=== PATIENT | female | born 1960 | race Caucasian/White ===

== ENCOUNTER 2020-03-09 12:11 | Inpatient (IN) | payer OTHER, MEDICAID, SELFPAY ==
--- NOTE | ~2020-03-09 | XR_ITS ---
EXAMINATION: XR chest 2V DATE: 03/09/2020 13:00 INDICATION: Weakness. TECHNIQUE: Frontal and lateral views of the chest were obtained. COMPARISON: Chest single view 05/07/2019, CT abdomen and pelvis 04/06/2019 FINDINGS: The chest demonstrates clear lungs without pneumonia, pleural effusion, or pneumothorax. Th e heart size is normal. IMPRESSION: 1. No acute cardiopulmonary disease. Reviewed, dictated and finalized at location A.
--- NOTE | ~2020-03-09 | US_ITS ---
EXAMINATION: US venous doppler [facility] DATE: 03/12/2020 09:39 INDICATION: Left lower limb pain. TECHNIQUE: Grayscale ultrasound images without and with compression and Doppler ultrasound images of the left lower extremity veins were obtained. COMPARISON: Ultrasound 04/22/2019 FINDINGS: Sensitivity is decreased by obesity. The visualized portions of left common femoral vein, profunda (d eep) femoral vein, femoral vein, popliteal vein, peroneal veins, posterior tibial veins, and greater saphenous vein outflow are patent. IMPRESSION: 1. No deep venous thrombosis. Reviewed, dictated and finalized at location A.
--- NOTE | ~2020-03-09 | CT_ITS ---
EXAMINATION: CT abdomen pelvis wo con DATE: 03/09/2020 15:27 INDICATION: Abdomen pain, vomiting and fever TECHNIQUE: Computed tomography (CT) of the abdomen and pelvis was performed without intravenous contr ast. The dose-length product was 1449.64 mGy-cm. Automated exposure control and iterative reconstruct ion technique were employed. COMPARISON: CT dated 04/06/2019 FINDINGS: There are groundglass opacities in the lingula and left lower lobe. No significant pleural or pericardial effusion. No significant vascular abnormality. No lymphadenopathy. There is extensive atherosclerosis in the abdomen and pelvis. There are gallstones. There are calcified granulomas in the spleen. There is pancreatic atrophy. The adrenal glands and kidneys are unremarkable. There is a Salgado catheter in the bladder. Nonobstructive bowel gas pattern. Colonic diverticulosis without evidence for diverticulitis. No free air or free f luid. There are are hemangiomas in L1 and L4. No acute osseous abnormality. IMPRESSION: 1. Groundglass opacities in the lingula and left lower lobe, suspicious for pneumonia. 2: Cholelithiasis. Reviewed, dictated and finalized at location A. IMPRESSION: 1. Groundglass opacities in the lingula and left lower lobe, suspicious for pne umonia. 2: Cholelithiasis.
[2020-03-09 12:32] VITALS: BP 125/65; PULSE 115; RESP 18; TEMP 38.3; O2SAT 97
--- NOTE | 2020-03-09 12:42 | ECG_ITS ---
Measurements Intervals [place] Rate: 120 P: 81 PA: 180 QRS: -11 QRSD: 69 T: 10 QT: 294 QTc: 416 Interpretive Statements SINUS TACHYCARDIA LOW QRS VOLTAGE IN PRECORDIAL LEADS DELAYED PRECORDIAL R/S TRANSITION BORDERLINE T WAVE ABNORMALITY- INFERIOR LEADS BASELINE ARTIFACT- I, II, AVR, AVL, V5-V6 ABNORMAL ECG Electronically Signed On 03-09-2020 15:11:35 CDT by Emmanuel Logan D.O.
[2020-03-09] MEDS: SODIUM CHLORIDE 0.9% IV 1,000 ML 999 ML IV CONT (14:22)
[2020-03-09 14:36] LABS: Basophils Percent Auto 0.1 % (0.2-1.2); Hematocrit 31.7 % (37.0-47.0); Hemoglobin 10.2 g/dL (12.0-15.0); Immature Granulocyte Absolute 0.12 K/mm3 (0.00-0.031); Immature Granulocyte Percent A 0.8 % (0-0.5); Lymphocytes Absolute Auto 0.88 K/mm3 (0.9-3.2); Lymphocytes Percent Auto 5.5 % (18.3-44.2); Mean Corpuscular HGB Conc 32.2 g/dl (32-36); Mean Corpuscular Hemoglobin 28.1 pg (26-34); Mean Corpuscular Volume 87.3 fl (80-100); Mean Platelet Volume 9.4 fl (7.4-10.4); Monocytes Absolute Auto 0.5 K/mm3 (0.1-0.6); Neutrophils Absolute Auto 14.5 K/mm3 (1.3-6.7); Neutrophils Percent Auto 90.6 % (45.5-73.1); Platelet Count Result 221 k/mm3 (150-375); Red Blood Count 3.63 M/mm3 (4.2-5.4); Red Cell Distribution Width 14.3 % (11.5-14.5)
--- NOTE | 2020-03-09 14:43 | ED.WEAKNESS ---
HPI - Weakness General Chief complaint: Weakness Stated complaint: weakness Time Seen by Provider: 03/09/20 13:28 Source: patient Mode of arrival: ambulatory Limitations: no limitations History of Present Illness HPI Narrative: This is a 59 year old female that presents to the ER for weakness x 2 days. Reports fever/chills. Also reports some mid abdominal discomfort, nausea and vomiting. Reports history of chronic indwelling Salgado. Reports shortness of breath that is worse with exertion. This is been ongoing for some time. Reports she had recently been in a rehab facility after a surgery. Reports she has not been getting around much since her discharge. Denies chest pain, or hematuria. Related Data Home Medications Medication Instructions Recorded Confirmed atorvastatin 80 mg tablet 80 mg PO DAILY 08/11/19 12/27/19 cholecalciferol (vitamin D3) 125 5,000 unit PO DAILY 08/11/19 12/27/19 mcg (5,000 unit) capsule gabapentin 300 mg capsule 300 mg PO TID cap 08/11/19 12/27/19 insulin glargine 100 unit/mL 26 unit SUB-Q DAILY ml 08/13/19 12/27/19 subcutaneous solution amlodipine 2.5 mg tablet 2.5 mg PO DAILY 01/17/20 cephalexin 500 mg capsule 500 mg PO Q8H 01/17/20 cyanocobalamin (vitamin B-12) 1,000 mcg PO DAILY 01/17/20 1,000 mcg tablet hydrochlorothiazide 12.5 mg capsule 12.5 mg PO DAILY 01/17/20 polyethylene glycol 3350 17 17 gm PO DAILY 01/17/20 gram/dose oral powder Allergies Allergy/AdvReac Type Severity Reaction Status Date / Time vancomycin Allergy Unknown Unknown Verified 12/27/19 11:40 doxycycline Allergy Weakness Verified 03/09/20 12:35 Review of Systems Review of Systems: Narrative: CONSTITUTIONAL: Reports fever, chills ENT: Denies rhinorrhea, congestion CARDIOVASCULAR: Reports edema. Denies chest pain RESPIRATORY: Reports dyspnea. Denies cough GASTROINTESTINAL: Reports abdominal pain, nausea, vomiting GENITOURINARY: Denies hematuria. NEUROLOGIC: Reports weakness. All systems reviewed & are unremarkable except as noted in HPI and below PMFSH Past Medical History Medical History (Updated 03/09/20 @ 17:40 by Noy Galindo PA-C) Depressed Diabetes mellitus with stage 3 chronic kidney disease Edema Essential (primary) hypertension Hyperlipidemia associated with type 2 diabetes mellitus Hypertension Toe amputee Social History Social History Smoking status: Never smoker Second hand tobacco smoke exposure: No Alcohol intake: current Gender identity (if verbalized by the patient): Female Exam Narrative: Exam Narrative: GENERAL: Well-appearing, obese, and in no acute distress. HEAD: Normocephalic, atraumatic. EYES: EOMI. ENT: Nares clear, no rhinorrhea or epistaxis. Mucous membranes moist. Oropharynx without tonsillar hypertrophy exudate or other lesions. Bilateral TMs pearly garcia non-bulging NECK: Supple. No adenopathy or masses. CHEST: Clear to auscultation. No respiratory distress. No wheezes rales or rhonchi HEART: Regular rate and rhythm. No murmur heard. Normal peripheral pulses. ABDOMEN: Soft, nondistended, normal active bowel sounds. Mild mid abdominal tenderness, without guarding EXTREMITIES: Normal range of motion. No edema. SKIN: Warm, dry, no rash. NEURO: No focal deficits. Alert and oriented x3. PSYCH: Normal mood and affect Course Consultations Consultation #1: Spoke with hospitalist about patient and work-up who accepts admission Date: 03/09/20 Time: 17:42 Vital Signs Vital signs: Vital Signs Temperature 100.9 F H 03/09/20 12:32 Pulse Rate 115 H 03/09/20 12:32 Respiratory Rate 18 03/09/20 12:32 Blood Pressure 125/65 03/09/20 12:32 Pulse Oximetry 97 03/09/20 12:32 Temperature 101.3 F H 03/09/20 16:05 Pulse Rate 101 H 03/09/20 16:05 Respiratory Rate 20 03/09/20 16:05 Blood Pressure 113/52 L 03/09/20 16:05 Pulse Oximetry 96 03/09/20 16:05 MDM - Weakness MDM Na
[2020-03-09 14:47] LABS: INR 1.3; Partial Thromboplastin Time 36.8 SECONDS (22.3-36.8)
[2020-03-09 14:49] LABS: Alanine Aminotransferase 24 U/L (4-35); Alkaline Phosphatase 172 U/L (38-126); Aspartate Amino Transferase 37 U/L (14-36); Bilirubin,Total 1.3 mg/dL (0.2-1.3); Blood Urea Nitrogen 39 mg/dL (7-17); Calcium 8.9 mg/dL (8.4-10.2); Carbon Dioxide 26 mmol/L (22-30); Chloride 93 mmol/L (98-107); Estimated CRCL calculation 32 ml/min; Estimated Glomerular Filt Rate 20; Glucose 304 mg/dL (65-105); Potassium 4.2 mmol/L (3.4-5.0); Sodium 130 mmol/L (137-145)
[2020-03-09 15:03] LABS: NT Pro B Type Natriuretic Pept 2040 PG/ML (5-100)
[2020-03-09 15:15] LABS: Add Urine Microscopic? YES; Appearance Urine Cloudy (Clear); Bacteria Urine 4+ /hpf; Bilirubin Urine Negative (Negative); Blood Urine 2+ (Negative); Color Urine Yellow (Yellow); Glucose Urine UA Negative (Negative); Ketones Urine Negative (Negative); Leukocyte Esterase Ur 3+ LEU/UL (Negative); Mucus Urine Heavy /lpf; Nitrate Urine Negative (Negative); Protein Urine 3+ mg/dL (Negative); Specific Grav Ur 1.015 (1.001-1.035); Squamous Epithelial Cell Urine Few /hpf (Few); Urobilinogen Urine Negative mg/dL (<2.0); WBC Urine 51-75 /hpf
[2020-03-09 15:37] LABS: CRP 31.7 mg/dL (<1.0)
[2020-03-09 16:04] LABS: Lactic Acid Reflex 1.2 mmol/L (0.7-2.1)
[2020-03-09 16:05] VITALS: BP 113/52; PULSE 101; RESP 20; TEMP 38.5; O2SAT 96
[2020-03-09] MEDS: KETOROLAC 15 MG/ML VIAL (*BKC) IV PUSH (17:10)
[2020-03-09 18:14] VITALS: BP 107/49; PULSE 90; RESP 26; TEMP 38.3; O2SAT 94
[2020-03-09 18:28] LABS: Glucose Point of Care 302 (65-105)
--- NOTE | 2020-03-09 18:30 | PM.IMHP ---
H&P: HPI History of Present Illness Chief complaint: Fever, weakness. 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 She has not felt well for the past 2 to 3 days with multiple symptoms including subjective fever, chills, decreased appetite, nausea, and vomiting. Today she has also had sinus congestion and mild shortness of breath with exertion. Earlier this year she was hospitalized in [place] due to a left heel infection in which it sounds like she underwent several debridements. She was discharged to rehab facility thereafter but is now back at home. She really does not leave the house, but does have a friend over most days to help. To her knowledge, her visitor has not had any recent illness, but she does not always wear a mask when in the patient's home. At the time my evaluation, her nausea has improved and she is requesting water and perhaps even to try some food. She denies headache, neck ache, otalgia, and odynophagia. She has not had a cough. She denies exposure to those who of tested positive for COVID. No diarrhea. She notes an indwelling Salgado catheter for over a year, which was changed within the last couple of days. No wounds to her knowledge. Review of Systems Review of Systems: Narrative: Twelve systems were reviewed with pertinent positives and negatives as per HPI. No chest pain or palpitations. She denies orthopnea and PND. No abdominal pain at this time but she did have some mild diffuse abdominal discomfort with her nausea earlier. She denies hematemesis, melena, and hematochezia. No lower abdominal pain or lower back pain. She believes her diabetes is fairly well controlled however her sugars have been high over the past couple of days. No blurry vision, polydipsia, or polyuria. Occasional mild dysphagia with liquids. She denies concerns for aspiration. Previous swallow studies have been unremarkable according to the patient. Except as documented, all other systems were reviewed and are negative. [facility] Past Medical History Medical History (Updated 03/09/20 @ 22:24 by Riddhi Funk PA-C) Chronic anemia Chronic kidney disease, stage [address] Benson. Colon polyps (~05/2016) Depression Diabetic peripheral neuropathy Essential hypertension Hyperlipidemia Insulin dependent type 2 diabetes mellitus Hemoglobin A1c was 7.0% in August 2019. Mixed stress and urge urinary incontinence Morbid obesity Surgical History Surgical History (Updated 03/09/20 @ 22:18 by Riddhi Funk PA-C) History of amputation of toe 4th toes amputated bilaterally. History of fusion of cervical spine (~10/2001) History of local excision of skin lesion Exophytic lesion removed from the right eyelid, benign. Status post debridement (~2019) Left diabetic heel wound. Family History Family History Mother Cerebrovascular accident Family history of diabetes mellitus in first degree relative Father Family history of diabetes mellitus in first degree relative Grandparent Diabetes mellitus Other Family history of anemia Family history of obesity Social History Social History (Updated 03/09/20 @ 22:19 by Riddhi Funk PA-C) Social History: The patient lives in [place] with her dogs. She has been on disability for several years. She is a former smoker and quit approximately 17 years ago. No alcohol or illicit substance use. Her brother Domingo is her emergency contact. She wishes to be a full code. Gender identity (if verbalized by the patient): Female Spiritual care concerns: No Meds Home Medications and Allergies Home Medications Medication Instructions Recorde
--- NOTE | 2020-03-09 18:44 | ADMGEN ---
This patient, Theodora Kelly, was admitted to [facility] Room 330-01. Patient/family oriented to hospital policies and general routines including ID bracelet, bed and alarms, visiting hours, pain management, procedures, bathroom and other care routines, personal items, smoking policy, room service/diet, and visiting hours. Valuables list has been completed. Information on how to activate the Rapid Response Team has been discussed. Patient/Family are encouraged to report perceived risks to care and to ask questions if they do not understand what they are told or what they should do.
[2020-03-09 18:45] VITALS: BMI 44.6
[2020-03-09 20:00] VITALS: PULSE 91; O2SAT 94
[2020-03-09 22:00] VITALS: BP 108/68; PULSE 110; RESP 24; TEMP 37; O2SAT 90
[2020-03-09 22:00] LABS: Glucose Point of Care 237 (65-105)
[2020-03-09 23:02] LABS: Hemoglobin A1C 8.8 % (<5.7)
[2020-03-09] MEDS: SODIUM CHLORIDE 0.9% IV 1,000 ML 100 ML IV CONT (23:10)
[2020-03-09] MEDS: GABAPENTIN 300 MG CAPSULE PO (23:33)
[2020-03-10] VITALS (14 sets, daily range): BP systolic 93–116; BP diastolic 41–51; PULSE 79–106; RESP 16–24; TEMP 36.6–39.2; O2SAT 92–97
[2020-03-10 06:29] LABS: Glucose Point of Care 172 (65-105)
[2020-03-10 06:33] LABS: Basophils Absolute Auto 0.1 K/mm3 (0.0-0.1); Basophils Percent Auto 0.3 % (0.2-1.2); Hematocrit 25.9 % (37.0-47.0); Hemoglobin 8.2 g/dL (12.0-15.0); Immature Granulocyte Absolute 0.13 K/mm3 (0.00-0.031); Immature Granulocyte Percent A 0.8 % (0-0.5); Lymphocytes Absolute Auto 0.57 K/mm3 (0.9-3.2); Lymphocytes Percent Auto 3.7 % (18.3-44.2); Mean Corpuscular HGB Conc 31.7 g/dl (32-36); Mean Corpuscular Volume 88.4 fl (80-100); Mean Platelet Volume 9.7 fl (7.4-10.4); Monocytes Absolute Auto 0.4 K/mm3 (0.1-0.6); Monocytes Percent Auto 2.4 % (2.6-8.5); Neutrophils Absolute Auto 14.3 K/mm3 (1.3-6.7); Neutrophils Percent Auto 92.8 % (45.5-73.1); Platelet Count Result 168 k/mm3 (150-375); Red Blood Count 2.93 M/mm3 (4.2-5.4); Red Cell Distribution Width 14.3 % (11.5-14.5); White Blood Count 15.4 K/mm3 (4.5-10.0)
[2020-03-10 06:44] LABS: Alanine Aminotransferase 15 U/L (4-35); Albumin Level 2.9 g/dL (3.5-5.1); Alkaline Phosphatase 109 U/L (38-126); Aspartate Amino Transferase 23 U/L (14-36); Bilirubin,Total 0.6 mg/dL (0.2-1.3); Blood Urea Nitrogen 44 mg/dL (7-17); Calcium 7.7 mg/dL (8.4-10.2); Carbon Dioxide 27 mmol/L (22-30); Chloride 100 mmol/L (98-107); Estimated CRCL calculation 29 ml/min; Estimated Glomerular Filt Rate 17; Glucose 176 mg/dL (65-105); Magnesium 1.5 mg/dL (1.6-2.3); Potassium 3.7 mmol/L (3.4-5.0); Sodium 133 mmol/L (137-145)
[2020-03-10] MEDS: ACIDOPHILUS/BULGARICUS CHEWABLE TABLET 1 TABLET PO ×3 (09:20→17:48)
[2020-03-10] MEDS: GABAPENTIN 300 MG CAPSULE PO ×3 (09:20→17:49)
[2020-03-10] MEDS: HEPARIN SODIUM 5,000 UNITS/ML VIAL 5000 UNITS SUB-Q ×2 (09:20→21:07)
[2020-03-10] MEDS: CYANOCOBALAMIN 1,000 MCG TABLET 1000 MCG PO (09:20)
[2020-03-10] MEDS: ATORVASTATIN 40 MG TABLET 80 MG PO (09:20)
[2020-03-10] MEDS: amLODIPine BESYLATE 2.5 MG TABLET PO (09:21)
[2020-03-10] MEDS: CHOLECALCIFEROL 1,000 UNIT TABLET 5000 UNITS PO (09:21)
[2020-03-10] MEDS: SODIUM CHLORIDE 0.9% IV 1,000 ML 100 ML IV CONT ×2 (09:33→21:10)
--- NOTE | 2020-03-10 11:51 | PM.IMPN ---
Progress Note: A&P Assessment and Plan (1) Sepsis: Code(s): A41.9 - Sepsis, unspecified organism Status: Acute Assessment and Plan: Present on admission and supported by fever, tachycardia, tachypnea, and leukocytosis. Lactic acid level is within normal limits. Preliminary blood cultures revealed no growth to date. Await final cultures. Continue IV antibiotics Continue to monitor vitals closely (2) Bacteriuria with pyuria: Code(s): R82.71 - Bacteriuria; R82.81 - Pyuria Status: Acute Assessment and Plan: She has had indwelling Salgado catheter for about a year and a half due to urinary retention. She has established with urology has not been able to follow-up in some time. She denies urinary symptoms or discomfort associated with her catheter. Continue ceftriaxone with urine culture pending (3) Pneumonia involving left lung: Qualifiers: Pneumonia type: due to unspecified organism Lung location: lower lobe of lung Qualified Code(s): J18.9 - Pneumonia, unspecified organism Code(s): J18.9 - Pneumonia, unspecified organism Status: Acute Assessment and Plan: Did not demonstrate acute lung disease, however is noted on CT a/p that there is ground-glass opacities in the lingula and left lower lobe. Patient complains of intermittent cough. She has fever and leukocytosis. She was found to be COVID negative on 03/09/2020. She is maintaining adequate oxygenation on room air Continue azithromycin and ceftriaxone Sputum to be attempted for culture. Final blood cultures are pending. Legionella and pneumococcal urinary antigens are pending Discontinue isolation precautions given negative COVID test. Continue supportive care with bronchodilators, Mucinex, Tylenol for fever, and supplemental oxygen as needed (4) CKD (chronic kidney disease) stage 4, GFR 15-29 ml/min: Code(s): N18.4 - Chronic kidney disease, stage 4 (severe) Status: Acute Assessment and Plan: She is established with Dr. Benson. Per review of previous labs, it appears that her creatinine is fluctuant. It seems that her baseline is somewhere around 2.5. Today creatinine is 2.8 and BUN is 44. Continue to monitor renal function, avoid nephrotoxic agents, and renally dose medications. (5) Insulin dependent type 2 diabetes mellitus: Code(s): E11.9 - Type 2 diabetes mellitus without complications; Z79.4 - watermaster (current) use of insulin Status: Acute Assessment and Plan: Current A1c is 8.8. Her blood sugars have been evaluated and elevated at presentation, however have improved. Continue Lantus Continue sliding scale insulin, Accu-Cheks, and hypoglycemic protocol. Continue to monitor blood sugars (6) Chronic anemia: Code(s): D64.9 - Anemia, unspecified Status: Acute Assessment and Plan: This is likely secondary to her chronic kidney disease. Hemoglobin and hematocrit are stable on review of previous labs. She did have a 2 point drop in hemoglobin from yesterday to today Continue to monitor H&H closely and transfuse as needed with hemoglobin threshold <7.0. (7) Generalized weakness: Code(s): R53.1 - Weakness Status: Acute Assessment and Plan: Patient complains of generalized weakness. She has difficulty sitting up for my exam. I suspect this is secondary to deconditioning as she reports that she has been far less active lately. She rarely gets out of bed. PT and OT have been ordered and their recommendations are appreciated. Continue to monitor closely. Subjective Date/time seen: 03/10/20 11:51 Interval history: Date of service: 03/10/2020 She is feeling somewhat better today. She continues to endorse fever and chills. She has occasional nonproductive cough. She denies SOB, BARBOSA, orthopnea, chest pain, palpitations, dizziness, or lightheadedness. She previously had N/V yesterday but
[2020-03-10 13:36] LABS: Glucose Point of Care 133 (65-105)
[2020-03-10 13:49] LABS: SARS-CoV-2 RNA PCR Negative
--- NOTE | 2020-03-10 14:01 | PC.NURSE ---
Notified Dr. Brooke that patients COVID test was negative.
[2020-03-10 19:54] LABS: Glucose Point of Care 111 (65-105)
[2020-03-10 21:31] LABS: Glucose Point of Care 80 (65-105)
[2020-03-11] VITALS (9 sets, daily range): BP systolic 105–144; BP diastolic 44–60; PULSE 88–96; RESP 18–20; TEMP 36.6–36.9; O2SAT 97–99
[2020-03-11] MEDS: GLUCOSE ORAL GEL 15 GM OF GLUCSE IN 37.5 GM TUBE PO ×2 (01:10→12:45)
[2020-03-11] MEDS: DEXTROSE 50% 25 GM/50 ML SYRINGE IV PUSH (01:30)
[2020-03-11 01:53] LABS: Glucose Point of Care 90 (65-105)
[2020-03-11 01:53] LABS: Glucose Point of Care 49 (65-105)
[2020-03-11 01:53] LABS: Glucose Point of Care 45 (65-105)
[2020-03-11 03:00] LABS: Glucose Point of Care 120 (65-105)
[2020-03-11 06:45] LABS: Hematocrit 23.2 % (37.0-47.0); Hemoglobin 7.3 g/dL (12.0-15.0); Mean Corpuscular HGB Conc 31.5 g/dl (32-36); Mean Corpuscular Volume 88.9 fl (80-100); Mean Platelet Volume 10.2 fl (7.4-10.4); Platelet Count Result 163 k/mm3 (150-375); Red Blood Count 2.61 M/mm3 (4.2-5.4); Red Cell Distribution Width 14.6 % (11.5-14.5); White Blood Count 11.4 K/mm3 (4.5-10.0)
[2020-03-11 06:53] LABS: Blood Urea Nitrogen 50 mg/dL (7-17); Calcium 7.7 mg/dL (8.4-10.2); Carbon Dioxide 23 mmol/L (22-30); Chloride 103 mmol/L (98-107); Estimated CRCL calculation 29 ml/min; Estimated Glomerular Filt Rate 17; Glucose 96 mg/dL (65-105); Potassium 3.5 mmol/L (3.4-5.0); Sodium 133 mmol/L (137-145)
[2020-03-11 07:54] LABS: Glucose Point of Care 93 (65-105)
[2020-03-11 08:32] LABS: Glucose Point of Care 78 (65-105)
[2020-03-11] MEDS: SODIUM CHLORIDE 0.9% IV 1,000 ML 100 ML IV CONT ×2 (10:03→20:52)
[2020-03-11] MEDS: CHOLECALCIFEROL 1,000 UNIT TABLET 5000 UNITS PO (10:05)
[2020-03-11] MEDS: ATORVASTATIN 40 MG TABLET 80 MG PO (10:05)
[2020-03-11] MEDS: ACIDOPHILUS/BULGARICUS CHEWABLE TABLET 1 TABLET PO ×3 (10:05→18:00)
[2020-03-11] MEDS: CYANOCOBALAMIN 1,000 MCG TABLET 1000 MCG PO (10:06)
[2020-03-11] MEDS: GABAPENTIN 300 MG CAPSULE PO ×3 (10:06→18:00)
[2020-03-11] MEDS: HEPARIN SODIUM 5,000 UNITS/ML VIAL 5000 UNITS SUB-Q ×2 (10:06→20:53)
[2020-03-11 12:12] LABS: Hematocrit 24.1 % (37.0-47.0); Hemoglobin 7.7 g/dL (12.0-15.0)
[2020-03-11 12:43] LABS: Glucose Point of Care 64 (65-105)
[2020-03-11 12:51] LABS: Glucose Point of Care 68 (65-105)
[2020-03-11 12:55] LABS: Iron 20 ug/dL (37-170)
[2020-03-11 13:04] LABS: Percent Iron Saturation 13 % (20-50)
[2020-03-11 13:30] LABS: Glucose Point of Care 73 (65-105)
--- NOTE | 2020-03-11 15:21 | PM.IMPN ---
Progress Note: A&P Assessment and Plan (1) Sepsis: Code(s): A41.9 - Sepsis, unspecified organism Status: Acute Assessment and Plan: Present on admission and supported by fever, tachycardia, tachypnea, and leukocytosis. Lactic acid level is within normal limits. Improving. Source of infection is likely pneumonia. Preliminary blood cultures revealed no growth to date. Await final cultures. Continue IV antibiotics Continue to monitor vitals closely (2) Bacteriuria with pyuria: Code(s): R82.71 - Bacteriuria; R82.81 - Pyuria Status: Acute Assessment and Plan: She has had indwelling Salgado catheter for about a year and a half due to urinary retention. She has established with urology has not been able to follow-up in some time. She denies urinary symptoms or discomfort associated with her catheter. Urine culture reveals >3 organisms which appear to be consistent with normal tu contamination. I do not feel that further treatment is warranted at this time. She will need to follow-up with urology regarding Salgado catheter. (3) Pneumonia involving left lung: Qualifiers: Pneumonia type: due to unspecified organism Lung location: lower lobe of lung Qualified Code(s): J18.9 - Pneumonia, unspecified organism Code(s): J18.9 - Pneumonia, unspecified organism Status: Acute Assessment and Plan: CXR did not demonstrate acute lung disease, however it is noted on CT a/p that there is ground-glass opacities in the lingula and left lower lobe. Patient complains of intermittent cough. She has fever and leukocytosis, which have both improved . She is maintaining adequate oxygenation on room air Continue azithromycin and ceftriaxone Sputum to be attempted for culture. Final blood cultures are pending. Legionella and pneumococcal urinary antigens are pending Tested negative for COVID on 03/09/2020. Isolation precautions discontinued. Continue supportive care with bronchodilators, Mucinex, Tylenol for fever, and supplemental oxygen as needed (4) CKD (chronic kidney disease) stage 4, GFR 15-29 ml/min: Code(s): N18.4 - Chronic kidney disease, stage 4 (severe) Status: Acute Assessment and Plan: She is established with Dr. Benson. Per review of previous labs, it appears that her creatinine is fluctuant. It seems that her baseline is somewhere around 2.5. Today creatinine is 2.9 and BUN is 50. Continue to monitor renal function, avoid nephrotoxic agents, and renally dose medications. (5) Hypoglycemia: Code(s): E16.2 - Hypoglycemia, unspecified Status: Acute Assessment and Plan: She had an episode of hypoglycemia last night with lowest blood sugar 45. Sugars were elevated at presentation in continue to slowly decline throughout the day. She is eating well and is not having nausea or vomiting. Given that episode occurred overnight, I wonder if her Lantus dose is too high. Decrease Lantus to 15 units. Transition to low-dose sliding scale. Continue diabetic diet. However I do believe that lows may be somewhat related to strict diabetic diet which she is on the hospital but does not follow at home. Continue to monitor blood sugars closely. Follow hypoglycemia protocol. (6) Insulin dependent type 2 diabetes mellitus: Code(s): E11.9 - Type 2 diabetes mellitus without complications; Z79.4 - long term care administrator (current) use of insulin Status: Acute Assessment and Plan: Current A1c is 8.8. Her blood sugars have been evaluated and elevated at presentation, however have improved. She has had episodes of hypoglycemia as noted above. Continue Lantus at reduced dose Continue sliding scale insulin, Accu-Cheks, and hypoglycemic protocol. Continue to monitor blood sugars closely (7) Chronic anemia: Code(s): D64.9 - Anemia, unspecified Status: Acute Assessment and Plan: This is likely
[2020-03-11 16:05] LABS: Glucose Point of Care 109 (65-105)
[2020-03-11 18:35] LABS: Glucose Point of Care 118 (65-105)
[2020-03-11] MEDS: TOLNAFTATE 1% POWDER 45 GM BTL 1 APPLIC TOPICAL (20:51)
[2020-03-11] MEDS: INSULIN GLARGINE (*BKC) 100 UNITS/ML 15 UNITS SUB-Q (20:52)
[2020-03-11 22:47] LABS: Glucose Point of Care 127 (65-105)
[2020-03-12] VITALS: PULSE 87
[2020-03-12 00:28] LABS: Glucose Point of Care 123 (65-105)
[2020-03-12 04:07] VITALS: PULSE 82
[2020-03-12 06:00] VITALS: BP 127/55; PULSE 76; RESP 18; TEMP 36.6; O2SAT 97
[2020-03-12 06:35] LABS: Hematocrit 23.6 % (37.0-47.0); Hemoglobin 7.4 g/dL (12.0-15.0); Mean Corpuscular HGB Conc 31.4 g/dl (32-36); Mean Corpuscular Hemoglobin 27.5 pg (26-34); Mean Corpuscular Volume 87.7 fl (80-100); Platelet Count Result 172 k/mm3 (150-375); Red Blood Count 2.69 M/mm3 (4.2-5.4); Red Cell Distribution Width 14.4 % (11.5-14.5); White Blood Count 8.2 K/mm3 (4.5-10.0)
[2020-03-12 06:51] LABS: Blood Urea Nitrogen 47 mg/dL (7-17); Calcium 7.9 mg/dL (8.4-10.2); Carbon Dioxide 24 mmol/L (22-30); Chloride 105 mmol/L (98-107); Estimated CRCL calculation 34 ml/min; Estimated Glomerular Filt Rate 20; Glucose 143 mg/dL (65-105); Sodium 136 mmol/L (137-145)
[2020-03-12 07:38] LABS: Glucose Point of Care 127 (65-105)
[2020-03-12 08:00] VITALS: PULSE 83
[2020-03-12 08:26] LABS: Glucose Point of Care 140 (65-105)
[2020-03-12] MEDS: SODIUM CHLORIDE 0.9% IV 1,000 ML 100 ML IV CONT (09:03)
[2020-03-12] MEDS: amLODIPine BESYLATE 2.5 MG TABLET PO (09:04)
[2020-03-12] MEDS: ACIDOPHILUS/BULGARICUS CHEWABLE TABLET 1 TABLET PO ×2 (09:04→12:58)
[2020-03-12] MEDS: ATORVASTATIN 40 MG TABLET 80 MG PO (09:04)
[2020-03-12] MEDS: TOLNAFTATE 1% POWDER 45 GM BTL 1 APPLIC TOPICAL (09:05)
[2020-03-12] MEDS: CHOLECALCIFEROL 1,000 UNIT TABLET 5000 UNITS PO (09:05)
[2020-03-12] MEDS: GABAPENTIN 300 MG CAPSULE PO ×2 (09:05→12:58)
[2020-03-12] MEDS: CYANOCOBALAMIN 1,000 MCG TABLET 1000 MCG PO (09:05)
[2020-03-12] MEDS: HEPARIN SODIUM 5,000 UNITS/ML VIAL 5000 UNITS SUB-Q (10:40)
[2020-03-12 11:55] LABS: Glucose Point of Care 202 (65-105)
[2020-03-12 12:00] VITALS: PULSE 88
[2020-03-12] MEDS: INSULIN ASPART (*BKC) 100 UNITS/ML SUB-Q (12:57)
[2020-03-12 14:00] VITALS: BP 135/57; PULSE 86; RESP 18; TEMP 36.9; O2SAT 99
--- NOTE | 2020-03-12 14:35 | PM.DS ---
DS: Admitting Diagnosis Admitting Diagnosis Admitting Diagnosis: Sepsis, unspecified organism DS: Discharge Diagnosis Discharge Diagnosis (1) Sepsis: Qualifiers: Sepsis type: sepsis due to unspecified organism Sepsis acute organ dysfunction status: without acute organ dysfunction Qualified Code(s): A41.9 - Sepsis, unspecified organism Code(s): A41.9 - Sepsis, unspecified organism Status: Acute Assessment and Plan: Present on admission supported by fever, tachycardia, tachypnea, and leukocytosis, which all resolved. Lactic acid level was within normal limits. Suspected source is pneumonia. Preliminary blood cultures revealed no growth to date and final cultures will be monitored. (2) Pneumonia involving left lung: Qualifiers: Pneumonia type: due to unspecified organism Lung location: lower lobe of lung Qualified Code(s): J18.9 - Pneumonia, unspecified organism Code(s): J18.9 - Pneumonia, unspecified organism Status: Acute Assessment and Plan: CXR did not demonstrate acute lung disease, however it is noted on CT a/p that there is ground-glass opacities in the lingula and left lower lobe. She complained of cough and had fever and leukocytosis. She was maintaining adequate oxygenation on room air. She tested negative for COVID-19 on 03/09/2020. Legionella and pneumococcal urinary antigens were collected and are still pending at time of discharge, and will be monitored. She was treated with IV ceftriaxone and azithromycin. (3) Cellulitis: Qualifiers: Site of cellulitis: extremity Site of cellulitis of extremity: lower extremity Laterality: left Qualified Code(s): L03.116 - Cellulitis of left lower limb Code(s): L03.90 - Cellulitis, unspecified Status: Acute Assessment and Plan: At presentation, patient had chronic appearing erythema and thickened skin on left calf. Her calf then became somewhat warm. A Doppler ultrasound was performed and showed no evidence of DVT. On 03/12/2020, she developed erythema and warmth of her left thigh which was more consistent with cellulitis than the chronic appearing skin changes of her left calf. She had no lymphangitic streaking. Leukocytosis had resolved. No additional fevers. I marked the borders of the cellulitis of her thigh and instructed her to monitor for progression beyond the borders. She has a home health nurse as well as another mailroom manager who can help her evaluate this area for progression. She will begin a 7 day course of p.o. Augmentin, given her noted allergies and renal function. She has been instructed to follow-up with the on-call PCP by the end of next week to monitor this. Final blood cultures will be monitored. (4) Bacteriuria with pyuria: Code(s): R82.71 - Bacteriuria; R82.81 - Pyuria Status: Acute Assessment and Plan: She has had indwelling Salgado catheter for about a year and a half due to urinary retention. She is established with urology has not been able to follow-up in some time. She denies urinary symptoms or discomfort associated with her catheter. Urine culture reveals >3 organisms which appear to be consistent with normal tu contamination, therefore did not feel that further treatment was warranted. She needs to follow-up with her urologist regarding her Salgado catheter. (5) CKD (chronic kidney disease) stage 4, GFR 15-29 ml/min: Code(s): N18.4 - Chronic kidney disease, stage 4 (severe) Status: Acute Assessment and Plan: She is established with Dr. Benson. Per review of previous labs, it appears that her creatinine is fluctuant. It seems that her baseline is somewhere around 2.5. She had a slight bump, but was back to baseline at time of discharge. (6) Hypoglycemia: Code(s): E16.2 - Hypoglycemia, unspecified Status: Acute Assessment and Plan: She had an episode of hypoglycemia overnight on
[2020-03-14 23:12] LABS: Pneumococcal Antigen Urine Not Detected (Not Detected)
[2020-03-16 15:21] LABS: Legionella pneumophila Ag Ur Not Detected (Not Detected)
== END 2020-03-12 15:50 | disposition home health service (06) | DRG 871 ==
LOC: ANHED 17:41 → ANH3MEDSUR 18:23
PROVIDERS: Emergency Medicine; Physician Assistant; Admitting Provider Family Medicine; Emergency Provider Emergency Medicine; Visit Provider Internal Medicine
DX: A41.9 Sepsis, unspecified organism (principal); J18.9 Pneumonia, unspecified organism; L03.116 Cellulitis of left lower limb; N18.4 Chronic kidney disease, stage 4 (severe); Z20.828 Contact with and (suspected) exposure to other viral communicable diseases; R82.71 Bacteriuria; R82.81 Pyuria; I12.9 Hypertensive chronic kidney disease with stage 1 through stage 4 chronic kidney disease, or unspecified chronic kidney disease; E11.22 Type 2 diabetes mellitus with diabetic chronic kidney disease; E11.649 Type 2 diabetes mellitus with hypoglycemia without coma; D63.1 Anemia in chronic kidney disease; E78.5 Hyperlipidemia, unspecified; Z79.4 Long term (current) use of insulin
CPT/HCPCS: 36415; 71046; 74176; 80048; 80053; 81001; 82728; 82948; 83036; 83540; 83550; 83605; 83735; 83880; 85014; 85018; 85025; 85027; 85610; 85730; 86140; 87040; 87086; 87088; 87449; 87635; 87899; 93005; 93971; 96361; 96365; 96367; 96375; 97161; 97165; 99285; A9270; C9803; J0131; J0456; J0696; J1644; J1815; J1885; J7030; U0003

== ENCOUNTER 2020-04-02 17:47 | Emergency (ER) | payer OTHER, MEDICAID, SELFPAY ==
[2020-04-02 18:03] VITALS: BP 180/87; PULSE 107; RESP 18; TEMP 37; O2SAT 100
--- NOTE | 2020-04-02 18:33 | PC.NURSE ---
Pt indwelling catheter dislodged CHANGE MANAGEMENT SPECIALIST, Salgado Catheter placed in room.
--- NOTE | 2020-04-02 19:15 | PC.NURSE ---
assuming care of pt at this time. received report from anisha valera
--- NOTE | 2020-04-02 19:35 | ED.GENADULT ---
HPI - General Adult General Chief complaint: Unspecified Stated complaint: putting out woods Time Seen by Provider: 04/02/20 18:33 Source: patient and family Mode of arrival: wheelchair Limitations: no limitations History of Present Illness HPI narrative: Patient presents for replacement of Woods catheter after she accidentally tripped over her Woods catheter line and pulled it out prior to arrival. Patient reports discomfort at the time of the event but denies any significant discomfort at this time. Patient denies any other symptoms or concerns at this time. Patient reports that she has used to her vaginal area for which she uses nystatin powder and cream as prescribed by her primary care provider. Patient states that she also has home health care that comes in her house, but they could not come today and that is why she came to the emergency room. Related Data Home Medications Medication Instructions Recorded Confirmed atorvastatin 80 mg tablet 80 mg PO DAILY 08/11/19 03/16/20 cholecalciferol (vitamin D3) 125 5,000 unit PO DAILY 08/11/19 03/16/20 mcg (5,000 unit) capsule amlodipine 2.5 mg tablet 2.5 mg PO DAILY 01/17/20 03/16/20 cyanocobalamin (vitamin B-12) 1,000 mcg PO DAILY 01/17/20 03/16/20 1,000 mcg tablet hydrochlorothiazide 12.5 mg capsule 12.5 mg PO DAILY 01/17/20 03/16/20 nystatin 1 applic TOPICAL BID PRN 03/10/20 03/16/20 Allergies Allergy/AdvReac Type Severity Reaction Status Date / Time vancomycin Allergy Unknown Unknown Verified 12/27/19 11:40 doxycycline Allergy Weakness Verified 03/09/20 12:35 piperacillin [From Zosyn] Allergy Weakness Verified 03/09/20 18:53 tazobactam [From Zosyn] Allergy Weakness Verified 03/09/20 18:53 Review of Systems Review of Systems: Narrative: CONSTITUTIONAL: Denies fever, chills, or sweats. EYES: Denies visual changes, redness, or discharge. ENT: Denies rhinorrhea, congestion, sore throat, or otalgia. CARDIOVASCULAR: Denies chest pain, palpitations, or edema. RESPIRATORY: Denies cough or dyspnea. GASTROINTESTINAL: Denies abdominal pain, nausea, vomiting, or diarrhea. GENITOURINARY: Reports removed Woods catheter denies dysuria or hematuria. SKIN: Denies rash or itching. MUSCULOSKELETAL: Denies back pain, joint pain, or myalgia. NEUROLOGIC: Denies headache, numbness, dizziness, or weakness. PSYCHIATRIC: Denies anxiety or depression. [facility] Past Medical History Medical History (Updated 04/02/20 @ 19:46 by Weston Gambino PA-C) Chronic anemia Chronic kidney disease, stage [address] Benson. Colon polyps (~05/2016) Depression Diabetic peripheral neuropathy Essential hypertension Hyperlipidemia Insulin dependent type 2 diabetes mellitus Hemoglobin A1c was 7.0% in August 2019. Mixed stress and urge urinary incontinence Morbid obesity Surgical History Surgical History (Updated 03/09/20 @ 22:18 by Riddhi Funk PA-C) History of amputation of toe 4th toes amputated bilaterally. History of fusion of cervical spine (~10/2001) History of local excision of skin lesion Exophytic lesion removed from the right eyelid, benign. Status post debridement (~2019) Left diabetic heel wound. Social History Social History (Updated 03/09/20 @ 22:19 by Riddhi Funk PA-C) Social History: The patient lives in [place] with her dogs. She has been on disability for several years. She is a former smoker and quit approximately 17 years ago. No alcohol or illicit substance use. Her brother Domingo is her emergency contact. She wishes to be a full code. Gender identity (if verbalized by the patient): Female Spiritual care concerns: No Exam Narrative: Exam Narrative: GENERAL: Well-appearing, well-nourished, and in no acute distress. Morbidly obese. HEAD: Normocephalic, atraumatic. EYES: PERRLA and EOMI. ENT: Nares clear, no rhinorrhea or epistaxis. Mucous membranes moist. NECK: Supple. Range of motion intact. CHEST: Clear to auscultation.
[2020-04-02 19:57] VITALS: BP 168/79; PULSE 98; RESP 16; O2SAT 99
== END 2020-04-02 19:59 | disposition home or self-care (01) ==
PROVIDERS: Emergency Provider Family Medicine; PCP Family Medicine
DX: Z46.6 Encounter for fitting and adjustment of urinary device (principal); E11.22 Type 2 diabetes mellitus with diabetic chronic kidney disease; I12.9 Hypertensive chronic kidney disease with stage 1 through stage 4 chronic kidney disease, or unspecified chronic kidney disease; N18.3 Chronic kidney disease, stage 3 (moderate); Z87.891 Personal history of nicotine dependence; E11.42 Type 2 diabetes mellitus with diabetic polyneuropathy; N39.46 Mixed incontinence; E66.01 Morbid (severe) obesity due to excess calories; Z68.42 Body mass index [BMI] 45.0-49.9, adult; E78.5 Hyperlipidemia, unspecified; D63.1 Anemia in chronic kidney disease; Z86.010 Personal history of colon polyps; Z98.1 Arthrodesis status; Z89.422 Acquired absence of other left toe(s); Z89.421 Acquired absence of other right toe(s); Z79.4 Long term (current) use of insulin; Z79.84 Long term (current) use of oral hypoglycemic drugs
CPT/HCPCS: 51702; 99281; 99283

== ENCOUNTER 2020-05-29 17:27 | Inpatient (IN) | payer OTHER, MEDICAID, SELFPAY ==
--- NOTE | ~2020-05-29 | US_ITS ---
EXAMINATION: US venous doppler [facility] EXAM DATE: 05/31/2020 10:43 INDICATION: Left flank pain. Cellulitis. TECHNIQUE: Multiple grayscale, color flow and Doppler images of the left lower extremity deep venous system were obtained and reviewed. Comparison is made to prior examination from 03/12/2020. FINDINGS: The left common femoral, femoral and profunda veins demonstrate normal color flow, respirat ory variation, augmentation and compressibility. Compressibility, color flow confirmed within the le ft popliteal, posterior tibial, peroneal, and greater saphenous veins. IMPRESSION: 1. No left lower extremity deep venous thrombosis. Reviewed, dictated and finalized at location A.
--- NOTE | ~2020-05-29 | US_ITS ---
EXAMINATION: US renal BI EXAM DATE: 05/31/2020 10:44 INDICATION: Urinary tract infection. TECHNIQUE: Multiple grayscale and Doppler images of the kidneys were obtained (by a technologist who performed the scan) and subsequently reviewed. Comparison is made to prior examination from 04/06/2019. FINDINGS: Right kidney: There is normal contour and echogenicity. It measures 10.8 x 5.3 x 5.8 centimeters. T here are no focal renal lesions identified. There is no hydronephrosis. Left kidney: There is normal contour and echogenicity. It measures 10.4 x 6.2 x 5.0 centimeters. Th ere are no focal renal lesions identified. There is no hydronephrosis. Salgado catheter within collapsed bladder. IMPRESSION: Sonographically unremarkable kidneys. Reviewed, dictated and finalized at location A.
[2020-05-29 18:32] VITALS: BP 124/62; PULSE 99; RESP 20; TEMP 36.6; O2SAT 96
[2020-05-29 18:54] LABS: Basophils Percent Auto 0.3 % (0.2-1.2); Eosinophils Percent Auto 0.2 % (0-4.4); Hematocrit 27.5 % (37.0-47.0); Hemoglobin 9.1 g/dL (12.0-15.0); Immature Granulocyte Absolute 0.07 K/mm3 (0.00-0.031); Immature Granulocyte Percent A 0.5 % (0-0.5); Lymphocytes Absolute Auto 0.68 K/mm3 (0.9-3.2); Lymphocytes Percent Auto 4.8 % (18.3-44.2); Mean Corpuscular HGB Conc 33.1 g/dl (32-36); Mean Corpuscular Hemoglobin 28.6 pg (26-34); Mean Corpuscular Volume 86.5 fl (80-100); Monocytes Absolute Auto 0.6 K/mm3 (0.1-0.6); Monocytes Percent Auto 4.1 % (2.6-8.5); Neutrophils Absolute Auto 12.9 K/mm3 (1.3-6.7); Neutrophils Percent Auto 90.1 % (45.5-73.1); Platelet Count Result 175 k/mm3 (150-375); Red Blood Count 3.18 M/mm3 (4.2-5.4); Red Cell Distribution Width 14.3 % (11.5-14.5); White Blood Count 14.3 K/mm3 (4.5-10.0)
[2020-05-29 19:09] LABS: Alanine Aminotransferase 31 U/L (4-35); Albumin Level 3.2 g/dL (3.5-5.1); Alkaline Phosphatase 134 U/L (38-126); Aspartate Amino Transferase 37 U/L (14-36); Bilirubin,Total 1.1 mg/dL (0.2-1.3); Blood Urea Nitrogen 46 mg/dL (7-17); Calcium 8.6 mg/dL (8.4-10.2); Carbon Dioxide 20 mmol/L (22-30); Estimated CRCL calculation 33 ml/min; Estimated Glomerular Filt Rate 21; Glucose 431 mg/dL (65-105); Potassium 4.5 mmol/L (3.4-5.0); Sodium 127 mmol/L (137-145)
[2020-05-29 19:51] LABS: Anion Gap 11 mmol/L (8-16); Chloride 96 mmol/L (98-107)
[2020-05-29 22:16] VITALS: BP 120/49; PULSE 87; RESP 18; TEMP 36.8; O2SAT 100
[2020-05-29 22:46] VITALS: BP 129/70; PULSE 87; RESP 20; TEMP 36.7; O2SAT 100
--- NOTE | 2020-05-29 22:57 | ED.ABDPAIN ---
HPI - Abdominal Pain General Chief Complaint: Urogenital-Female Stated Complaint: ? uti Time Seen by Provider: 05/29/20 22:41 Source: patient and EMS Limitations: no limitations History of Present Illness HPI narrative: 59 years old white female, morbidly obese, disabled, presents with left lower extremity redness and pain, chills, not feeling well started few days ago. Patient denies any fever, nausea, vomiting, chest pain, shortness of breath, abdominal pain or back pain. Patient had history of recurrent cellulitis left lower extremity and recurrent urinary tract infections Related Data Home Medications Medication Instructions Recorded Confirmed atorvastatin 80 mg tablet 80 mg PO DAILY 08/11/19 03/16/20 cholecalciferol (vitamin D3) 125 5,000 unit PO DAILY 08/11/19 03/16/20 mcg (5,000 unit) capsule amlodipine 2.5 mg tablet 2.5 mg PO DAILY 01/17/20 03/16/20 cyanocobalamin (vitamin B-12) 1,000 mcg PO DAILY 01/17/20 03/16/20 1,000 mcg tablet hydrochlorothiazide 12.5 mg capsule 12.5 mg PO DAILY 01/17/20 03/16/20 Allergies Allergy/AdvReac Type Severity Reaction Status Date / Time vancomycin Allergy Unknown Unknown Verified 12/27/19 11:40 doxycycline Allergy Weakness Verified 03/09/20 12:35 piperacillin [From Zosyn] Allergy Weakness Verified 03/09/20 18:53 tazobactam [From Zosyn] Allergy Weakness Verified 03/09/20 18:53 Review of Systems Review of Systems: Narrative: CONSTITUTIONAL: Denies fever, chills, or sweats. EYES: Denies visual changes, redness, or discharge. ENT: Denies rhinorrhea, congestion, sore throat, or otalgia. CARDIOVASCULAR: Denies chest pain, palpitations, or edema. RESPIRATORY: Denies cough or dyspnea. GASTROINTESTINAL: Denies abdominal pain, nausea, vomiting, or diarrhea. GENITOURINARY: Denies dysuria or hematuria. SKIN: Denies rash or itching. MUSCULOSKELETAL: Denies back pain, joint pain, or myalgia. NEUROLOGIC: Denies headache, numbness, or weakness. PSYCHIATRIC: Denies anxiety or depression. [facility] Past Medical History Medical History Chronic anemia Chronic kidney disease, stage [address] Benson. Colon polyps (~05/2016) Depression Diabetic peripheral neuropathy Essential hypertension Hyperlipidemia Insulin dependent type 2 diabetes mellitus Hemoglobin A1c was 7.0% in August 2019. Mixed stress and urge urinary incontinence Morbid obesity Surgical History Surgical History History of amputation of toe 4th toes amputated bilaterally. History of fusion of cervical spine (~10/2001) History of local excision of skin lesion Exophytic lesion removed from the right eyelid, benign. Status post debridement (~2019) Left diabetic heel wound. Family History Family History Mother Cerebrovascular accident Family history of diabetes mellitus in first degree relative Father Family history of diabetes mellitus in first degree relative Grandparent Diabetes mellitus Other Family history of anemia Family history of obesity Social History Social History Social History: The patient lives in [place] with her dogs. She has been on disability for several years. She is a former smoker and quit approximately 17 years ago. No alcohol or illicit substance use. Her brother Domingo is her emergency contact. She wishes to be a full code. Gender identity (if verbalized by the patient): Female Spiritual care concerns: No Exam Narrative: Exam Narrative: General appearance: Well-developed, well-nourished Skin: Normal color, extensive erythema, warmth and tenderness medial side of left thigh, extensive skin candidiasis Head: Normocephalic, nontraumatic Eyes: Clear conjunctiva ENT: Oropharynx normal, ears normal, nose normal Neck: Supple, nontender Chest and respiratory:
--- NOTE | 2020-05-29 23:10 | ECG_ITS ---
Measurements Intervals [place] Rate: 84 P: 73 NH: 175 QRS: 0 QRSD: 94 T: 28 QT: 378 QTc: 448 Interpretive Statements SINUS RHYTHM LOW QRS VOLTAGE IN PRECORDIAL LEADS BASELINE ARTIFACT- I, III, AVR, AVL BORDERLINE ECG Electronically Signed On 05-30-2020 7:53:09 CDT by Emmanuel Logan D.O.
[2020-05-29 23:22] LABS: Add Urine Microscopic? YES; Amorphous Sediment Urine Few; Appearance Urine Cloudy (Clear); Bacteria Urine 4+ /hpf; Bilirubin Urine Negative (Negative); Blood Urine 1+ (Negative); Glucose Urine UA 1+ mg/dL (Negative); Ketones Urine Negative (Negative); Leukocyte Esterase Ur 3+ LEU/UL (Negative); Mucus Urine Rare /lpf; Nitrate Urine Negative (Negative); Protein Urine 3+ mg/dL (Negative); RBC Urine 21-50 /hpf (0-2); Specific Grav Ur 1.018 (1.001-1.035); Squamous Epithelial Cell Urine Occasional /hpf (Few); Urobilinogen Urine Negative mg/dL (<2.0); WBC Clumps Urine Present /HPF; WBC Urine >75 /hpf
[2020-05-29 23:23] LABS: Color Urine Yellow (Yellow)
[2020-05-29 23:48] LABS: Lactic Acid Reflex 2.3 mmol/L (0.7-2.1)
[2020-05-30 00:18] LABS: CRP 37.9 mg/dL (<1.0)
--- NOTE | 2020-05-30 00:23 | PC.NURSE ---
Unable to obtain IV access at this time. Will retry with ultrasound.
[2020-05-30] MEDS: SODIUM CHLORIDE 0.9% IV 1,000 ML 999 ML IV CONT (00:47)
[2020-05-30 00:58] VITALS: BP 110/99; PULSE 86; RESP 14; TEMP 36.8; O2SAT 100
[2020-05-30] MEDS: CLINDAMYCIN 900 MG/NS 50 ML 900 MG/50 ML PIGGYBACK 50 MG IVPB ×4 (01:04→21:13)
[2020-05-30] MEDS: INSULIN HUMAN REGULAR (*BKC) 100 UNITS/ML 14 UNITS IV PUSH (01:10)
--- NOTE | 2020-05-30 02:20 | ADMGEN ---
This patient, Theodora Kelly, was admitted to Medical Room 258-. Patient/family oriented to hospital policies and general routines including ID bracelet, bed and alarms, visiting hours, pain management, procedures, bathroom and other care routines, personal items, smoking policy, room service/diet, and visiting hours. Valuables list has been completed. Information on how to activate the Rapid Response Team has been discussed. Patient/Family are encouraged to report perceived risks to care and to ask questions if they do not understand what they are told or what they should do.
[2020-05-30 02:25] VITALS: BP 122/53; PULSE 83; RESP 16; TEMP 36.7; O2SAT 100; BMI 48.5
[2020-05-30 02:34] LABS: Reflex Lactic Acid Yes or No Add Lactic
[2020-05-30] MEDS: SODIUM CHLORIDE 0.9% IV 1,000 ML 150 ML IV CONT ×3 (03:59→19:30)
[2020-05-30 04:56] LABS: Lactic Acid 2.6 mmol/L (0.7-2.1)
[2020-05-30 04:58] LABS: Anion Gap 10 mmol/L (8-16); Blood Urea Nitrogen 50 mg/dL (7-17); Calcium 8.7 mg/dL (8.4-10.2); Carbon Dioxide 21 mmol/L (22-30); Chloride 98 mmol/L (98-107); Estimated CRCL calculation 31 ml/min; Estimated Glomerular Filt Rate 19; Glucose 394 mg/dL (65-105); Potassium 4.7 mmol/L (3.4-5.0); Sodium 129 mmol/L (137-145)
[2020-05-30 05:34] VITALS: BP 152/51; PULSE 87; RESP 16; TEMP 36.8; O2SAT 100
[2020-05-30] MEDS: TOLNAFTATE 1% POWDER 45 GM BTL 1 APPLIC TOPICAL (06:07)
--- NOTE | 2020-05-30 06:21 | PC.NURSE ---
patient came from er with chronic woods. New woods has been inserted.
[2020-05-30 08:13] LABS: Glucose Point of Care 321 (65-105)
[2020-05-30] MEDS: GABAPENTIN 300 MG CAPSULE PO ×3 (08:14→17:07)
[2020-05-30] MEDS: amLODIPine BESYLATE 2.5 MG TABLET PO (08:14)
[2020-05-30] MEDS: CYANOCOBALAMIN 1,000 MCG TABLET 1000 MCG PO (08:14)
[2020-05-30] MEDS: CHOLECALCIFEROL 1,000 UNITS TABLET 5000 UNITS PO (08:15)
[2020-05-30] MEDS: ACIDOPHILUS/BULGARICUS CHEWABLE TABLET 1 TABLET PO ×3 (08:15→17:08)
[2020-05-30] MEDS: ATORVASTATIN 40 MG TABLET 80 MG PO (08:17)
[2020-05-30] MEDS: INSULIN GLARGINE (*BKC) 100 UNITS/ML 26 UNITS SUB-Q ×2 (08:23→21:10)
[2020-05-30] MEDS: INSULIN ASPART (*BKC) 100 UNITS/ML SUB-Q ×3 (08:23→17:11)
--- NOTE | 2020-05-30 09:40 | PM.IMHP ---
H&P: HPI History of Present Illness Date/Time: 05/30/20 09:40 Chief complaint: UTI, catherer related,L lower extremity cellulitis Narrative: Theodora Kelly is a 59 year old female with DM, CKD and chronic indwelling Salgado here for left leg erythema and pain. Patient has had a history of left leg cellulitis summer 2018 and more recently in March of this year. Patient was feeling well until 4 days prior to admission when she developed weakness. She had pain in the left leg. She states that she resorted to bed rest over the next few days. She noted a temperature to 102 yesterday. She had chills yesterday as well. Occasional cough that is nonproductive. She is up-to-date on her flu and pneumonia vaccines. She does have a chronic Salgado and noted dark and cloudy urine. No blood in the urine. Strong odor to the urine. Slight nausea but no vomiting. Does have constipation symptoms actually. She has noted decreased appetite. There is no open areas to the left leg. She is unclear when she noted that it became erythematous. She feels that there is a large blister on the left leg but this was not seen on exam today. She was seen emergency room and appropriate cultures obtained. She started on clindamycin given her multiple allergies to medications. She denies any chest pain or shortness of breath. She does have dyspnea on exertion that comes and goes but has not changed significantly over long period time. No hx of RODRIGUEZ. She does have peripheral neuropathy from her diabetes. She also has left facial numbness and left upper extremity numbness but this is chronic. Had MRI of her brain in the past that was normal. She checks her glucose 3 times a day and states that it is up and down although cannot provide specific numbers. She takes Lantus 26 units in the evening as well as NovoLog 3 units for glucose of 150-200 and 6 units for glucose greater than 200. Review of Systems Review of Systems: All systems reviewed & are unremarkable except as noted in HPI and below [facility] Past Medical History Medical History (Updated 05/31/20 @ 09:20 by Andrae Brooke MD) Chronic anemia Chronic kidney disease, stage [address] Benson. Colon polyps (~05/2016) Depression Diabetic peripheral neuropathy Diabetic retinopathy L eye requiring injections Essential hypertension Hyperlipidemia Insulin dependent type 2 diabetes mellitus Hemoglobin A1c was 8.8% in March 2020. Mixed stress and urge urinary incontinence Morbid obesity Surgical History Surgical History History of amputation of toe 4th toes amputated bilaterally. History of fusion of cervical spine (~10/2001) History of local excision of skin lesion Exophytic lesion removed from the right eyelid, benign. Status post debridement (~2019) Left diabetic heel wound. Family History Family History Mother Cerebrovascular accident Family history of diabetes mellitus in first degree relative Father Family history of diabetes mellitus in first degree relative Grandparent Diabetes mellitus Other Family history of anemia Family history of obesity Social History Social History (Updated 05/30/20 @ 09:45 by Andrae Brooke MD) Social History: The patient lives in [place] with her dogs. She has been on disability for several years. She is lifelong nonsmoker . No alcohol or illicit substance use. Her brother Domingo is her emergency contact. She wishes to be a full code. Smoking status: Never smoker Alcohol intake: never Substance use: never Gender identity (if verbalized by the patient): Female Spiritual care concerns: No Meds Home Medications and Allergies Home Medications Medication Instructions Recorded Confirmed Type Lactobacillus acidophilus 75 1 cap PO TID #90 cap 07/08/19 05/30/20 Rx million cell-pectin 100 mg capsule atorvas
[2020-05-30 13:17] LABS: Glucose Point of Care 308 (65-105)
[2020-05-30 14:00] VITALS: BP 107/54; BP 109/54; PULSE 94; RESP 16; TEMP 37.2; O2SAT 96
[2020-05-30 17:06] LABS: Glucose Point of Care 216 (65-105)
[2020-05-30 22:00] VITALS: BP 113/40; PULSE 87; RESP 18; TEMP 37.1; O2SAT 96
[2020-05-30 22:04] LABS: Glucose Point of Care 167 (65-105)
[2020-05-31 03:48] LABS: Glucose Point of Care 142 (65-105)
[2020-05-31] MEDS: CLINDAMYCIN 900 MG/NS 50 ML 900 MG/50 ML PIGGYBACK 50 MG IVPB ×3 (05:09→22:00)
[2020-05-31 06:00] VITALS: BP 103/43; PULSE 78; RESP 18; TEMP 36.3; O2SAT 96
[2020-05-31 07:15] LABS: Basophils Percent Auto 0.2 % (0.2-1.2); Eosinophils Absolute Auto 0.1 K/mm3 (0-0.3); Eosinophils Percent Auto 0.7 % (0-4.4); Hematocrit 22.6 % (37.0-47.0); Hemoglobin 7.2 g/dL (12.0-15.0); Immature Granulocyte Percent A 0.8 % (0-0.5); Lymphocytes Absolute Auto 1.21 K/mm3 (0.9-3.2); Lymphocytes Percent Auto 10.1 % (18.3-44.2); Mean Corpuscular HGB Conc 31.9 g/dl (32-36); Mean Corpuscular Hemoglobin 28.5 pg (26-34); Mean Corpuscular Volume 89.3 fl (80-100); Mean Platelet Volume 10.8 fl (7.4-10.4); Monocytes Absolute Auto 0.8 K/mm3 (0.1-0.6); Monocytes Percent Auto 6.6 % (2.6-8.5); Neutrophils Absolute Auto 9.8 K/mm3 (1.3-6.7); Neutrophils Percent Auto 81.6 % (45.5-73.1); Platelet Count Result 162 k/mm3 (150-375); Red Blood Count 2.53 M/mm3 (4.2-5.4); Red Cell Distribution Width 14.6 % (11.5-14.5)
[2020-05-31 07:29] LABS: Lactic Acid Reflex 1.2 mmol/L (0.7-2.1)
[2020-05-31 08:12] LABS: Glucose Point of Care 124 (65-105)
[2020-05-31 08:43] VITALS: BP 112/54; PULSE 79; RESP 18; O2SAT 97
[2020-05-31] MEDS: CYANOCOBALAMIN 1,000 MCG TABLET 1000 MCG PO (08:45)
[2020-05-31] MEDS: CHOLECALCIFEROL 1,000 UNITS TABLET 5000 UNITS PO (08:45)
[2020-05-31] MEDS: GABAPENTIN 300 MG CAPSULE PO ×3 (08:45→16:43)
[2020-05-31] MEDS: amLODIPine BESYLATE 2.5 MG TABLET PO (08:45)
[2020-05-31] MEDS: ACIDOPHILUS/BULGARICUS CHEWABLE TABLET 1 TABLET PO ×3 (08:45→16:42)
[2020-05-31] MEDS: ATORVASTATIN 40 MG TABLET 80 MG PO (08:46)
[2020-05-31] MEDS: ENOXAPARIN 40 MG/0.4 ML SYRINGE SUB-Q (08:46)
[2020-05-31 09:02] LABS: Albumin Level 2.7 g/dL (3.5-5.1); Anion Gap 11 mmol/L (8-16); Blood Urea Nitrogen 57 mg/dL (7-17); Calcium 7.9 mg/dL (8.4-10.2); Carbon Dioxide 20 mmol/L (22-30); Chloride 102 mmol/L (98-107); Estimated CRCL calculation 23 ml/min; Estimated Glomerular Filt Rate 13; Glucose 144 mg/dL (65-105); Magnesium 1.6 mg/dL (1.6-2.3); Phosphorus 4.2 mg/dL (2.5-4.5); Sodium 133 mmol/L (137-145)
--- NOTE | 2020-05-31 09:03 | PC.NURSE ---
pt tolerating PO intake, IVFs stopped per MD order
--- NOTE | 2020-05-31 09:15 | PM.IMPN ---
Progress Note: A&P Assessment and Plan (1) Cellulitis of left lower extremity: Code(s): L03.116 - Cellulitis of left lower limb Status: Acute Assessment and Plan: Patient with induration/edema, erythema and pain to the left LE. This is recurrent possibly from lymphedema. Doppler pending. Eryhtema better but still with edema. WBC trending down and LA normal now. CRP pending. Elevate LLE. Continue Clindamycin and Rocephin. PT/OT ordered. (2) OZZY (acute kidney injury): Code(s): N17.9 - Acute kidney failure, unspecified Status: Acute Assessment and Plan: Cr jumped to 3.6 today. UOP decreased yesterday. Has been receiving IV fluids so doubt this is dehydration. COnsider post-obstructive or more likely ATN from the UTI and cellulitis. Stop IV fluids given the positive fluid balance and persistent leg edema. Check renal US. Nephrology consult if condition worsens. Check urine eos. (3) Urinary tract infection: Qualifiers: Encounter type: sequela Indwelling urinary catheter type: indwelling urethral catheter Urinary tract infection type: catheter-associated UTI Qualified Code(s): T83.511S - Infection and inflammatory reaction due to indwelling urethral catheter, sequela; N39.0 - Urinary tract infection, site not specified Code(s): N39.0 - Urinary tract infection, site not specified Status: Acute Assessment and Plan: Complicated UTI with chronic indwelling Salgado. UA noted. UCx growing gram negative bacilli. BCx NGTD. Continue Rocephin. Follow up on culture results. (4) Chronic anemia: Code(s): D64.9 - Anemia, unspecified Status: Acute Assessment and Plan: Patietn with chronic anemia. Iron studies in March consistent with anemia of chronic disease; suspect related to her CK. Hgb 9.1 on admission but has dropped to 7.2 today probably related to the IV fluids. No evidence of acute blood loss. Will check Hgb serial next 24 hours to verify Hgb stability. Continue to monitor. (5) Chronic kidney disease, stage 3: Code(s): N18.3 - Chronic kidney disease, stage 3 (moderate) Status: Acute Assessment and Plan: Cr mostly in the mid 2 range. Cr elevated today as mentioned above. Continue to follow. (6) Insulin dependent type 2 diabetes mellitus: Code(s): E11.9 - Type 2 diabetes mellitus without complications; Z79.4 - MCC (current) use of insulin Status: Acute Assessment and Plan: A1c 8.8 in March. Glucose well controlled. Continue AccuCheks covering with sliding scale. Hypoglycemia protocol available as needed. Continue Lantus (7) Essential hypertension: Code(s): I10 - Essential (primary) hypertension Status: Acute Assessment and Plan: Blood pressure reviewed on 05/30 BP well controlled. Continue Norvasc. Adjust medications as needed. (8) Urine retention: Code(s): R33.9 - Retention of urine, unspecified Status: Acute Assessment and Plan: Patient with chronic Salgado. Salgado has already been changed out. (9) DVT prophylaxis: Code(s): Z29.9 - Encounter for prophylactic measures, unspecified Status: Acute Assessment and Plan: Lovenox Additional Plan Repeat Hgb 8.1. UCx growing Proteus resistant to Rocephin. Will change to Ertapenem. Subjective Date/time seen: 05/31/20 09:15 Interval history: 59yo female with CKD, DM, chronic indwelling Salgado and chronic anemia here for UTI and cellulitis. She feels fatigued with no energy . Eating okay. +nausea with occasional food sticking sensation but this is longstanding and has appt with GI on June for this. No vomiting and no food sticking sensation with breakfast. Left leg feels 'heavy' today. Exam Narrative: Exam Narrative: AF 97.3 112/54 79 18 97% ra Gen - NARD lying semi recumbent in bed Chest - CTA bilaterally, nml RR CV - RRR Abd
[2020-05-31 11:21] LABS: Glucose Point of Care 139 (65-105)
[2020-05-31 11:25] LABS: Potassium 3.7 mmol/L (3.4-5.0)
[2020-05-31 12:07] LABS: Glucose Point of Care 153 (65-105)
[2020-05-31 12:20] LABS: CRP 29.9 mg/dL (<1.0)
[2020-05-31 12:49] LABS: Hematocrit 21.7 % (37.0-47.0)
[2020-05-31 14:00] VITALS: BP 114/52; PULSE 81; RESP 20; TEMP 36.4; O2SAT 96
[2020-05-31 17:00] LABS: Glucose Point of Care 167 (65-105)
[2020-05-31 18:46] LABS: Hematocrit 24.7 % (37.0-47.0); Hemoglobin 8.1 g/dL (12.0-15.0)
[2020-05-31 20:00] VITALS: PULSE 73; RESP 18; O2SAT 96
[2020-05-31] MEDS: INSULIN GLARGINE (*BKC) 100 UNITS/ML 26 UNITS SUB-Q (20:08)
[2020-05-31 20:18] LABS: Glucose Point of Care 183 (65-105)
[2020-05-31 22:00] VITALS: BP 118/45; PULSE 73; RESP 18; TEMP 36.3; O2SAT 96
[2020-05-31] MEDS: ERTAPENEM 1 GM/NS 50 ML 1 GM/50 ML BAG IVPB (22:00)
[2020-06-01 00:59] LABS: Hematocrit 22.6 % (37.0-47.0); Hemoglobin 7.3 g/dL (12.0-15.0)
[2020-06-01] MEDS: CLINDAMYCIN 900 MG/NS 50 ML 900 MG/50 ML PIGGYBACK 50 MG IVPB ×3 (04:48→20:39)
[2020-06-01 06:00] VITALS: BP 110/52; PULSE 78; RESP 18; TEMP 36.8; O2SAT 97
[2020-06-01 07:49] LABS: Glucose Point of Care 139 (65-105)
[2020-06-01] MEDS: CYANOCOBALAMIN 1,000 MCG TABLET 1000 MCG PO (08:14)
[2020-06-01] MEDS: GABAPENTIN 300 MG CAPSULE PO ×3 (08:14→16:35)
[2020-06-01] MEDS: amLODIPine BESYLATE 2.5 MG TABLET PO (08:15)
[2020-06-01] MEDS: ACIDOPHILUS/BULGARICUS CHEWABLE TABLET 1 TABLET PO ×3 (08:15→16:35)
[2020-06-01] MEDS: CHOLECALCIFEROL 1,000 UNITS TABLET 5000 UNITS PO (08:15)
[2020-06-01] MEDS: ENOXAPARIN 30 MG/0.3 ML SYRINGE SUB-Q (08:15)
[2020-06-01] MEDS: ATORVASTATIN 40 MG TABLET 80 MG PO (08:15)
[2020-06-01] MEDS: DOCUSATE SODIUM 100 MG CAPSULE PO (08:20)
[2020-06-01 11:40] LABS: Glucose Point of Care 211 (65-105)
[2020-06-01] MEDS: INSULIN ASPART (*BKC) 100 UNITS/ML SUB-Q ×2 (11:40→16:35)
[2020-06-01 14:00] VITALS: BP 134/58; PULSE 75; RESP 16; TEMP 36.5; O2SAT 97
--- NOTE | 2020-06-01 15:43 | PCPTNOTE ---
The PT treatment was unable to be completed today. Will continue per Plan of Care frequency and endurance.
[2020-06-01 16:40] LABS: Hematocrit 24.6 % (37.0-47.0); Mean Corpuscular HGB Conc 32.5 g/dl (32-36); Mean Corpuscular Hemoglobin 28.6 pg (26-34); Mean Corpuscular Volume 87.9 fl (80-100); Mean Platelet Volume 10.8 fl (7.4-10.4); Platelet Count Result 192 k/mm3 (150-375); Red Cell Distribution Width 14.3 % (11.5-14.5); White Blood Count 9.7 K/mm3 (4.5-10.0)
--- NOTE | 2020-06-01 16:41 | PM.IMPN ---
Progress Note: A&P Assessment and Plan (1) Cellulitis of left lower extremity: Code(s): L03.116 - Cellulitis of left lower limb Status: Acute Assessment and Plan: Patient with induration/edema, erythema and pain to the left LE. This is recurrent possibly from lymphedema. Doppler negative for DVT. Erythema worse today. WBC normal. Continue Clindamycin. Continue PT/OT. (2) OZZY (acute kidney injury): Code(s): N17.9 - Acute kidney failure, unspecified Status: Acute Assessment and Plan: Cr 2.4 on admisison which is baseline. Cr jumped to 3.6 yesterday but better today at 3.4. UOP improved and suspect she has ATN from the UTI and cellulitis. IV fluids stopped due to the evidence of edema. Renal US showing no acute process. Continue to monitor. (3) Urinary tract infection: Qualifiers: Encounter type: sequela Indwelling urinary catheter type: indwelling urethral catheter Urinary tract infection type: catheter-associated UTI Qualified Code(s): T83.511S - Infection and inflammatory reaction due to indwelling urethral catheter, sequela; N39.0 - Urinary tract infection, site not specified Code(s): N39.0 - Urinary tract infection, site not specified Status: Acute Assessment and Plan: Complicated UTI with chronic indwelling Salgado. UA noted. UCx growing Proteus resistant to Rocephin. Ertapenem (Day 2) added yesterday. BCx NGTD. (4) Chronic anemia: Code(s): D64.9 - Anemia, unspecified Status: Acute Assessment and Plan: Patient with chronic anemia. Iron studies in March consistent with anemia of chronic disease; suspect anemia related to her CK. Hgb 9.1 on admission but has dropped to 7-8 and stable. No evidence of acute blood loss. Will continue to monitor. (5) Chronic kidney disease, stage 3: Code(s): N18.3 - Chronic kidney disease, stage 3 (moderate) Status: Acute Assessment and Plan: Cr mostly in the mid 2 range. Cr elevated today as mentioned above. Continue to follow. (6) Insulin dependent type 2 diabetes mellitus: Code(s): E11.9 - Type 2 diabetes mellitus without complications; Z79.4 - exterminator helper termite (current) use of insulin Status: Acute Assessment and Plan: A1c 8.8 in March. Glucose more elevated today. Continue AccuCheks covering with sliding scale. Hypoglycemia protocol available as needed. Continue Lantus since morning glucose was 139. (7) Essential hypertension: Code(s): I10 - Essential (primary) hypertension Status: Acute Assessment and Plan: Blood pressure reviewed on 06/01 BP well controlled. Continue Norvasc. Adjust medications as needed. (8) Urine retention: Code(s): R33.9 - Retention of urine, unspecified Status: Acute Assessment and Plan: Patient with chronic Salgado. Salgado has already been changed out. Continue routine Salgado care. (9) DVT prophylaxis: Code(s): Z29.9 - Encounter for prophylactic measures, unspecified Status: Acute Assessment and Plan: Lovenox Subjective Date/time seen: 06/01/20 16:41 Interval history: Date of service 06/01 59yo female with CKD, DM, chronic indwelling Salgado and chronic anemia here for UTI and cellulitis. Slept off and on last night. Legs still feel heavy but was able to get out of bed to the chair. She was able to stand and bear weight. Leg pain better. Feels bloated Exam Narrative: Exam Narrative: AF 97.7 134/58 75 16 97% ra Gen - NARD lying semi recumbent in bed Chest - CTA bilaterally, nml RR CV - RRR Abd - soft, obese, NT - Salgado secured draining clear yellow urine Ext - 1-2+ diffuse left lower extremity indurated edema Psych - normal mood and affect. Skin - darker erythema to the left medial thigh and anterior solis noted. No blistering. Objective Data Vital Signs Vital Signs: Vital Signs - 24 hr 05/31/20 20:00
[2020-06-01 16:52] LABS: Anion Gap 10 mmol/L (8-16); Blood Urea Nitrogen 67 mg/dL (7-17); Calcium 8.5 mg/dL (8.4-10.2); Carbon Dioxide 23 mmol/L (22-30); Chloride 101 mmol/L (98-107); Estimated CRCL calculation 24 ml/min; Estimated Glomerular Filt Rate 14; Glucose 252 mg/dL (65-105); Potassium 4.2 mmol/L (3.4-5.0); Sodium 134 mmol/L (137-145)
[2020-06-01 17:30] LABS: Glucose Point of Care 230 (65-105)
[2020-06-01] MEDS: ERTAPENEM SODIUM 0.5 GM in SODIUM CHLORIDE 0.9% IV 50 ML 100 ML IVPB (20:03)
[2020-06-01] MEDS: INSULIN GLARGINE (*BKC) 100 UNITS/ML 26 UNITS SUB-Q (20:11)
[2020-06-01 20:17] LABS: Glucose Point of Care 225 (65-105)
[2020-06-01] MEDS: TOLNAFTATE 1% POWDER 45 GM BTL 1 APPLIC TOPICAL (20:41)
[2020-06-01 22:00] VITALS: BP 124/42; PULSE 74; RESP 18; TEMP 36.2; O2SAT 96
[2020-06-02] MEDS: CLINDAMYCIN 900 MG/NS 50 ML 900 MG/50 ML PIGGYBACK 50 MG IVPB ×3 (05:47→21:28)
[2020-06-02 05:55] LABS: Glucose Point of Care 197 (65-105)
[2020-06-02 06:00] VITALS: BP 130/57; PULSE 69; RESP 20; TEMP 36.3; O2SAT 98
[2020-06-02 06:06] LABS: Hematocrit 21.4 % (37.0-47.0); Mean Corpuscular HGB Conc 32.2 g/dl (32-36); Mean Corpuscular Hemoglobin 28.2 pg (26-34); Mean Corpuscular Volume 87.3 fl (80-100); Mean Platelet Volume 10.5 fl (7.4-10.4); Platelet Count Result 207 k/mm3 (150-375); Red Blood Count 2.45 M/mm3 (4.2-5.4); Red Cell Distribution Width 14.3 % (11.5-14.5)
[2020-06-02 06:14] LABS: Hemoglobin 6.9 g/dL (12.0-15.0)
[2020-06-02 06:18] LABS: Albumin Level 2.9 g/dL (3.5-5.1); Anion Gap 9 mmol/L (8-16); Blood Urea Nitrogen 68 mg/dL (7-17); Calcium 8.2 mg/dL (8.4-10.2); Carbon Dioxide 23 mmol/L (22-30); Chloride 103 mmol/L (98-107); Estimated CRCL calculation 26 ml/min; Estimated Glomerular Filt Rate 15; Glucose 212 mg/dL (65-105); Magnesium 1.9 mg/dL (1.6-2.3); Phosphorus 5.3 mg/dL (2.5-4.5); Potassium 4.1 mmol/L (3.4-5.0); Sodium 135 mmol/L (137-145)
[2020-06-02 08:04] LABS: Glucose Point of Care 210 (65-105)
[2020-06-02] MEDS: INSULIN ASPART (*BKC) 100 UNITS/ML SUB-Q ×3 (08:36→17:57)
[2020-06-02] MEDS: ATORVASTATIN 40 MG TABLET 80 MG PO (08:37)
[2020-06-02] MEDS: GABAPENTIN 300 MG CAPSULE PO ×3 (08:37→16:34)
[2020-06-02] MEDS: CYANOCOBALAMIN 1,000 MCG TABLET 1000 MCG PO (08:37)
[2020-06-02] MEDS: amLODIPine BESYLATE 2.5 MG TABLET PO (08:38)
[2020-06-02] MEDS: ENOXAPARIN 30 MG/0.3 ML SYRINGE SUB-Q (08:38)
[2020-06-02] MEDS: ACIDOPHILUS/BULGARICUS CHEWABLE TABLET 1 TABLET PO ×3 (08:38→16:34)
[2020-06-02] MEDS: CHOLECALCIFEROL 1,000 UNITS TABLET 5000 UNITS PO (08:38)
--- NOTE | 2020-06-02 10:36 | PM.IMPN ---
Progress Note: A&P Assessment and Plan (1) Cellulitis of left lower extremity: Code(s): L03.116 - Cellulitis of left lower limb Status: Acute Assessment and Plan: Patient with induration/edema, erythema and pain to the left LE. This is recurrent from lymphedema. She uses lymphedema pumps at home. Doppler negative for DVT. WBC normal. Continue Clindamycin. Continue PT/OT. Lasix x1. Jeramie hose or KEYSHA wraps to help with the edema. (2) OZZY (acute kidney injury): Code(s): N17.9 - Acute kidney failure, unspecified Status: Acute Assessment and Plan: Cr 2.4 on admisison which is baseline. Cr jumped to 3.6 on 05/31 felt related to ATN from the cellulitis and UTI. Cr better yesterday and again today. UOP improved related to post-ATN diuresis. IV fluids stopped due to the evidence of edema. Renal US showing no acute process. Continue to monitor. (3) Urinary tract infection: Qualifiers: Encounter type: sequela Indwelling urinary catheter type: indwelling urethral catheter Urinary tract infection type: catheter-associated UTI Qualified Code(s): T83.511S - Infection and inflammatory reaction due to indwelling urethral catheter, sequela; N39.0 - Urinary tract infection, site not specified Code(s): N39.0 - Urinary tract infection, site not specified Status: Acute Assessment and Plan: Complicated UTI with chronic indwelling Salgado. UA noted. UCx growing Proteus resistant to Rocephin. BCx NGTD. Continue Ertapenem (Day 3). (4) Chronic anemia: Code(s): D64.9 - Anemia, unspecified Status: Acute Assessment and Plan: Patient with chronic anemia. Iron studies in March consistent with anemia of chronic disease; suspect anemia related to her CK. Hgb 9.1 on admission but has dropped to 7-8 range. This morning, Hgb 6.8 but opted to monitor. Repeat Hgb up to 9.3 now. No evidence of acute blood loss. Will continue to monitor. (5) Chronic kidney disease, stage 3: Code(s): N18.3 - Chronic kidney disease, stage 3 (moderate) Status: Acute Assessment and Plan: Cr mostly in the mid 2 range. Cr elevated today as mentioned above. Continue to follow. (6) Insulin dependent type 2 diabetes mellitus: Code(s): E11.9 - Type 2 diabetes mellitus without complications; Z79.4 - care home (current) use of insulin Status: Acute Assessment and Plan: A1c 8.8 in March. Glucose reviewed on 06/02 Glucose more elevated again today. Continue AccuCheks covering with sliding scale. Hypoglycemia protocol available as needed. Advance Lantus (7) Essential hypertension: Code(s): I10 - Essential (primary) hypertension Status: Acute Assessment and Plan: Blood pressure reviewed on 06/02 BP well controlled. Continue Norvasc. Adjust medications as needed. (8) Urine retention: Code(s): R33.9 - Retention of urine, unspecified Status: Acute Assessment and Plan: Patient with chronic Salgado. Salgado has already been changed out. Continue routine Salgado care. (9) DVT prophylaxis: Code(s): Z29.9 - Encounter for prophylactic measures, unspecified Status: Acute Assessment and Plan: Lovenox Subjective Date/time seen: 06/02/20 10:36 Interval history: Date of service 06/02 59yo female with CKD, DM, chronic indwelling Salgado and chronic anemia here for UTI and cellulitis. Slept well. Up walking to the door with therapy. Left foot aches a bit but improved with walking,. No CP or SOB. +BARBOSA. Exam Narrative: Exam Narrative: AF 97.3 130/57 69 20 98% ra Gen - NARD Chest - CTA bilaterally, nml RR CV - RRR S1/S2 Abd - soft, obese, NT - Salgado secured draining clear yellow urine Ext - 1-2+ diffuse left lower extremity indurated edema Psych - normal mood and affect. Skin - erythema lessen but with flaccid blister distal medial thigh; skin is hiny and tight
[2020-06-02 11:37] LABS: Glucose Point of Care 272 (65-105)
[2020-06-02 12:19] LABS: SARS-CoV-2 RNA PCR Negative
[2020-06-02 12:51] LABS: Hematocrit 25.8 % (37.0-47.0); Hemoglobin 8.2 g/dL (12.0-15.0)
[2020-06-02] MEDS: FUROSEMIDE INJ 40 MG/4 ML VIAL IV PUSH (13:16)
[2020-06-02 14:00] VITALS: BP 130/52; PULSE 73; RESP 16; TEMP 36.7; O2SAT 99
[2020-06-02] MEDS: ONDANSETRON INJ 4 MG/2 ML VIAL IV PUSH (16:34)
[2020-06-02 17:39] LABS: Hematocrit 28.7 % (37.0-47.0); Hemoglobin 9.3 g/dL (12.0-15.0)
[2020-06-02 17:55] LABS: Glucose Point of Care 291 (65-105)
[2020-06-02 20:00] VITALS: BP 138/49; PULSE 75; RESP 18; TEMP 37.2; O2SAT 97
[2020-06-02] MEDS: ERTAPENEM SODIUM 0.5 GM in SODIUM CHLORIDE 0.9% IV 50 ML 100 ML IVPB (21:27)
[2020-06-02] MEDS: TOLNAFTATE 1% POWDER 45 GM BTL 1 APPLIC TOPICAL (21:29)
[2020-06-02] MEDS: INSULIN GLARGINE (*BKC) 100 UNITS/ML 32 UNITS SUB-Q (21:35)
[2020-06-02 21:58] LABS: Glucose Point of Care 308 (65-105)
[2020-06-02 23:21] LABS: Hematocrit 22.3 % (37.0-47.0)
[2020-06-03] MEDS: CLINDAMYCIN 900 MG/NS 50 ML 900 MG/50 ML PIGGYBACK 50 MG IVPB ×3 (05:48→20:48)
[2020-06-03 05:58] LABS: Hematocrit 22.3 % (37.0-47.0); Mean Corpuscular HGB Conc 31.4 g/dl (32-36); Mean Corpuscular Volume 89.2 fl (80-100); Mean Platelet Volume 10.2 fl (7.4-10.4); Platelet Count Result 265 k/mm3 (150-375); Red Cell Distribution Width 14.4 % (11.5-14.5); White Blood Count 9.1 K/mm3 (4.5-10.0)
[2020-06-03 06:00] VITALS: BP 148/60; PULSE 72; RESP 20; TEMP 36.7; O2SAT 93
[2020-06-03 06:17] LABS: Anion Gap 11 mmol/L (8-16); Blood Urea Nitrogen 67 mg/dL (7-17); Calcium 8.3 mg/dL (8.4-10.2); Carbon Dioxide 22 mmol/L (22-30); Chloride 105 mmol/L (98-107); Estimated CRCL calculation 30 ml/min; Estimated Glomerular Filt Rate 18; Glucose 284 mg/dL (65-105); Potassium 4.4 mmol/L (3.4-5.0); Sodium 138 mmol/L (137-145)
[2020-06-03] MEDS: INSULIN ASPART (*BKC) 100 UNITS/ML SUB-Q ×3 (07:52→16:30)
[2020-06-03] MEDS: FUROSEMIDE INJ 40 MG/4 ML VIAL IV PUSH (07:56)
[2020-06-03] MEDS: CHOLECALCIFEROL 1,000 UNITS TABLET 5000 UNITS PO (07:59)
[2020-06-03] MEDS: CYANOCOBALAMIN 1,000 MCG TABLET 1000 MCG PO (07:59)
[2020-06-03] MEDS: ATORVASTATIN 40 MG TABLET 80 MG PO (08:00)
[2020-06-03] MEDS: ENOXAPARIN 30 MG/0.3 ML SYRINGE SUB-Q (08:00)
[2020-06-03] MEDS: amLODIPine BESYLATE 2.5 MG TABLET PO (08:00)
[2020-06-03] MEDS: GABAPENTIN 300 MG CAPSULE PO ×3 (08:00→16:32)
[2020-06-03] MEDS: ACIDOPHILUS/BULGARICUS CHEWABLE TABLET 1 TABLET PO ×3 (08:00→16:32)
[2020-06-03 09:52] LABS: Glucose Point of Care 267 (65-105)
[2020-06-03 11:47] LABS: Glucose Point of Care 269 (65-105)
[2020-06-03 14:00] VITALS: BP 133/54; PULSE 73; RESP 14; TEMP 36.4; O2SAT 100
--- NOTE | 2020-06-03 14:43 | PM.IMPN ---
Progress Note: A&P Assessment and Plan (1) Cellulitis of left lower extremity: Code(s): L03.116 - Cellulitis of left lower limb Status: Acute Assessment and Plan: Patient with induration/edema, erythema and pain to the left LE. This is recurrent from lymphedema. She uses lymphedema pumps at home. Doppler negative for DVT. WBC normal. Continue Clindamycin (began 05/30 - Day 5). Continue PT/OT. Jeramie hose or KEYSHA wraps to help with the edema. Repeat lasix IV x1. (2) OZZY (acute kidney injury): Code(s): N17.9 - Acute kidney failure, unspecified Status: Acute Assessment and Plan: Cr 2.4 on admisison which is baseline. Cr jumped to 3.6 on 05/31 felt related to ATN from the cellulitis and UTI. Cr better yesterday and again today down to 2.7. UOP improved related to post-ATN diuresis. Lasix given yesterday wit improved UOP. IV fluids stopped due to the evidence of edema. Renal US showing no acute process. Continue to monitor. (3) Urinary tract infection: Qualifiers: Encounter type: sequela Indwelling urinary catheter type: indwelling urethral catheter Urinary tract infection type: catheter-associated UTI Qualified Code(s): T83.511S - Infection and inflammatory reaction due to indwelling urethral catheter, sequela; N39.0 - Urinary tract infection, site not specified Code(s): N39.0 - Urinary tract infection, site not specified Status: Acute Assessment and Plan: Complicated UTI with chronic indwelling Salgado. UA noted. UCx growing Proteus resistant to Rocephin. BCx NGTD. Continue Ertapenem (began 05/31 - Day 4). (4) Chronic anemia: Code(s): D64.9 - Anemia, unspecified Status: Acute Assessment and Plan: Patient with chronic anemia. Iron studies in March consistent with anemia of chronic disease; suspect anemia related to her CK. Hgb 9.1 on admission but has dropped to 7-8 range with wide fluctuations. This morning, Hgb 7.0. Continue to monitor. No evidence of acute blood loss. Will continue to monitor. (5) Chronic kidney disease, stage 3: Code(s): N18.3 - Chronic kidney disease, stage 3 (moderate) Status: Acute Assessment and Plan: Cr mostly in the mid 2 range. Cr elevated today as mentioned above. Continue to follow. (6) Insulin dependent type 2 diabetes mellitus: Code(s): E11.9 - Type 2 diabetes mellitus without complications; Z79.4 - terminal computer operator (current) use of insulin Status: Acute Assessment and Plan: A1c 8.8 in March. Glucose reviewed on 06/03 Glucose more elevated again today. Continue AccuCheks covering with sliding scale. Hypoglycemia protocol available as needed. Continue to advance Lantus (7) Essential hypertension: Code(s): I10 - Essential (primary) hypertension Status: Acute Assessment and Plan: Blood pressure reviewed on 06/03 BP well controlled. Continue low dose Norvasc. Adjust medications as needed. (8) Urine retention: Code(s): R33.9 - Retention of urine, unspecified Status: Acute Assessment and Plan: Patient with chronic Salgado. Salgado has already been changed out. Continue routine Salgado care. (9) DVT prophylaxis: Code(s): Z29.9 - Encounter for prophylactic measures, unspecified Status: Acute Assessment and Plan: Lovenox Subjective Date/time seen: 06/03/20 14:43 Interval history: Date of service 06/03 59yo female with CKD, DM, chronic indwelling Salgado and chronic anemia here for UTI and cellulitis. Slept okay last night. Walking in the halls and walked up to 30 feet. Eating well. Leg feels less heavy. Exam Narrative: Exam Narrative: AF 97.6 133/54 73 14 100% ra Gen - NARD lying semi-recumbent in recliner chair Chest - CTA bilaterally, nml RR CV - RRR S1/S2 Abd - soft, obese, NT - Salgado secured draining clear yellow urine Ext - decreased left lower extremity indurated
[2020-06-03 16:30] LABS: Glucose Point of Care 293 (65-105)
[2020-06-03] MEDS: INSULIN GLARGINE (*BKC) 100 UNITS/ML 40 UNITS SUB-Q (20:45)
[2020-06-03] MEDS: ERTAPENEM SODIUM 0.5 GM in SODIUM CHLORIDE 0.9% IV 50 ML IVPB (20:47)
[2020-06-03 20:55] VITALS: BP 161/63; PULSE 73; RESP 20; TEMP 36.5; O2SAT 97
[2020-06-03 21:52] LABS: Glucose Point of Care 368 (65-105)
[2020-06-04 04:45] VITALS: BP 152/63; PULSE 70; RESP 20; TEMP 36.4; O2SAT 96
[2020-06-04 05:25] LABS: Hemoglobin 7.2 g/dL (12.0-15.0); Mean Corpuscular HGB Conc 31.3 g/dl (32-36); Mean Corpuscular Hemoglobin 27.8 pg (26-34); Mean Corpuscular Volume 88.8 fl (80-100); Mean Platelet Volume 9.4 fl (7.4-10.4); Platelet Count Result 323 k/mm3 (150-375); Red Blood Count 2.59 M/mm3 (4.2-5.4); Red Cell Distribution Width 14.4 % (11.5-14.5); White Blood Count 9.4 K/mm3 (4.5-10.0)
[2020-06-04] MEDS: CLINDAMYCIN 900 MG/NS 50 ML 900 MG/50 ML PIGGYBACK 50 MG IVPB ×3 (05:37→21:55)
[2020-06-04 05:40] LABS: Anion Gap 7 mmol/L (8-16); Blood Urea Nitrogen 61 mg/dL (7-17); Calcium 8.7 mg/dL (8.4-10.2); Carbon Dioxide 25 mmol/L (22-30); Chloride 106 mmol/L (98-107); Estimated CRCL calculation 35 ml/min; Estimated Glomerular Filt Rate 22; Glucose 260 mg/dL (65-105); Potassium 4.5 mmol/L (3.4-5.0); Sodium 138 mmol/L (137-145)
[2020-06-04 07:58] LABS: Glucose Point of Care 198 (65-105)
[2020-06-04] MEDS: INSULIN ASPART (*BKC) 100 UNITS/ML 7 UNITS SUB-Q ×3 (08:07→18:06)
[2020-06-04] MEDS: GABAPENTIN 300 MG CAPSULE PO ×3 (08:12→18:01)
[2020-06-04] MEDS: ACIDOPHILUS/BULGARICUS CHEWABLE TABLET 1 TABLET PO ×3 (08:12→18:01)
[2020-06-04] MEDS: amLODIPine BESYLATE 2.5 MG TABLET PO (08:12)
[2020-06-04] MEDS: FUROSEMIDE INJ 40 MG/4 ML VIAL IV PUSH (08:12)
[2020-06-04] MEDS: CYANOCOBALAMIN 1,000 MCG TABLET 1000 MCG PO (08:12)
[2020-06-04] MEDS: CHOLECALCIFEROL 1,000 UNITS TABLET 5000 UNITS PO (08:12)
[2020-06-04] MEDS: DOCUSATE SODIUM 100 MG CAPSULE PO (08:12)
[2020-06-04] MEDS: ENOXAPARIN 30 MG/0.3 ML SYRINGE SUB-Q (08:12)
[2020-06-04] MEDS: ATORVASTATIN 40 MG TABLET 80 MG PO (08:12)
--- NOTE | 2020-06-04 11:55 | PM.IMPN ---
Progress Note: A&P Assessment and Plan (1) Cellulitis of left lower extremity: Code(s): L03.116 - Cellulitis of left lower limb Status: Acute Assessment and Plan: Patient with induration/edema, erythema and pain to the left LE. This is recurrent from lymphedema. She uses lymphedema pumps at home. Doppler negative for DVT. WBC normal. Continue Clindamycin (began 05/30 - Day 6). Continue PT/OT. Jeramie hose or KEYSHA wraps to help with the edema. Repeat lasix again IV x1. (2) OZZY (acute kidney injury): Code(s): N17.9 - Acute kidney failure, unspecified Status: Acute Assessment and Plan: Cr 2.4 on admission which is baseline. Cr jumped to 3.6 on 05/31 felt related to ATN from the cellulitis and UTI. Cr better yesterday and again today down to 2.3. UOP improved related to post-ATN diuresis and with Lasix. IV fluids stopped due to the evidence of edema. Renal US showing no acute process. Continue to monitor. (3) Urinary tract infection: Qualifiers: Encounter type: sequela Indwelling urinary catheter type: indwelling urethral catheter Urinary tract infection type: catheter-associated UTI Qualified Code(s): T83.511S - Infection and inflammatory reaction due to indwelling urethral catheter, sequela; N39.0 - Urinary tract infection, site not specified Code(s): N39.0 - Urinary tract infection, site not specified Status: Acute Assessment and Plan: Complicated UTI with chronic indwelling Salgado. UA noted. UCx growing Proteus resistant to Rocephin. BCx NGTD. Continue Ertapenem (began 05/31 - Day 5). (4) Chronic anemia: Code(s): D64.9 - Anemia, unspecified Status: Acute Assessment and Plan: Patient with chronic anemia. Iron studies in March consistent with anemia of chronic disease; suspect anemia related to her CKD. Hgb 9.1 on admission but has dropped to 7-8 range with wide fluctuations. This morning, Hgb 7.2. Continue to monitor. No evidence of acute blood loss. Will continue to monitor. (5) Chronic kidney disease, stage 3: Code(s): N18.3 - Chronic kidney disease, stage 3 (moderate) Status: Acute Assessment and Plan: Cr mostly in the mid 2 range. Cr back to baseline. Continue to follow. (6) Insulin dependent type 2 diabetes mellitus: Code(s): E11.9 - Type 2 diabetes mellitus without complications; Z79.4 - equipment operator [employer] (current) use of insulin Status: Acute Assessment and Plan: A1c 8.8 in March. Glucose reviewed on 06/04 Glucose still elevated but better this morning at 198. Continue AccuCheks covering with sliding scale. Hypoglycemia protocol available as needed. Novolog at meal times added. Continue Lantus for now. (7) Essential hypertension: Code(s): I10 - Essential (primary) hypertension Status: Acute Assessment and Plan: Blood pressure reviewed on 06/04 BP higher now but overall reasonably well controlled. Continue low dose Norvasc. Advance Norvasc if persistently elevated. (8) Urine retention: Code(s): R33.9 - Retention of urine, unspecified Status: Acute Assessment and Plan: Patient with chronic Salgado. Salgado has already been changed out. Continue routine Salgado care. (9) DVT prophylaxis: Code(s): Z29.9 - Encounter for prophylactic measures, unspecified Status: Acute Assessment and Plan: Lovenox Subjective Date/time seen: 06/04/20 11:55 Interval history: Date of service 06/04 59yo female with CKD, DM, chronic indwelling Salgado and chronic anemia here for UTI and cellulitis. No complaints. Slept well. Eating okay. No chest pain or shortness of breath. Leg pain much improved. Exam Narrative: Exam Narrative: AF 97.5 152/63 70 20 96% ra Gen - NARD Chest - CTA bilaterally, nml RR CV - RRR S1/S2 Abd - soft, obese, NT - Salgado secured draining clear yellow urine Ext - Left leg unwrapped. Sig
[2020-06-04 12:10] LABS: Glucose Point of Care 215 (65-105)
[2020-06-04] MEDS: INSULIN ASPART (*BKC) 100 UNITS/ML SUB-Q ×2 (12:13→18:01)
[2020-06-04 14:00] VITALS: BP 136/56; PULSE 77; RESP 16; TEMP 36.4; O2SAT 99
[2020-06-04] MEDS: polyethylene glycoL 3350 17 GM POWD.PACK PO (15:48)
[2020-06-04 16:39] LABS: Glucose Point of Care 207 (65-105)
[2020-06-04] MEDS: TOLNAFTATE 1% POWDER 45 GM BTL 1 APPLIC TOPICAL (18:09)
[2020-06-04 18:55] LABS: Glucose Point of Care 233 (65-105)
[2020-06-04] MEDS: INSULIN GLARGINE (*BKC) 100 UNITS/ML 48 UNITS SUB-Q (21:38)
[2020-06-04] MEDS: ERTAPENEM SODIUM 1 GM in SODIUM CHLORIDE 0.9% IV 50 ML IVPB (21:55)
[2020-06-04 22:00] VITALS: BP 133/45; PULSE 71; RESP 20; TEMP 36.2; O2SAT 98
[2020-06-04 22:39] LABS: Glucose Point of Care 195 (65-105)
[2020-06-05 03:36] LABS: Glucose Point of Care 157 (65-105)
[2020-06-05 05:28] LABS: Hematocrit 22.9 % (37.0-47.0); Hemoglobin 7.3 g/dL (12.0-15.0); Mean Corpuscular HGB Conc 31.9 g/dl (32-36); Mean Corpuscular Hemoglobin 28.5 pg (26-34); Mean Corpuscular Volume 89.5 fl (80-100); Mean Platelet Volume 9.2 fl (7.4-10.4); Platelet Count Result 391 k/mm3 (150-375); Red Blood Count 2.56 M/mm3 (4.2-5.4); Red Cell Distribution Width 14.5 % (11.5-14.5); White Blood Count 10.3 K/mm3 (4.5-10.0)
[2020-06-05] MEDS: CLINDAMYCIN 900 MG/NS 50 ML 900 MG/50 ML PIGGYBACK 50 MG IVPB ×3 (05:41→21:31)
[2020-06-05 05:57] LABS: Albumin Level 2.9 g/dL (3.5-5.1); Anion Gap 7 mmol/L (8-16); Blood Urea Nitrogen 56 mg/dL (7-17); Calcium 8.8 mg/dL (8.4-10.2); Carbon Dioxide 26 mmol/L (22-30); Chloride 107 mmol/L (98-107); Estimated CRCL calculation 41 ml/min; Estimated Glomerular Filt Rate 26; Glucose 172 mg/dL (65-105); Magnesium 1.7 mg/dL (1.6-2.3); Phosphorus 4.7 mg/dL (2.5-4.5); Potassium 4.5 mmol/L (3.4-5.0); Sodium 140 mmol/L (137-145)
[2020-06-05 06:00] VITALS: BP 130/56; PULSE 70; RESP 20; TEMP 36.1; O2SAT 98
[2020-06-05] MEDS: TOLNAFTATE 1% POWDER 45 GM BTL 1 APPLIC TOPICAL ×2 (06:51→20:58)
[2020-06-05 08:00] VITALS: BP 149/67; PULSE 72; RESP 20; TEMP 36.3; O2SAT 99
[2020-06-05 08:03] LABS: Glucose Point of Care 139 (65-105)
[2020-06-05] MEDS: INSULIN ASPART (*BKC) 100 UNITS/ML 7 UNITS SUB-Q ×3 (08:11→16:46)
[2020-06-05] MEDS: ACIDOPHILUS/BULGARICUS CHEWABLE TABLET 1 TABLET PO ×3 (08:15→16:45)
[2020-06-05] MEDS: ATORVASTATIN 40 MG TABLET 80 MG PO (08:15)
[2020-06-05] MEDS: CYANOCOBALAMIN 1,000 MCG TABLET 1000 MCG PO (08:15)
[2020-06-05] MEDS: amLODIPine BESYLATE 2.5 MG TABLET PO (08:15)
[2020-06-05] MEDS: GABAPENTIN 300 MG CAPSULE PO ×3 (08:15→16:45)
[2020-06-05] MEDS: ENOXAPARIN 30 MG/0.3 ML SYRINGE SUB-Q (08:17)
[2020-06-05] MEDS: CHOLECALCIFEROL 1,000 UNITS TABLET 5000 UNITS PO (08:17)
[2020-06-05 11:48] LABS: Glucose Point of Care 185 (65-105)
[2020-06-05 14:00] VITALS: BP 146/49; PULSE 73; RESP 18; TEMP 36.3; O2SAT 100
--- NOTE | 2020-06-05 14:11 | PM.IMPN ---
Progress Note: A&P Assessment and Plan (1) Cellulitis of left lower extremity: Code(s): L03.116 - Cellulitis of left lower limb Status: Acute Assessment and Plan: Patient with induration/edema, erythema and pain to the left LE. This is recurrent from lymphedema. She uses lymphedema pumps at home. Doppler negative for DVT. WBC up slightly Continue Clindamycin (began 05/30 - Day 7). Continue PT/OT. Continue KEYSHA wraps to help with the edema. (2) OZZY (acute kidney injury): Code(s): N17.9 - Acute kidney failure, unspecified Status: Acute Assessment and Plan: Cr 2.4 on admisison which is baseline. Cr jumped to 3.6 on 05/31 felt related to ATN from the cellulitis and UTI. Cr better down to 2.0. UOP improved related to post-ATN diuresis. Lasix given past few days with improved UOP and negative fluid balance. IV fluids stopped due to the evidence of edema. Renal US showing no acute process. Continue to monitor. (3) Urinary tract infection: Qualifiers: Encounter type: sequela Indwelling urinary catheter type: indwelling urethral catheter Urinary tract infection type: catheter-associated UTI Qualified Code(s): T83.511S - Infection and inflammatory reaction due to indwelling urethral catheter, sequela; N39.0 - Urinary tract infection, site not specified Code(s): N39.0 - Urinary tract infection, site not specified Status: Acute Assessment and Plan: Complicated UTI with chronic indwelling Salgado. UA noted. UCx growing Proteus resistant to Rocephin. BCx negative. Continue Ertapenem (began 05/31 - Day 6). (4) Chronic anemia: Code(s): D64.9 - Anemia, unspecified Status: Acute Assessment and Plan: Patient with chronic anemia. Iron studies in March consistent with anemia of chronic disease; suspect anemia related to her CKD. Hgb 9.1 on admission but has dropped to 7-8 range with wide fluctuations. This morning, Hgb 7.3. Continue to monitor. No evidence of acute blood loss. Will continue to monitor. (5) Chronic kidney disease, stage 3: Code(s): N18.3 - Chronic kidney disease, stage 3 (moderate) Status: Acute Assessment and Plan: Cr mostly in the mid 2 range. Cr back to baseline. Continue to follow. (6) Insulin dependent type 2 diabetes mellitus: Code(s): E11.9 - Type 2 diabetes mellitus without complications; Z79.4 - jail (current) use of insulin Status: Acute Assessment and Plan: A1c 8.8 in March. Glucose reviewed on 06/05 Glucose better controlled now. Continue AccuCheks covering with sliding scale. Hypoglycemia protocol available as needed. Contineu Novolog at meal times and Lantus at night. (7) Essential hypertension: Code(s): I10 - Essential (primary) hypertension Status: Acute Assessment and Plan: Blood pressure reviewed on 06/05 BP higher at times but overall reasonable. Continue low dose Norvasc. Could be contributing to her pedal edema but low dose so will continue. . (8) Urine retention: Code(s): R33.9 - Retention of urine, unspecified Status: Acute Assessment and Plan: Patient with chronic Salgado. Salgado has already been changed out. Continue routine Salgado care. (9) DVT prophylaxis: Code(s): Z29.9 - Encounter for prophylactic measures, unspecified Status: Acute Assessment and Plan: Lovenox Subjective Date/time seen: 06/05/20 14:11 Interval history: Date of service 06/05 59yo female with CKD, DM, chronic indwelling Salgado and chronic anemia here for UTI and cellulitis. Up walkinig in the room. Slept okay last night. Had mild nausea after breakfast but toerlating lunch. No diarrhea. Exam Narrative: Exam Narrative: AF 97.3 149/67 72 20 99% ra Gen - NARD sitin gup in recliner eating lunch Chest - CTA bilaterally, nml RR CV - RRR S1/S2 Abd - soft, obese, NT - Salgado secured drainin
[2020-06-05 16:54] LABS: Glucose Point of Care 183 (65-105)
[2020-06-05 18:12] LABS: SARS-CoV-2 RNA PCR Negative
[2020-06-05] MEDS: ERTAPENEM SODIUM 1 GM in SODIUM CHLORIDE 0.9% IV 50 ML IVPB (20:53)
[2020-06-05] MEDS: INSULIN GLARGINE (*BKC) 100 UNITS/ML 48 UNITS SUB-Q (20:56)
[2020-06-05 21:18] LABS: Glucose Point of Care 187 (65-105)
[2020-06-05 22:00] VITALS: BP 128/50; PULSE 73; RESP 20; TEMP 36.2; O2SAT 98
[2020-06-06] MEDS: CLINDAMYCIN 900 MG/NS 50 ML 900 MG/50 ML PIGGYBACK 50 MG IVPB ×2 (05:45→12:44)
[2020-06-06 05:50] LABS: Hematocrit 24.9 % (37.0-47.0); Hemoglobin 7.6 g/dL (12.0-15.0); Mean Corpuscular HGB Conc 30.5 g/dl (32-36); Mean Corpuscular Hemoglobin 28.5 pg (26-34); Mean Corpuscular Volume 93.3 fl (80-100); Mean Platelet Volume 9.2 fl (7.4-10.4); Platelet Count Result 424 k/mm3 (150-375); Red Blood Count 2.67 M/mm3 (4.2-5.4); Red Cell Distribution Width 14.4 % (11.5-14.5); White Blood Count 9.8 K/mm3 (4.5-10.0)
[2020-06-06 06:00] VITALS: BP 143/69; PULSE 71; RESP 20; TEMP 37.2; O2SAT 98
[2020-06-06 06:18] LABS: Anion Gap 5 mmol/L (8-16); Blood Urea Nitrogen 49 mg/dL (7-17); Calcium 8.9 mg/dL (8.4-10.2); Carbon Dioxide 28 mmol/L (22-30); Chloride 108 mmol/L (98-107); Estimated CRCL calculation 45 ml/min; Estimated Glomerular Filt Rate 29; Glucose 153 mg/dL (65-105); Potassium 4.7 mmol/L (3.4-5.0); Sodium 141 mmol/L (137-145)
[2020-06-06 07:48] LABS: Glucose Point of Care 149 (65-105)
[2020-06-06] MEDS: INSULIN ASPART (*BKC) 100 UNITS/ML 7 UNITS SUB-Q ×2 (09:01→12:05)
[2020-06-06] MEDS: ATORVASTATIN 40 MG TABLET 80 MG PO (09:03)
[2020-06-06] MEDS: CYANOCOBALAMIN 1,000 MCG TABLET 1000 MCG PO (09:03)
[2020-06-06] MEDS: amLODIPine BESYLATE 2.5 MG TABLET PO (09:03)
[2020-06-06] MEDS: ACIDOPHILUS/BULGARICUS CHEWABLE TABLET 1 TABLET PO ×2 (09:03→12:07)
[2020-06-06] MEDS: CHOLECALCIFEROL 1,000 UNITS TABLET 5000 UNITS PO (09:03)
[2020-06-06] MEDS: ENOXAPARIN 30 MG/0.3 ML SYRINGE SUB-Q (09:04)
[2020-06-06] MEDS: GABAPENTIN 300 MG CAPSULE PO ×2 (09:04→12:07)
[2020-06-06] MEDS: ERTAPENEM 1 GM/NS 50 ML 1 GM/50 ML BAG IVPB (12:06)
[2020-06-06 12:09] LABS: Glucose Point of Care 180 (65-105)
--- NOTE | 2020-06-06 12:34 | PCDIET ---
Weekly nutritional screen. Patient is tolerating current diet, DBCC which is appropriate, with adequate intake of 75-100% of meals. No weight loss reported. Pt states she knows what to do with DBCC diet but does not do it at home. Most meals are microwavable. She does healthy choice, meals on wheels, or peanut butter crackers. She does not skip meals. She c/o food getting stuck sometimes in esophageal region and then creates emesis. She has an appt to address this with GI. Pt also states a doctor told her to watch protein with kidneys. We reviewed importance of regular meal timing, what a serving of protein looks like and where protein is found. Pt provided info for [facility] with encouragement to schedule a virtual appt to explore her diabetes and nutrition further. We will continue to follow every seven days.
[2020-06-06 14:00] VITALS: BP 163/64; PULSE 80; RESP 20; TEMP 36.6; O2SAT 100
--- NOTE | 2020-06-06 17:48 | PM.DS ---
DS: Admitting Diagnosis Admitting Diagnosis Admitting Diagnosis: UTI, catherer related,L lower extremity cellulitis DS: Discharge Diagnosis Discharge Diagnosis (1) Cellulitis of left lower extremity: Code(s): L03.116 - Cellulitis of left lower limb Status: Acute Assessment and Plan: Patient with induration/edema, erythema and pain to the left LE. This is recurrent from lymphedema. She uses lymphedema pumps at home. Doppler negative for DVT. WBC normal. Commpleted 8-9 days of IV antibiotics here with improvement Continue PT/OT. Jeramie hose or KEYSHA wraps to help with the edema.. (2) OZZY (acute kidney injury): Code(s): N17.9 - Acute kidney failure, unspecified Status: Acute Assessment and Plan: Cr 2.4 on admission which is baseline. Cr jumped to 3.6 on 05/31 felt related to ATN from the cellulitis and UTI. Cr better down to 1.8 day of discharge UOP improved related to post-ATN diuresis and with Lasix. IV fluids stopped due to the evidence of edema. Renal US showing no acute process (3) Urinary tract infection: Qualifiers: Encounter type: sequela Indwelling urinary catheter type: indwelling urethral catheter Urinary tract infection type: catheter-associated UTI Qualified Code(s): T83.511S - Infection and inflammatory reaction due to indwelling urethral catheter, sequela; N39.0 - Urinary tract infection, site not specified Code(s): N39.0 - Urinary tract infection, site not specified Status: Acute Assessment and Plan: Complicated UTI with chronic indwelling Salgado. UA noted. UCx growing Proteus resistant to Rocephin. BCx NGTD. Continued Ertapenem for full 7 days while here (4) Chronic anemia: Code(s): D64.9 - Anemia, unspecified Status: Acute Assessment and Plan: Patient with chronic anemia. Iron studies in March consistent with anemia of chronic disease; suspect anemia related to her CKD. Hgb 9.1 on admission but has dropped to 7-8 range with wide fluctuations. This morning, Hgb 7.6 am fo discharge. . No evidence of acute blood loss. cbc 1 week. (5) Chronic kidney disease, stage 3: Code(s): N18.3 - Chronic kidney disease, stage 3 (moderate) Status: Acute Assessment and Plan: Cr mostly in the mid 2 range. 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 Glucose reviewed on 06/04 Glucose still elevated but better this morning of discharge at 193. Novolog at meal times added. Continue Lantus 48 units hs (7) Essential hypertension: Code(s): I10 - Essential (primary) hypertension Status: Acute Assessment and Plan: Blood pressure reviewed on 06/06, fair control BP higher now but overall reasonably well controlled. Continue low dose Norvasc. (8) Urine retention: Code(s): R33.9 - Retention of urine, unspecified Status: Acute Assessment and Plan: Patient with chronic Salgado. Salgado has already been changed out. Continue routine Salgado care. (9) DVT prophylaxis: Code(s): Z29.9 - Encounter for prophylactic measures, unspecified Status: Acute Assessment and Plan: Lovenox while inpatient DS: Summary Hospital Course Hospital Course: 59-year-old hypertensive type 2 diabetic with chronic indwelling Salgado admitted with cellulitis of left leg. Urine grew Proteus mirabilis ESBL and changed from ceftriaxone to ertapenem which she received 7 day treatment course. She is treated with clindamycin for her cellulitis with steadily improved. Blood cultures no growth and venous Doppler negative. She will have a CBC and BMP drawn 1 week. Time Spent with Patient Time attestation: Total time spent providing and/or coordinating dis
== END 2020-06-06 15:11 | DRG 698 ==
LOC: ANHED 23:30 → ANH2MED 05-30 07:06
PROVIDERS: Internal Medicine; Admitting Provider Family Medicine; Emergency Provider Emergency Medicine; PCP Student in an Organized Health Care Education/Training Program; Visit Provider Internal Medicine
DX: T83.511A Infection and inflammatory reaction due to indwelling urethral catheter, initial encounter (principal); N17.0 Acute kidney failure with tubular necrosis; L03.116 Cellulitis of left lower limb; Z68.42 Body mass index [BMI] 45.0-49.9, adult; Z16.19 Resistance to other specified beta lactam antibiotics; N39.0 Urinary tract infection, site not specified; B96.4 Proteus (mirabilis) (morganii) as the cause of diseases classified elsewhere; Z20.828 Contact with and (suspected) exposure to other viral communicable diseases; E66.01 Morbid (severe) obesity due to excess calories; E11.22 Type 2 diabetes mellitus with diabetic chronic kidney disease; I12.9 Hypertensive chronic kidney disease with stage 1 through stage 4 chronic kidney disease, or unspecified chronic kidney disease; N18.30 Chronic kidney disease, stage 3 unspecified; N39.3 Stress incontinence (female) (male); E11.42 Type 2 diabetes mellitus with diabetic polyneuropathy; E11.319 Type 2 diabetes mellitus with unspecified diabetic retinopathy without macular edema; E78.5 Hyperlipidemia, unspecified; F32.9 Major depressive disorder, single episode, unspecified; Z89.422 Acquired absence of other left toe(s); Z89.421 Acquired absence of other right toe(s); Z98.1 Arthrodesis status; Z79.4 Long term (current) use of insulin; Z87.891 Personal history of nicotine dependence
CPT/HCPCS: 36415; 76775; 80048; 80053; 80069; 81001; 82607; 82746; 83605; 83735; 84443; 85014; 85018; 85025; 85027; 85999; 86140; 87040; 87077; 87086; 87088; 87186; 87635; 93005; 93971; 97110; 97116; 97162; 97166; 97530; 97535; 99285; A9270; C9803; J0696; J1335; J1650; J1815; J1940; J2405; J7030; U0003

== ENCOUNTER 2020-07-15 09:12 | Outpatient (CLI) | payer OTHER, SELFPAY ==
--- NOTE | ~2020-07-15 | US_ITS ---
EXAMINATION: US soft tissue LE LT EXAM DATE: 07/15/2020 09:46 INDICATION: Left leg skin lump. TECHNIQUE: Multiple grayscale and Doppler images of the symptomatic left leg region were obtained (by a technologist who performed the scan) and subsequently reviewed. There is no prior study for allen rosenbaum. FINDINGS: Scanning in the area of clinical concern demonstrated some mild apparent skin thickening. No underlyi ng mass, abscess or other abnormality identified. IMPRESSION: Mild nonspecific skin thickening. Normal underlying subcutaneous fat. Reviewed, dictated and finalized at location A. NSIC PSYCHOLOGIST IMPRESSION: Mild nonspecific skin thickening. Normal underlying subcutaneous fa t.
== END 2020-07-15 09:13 | disposition home or self-care (01) ==
LOC: ANHIMG 09:16
PROVIDERS: PCP Student in an Organized Health Care Education/Training Program; Visit Provider Student in an Organized Health Care Education/Training Program
DX: R22.42 Localized swelling, mass and lump, left lower limb (principal)
CPT/HCPCS: 76882

== ENCOUNTER 2020-07-28 13:08 | Emergency (ER) | payer OTHER, MEDICAID, SELFPAY ==
[2020-07-28] VITALS (7 sets, daily range): BP systolic 121–152; BP diastolic 64–91; PULSE 68–83; RESP 14–22; TEMP 36.3–36.8; O2SAT 96–100
--- NOTE | 2020-07-28 16:28 | PC.NURSE ---
Pt stuck once per donor services technician for blood, refuses further attempt per medical instrument technician.
[2020-07-28 17:02] LABS: Basophils Percent Auto 0.3 % (0.2-1.2); Eosinophils Absolute Auto 0.2 K/mm3 (0-0.3); Eosinophils Percent Auto 1.5 % (0-4.4); Hematocrit 27.6 % (37.0-47.0); Hemoglobin 8.7 g/dL (12.0-15.0); Immature Granulocyte Absolute 0.09 K/mm3 (0.00-0.031); Immature Granulocyte Percent A 0.8 % (0-0.5); Lymphocytes Absolute Auto 2.11 K/mm3 (0.9-3.2); Lymphocytes Percent Auto 19.6 % (18.3-44.2); Mean Corpuscular HGB Conc 31.5 g/dl (32-36); Mean Corpuscular Hemoglobin 27.1 pg (26-34); Mean Platelet Volume 11.8 fl (7.4-10.4); Monocytes Absolute Auto 0.5 K/mm3 (0.1-0.6); Monocytes Percent Auto 4.2 % (2.6-8.5); Neutrophils Absolute Auto 7.9 K/mm3 (1.3-6.7); Neutrophils Percent Auto 73.6 % (45.5-73.1); Platelet Count Result 180 k/mm3 (150-375); Red Blood Count 3.21 M/mm3 (4.2-5.4); Red Cell Distribution Width 14.1 % (11.5-14.5); White Blood Count 10.8 K/mm3 (4.5-10.0)
--- NOTE | 2020-07-28 17:40 | PC.NURSE ---
Phlebotomy contacted for pt's add on labs as well as rejected green top collected earlier.
--- NOTE | 2020-07-28 18:28 | ED.SKABFB ---
HPI - Skin/Abscess/Foreign Bdy General Chief complaint: Skin/Abscess/Foreign Body <Tuan Mitchell MD - Last Filed: 07/28/20 19:09> Stated complaint: weakness/nausea <Tuan Mitchell MD - Last Filed: 07/28/20 19:09> Time Seen by Provider: 07/28/20 16:01 <Tuan Mitchell MD - Last Filed: 07/28/20 19:09> History of Present Illness HPI narrative: Patient is a 60-year-old female who presents to the ER with concern for infection to her left foot and leg. She reports it became red and swollen 5 days ago and has progressed. She has a ulcer to her toe that people are caring for her. No fevers or chills or sweats. She has chronic edema to her left lower extremity. <Tuan Mitchell MD - Last Filed: 07/28/20 19:09> Related Data Home medications: Home Medications Medication Instructions Recorded Confirmed atorvastatin 80 mg tablet 80 mg PO DAILY 08/11/19 05/30/20 cholecalciferol (vitamin D3) 125 5,000 unit PO DAILY 08/11/19 05/30/20 mcg (5,000 unit) capsule amlodipine 2.5 mg tablet 2.5 mg PO DAILY 01/17/20 05/30/20 cyanocobalamin (vitamin B-12) 1,000 mcg PO DAILY 01/17/20 05/30/20 1,000 mcg tablet hydrochlorothiazide 12.5 mg capsule 12.5 mg PO DAILY 01/17/20 05/30/20 fluconazole 150 mg PO Q72H 05/30/20 05/30/20 <Tuan Mitchell MD - Last Filed: 07/28/20 19:09> Allergies/Adverse reactions: Allergies Allergy/AdvReac Type Severity Reaction Status Date / Time vancomycin Allergy Unknown Rash,Unknow Verified 07/28/20 16:31 n doxycycline Allergy Weakness Verified 07/28/20 16:31 piperacillin [From Zosyn] Allergy Weakness Verified 07/28/20 16:31 tazobactam [From Zosyn] Allergy Weakness Verified 07/28/20 16:31 <Tuan Mitchell MD - Last Filed: 07/28/20 19:09> Review of Systems Review of Systems: All systems reviewed & are unremarkable except as noted in HPI and below <Tuan Mitchell MD - Last Filed: 07/28/20 19:09> Constitutional: Constitutional: Denies chills, Denies fever(s) and Denies weakness <Tuan Mitchell MD - Last Filed: 07/28/20 19:09> ENT: Denies nasal congestion and Denies sore throat <Tuan Mitchell MD - Last Filed: 07/28/20 19:09> Cardiovascular: Cardiovascular: Denies chest pain and Denies radiating jaw, neck or arm pain <Tuan Mitchell MD - Last Filed: 07/28/20 19:09> Respiratory: Respiratory: Denies cough and Denies dyspnea <Tuan Mitchell MD - Last Filed: 07/28/20 19:09> Gastrointestinal: Gastrointestinal: Denies abdominal pain, Denies nausea and Denies vomiting <Tuan Mitchell MD - Last Filed: 07/28/20 19:09> Integumentary/Breasts: Skin/Breast: Denies erythema, Denies rash and Reports skin ulcer <Tuan Mitchell MD - Last Filed: 07/28/20 19:09> FOR[facility]LY [facility] Past Medical History Medical History: Medical History (Updated 07/28/20 @ 18:36 by Tuan Mitchell MD) Chronic anemia Chronic kidney disease, stage [address] Benson. Colon polyps (~05/2016) Depression Diabetes mellitus type II, uncontrolled Diabetic peripheral neuropathy Diabetic retinopathy L eye requiring injections Essential hypertension Hyperlipidemia Insulin dependent type 2 diabetes mellitus Hemoglobin A1c was 8.8% in March 2020. Mixed stress and urge urinary incontinence Morbid obesity <Tuan Mitchell MD - Last Filed: 07/28/20 19:09> Surgical History Surgical History: Surgical History History of amputation of toe 4th toes amputated bilaterally. History of fusion of cervical spine (~10/2001) History of local excision of skin lesion Exophytic lesion removed from the right eyelid, benign. Status post debridement (~2019) Left diabetic heel wound. <Tuan Mitchell MD - Last Filed: 07/28/20 19:09> Family History Family History: Family History Mother Cerebrovascular accident Family history of angely
--- NOTE | 2020-07-28 18:34 | PC.NURSE ---
Phlebotomy at bedside for lab draw.
[2020-07-28 19:48] LABS: Anion Gap 8 mmol/L (8-16); Blood Urea Nitrogen 49 mg/dL (7-17); Calcium 8.9 mg/dL (8.4-10.2); Carbon Dioxide 26 mmol/L (22-30); Chloride 103 mmol/L (98-107); Estimated CRCL calculation 42 ml/min; Estimated Glomerular Filt Rate 27; Glucose 238 mg/dL (65-105); Sodium 137 mmol/L (137-145)
[2020-07-28 20:10] LABS: Potassium 4.6 mmol/L (3.4-5.0)
[2020-07-28] MEDS: ONDANSETRON INJ 4 MG/2 ML VIAL IV PUSH (20:30)
== END 2020-07-28 20:43 | disposition home or self-care (01) ==
PROVIDERS: Emergency Provider Emergency Medicine; PCP Student in an Organized Health Care Education/Training Program
DX: L03.116 Cellulitis of left lower limb (principal); E11.22 Type 2 diabetes mellitus with diabetic chronic kidney disease; N18.30 Chronic kidney disease, stage 3 unspecified; I12.0 Hypertensive chronic kidney disease with stage 5 chronic kidney disease or end stage renal disease; Z79.4 Long term (current) use of insulin; E11.42 Type 2 diabetes mellitus with diabetic polyneuropathy; E11.319 Type 2 diabetes mellitus with unspecified diabetic retinopathy without macular edema; E11.621 Type 2 diabetes mellitus with foot ulcer; L97.529 Non-pressure chronic ulcer of other part of left foot with unspecified severity; E78.5 Hyperlipidemia, unspecified; N39.46 Mixed incontinence; E66.01 Morbid (severe) obesity due to excess calories; Z68.42 Body mass index [BMI] 45.0-49.9, adult; Z89.422 Acquired absence of other left toe(s); Z89.421 Acquired absence of other right toe(s); Z98.1 Arthrodesis status; Z86.010 Personal history of colon polyps
CPT/HCPCS: 36415; 80048; 85025; 96374; 99284; J2405

== ENCOUNTER 2020-08-09 09:04 | Inpatient (IN) | payer OTHER, MEDICAID, SELFPAY ==
[2020-08-09] VITALS (10 sets, daily range): BP systolic 113–160; BP diastolic 42–68; PULSE 90–109; RESP 17–31; TEMP 36.4–38.6; O2SAT 97–99; BMI 47.5
--- NOTE | ~2020-08-09 | CT_ITS ---
EXAMINATION: CT brain wo con DATE: 08/17/2020 14:20 INDICATION: Confusion. TECHNIQUE: Computed tomography (CT) of the head was performed without intravenous contrast. The mA wa s adjusted according to patient size. Iterative reconstruction technique was employed. The dose-lengt h product was 605.33 mGy-cm. COMPARISON: Head CT 10/22/2018 FINDINGS: There are scattered areas of low attenuation in the cerebral white matter. There is no intr acranial hemorrhage, acute infarction, or abnormal intracranial mass lesion. The ventricles are kelton l in size. There are likely changes of ocular lens replacement surgeries. There is mild mucosal thick ening in the ethmoid sinuses. The mastoid air cells are normal. IMPRESSION: 1. Mild nonspecific cerebral white matter disease, which likely represents chronic small vessel ische miroslava disease. Reviewed, dictated and finalized at location A. ES UNDERWEAR OPERATOR IMPRESSION: 1. Mild nonspecific cerebral white matter disease, which likely represents boiler fitter cherrie small vessel ischemic disease.
--- NOTE | ~2020-08-09 | XR_ITS ---
EXAMINATION: XR chest 1V portable INDICATION: Leukocytosis and lower limb edema TECHNIQUE: Portable AP chest at 1517 hours COMPARISON: 03/09/2020 FINDINGS: There are minimal airspace opacities of the left lung base. No pleural effusion or pneumoth orax is identified. The cardiomediastinal silhouette is normal. IMPRESSION: 1. Left basilar airspace opacity, consistent with atelectasis versus pneumonia. Reviewed, dictated and finalized at location A. AL COUNCIL MEMBER
--- NOTE | ~2020-08-09 | XR_ITS ---
XR foot LT 2V DATE: 08/11/2020 09:22 INDICATION: Osteomyelitis TECHNIQUE: AP and lateral views COMPARISON: None FINDINGS: Diffuse osteopenia. There is soft tissue swelling of the foot. There is extensive calcification of the anterior and posterior tibial and dorsalis pedis as well as m etatarsal and digital arteries, suggesting diabetes. There is amputation of the fourth metatarsal at the midshaft. No fracture or dislocation or bone destruction is evident. IMPRESSION: Status post amputation at the mid fourth metatarsal shaft Diffuse osteopenia Extensive arterial calcifications suggesting diabetes No definite radiographic evidence for osteomyelitis. 3 phase radionuclide bone scan would be more sen sitive. Reviewed, dictated and finalized at location A. OLL TECHNICIAN IMPRESSION: Status post amputation at the mid fourth metatarsal shaft Diffuse osteopenia Extensive arterial calcifications suggesting diabetes No definite radiographic evidence for osteomyelitis. 3 phase radionuclide bone scan would be more sensitive.
--- NOTE | ~2020-08-09 | US_ITS ---
EXAMINATION: US venous doppler [facility] DATE: 08/09/2020 16:45 INDICATION: Left lower limb swelling TECHNIQUE: Cervantes scale images without and with compression and Doppler images of the left lower extrem ity veins were obtained. COMPARISON: 05/31/2020 FINDINGS: The left common femoral vein, profunda femoral vein, femoral vein, popliteal vein, peroneal trunk, posterior tibial veins, and greater saphenous vein are patent. IMPRESSION: 1. Patent left lower extremity veins. No evidence of deep venous thrombosis. Reviewed, dictated and finalized at location A. AR WORKER
--- NOTE | ~2020-08-09 | XR_ITS ---
EXAMINATION: XR knee LT 3V DATE: 08/09/2020 10:17 INDICATION: Left knee pain. TECHNIQUE: 3 views of left knee were obtained. COMPARISON: None. FINDINGS: Bone alignment is normal. No fracture. There is mild tricompartmental osteoarthritis. There is a small knee joint effusion. IMPRESSION: 1. Mild left knee osteoarthritis. 2. Small left knee joint effusion. Reviewed, dictated and finalized at location B. ER SPECIALISTS
[2020-08-09 09:43] LABS: Basophils Absolute Auto 0.1 K/mm3 (0.0-0.1); Basophils Percent Auto 0.3 % (0.2-1.2); Hematocrit 24.6 % (37.0-47.0); Hemoglobin 7.8 g/dL (12.0-15.0); Immature Granulocyte Absolute 0.18 K/mm3 (0.00-0.031); Lymphocytes Absolute Auto 1.11 K/mm3 (0.9-3.2); Lymphocytes Percent Auto 6.3 % (18.3-44.2); Mean Corpuscular HGB Conc 31.7 g/dl (32-36); Mean Corpuscular Hemoglobin 27.9 pg (26-34); Mean Corpuscular Volume 87.9 fl (80-100); Mean Platelet Volume 9.5 fl (7.4-10.4); Monocytes Absolute Auto 1.2 K/mm3 (0.1-0.6); Monocytes Percent Auto 6.8 % (2.6-8.5); Neutrophils Percent Auto 85.6 % (45.5-73.1); Platelet Count Result 323 k/mm3 (150-375); Red Cell Distribution Width 14.6 % (11.5-14.5); White Blood Count 17.6 K/mm3 (4.5-10.0)
[2020-08-09 09:47] LABS: Add Urine Microscopic? YES; Appearance Urine Turbid (Clear); Bacteria Urine 4+ /hpf; Bilirubin Urine Negative (Negative); Blood Urine 2+ (Negative); Color Urine Yellow (Yellow); Glucose Urine UA Negative (Negative); Ketones Urine Trace mg/dL (Negative); Leukocyte Esterase Ur 3+ LEU/UL (Negative); Mucus Urine Heavy /lpf; Nitrate Urine Negative (Negative); Protein Urine 2+ mg/dL (Negative); Specific Grav Ur 1.014 (1.001-1.035); Squamous Epithelial Cell Urine Many /hpf (Few); Urobilinogen Urine Negative mg/dL (<2.0); WBC Urine >75 /hpf
[2020-08-09 09:55] LABS: Alanine Aminotransferase 12 U/L (4-35); Albumin Level 3.4 g/dL (3.5-5.1); Alkaline Phosphatase 143 U/L (38-126); Anion Gap 6 mmol/L (8-16); Aspartate Amino Transferase 27 U/L (14-36); Blood Urea Nitrogen 33 mg/dL (7-17); Calcium 9.1 mg/dL (8.4-10.2); Carbon Dioxide 29 mmol/L (22-30); Chloride 96 mmol/L (98-107); Estimated Glomerular Filt Rate 24; Glucose 290 mg/dL (65-105); Potassium 4.4 mmol/L (3.4-5.0); Sodium 131 mmol/L (137-145)
[2020-08-09] MEDS: HYDROcodone/acetaminophen (*CRX) 5-325 MG TABLET 1 TAB PO (10:07)
[2020-08-09 10:39] LABS: CRP 41.2 mg/dL (<1.0)
[2020-08-09] MEDS: SODIUM CHLORIDE 0.9% IV 1,000 ML 999 ML IV CONT (11:12)
--- NOTE | 2020-08-09 11:18 | ED.GENADULT ---
HPI - General Adult General Chief complaint: Extremity Problem,Nontraumatic Stated complaint: L LEG PAIN Time Seen by Provider: 08/09/20 09:32 Source: patient Mode of arrival: EMS Limitations: no limitations History of Present Illness HPI narrative: Patient presents with chief complaint of concern for worsening cellulitis in her left leg. Patient states that she has not noticed more redness or erythema in the leg she notices more pain to her left knee since walking on Friday. Patient states yesterday she has not been able to walk on the leg. Patient reports that she is managed by wound care for a wound on her left great toe which has been improving. Patient denies tightness or pain in the posterior aspect of her calf or thigh. She states that she did have a ultrasound to rule out DVT a week or 2 ago which was negative. Patient denies any fever, nausea, vomiting or diarrhea. Patient states that she came to the emergency department today to be admitted as she cannot walk on her left leg or bear any weight.. Related Data Home Medications Medication Instructions Recorded Confirmed atorvastatin 80 mg tablet 80 mg PO DAILY 08/11/19 05/30/20 cholecalciferol (vitamin D3) 125 5,000 unit PO DAILY 08/11/19 05/30/20 mcg (5,000 unit) capsule cyanocobalamin (vitamin B-12) 1,000 mcg PO DAILY 01/17/20 05/30/20 1,000 mcg tablet hydrochlorothiazide 12.5 mg capsule 12.5 mg PO DAILY 01/17/20 05/30/20 fluconazole 150 mg PO Q72H 05/30/20 05/30/20 Allergies Allergy/AdvReac Type Severity Reaction Status Date / Time vancomycin Allergy Unknown Rash,Unknow Verified 08/09/20 09:45 n doxycycline Allergy Weakness Verified 08/09/20 09:45 piperacillin [From Zosyn] Allergy Weakness Verified 08/09/20 09:45 tazobactam [From Zosyn] Allergy Weakness Verified 08/09/20 09:45 Review of Systems Review of Systems: Narrative: CONSTITUTIONAL: Denies fever, chills, or sweats. EYES: Denies visual changes, redness, or discharge. ENT: Denies rhinorrhea, congestion, sore throat, or otalgia. CARDIOVASCULAR: Denies chest pain, palpitations, or edema. RESPIRATORY: Denies cough or dyspnea. GASTROINTESTINAL: Denies abdominal pain, nausea, vomiting, or diarrhea. GENITOURINARY: Denies dysuria or hematuria. SKIN: Denies rash or itching. MUSCULOSKELETAL: Reports left knee pain and lower leg denies back painor myalgia. NEUROLOGIC: Denies headache, numbness, dizziness, or weakness. PSYCHIATRIC: Denies anxiety or depression. FOR[facility]LY [facility] Past Medical History Medical History (Updated 08/09/20 @ 11:27 by Weston Gambino PA-C) Chronic anemia Chronic kidney disease, stage [address] Benson. Colon polyps (~05/2016) Depression Diabetes mellitus type II, uncontrolled Diabetic peripheral neuropathy Diabetic retinopathy L eye requiring injections Essential hypertension Hyperlipidemia Insulin dependent type 2 diabetes mellitus Hemoglobin A1c was 8.8% in March 2020. Mixed stress and urge urinary incontinence Morbid obesity Surgical History Surgical History History of amputation of toe 4th toes amputated bilaterally. History of fusion of cervical spine (~10/2001) History of local excision of skin lesion Exophytic lesion removed from the right eyelid, benign. Status post debridement (~2019) Left diabetic heel wound. Family History Family History Mother Cerebrovascular accident Family history of diabetes mellitus in first degree relative Father Family history of diabetes mellitus in first degree relative Grandparent Diabetes mellitus Other Family history of anemia Family history of obesity Social History Social History (Updated 05/30/20 @ 09:45 by Andrae Brooke MD) Social History: The patient lives in [place] with her dogs. She has been on disability for several years. She is lifelong nonsmoker . No alcohol or illicit substan
[2020-08-09] MEDS: ERTAPENEM 1 GM/NS 50 ML 1 GM/50 ML BAG IVPB (11:22)
--- NOTE | 2020-08-09 11:26 | PC.NURSE ---
Levaquin not given due to being Dc'd.
--- NOTE | 2020-08-09 12:30 | ADMGEN ---
This patient, Theodora Kelly, was admitted to 2 Medical Room 242-. Patient/family oriented to hospital policies and general routines including ID bracelet, bed and alarms, visiting hours, pain management, procedures, bathroom and other care routines, personal items, smoking policy, room service/diet, and visiting hours. Information on how to activate the Rapid Response Team has been discussed. Patient/Family are encouraged to report perceived risks to care and to ask questions if they do not understand what they are told or what they should do.
--- NOTE | 2020-08-09 14:05 | PM.IMHP ---
H&P: HPI History of Present Illness Date/Time: 08/09/20 14:05 Chief complaint: UTI/LEFT KNEE EFFUSION INABILITY TO AMBULATE Narrative: Theodora Kelly is a 60 year old female The patient is diabetic and has had multiple toes amputated in the past. The patient is currently attending wound clinic for left foot wound. She has had the left heel debrided the past. She has had 1 toe removed on the left with a bone removed in her small toe on the left and 2 toes removed on the right in the past. The patient tells me that her blood sugars have been in the 100s. She is complaining of having some pain to her left knee she said it feels like as a fever and it but she cannot tell if it is red. The patient also feels fatigue and weak. Knee x-ray was read as mild left knee osteo arthritis. Small left knee joint effusion. Patient's urine was turbid and 3+ leukocyte esterase rbc's 11-20 and wbc's greater than 75. She has many squamous cell epithelium. The patient has a chronic an indwelling Salgado catheter. Which has not been change in over a month and will need to be changed now. It sounds like the patient has a neurogenic bladder and was considering a pacemaker for her bladder at 1 time but was not able to undergo this surgery due to the pandemic. The patient has had Proteus mirabilis and it is sensitive to ertapenem. The patient was started on Vicodin, IV fluids initially she was given Levaquin and then changed to Invanz. Blood and urine cultures are pending. The patient's eyes temperature was 37.9 degree C. WBCs 17.6. H&H 7.8 And 24.6. creatinine 2.10 anion gap is 6 BUN 33. GFR is 24. Glucose 290. Patient was admitted into inpatient status on the date of service of 08/09/2020 Review of Systems Review of Systems: All systems reviewed & are unremarkable except as noted in HPI and below Constitutional: Constitutional: Reports as per HPI and Reports no additional constitutional complaints Eyes: Eyes: Reports as per HPI and Reports no additional eye complaints ENT: Reports system reviewed and no additional complaints, except as documented and Reports Normal hearing present Cardiovascular: Cardiovascular: Reports no additional cardiovascular complaints Respiratory: Respiratory: Reports no additional respiratory complaints and Reports no additional respiratory complaints Gastrointestinal: Gastrointestinal: Reports as per HPI and Reports no additional gastrointestinal complaints Musculoskeletal: Musculoskeletal: Reports no additional musculoskeletal complaints Integumentary/Breasts: Skin/Breast: Reports system reviewed and no additional complaints, except as docu and Reports as per HPI Neurologic: Reports system reviewed and no additional complaints, except as documented, Reports as per HPI and Reports Normal hearing present Psychiatric: Psychiatric: Reports no additional psychiatric complaints and Reports as per HPI Endocrine: Endocrine: Reports no additional endocrine complaints Hematologic/Lymphatic: Hematologic/Lymphatic: Reports no additional hematologic/lymphatic complaints Allergic/Immunologic: Allergic/Immunologic: Reports no additional allergic/immunologic complaints [facility] Past Medical History Medical History (Updated 08/09/20 @ 15:01 by Lexus Benavidez NP) Chronic anemia Chronic indwelling Salgado catheter Chronic kidney disease, stage [address] Benson. Colon polyps (~05/2016) Depression Diabetes mellitus type II, uncontrolled Diabetic peripheral neuropathy Diabetic retinopathy L eye requiring injections Essential hypertension Hyperlipidemia Insulin dependent type 2 diabetes mellitus Hemoglobin A1c was 8.8% in March 2020. Mixed stress and urge urinary incontinence Morbid obesity Neurogenic bladder Surgical History Surgical History (Updated 08/09/20 @ 14:43 by Lexus Benavidez NP) H/O Achilles tendon repair History of amputation of toe 2 toes amputated on the right and 1 toe which is the 4th toe
[2020-08-09 16:16] LABS: Hemoglobin A1C 7.6 % (<5.7)
[2020-08-09] MEDS: GABAPENTIN 300 MG CAPSULE PO ×2 (17:06→21:16)
[2020-08-09] MEDS: HEPARIN SODIUM 5,000 UNITS/ML VIAL 5000 UNITS SUB-Q ×2 (17:07→21:17)
[2020-08-09] MEDS: ACIDOPHILUS/BULGARICUS CHEWABLE TABLET 1 TABLET PO (17:07)
[2020-08-09] MEDS: SILVERGEL (ELTA) 45 ML 1 APPLIC TOPICAL (17:13)
[2020-08-09] MEDS: INSULIN ASPART (*BKC) 100 UNITS/ML SUB-Q (17:39)
[2020-08-09 17:40] LABS: Glucose Point of Care 245 (65-105)
[2020-08-09] MEDS: INSULIN GLARGINE (*BKC) 100 UNITS/ML 40 UNITS SUB-Q (21:07)
[2020-08-09] MEDS: MICONAZOLE NITRATE 2% CREAM 30 GM TUBE 1 APPLIC TOPICAL (21:18)
[2020-08-09] MEDS: traMADol HCL (*CRX) 25 MG TABLET PO (21:23)
[2020-08-09] MEDS: ACETAMINOPHEN 325 MG TABLET 650 MG PO (21:39)
[2020-08-09 21:43] LABS: Glucose Point of Care 267 (65-105)
[2020-08-10] VITALS (14 sets, daily range): BP systolic 101–136; BP diastolic 38–65; PULSE 79–100; RESP 16–20; TEMP 36.3–39.3; O2SAT 94–96; BMI 47.5
--- NOTE | 2020-08-10 01:11 | PC.NURSE ---
This patient, Theodora Kelly, was received from room 242 on 08/10/20 at 0100. Patient/family oriented to unit policies and routines
--- NOTE | 2020-08-10 01:18 | PC.NURSE ---
Report given to Osvaldo on 3rd med surg at 00:43. Moved pateint to room 310 at 01:10
[2020-08-10] MEDS: HEPARIN SODIUM 5,000 UNITS/ML VIAL 5000 UNITS SUB-Q ×3 (06:35→23:33)
[2020-08-10] MEDS: GABAPENTIN 300 MG CAPSULE PO ×3 (06:36→22:20)
[2020-08-10 06:50] LABS: Basophils Percent Auto 0.2 % (0.2-1.2); Hematocrit 21.1 % (37.0-47.0); Immature Granulocyte Absolute 0.18 K/mm3 (0.00-0.031); Immature Granulocyte Percent A 1.2 % (0-0.5); Lymphocytes Absolute Auto 1.54 K/mm3 (0.9-3.2); Lymphocytes Percent Auto 9.9 % (18.3-44.2); Mean Corpuscular HGB Conc 31.3 g/dl (32-36); Mean Corpuscular Hemoglobin 26.8 pg (26-34); Mean Corpuscular Volume 85.8 fl (80-100); Mean Platelet Volume 9.2 fl (7.4-10.4); Monocytes Absolute Auto 1.3 K/mm3 (0.1-0.6); Monocytes Percent Auto 8.4 % (2.6-8.5); Neutrophils Absolute Auto 12.5 K/mm3 (1.3-6.7); Neutrophils Percent Auto 80.3 % (45.5-73.1); Platelet Count Result 302 k/mm3 (150-375); Red Blood Count 2.46 M/mm3 (4.2-5.4); Red Cell Distribution Width 14.5 % (11.5-14.5); White Blood Count 15.5 K/mm3 (4.5-10.0)
[2020-08-10 06:55] LABS: Hemoglobin 6.6 g/dL (12.0-15.0)
[2020-08-10 06:57] LABS: Lactate Dehydrogenase 325 U/L (313-618); Magnesium 1.6 mg/dL (1.6-2.3)
[2020-08-10 07:32] LABS: CRP 42.5 mg/dL (<1.0)
[2020-08-10] MEDS: CHOLECALCIFEROL 1,000 UNITS TABLET 5000 UNITS PO (08:20)
[2020-08-10] MEDS: FERROUS SULFATE 324 MG TABLET PO (08:21)
[2020-08-10] MEDS: CYANOCOBALAMIN 1,000 MCG TABLET 1000 MCG PO (08:21)
[2020-08-10] MEDS: hydroCHLOROthiazide 12.5 MG CAPSULE PO (08:21)
[2020-08-10] MEDS: ATORVASTATIN 40 MG TABLET 80 MG PO (08:21)
[2020-08-10] MEDS: ACIDOPHILUS/BULGARICUS CHEWABLE TABLET 1 TABLET PO ×3 (08:21→18:15)
[2020-08-10] MEDS: MICONAZOLE NITRATE 2% CREAM 30 GM TUBE 1 APPLIC TOPICAL ×2 (08:22→20:07)
[2020-08-10] MEDS: GLIMEPIRIDE 2 MG TABLET 4 MG PO (08:22)
[2020-08-10] MEDS: INSULIN ASPART (*BKC) 100 UNITS/ML SUB-Q ×3 (08:27→18:15)
[2020-08-10 08:57] LABS: NT Pro B Type Natriuretic Pept 3380 PG/ML (5-100)
[2020-08-10 09:56] LABS: Glucose Point of Care 233 (65-105)
[2020-08-10] MEDS: guaiFENesin 12 HR 600 MG TABCR PO ×2 (10:44→20:08)
[2020-08-10] MEDS: SILVERGEL (ELTA) 45 ML 1 APPLIC TOPICAL (10:44)
[2020-08-10] MEDS: LIDOCAINE 5% PATCH 2 PATCH TRANSDERM (10:44)
[2020-08-10 12:23] LABS: Glucose Point of Care 259 (65-105)
[2020-08-10] MEDS: ERTAPENEM 1 GM/NS 50 ML 1 GM/50 ML BAG IVPB (12:25)
[2020-08-10] MEDS: HYDROcodone/acetaminophen (*CRX) 5-325 MG TABLET 1 TAB PO (15:13)
[2020-08-10 17:57] LABS: Glucose Point of Care 212 (65-105)
--- NOTE | 2020-08-10 18:45 | PM.IMPN ---
Progress Note: A&P Assessment and Plan (1) Urinary tract infection: Qualifiers: Hematuria presence: with hematuria Urinary tract infection type: acute cystitis Qualified Code(s): N30.01 - Acute cystitis with hematuria Code(s): N39.0 - Urinary tract infection, site not specified Status: Acute Assessment and Plan: chronic indwelling Woods catheter for neurogenic bladder; pending a bladder pacemaker surgery. woods catheter was changed out on 08/09 at 1730 here at [facility] after admission. In 2019, Theodora had Proteus mirabilis UTI, sensitive to ertapenem, so she was started on that at admission. Blood and urine cultures are pending. Initially she had a fever of 37.9 at admission yesterday but now she is afebrile, WBCs improved from 17.6 to 15.5. Hemoglobin dropped from 7.8 to 6.6. Vital signs are stable. (2) Chronic indwelling Woods catheter: Code(s): Z97.8 - Presence of other specified devices Status: Chronic Assessment and Plan: Woods catheter changed out last night after her admission Will need to have a follow-up appointment with her urologist after discharge to get set up for routine Woods changes Treating UTI with IV antibiotics Urine/blood culture pending Fever at admission has now resolved (3) OZZY (acute kidney injury): Code(s): N17.9 - Acute kidney failure, unspecified Status: Acute Assessment and Plan: current creatinine is 2.1 baseline best is 1.8 on 2019. Worse is up to 3.6 in May 2020. has been seen by service and repair supervisor Dr. Benson. Appears to have a UTI at this time as well. Will need to have a follow-up appointment with her urologist after discharge to get set up for routine Woods changes (4) Cellulitis: Qualifiers: Laterality: left Site of cellulitis: extremity Site of cellulitis of extremity: lower extremity Qualified Code(s): L03.116 - Cellulitis of left lower limb Code(s): L03.90 - Cellulitis, unspecified Status: Acute Assessment and Plan: Sees Dr. Chantal Ribeiro, at the [facility], for her diabetic foot infections. History of toe amputations and debridement. unable to stand or use her left leg for mobility at home -ordered PT and OT pain control, tight glucose control treat UTI, set her up with service or Urologist that will ensure that her Woods Catheter is changed monthly. consult Ortho Initially she had a fever of 37.9 at admission yesterday but now she is afebrile WBCs improved from 17.6 to 15.5. Receiving daily IV ertapenem today around noon Consulted ortho to assess if debridement needed or if osteomyelitis a concern for this diabetic foot infection. Requested the last 2 office notes from her director of product marketing as well as wound cultures that the patient said were recently taken from the left foot. Check peripheral pulses BLE regularly. (5) Chronic anemia: Code(s): D64.9 - Anemia, unspecified Status: Acute Assessment and Plan: Patient is at her baseline. Hemoglobin dropped from 7.8 to 6.6. Ordered 1 RBC - transfusion pending. Vital signs are stable. no fevers No IV fluids at this time. anemia may be related to poor nutrition due to poor mobility or renal failure checking iron panel, may benefit from IV Venofer. CBC ordered for now and in the morning. (6) Insulin dependent type 2 diabetes mellitus: Code(s): E11.9 - Type 2 diabetes mellitus without complications; Z79.4 - middle or intermediate school principal (current) use of insulin Status: Acute Assessment and Plan: Accu-Cheks AC and HS. A1c was over 8.0 months ago. Now A1C = 7.6. glucose levels here have been 200s consistently; 245, 267, 233, 259 . Increased her insulin dosing from low-dose to moderate dose today. Diabetic diet Continue with Lantus. Continue with Amaryl (7) Edema: Code(s): R60.9 - Edema, unspecified Status: Acute Assessment and Plan: Ordered a low
[2020-08-10 20:04] LABS: SARS-CoV-2 RNA PCR Negative
[2020-08-10 20:07] LABS: Basophils Percent Auto 0.2 % (0.2-1.2); Eosinophils Percent Auto 0.1 % (0-4.4); Hemoglobin 7.2 g/dL (12.0-15.0); Immature Granulocyte Percent A 0.6 % (0-0.5); Lymphocytes Absolute Auto 1.29 K/mm3 (0.9-3.2); Lymphocytes Percent Auto 8.1 % (18.3-44.2); Mean Corpuscular HGB Conc 31.3 g/dl (32-36); Mean Corpuscular Hemoglobin 27.5 pg (26-34); Mean Corpuscular Volume 87.8 fl (80-100); Mean Platelet Volume 9.1 fl (7.4-10.4); Monocytes Percent Auto 6.1 % (2.6-8.5); Neutrophils Absolute Auto 13.6 K/mm3 (1.3-6.7); Neutrophils Percent Auto 84.9 % (45.5-73.1); Platelet Count Result 297 k/mm3 (150-375); Red Blood Count 2.62 M/mm3 (4.2-5.4); Red Cell Distribution Width 14.7 % (11.5-14.5)
[2020-08-10] MEDS: INSULIN GLARGINE (*BKC) 100 UNITS/ML 40 UNITS SUB-Q (20:07)
[2020-08-10 20:21] LABS: Alanine Aminotransferase 18 U/L (4-35); Albumin Level 3.3 g/dL (3.5-5.1); Alkaline Phosphatase 135 U/L (38-126); Anion Gap 7 mmol/L (8-16); Aspartate Amino Transferase 31 U/L (14-36); Bilirubin,Total 0.5 mg/dL (0.2-1.3); Blood Urea Nitrogen 46 mg/dL (7-17); Carbon Dioxide 29 mmol/L (22-30); Chloride 95 mmol/L (98-107); Estimated CRCL calculation 30 ml/min; Estimated Glomerular Filt Rate 18; Glucose 185 mg/dL (65-105); Potassium 4.4 mmol/L (3.4-5.0); Sodium 131 mmol/L (137-145)
[2020-08-10 20:23] LABS: Iron < 10 ug/dL (37-170)
[2020-08-10] MEDS: ACETAMINOPHEN 325 MG TABLET 650 MG PO (20:30)
[2020-08-10] MEDS: SODIUM CHLORIDE 0.9% IV 250 ML 30 ML IV CONT (20:31)
[2020-08-10 20:32] LABS: Percent Iron Saturation 7 % (20-50)
[2020-08-10 21:40] LABS: Glucose Point of Care 172 (65-105)
[2020-08-10] MEDS: ACETAMINOPHEN 325 MG TABLET PO (22:20)
[2020-08-10 22:40] LABS: TXRXN Occult Blood Urine Immed 3+ (Negative); TXRXN RBC Urine Immediate >75 /hpf (0-2)
[2020-08-10 23:11] LABS: Total Bilirubin Imm Post TxRxn 0.9 mg/dL (0.2-1.3)
[2020-08-11] VITALS (12 sets, daily range): BP systolic 109–144; BP diastolic 50–73; PULSE 88–103; RESP 16–20; TEMP 36.8–39.8; O2SAT 93; BMI 10.0
[2020-08-11] MEDS: ACETAMINOPHEN 325 MG TABLET 650 MG PO ×2 (03:09→21:39)
[2020-08-11 03:30] LABS: Hematocrit 22.1 % (37.0-47.0); Mean Corpuscular HGB Conc 31.7 g/dl (32-36); Mean Corpuscular Hemoglobin 27.6 pg (26-34); Mean Platelet Volume 8.9 fl (7.4-10.4); Platelet Count Result 289 k/mm3 (150-375); Red Blood Count 2.54 M/mm3 (4.2-5.4); Red Cell Distribution Width 14.4 % (11.5-14.5); White Blood Count 15.2 K/mm3 (4.5-10.0)
[2020-08-11 03:39] LABS: TXRXN Occult Blood Urine 4 Hr 2+ mg/dL (Negative)
[2020-08-11 03:40] LABS: TXRXN RBC Urine 4 Hour 21-50 /hpf (0-2)
[2020-08-11 03:44] LABS: Anion Gap 7 mmol/L (8-16); Blood Urea Nitrogen 49 mg/dL (7-17); Calcium 8.7 mg/dL (8.4-10.2); Carbon Dioxide 29 mmol/L (22-30); Chloride 97 mmol/L (98-107); Estimated CRCL calculation 31 ml/min; Estimated Glomerular Filt Rate 19; Glucose 88 mg/dL (65-105); Potassium 4.2 mmol/L (3.4-5.0); Sodium 133 mmol/L (137-145)
[2020-08-11 04:28] LABS: Total Bilirubin 5hr Post TX RX 0.4 mg/dL (0.2-1.3)
[2020-08-11] MEDS: GABAPENTIN 300 MG CAPSULE PO ×3 (06:25→20:26)
[2020-08-11 07:38] LABS: Hematocrit 22.9 % (37.0-47.0); Hemoglobin 7.3 g/dL (12.0-15.0)
[2020-08-11] MEDS: LIDOCAINE 5% PATCH 2 PATCH TRANSDERM (08:08)
[2020-08-11] MEDS: ATORVASTATIN 40 MG TABLET 80 MG PO (08:09)
[2020-08-11] MEDS: CHOLECALCIFEROL 1,000 UNITS TABLET 5000 UNITS PO (08:09)
[2020-08-11] MEDS: ACIDOPHILUS/BULGARICUS CHEWABLE TABLET 1 TABLET PO ×3 (08:09→17:05)
[2020-08-11] MEDS: CYANOCOBALAMIN 1,000 MCG TABLET 1000 MCG PO (08:09)
[2020-08-11] MEDS: FUROSEMIDE 20 MG TABLET PO (08:09)
[2020-08-11] MEDS: MICONAZOLE NITRATE 2% CREAM 30 GM TUBE 1 APPLIC TOPICAL ×2 (08:10→20:26)
[2020-08-11] MEDS: hydroCHLOROthiazide 12.5 MG CAPSULE PO (08:10)
[2020-08-11] MEDS: FERROUS SULFATE 324 MG TABLET PO (08:10)
[2020-08-11] MEDS: guaiFENesin 12 HR 600 MG TABCR PO ×2 (08:10→20:26)
[2020-08-11] MEDS: SILVERGEL (ELTA) 45 ML 1 APPLIC TOPICAL (08:10)
[2020-08-11] MEDS: HYDROcodone/acetaminophen (*CRX) 5-325 MG TABLET 1 TAB PO ×2 (08:15→21:03)
--- NOTE | 2020-08-11 08:15 | PC.NURSE ---
Gave 4oz apple juice for 53 blood glucose.
[2020-08-11 09:08] LABS: Glucose Point of Care 53 (65-105)
[2020-08-11 09:21] LABS: Glucose Point of Care 65 (65-105)
--- NOTE | 2020-08-11 11:05 | PM.CNOR ---
Assessment and Plan Assessment and plan (1) Diabetic ulcer of left foot: Code(s): E11.621 - Type 2 diabetes mellitus with foot ulcer; L97.529 - Non-pressure chronic ulcer of other part of left foot with unspecified severity Status: Acute Assessment and Plan: 60-year-old female with diabetic neuropathy, superficial ulcer left hallux. No signs of infection of the toe or foot. Currently being treated with silver gel and gauze dressing which is appropriate. No surgical indication at this time. Patient has follow-up appointment arranged with her applied psychology teacher next week. Recommend she continue with follow-up as scheduled. (2) Diabetic peripheral neuropathy associated with type 2 diabetes mellitus: Code(s): E11.42 - Type 2 diabetes mellitus with diabetic polyneuropathy Status: Acute (3) Cellulitis of left lower extremity: Code(s): L03.116 - Cellulitis of left lower limb Status: Acute Assessment and Plan: agree with current plan with IV antibiotics. History of Present Illness HPI Consult date: 08/11/20 Requesting physician: Aurelia Zuleta NP Consult reason: other (Left hallux ulcer) Chief complaint: UTI/LEFT KNEE EFFUSION INABILITY TO AMBULATE Narrative: 60-year-old woman admitted through the emergency room for left leg cellulitis, pain and inability to ambulate. Patient has diabetes and peripheral neuropathy. She has had previous ulcerations and osteomyelitis. She is status post toe amputations on both feet. Asked to see patient for left hallux ulcer. Patient notes ulcer present for several weeks. She has been doing local wound care at home. She regularly follows with a applied psychology teacher in [place]. She has not noted that the toe or ulcer is any worse. She is concerned more about the swelling and redness of her left leg And the resultant pain. she normally ambulates under her own power at home. Review of Systems Review of Systems: All systems reviewed & are unremarkable except as noted in HPI and below Constitutional: Constitutional: Reports as per HPI, Reports no additional constitutional complaints, Reports fatigue, Reports lethargy and Reports weakness Eyes: Eyes: Reports as per HPI and Reports no additional eye complaints ENT: Reports system reviewed and no additional complaints, except as documented and Reports Normal hearing present Cardiovascular: Cardiovascular: Reports no additional cardiovascular complaints, Reports pedal edema and Reports leg edema Respiratory: Respiratory: Reports no additional respiratory complaints, Reports no additional respiratory complaints, Denies cough, Reports dyspnea, Denies dyspnea on exertion and Denies wheezing Gastrointestinal: Gastrointestinal: Reports as per HPI, Reports no additional gastrointestinal complaints, Denies abdominal pain, Denies melena, Denies bloating, Reports constipation, Denies diarrhea, Denies vomiting and Denies hematemesis Genitourinary: Genitourinary: Reports as per HPI Comments: Chronic urinary Salgado catheter in place Musculoskeletal: Musculoskeletal: Reports no additional musculoskeletal complaints Integumentary/Breasts: Skin/Breast: Reports system reviewed and no additional complaints, except as docu and Reports as per HPI Neurologic: Reports system reviewed and no additional complaints, except as documented, Reports as per HPI and Reports Normal hearing present Psychiatric: Psychiatric: Reports no additional psychiatric complaints and Reports as per HPI Endocrine: Endocrine: Reports no additional endocrine complaints Hematologic/Lymphatic: Hematologic/Lymphatic: Reports no additional hematologic/lymphatic complaints Allergic/Immunologic: Allergic/Immunologic: Reports no additional allergic/immunologic complaints PMFSH Past Medical History Medical History Chronic anemia Chronic indwelling Salgado catheter Chronic kidney disease, stage [address] Benson. C
[2020-08-11] MEDS: ERTAPENEM 1 GM/NS 50 ML 1 GM/50 ML BAG IVPB (11:48)
[2020-08-11 12:12] LABS: Glucose Point of Care 56 (65-105)
--- NOTE | 2020-08-11 12:15 | PC.NURSE ---
Gave 4 oz apple juice for blood sugar of 56.
[2020-08-11] MEDS: IRON SUCROSE COMPLEX 500 MG in SODIUM CHLORIDE 0.9% IV 250 ML 78.57 MG IVPB (12:27)
--- NOTE | 2020-08-11 14:35 | PC.NURSE ---
Gave 4oz apple juice for blood glucose of 55.
[2020-08-11] MEDS: HEPARIN SODIUM 5,000 UNITS/ML VIAL 5000 UNITS SUB-Q ×2 (14:38→20:26)
[2020-08-11 14:56] LABS: Glucose Point of Care 55 (65-105)
--- NOTE | 2020-08-11 15:40 | PC.NURSE ---
Gave 4oz apple juice for blood glucose of 59. Dr Matos notified.
[2020-08-11 15:46] LABS: Glucose Point of Care 59 (65-105)
[2020-08-11] MEDS: DEXTROSE 5% 1,000 ML 1,000 ML 100 ML IVPB (17:10)
--- NOTE | 2020-08-11 17:21 | PM.IMPN ---
Progress Note: A&P Assessment and Plan (1) Transfusion reaction: Qualifiers: Encounter type: initial encounter Qualified Code(s): T80.92XA - Unspecified transfusion reaction, initial encounter Code(s): T80.92XA - Unspecified transfusion reaction, initial encounter Status: Acute Assessment and Plan: Patient received about 100 mL of blood infusion when he had increased fever. She also had worsening hematuria after transfusion. Blood transfusion was discontinued. Blood transfusion patient's hemoglobin did improve and is up to 7.3 up from 6.6. (2) Anemia: Qualifiers: Anemia type: iron deficiency Iron deficiency anemia type: unspecified iron deficiency Qualified Code(s): D50.9 - Iron deficiency anemia, unspecified Code(s): D64.9 - Anemia, unspecified Status: Acute Assessment and Plan: Patient has low iron level and low% saturation suggesting some component of iron deficiency likely complicating anemia of chronic disease. Will give 1 dose of Venofer and repeat CBC in a.m.. (3) Diabetic ulcer of left foot: Qualifiers: Diabetic foot ulcer location: toe Diabetes mellitus type: type 2 Non-pressure ulcer stage: unspecified non-pressure ulcer stage Qualified Code(s): E11.621 - Type 2 diabetes mellitus with foot ulcer; L97.529 - Non-pressure chronic ulcer of other part of left foot with unspecified severity Code(s): E11.621 - Type 2 diabetes mellitus with foot ulcer; L97.529 - Non-pressure chronic ulcer of other part of left foot with unspecified severity Status: Acute Assessment and Plan: Appreciate orthopedic surgery input. We recommend local wound care. Continue ertapenem. (4) Cellulitis of left lower extremity: Code(s): L03.116 - Cellulitis of left lower limb Status: Acute Assessment and Plan: Continue ertapenem. Leg remains erythematous and warm to touch. (5) Urinary tract infection: Qualifiers: Encounter type: sequela Indwelling urinary catheter type: indwelling urethral catheter Urinary tract infection type: catheter-associated UTI Qualified Code(s): T83.511S - Infection and inflammatory reaction due to indwelling urethral catheter, sequela; N39.0 - Urinary tract infection, site not specified Code(s): N39.0 - Urinary tract infection, site not specified Status: Acute Assessment and Plan: ESBL Klebsiella. Patient is on antibiotic therapy with ertapenem. She has a chronic indwelling Salgado catheter. Hematuria in part due to transfusion reaction and heparin administration. (6) Hypoglycemia: Code(s): E16.2 - Hypoglycemia, unspecified Status: Acute Assessment and Plan: Hypoglycemia and due to insulin therapy. The patient reports that she usually only takes 20 units Lantus if her glucoses are 200 or below. She received her 40 units of Lantus with a glucose of 178 yesterday. Her glucoses been in the 50s multiple times today. She has had ice cream and fruit juice multiple times throughout the day with little improvement in her hypoglycemia. Will start patient on D5 normal saline at 50 mL an hour and will hold patient's nighttime Lantus. Time Spent With Patient Time with patient: 15 - 25 minutes Subjective Date/time seen: 08/11/20 17:21 The patient reports increased pain and swelling to her left knee today. She did not tolerate physical therapy well. She has had decreased appetite today and has been hypoglycemic. She states that she usually only takes 20 of Lantus if her glucoses are around 200 the evening before. Of antibodies to blood transfusion. She received blood transfusion and spiked a temperature up to 102.4. However she had also been febrile prior to transfusion. She did have have some increased hematuria after blood transfusion so transfusion reaction is probable. Review of Systems Review of Systems: All systems reviewed & are unremarkable except as noted in HPI
[2020-08-11] MEDS: DEXTROSE 5%/0.9% SOD CHL 1,000 ML 50 ML IV CONT (17:48)
[2020-08-11 18:20] LABS: Glucose Point of Care 52 (65-105)
[2020-08-11 19:00] LABS: Glucose Point of Care 70 (65-105)
[2020-08-11 21:36] LABS: Glucose Point of Care 58 (65-105)
[2020-08-11 23:04] LABS: Glucose Point of Care 74 (65-105)
[2020-08-11 23:04] LABS: Glucose Point of Care 56 (65-105)
[2020-08-12] VITALS (13 sets, daily range): BP systolic 111–129; BP diastolic 47–52; PULSE 71–99; RESP 16–20; TEMP 36.2–39.1; O2SAT 93–95
[2020-08-12] MEDS: HEPARIN SODIUM 5,000 UNITS/ML VIAL 5000 UNITS SUB-Q ×3 (05:06→21:39)
[2020-08-12] MEDS: GABAPENTIN 300 MG CAPSULE PO ×3 (05:06→21:39)
[2020-08-12] MEDS: ACETAMINOPHEN 325 MG TABLET 650 MG PO ×2 (05:07→23:00)
[2020-08-12 07:06] LABS: Hematocrit 22.1 % (37.0-47.0); Mean Corpuscular HGB Conc 30.8 g/dl (32-36); Mean Corpuscular Hemoglobin 26.7 pg (26-34); Mean Corpuscular Volume 86.7 fl (80-100); Mean Platelet Volume 9.3 fl (7.4-10.4); Platelet Count Result 304 k/mm3 (150-375); Red Blood Count 2.55 M/mm3 (4.2-5.4); Red Cell Distribution Width 14.7 % (11.5-14.5); White Blood Count 15.1 K/mm3 (4.5-10.0)
[2020-08-12 07:08] LABS: Hemoglobin 6.8 g/dL (12.0-15.0)
[2020-08-12 07:22] LABS: Anion Gap 6 mmol/L (8-16); Blood Urea Nitrogen 55 mg/dL (7-17); Calcium 8.5 mg/dL (8.4-10.2); Carbon Dioxide 28 mmol/L (22-30); Chloride 99 mmol/L (98-107); Estimated CRCL calculation 32 ml/min; Estimated Glomerular Filt Rate 20; Glucose 75 mg/dL (65-105); Potassium 4.6 mmol/L (3.4-5.0); Sodium 133 mmol/L (137-145)
[2020-08-12] MEDS: CYANOCOBALAMIN 1,000 MCG TABLET 1000 MCG PO (08:26)
[2020-08-12] MEDS: FUROSEMIDE 20 MG TABLET PO (08:26)
[2020-08-12] MEDS: CHOLECALCIFEROL 1,000 UNITS TABLET 5000 UNITS PO (08:26)
[2020-08-12] MEDS: hydroCHLOROthiazide 12.5 MG CAPSULE PO (08:26)
[2020-08-12] MEDS: ACIDOPHILUS/BULGARICUS CHEWABLE TABLET 1 TABLET PO ×3 (08:26→17:01)
[2020-08-12] MEDS: ATORVASTATIN 40 MG TABLET 80 MG PO (08:26)
[2020-08-12] MEDS: GLIMEPIRIDE 2 MG TABLET 4 MG PO (08:27)
[2020-08-12] MEDS: FERROUS SULFATE 324 MG TABLET PO (08:27)
[2020-08-12] MEDS: LIDOCAINE 5% PATCH 2 PATCH TRANSDERM (08:27)
[2020-08-12] MEDS: guaiFENesin 12 HR 600 MG TABCR PO ×2 (08:27→20:47)
[2020-08-12] MEDS: MICONAZOLE NITRATE 2% CREAM 30 GM TUBE 1 APPLIC TOPICAL ×2 (08:28→20:47)
[2020-08-12] MEDS: SILVERGEL (ELTA) 45 ML 1 APPLIC TOPICAL (08:28)
[2020-08-12 08:44] LABS: Glucose Point of Care 78 (65-105)
[2020-08-12] MEDS: ERTAPENEM 1 GM/NS 50 ML 1 GM/50 ML BAG IVPB (12:22)
--- NOTE | 2020-08-12 12:33 | PM.IMPN ---
Progress Note: A&P Assessment and Plan (1) Transfusion reaction: Qualifiers: Encounter type: initial encounter Qualified Code(s): T80.92XA - Unspecified transfusion reaction, initial encounter Code(s): T80.92XA - Unspecified transfusion reaction, initial encounter Status: Acute Assessment and Plan: Patient received about 100 mL of blood infusion when he had increased fever. She also had worsening hematuria after transfusion. Blood transfusion was discontinued. Hgb is low. Will get heme onc consult (2) Anemia: Qualifiers: Anemia type: iron deficiency Iron deficiency anemia type: unspecified iron deficiency Qualified Code(s): D50.9 - Iron deficiency anemia, unspecified Code(s): D64.9 - Anemia, unspecified Status: Acute Assessment and Plan: Patient has low iron level and low% saturation suggesting some component of iron deficiency likely complicating anemia of chronic disease. Will give 1 dose of Venofer and repeat CBC in a.m.. (3) Diabetic ulcer of left foot: Qualifiers: Diabetes mellitus type: type 2 Diabetic foot ulcer location: toe Non-pressure ulcer stage: unspecified non-pressure ulcer stage Qualified Code(s): E11.621 - Type 2 diabetes mellitus with foot ulcer; L97.529 - Non-pressure chronic ulcer of other part of left foot with unspecified severity Code(s): E11.621 - Type 2 diabetes mellitus with foot ulcer; L97.529 - Non-pressure chronic ulcer of other part of left foot with unspecified severity Status: Acute Assessment and Plan: Appreciate orthopedic surgery input. We recommend local wound care. Continue ertapenem. (4) Cellulitis of left lower extremity: Code(s): L03.116 - Cellulitis of left lower limb Status: Acute Assessment and Plan: Continue ertapenem. Leg remains erythematous and warm to touch. (5) Urinary tract infection: Qualifiers: Encounter type: sequela Indwelling urinary catheter type: indwelling urethral catheter Urinary tract infection type: catheter-associated UTI Qualified Code(s): T83.511S - Infection and inflammatory reaction due to indwelling urethral catheter, sequela; N39.0 - Urinary tract infection, site not specified Code(s): N39.0 - Urinary tract infection, site not specified Status: Acute Assessment and Plan: ESBL Klebsiella. Patient is on antibiotic therapy with ertapenem. She has a chronic indwelling Salgado catheter Will get Id consult (6) Hypoglycemia: Code(s): E16.2 - Hypoglycemia, unspecified Status: Acute Assessment and Plan: Hypoglycemia and due to insulin therapy. The patient reports that she usually only takes 20 units Lantus if her glucoses are 200 or below. She received her 40 units of Lantus with a glucose of 178 yesterday. Her glucoses been in the 50s multiple times today. She has had ice cream and fruit juice multiple times throughout the day with little improvement in her hypoglycemia. Will start patient on D5 normal saline at 50 mL an hour and will hold patient's nighttime Lantus. Subjective Date/time seen: 08/12/20 12:33 Interval history: Patient was seen during the morning rounds today, no sob or chest pain. Feels weak, mood stable. Review of Systems Review of Systems: All systems reviewed & are unremarkable except as noted in HPI and below (Subjective) Constitutional: Constitutional: Reports as per HPI, Reports no additional constitutional complaints, Reports fatigue, Reports lethargy and Reports weakness Eyes: Eyes: Reports as per HPI and Reports no additional eye complaints ENT: Reports system reviewed and no additional complaints, except as documented and Reports Normal hearing present Cardiovascular: Cardiovascular: Reports no additional cardiovascular complaints, Reports pedal edema, Reports leg edema, Reports dyspnea and Denies dyspnea on exertion Respiratory: Respiratory: Reports no addition
[2020-08-12 12:53] LABS: Glucose Point of Care 75 (65-105)
[2020-08-12] MEDS: DEXTROSE 5%/0.9% SOD CHL 1,000 ML 50 ML IV CONT (14:48)
[2020-08-12 16:48] LABS: LDL Cholesterol Direct < 30 mg/dL
[2020-08-12 17:04] LABS: Iron 51 ug/dL (37-170)
[2020-08-12 17:17] LABS: Percent Iron Saturation 39 % (20-50)
[2020-08-12] MEDS: EPOETIN ALFA-EPBX 10,000 UNITS/ML VIAL 10000 UNITS SUB-Q (19:00)
[2020-08-12 19:07] LABS: Glucose Point of Care 79 (65-105)
[2020-08-12 20:16] LABS: SARS-CoV-2 RNA PCR Negative
[2020-08-12 21:00] LABS: Glucose Point of Care 71 (65-105)
[2020-08-12] MEDS: HYDROcodone/acetaminophen (*CRX) 5-325 MG TABLET 1 TAB PO (22:10)
[2020-08-13] VITALS (9 sets, daily range): BP systolic 125–140; BP diastolic 53–59; PULSE 71–83; RESP 16–20; TEMP 36.3–37; O2SAT 94–97
[2020-08-13 00:16] LABS: Folic Acid 6.9 ng/mL (2.76->20)
[2020-08-13] MEDS: HEPARIN SODIUM 5,000 UNITS/ML VIAL 5000 UNITS SUB-Q ×3 (05:46→21:01)
[2020-08-13] MEDS: GABAPENTIN 300 MG CAPSULE PO ×3 (05:46→21:01)
[2020-08-13] MEDS: CHOLECALCIFEROL 1,000 UNITS TABLET 5000 UNITS PO (08:25)
[2020-08-13] MEDS: ACIDOPHILUS/BULGARICUS CHEWABLE TABLET 1 TABLET PO ×3 (08:25→17:26)
[2020-08-13] MEDS: CYANOCOBALAMIN 1,000 MCG TABLET 1000 MCG PO (08:25)
[2020-08-13] MEDS: GLIMEPIRIDE 2 MG TABLET 4 MG PO (08:25)
[2020-08-13] MEDS: PANTOPRAZOLE 40 MG TABLET PO (08:25)
[2020-08-13] MEDS: ATORVASTATIN 40 MG TABLET 80 MG PO (08:26)
[2020-08-13] MEDS: hydroCHLOROthiazide 12.5 MG CAPSULE PO (08:26)
[2020-08-13] MEDS: guaiFENesin 12 HR 600 MG TABCR PO ×2 (08:26→21:01)
[2020-08-13] MEDS: FERROUS SULFATE 324 MG TABLET PO (08:26)
[2020-08-13] MEDS: FUROSEMIDE 20 MG TABLET PO (08:26)
[2020-08-13] MEDS: SILVERGEL (ELTA) 45 ML 1 APPLIC TOPICAL (08:28)
[2020-08-13] MEDS: MICONAZOLE NITRATE 2% CREAM 30 GM TUBE 1 APPLIC TOPICAL ×2 (08:28→21:04)
[2020-08-13] MEDS: LIDOCAINE 5% PATCH 2 PATCH TRANSDERM (08:28)
[2020-08-13 08:32] LABS: Glucose Point of Care 142 (65-105)
[2020-08-13] MEDS: DEXTROSE 5%/0.9% SOD CHL 1,000 ML 50 ML IV CONT (08:54)
--- NOTE | 2020-08-13 10:52 | PM.IMPN ---
Progress Note: A&P Assessment and Plan (1) Transfusion reaction: Qualifiers: Encounter type: initial encounter Qualified Code(s): T80.92XA - Unspecified transfusion reaction, initial encounter Code(s): T80.92XA - Unspecified transfusion reaction, initial encounter Status: Acute Assessment and Plan: Patient received about 100 mL of blood infusion when he had increased fever. She also had worsening hematuria after transfusion. Blood transfusion was discontinued. Hgb is low. Will get heme onc consult (2) Anemia: Qualifiers: Anemia type: iron deficiency Iron deficiency anemia type: unspecified iron deficiency Qualified Code(s): D50.9 - Iron deficiency anemia, unspecified Code(s): D64.9 - Anemia, unspecified Status: Acute Assessment and Plan: Patient has low iron level and low% saturation suggesting some component of iron deficiency likely complicating anemia of chronic disease. Will give 1 dose of Venofer and repeat CBC in a.m.. (3) Diabetic ulcer of left foot: Qualifiers: Diabetic foot ulcer location: toe Diabetes mellitus type: type 2 Non-pressure ulcer stage: unspecified non-pressure ulcer stage Qualified Code(s): E11.621 - Type 2 diabetes mellitus with foot ulcer; L97.529 - Non-pressure chronic ulcer of other part of left foot with unspecified severity Code(s): E11.621 - Type 2 diabetes mellitus with foot ulcer; L97.529 - Non-pressure chronic ulcer of other part of left foot with unspecified severity Status: Acute Assessment and Plan: Appreciate orthopedic surgery input. We recommend local wound care. Continue ertapenem. (4) Cellulitis of left lower extremity: Code(s): L03.116 - Cellulitis of left lower limb Status: Acute Assessment and Plan: Continue ertapenem. Leg remains erythematous and warm to touch. (5) Urinary tract infection: Qualifiers: Encounter type: sequela Indwelling urinary catheter type: indwelling urethral catheter Urinary tract infection type: catheter-associated UTI Qualified Code(s): T83.511S - Infection and inflammatory reaction due to indwelling urethral catheter, sequela; N39.0 - Urinary tract infection, site not specified Code(s): N39.0 - Urinary tract infection, site not specified Status: Acute Assessment and Plan: ESBL Klebsiella. Patient is on antibiotic therapy with ertapenem. She has a chronic indwelling Salgado catheter Will get Id consult (6) Hypoglycemia: Code(s): E16.2 - Hypoglycemia, unspecified Status: Acute Assessment and Plan: Monitor glucose. Subjective Date/time seen: 08/13/20 10:52 Interval history: Patient was seen during the morning rounds today, no sob or chest pain. Feels weak, mood stable. No new complaints Review of Systems Review of Systems: All systems reviewed & are unremarkable except as noted in HPI and below (Subjective) Constitutional: Constitutional: Reports as per HPI, Reports no additional constitutional complaints, Reports fatigue, Reports lethargy and Reports weakness Eyes: Eyes: Reports as per HPI and Reports no additional eye complaints ENT: Reports system reviewed and no additional complaints, except as documented and Reports Normal hearing present Cardiovascular: Cardiovascular: Reports no additional cardiovascular complaints, Reports pedal edema, Reports leg edema, Reports dyspnea and Denies dyspnea on exertion Respiratory: Respiratory: Reports no additional respiratory complaints, Reports no additional respiratory complaints, Denies cough, Reports dyspnea, Denies dyspnea on exertion and Denies wheezing Gastrointestinal: Gastrointestinal: Reports as per HPI, Reports no additional gastrointestinal complaints, Denies abdominal pain, Denies melena, Denies bloating, Reports constipation, Denies diarrhea, Denies vomiting and Denies hematemesis Genitourinary: Genitourinary: Reports as per HPI
--- NOTE | 2020-08-13 11:20 | WPDINFPN2 ---
Progress Note: A&P Assessment and Plan (1) Leukocytosis: Code(s): D72.829 - Elevated white blood cell count, unspecified Status: Acute Assessment and Plan: 1. Leukocytosis, chronic intermittent, current results possibly due to UTI. 2. L knee pain, no infection 3. Prior L calcaneus OM, treated by my colleague in [place], no LLE infection is present currently 4. Morbid obesity 5. Chronic Salgado REC Ertapenem 7 days course Subjective Date/time seen: 08/13/20 11:20 Objective Data Vital Signs Vital Signs: Vital Signs - 24 hr 08/12/20 12:00 08/12/20 14:00 08/12/20 16:00 Temperature 36.2 C L Pulse Rate 80 76 77 Respiratory Rate 16 Blood Pressure 111/47 L Pulse Oximetry 95 08/12/20 20:00 08/12/20 22:00 08/12/20 23:00 Temperature 38.4 C H 38.4 C H Pulse Rate 83 71 Respiratory Rate 20 Blood Pressure 129/52 L Pulse Oximetry 95 94 08/13/20 00:00 08/13/20 04:00 08/13/20 06:00 Temperature 36.3 C L 37.0 C Pulse Rate 83 74 79 Respiratory Rate 20 Blood Pressure 129/53 L Pulse Oximetry 94 Intake/Output Intake/Output: Intake & Output 08/10/20 08/11/20 08/12/20 08/13/20 23:59 23:59 23:59 23:59 Intake Total 801 1509 2210 1250 Output Total 500 1130 1050 400 Balance 162 692 3570 850 Meds/Results Medications: Active Medications Generic Name Dose Route Start Last Admin Trade Name Freq PRN Reason Stop Dose Admin Acetaminophen 650 mg 08/09/20 21:14 08/12/20 23:00 Acetaminophen 325 Mg Tablet PO 650 mg Q4H PRN Administration Mild Pain (1-3) or Fever Hydrocodone Bitart/Acetaminophen 1 tab 08/10/20 09:21 08/12/20 22:10 Hydrocodone/Acetaminophen (*Crx) 5-325 Mg Tablet PO 1 tab Q6H PRN Administration Pain Rated 4-6 Atorvastatin Calcium 80 mg 08/10/20 09:00 08/13/20 08:26 Atorvastatin 40 Mg Tablet PO 80 mg DAILY FAWN Administration Cyanocobalamin 1,000 mcg 08/10/20 09:00 08/13/20 08:25 Cyanocobalamin 1,000 Mcg Tablet PO 1,000 mcg DAILY FAWN Administration Dextrose 12.5 gm 08/10/20 18:44 Dextrose 50% 25 Gm/50 Ml Syringe IV PUSH PRN PRN Hypoglycemia Protocol Docusate Sodium 100 mg 08/09/20 14:34 Docusate Sodium 100 Mg Capsule PO Q12H PRN Constipation Ferrous Sulfate 324 mg 08/10/20 08:00 08/13/20 08:26 Ferrous Sulfate 324 Mg Tablet PO 324 mg DAILY@0800 FAWN Administration Furosemide 20 mg 08/11/20 09:00 08/13/20 08:26 Furosemide 20 Mg Tablet PO 20 mg DAILY FAWN Administration Gabapentin 300 mg 08/09/20 14:50 08/13/20 05:46 Gabapentin 300 Mg Capsule PO 300 mg Q8HR FAWN Administration Glimepiride 4 mg 08/10/20 09:00 08/13/20 08:25 Glimepiride 2 Mg Tablet PO 09/09/20 09:01 4 mg QAM FAWN Administration Glucagon 1 mg 08/10/20 18:44 Glucagon For Inj 1 Mg Vial IM PRN PRN Hypoglycemia Protocol Glucose 15 gm 08/10/20 18:44 Glucose Oral Gel 15 Gm Of Glucse In 37.5 Gm Tube PO PRN PRN Hypoglycemia Protocol Guaifenesin 600 mg 08/10/20 09:40 08/13/20 08:26 Guaifenesin 12 Hr 600 Mg Tabcr PO 600 mg Q12HR FAWN Administration Heparin Sodium (Porcine) 5,000 units 08/09/20 15:15 08/13/20 05:46 Heparin Sodium 5,000 Units/Ml Vial SUB-Q 5,000 units Q8HR FAWN Administration Hydrochlorothiazide 12.5 mg 08/10/20 09:00 08/13/20 08:26 Hydrochlorothiazide 12.5 Mg Capsule PO 12.5 mg DAILY FAWN Administration Ertapenem 1 gm in 50 mls @ 100 mls/hr 08/10/20 12:00 08/12/20 12:22 Invanz 1 Gm/Ns 50 Ml IVPB 100 mls/hr NOON FAWN Administration Dextrose 1,000 mls @ 100 mls/hr 08/10/20 18:44 08/11/20 17:48 Dextrose 5% 1,000 Ml IVPB Infused PRN PRN Infusion Hypoglycemia Protocol Dextrose/Sodium Chloride 1,000 mls @ 50 mls/hr 08/11/20 17:20 08/13/20 08:54 Dextrose 5% Sodium Chloride 0.9% IV CONT 50 mls/hr .Q20H FAWN Administration Insulin Aspart 3 - 6 units
[2020-08-13 12:25] LABS: Glucose Point of Care 282 (65-105)
[2020-08-13] MEDS: INSULIN ASPART (*BKC) 100 UNITS/ML SUB-Q ×2 (12:29→17:26)
[2020-08-13] MEDS: ERTAPENEM 1 GM/NS 50 ML 1 GM/50 ML BAG IVPB (12:30)
[2020-08-13 17:56] LABS: Glucose Point of Care 220 (65-105)
[2020-08-13 18:41] LABS: Hematocrit 22.3 % (37.0-47.0); Hemoglobin 7.1 g/dL (12.0-15.0); Mean Corpuscular HGB Conc 31.8 g/dl (32-36); Mean Corpuscular Hemoglobin 27.7 pg (26-34); Mean Corpuscular Volume 87.1 fl (80-100); Mean Platelet Volume 9.2 fl (7.4-10.4); Platelet Count Result 279 k/mm3 (150-375); Red Blood Count 2.56 M/mm3 (4.2-5.4); Red Cell Distribution Width 14.8 % (11.5-14.5); White Blood Count 17.1 K/mm3 (4.5-10.0)
[2020-08-13 19:09] LABS: Alanine Aminotransferase 32 U/L (4-35); Alkaline Phosphatase 342 U/L (38-126); Anion Gap 8 mmol/L (8-16); Aspartate Amino Transferase 62 U/L (14-36); Bilirubin,Total 0.5 mg/dL (0.2-1.3); Blood Urea Nitrogen 62 mg/dL (7-17); Calcium 8.7 mg/dL (8.4-10.2); Carbon Dioxide 24 mmol/L (22-30); Chloride 102 mmol/L (98-107); Estimated CRCL calculation 38 ml/min; Estimated Glomerular Filt Rate 24; Glucose 246 mg/dL (65-105); Potassium 5.6 mmol/L (3.4-5.0); Sodium 134 mmol/L (137-145)
[2020-08-13 21:59] LABS: Glucose Point of Care 260 (65-105)
[2020-08-14] VITALS (9 sets, daily range): BP systolic 120–144; BP diastolic 50–57; PULSE 72–80; RESP 18–20; TEMP 36.2–36.5; O2SAT 93–100; BMI 10.0
[2020-08-14 06:13] LABS: Hematocrit 21.5 % (37.0-47.0); Mean Corpuscular HGB Conc 30.2 g/dl (32-36); Mean Corpuscular Hemoglobin 27.2 pg (26-34); Platelet Count Result 304 k/mm3 (150-375); Red Blood Count 2.39 M/mm3 (4.2-5.4); Red Cell Distribution Width 14.9 % (11.5-14.5); White Blood Count 12.9 K/mm3 (4.5-10.0)
[2020-08-14 06:28] LABS: Anion Gap 6 mmol/L (8-16); Blood Urea Nitrogen 58 mg/dL (7-17); Calcium 8.6 mg/dL (8.4-10.2); Carbon Dioxide 27 mmol/L (22-30); Chloride 100 mmol/L (98-107); Estimated CRCL calculation 38 ml/min; Estimated Glomerular Filt Rate 24; Glucose 285 mg/dL (65-105); Sodium 133 mmol/L (137-145)
[2020-08-14] MEDS: HEPARIN SODIUM 5,000 UNITS/ML VIAL 5000 UNITS SUB-Q ×3 (06:33→21:55)
[2020-08-14] MEDS: GABAPENTIN 300 MG CAPSULE PO ×3 (06:33→21:55)
[2020-08-14 06:36] LABS: Hemoglobin 6.5 g/dL (12.0-15.0)
--- NOTE | 2020-08-14 06:42 | CONS_ITS ---
DATE OF CONSULTATION: REASON FOR CONSULTATION: Leukocytosis. HISTORY OF PRESENT ILLNESS: The patient is 60-year-old female who previously was followed with my colleague in [place] for left calcaneus osteomyelitis. She received 6 weeks of IV therapy followed by several months of doxycycline with clinical resolution. She has a chronic Salgado and is minimally ambulatory. She presented to the emergency room here on August 09 with left knee pain with some radiation down the leg to the ankle. She was admitted. She has had some improvement in knee pain. She has not required any surgical intervention. She has been placed on ertapenem in response to her positive urine culture. She also has received analgesics over time and she was given levofloxacin initially. No fever, chills, or sweats. No recent antibiotics at home. No knee trauma. No drainage from her left foot. PRESENT MEDICATIONS: Ertapenem day 5. No immunosuppressants. ALLERGIES: VANCOMYCIN, RASH. PIPERACILLIN, RASH. DAPTOMYCIN, GENERALIZED WEAKNESS. FAMILY HISTORY: Not pertinent to her present illness. HABITS: No tobacco. No alcohol. PAST MEDICAL HISTORY: Cervical spine fusion, toe amputations on the right side, 4th and 5th at various times, Achilles tendon repair, neurogenic bladder with stress and urge incontinence, type 2 diabetes mellitus, hyperlipidemia, hypertension, diabetic retinopathy, peripheral neuropathy, colon polyps, stage 3 chronic renal insufficiency, chronic anemia. SOCIAL HISTORY: She is single. Does not work outside the home. Lives locally and disabled. REVIEW OF SYSTEMS: 14-point review otherwise negative. PHYSICAL EXAMINATION: GENERAL: This is a middle-aged female, who appears older than her actual age. No acute distress. VITAL SIGNS: T-max of 38.4 and previously up to 39.8. On arrival, she was 37.9. 79, 20, 129/53. SKIN: No rashes, warm and dry, pale. EENT: Conjunctivae normal. Oropharynx, oral mucosa normal. NODES: No cervical adenopathy. NECK: Without mass, tenderness, meningismus. LUNGS: Clear to auscultation and percussion. Good air entry. CARDIAC: Regular rate and rhythm. No murmur, gallop, or rub. ABDOMEN: Massively obese. No masses nor tenderness apparent. : Salgado catheter is draining clear yellow urine. No sediment. EXTREMITIES: Amputation site right foot without erythema with dehiscence, tenderness, warmth, necrosis, odor. On the left, she has abnormal contour in the posterior medial heel. She has 2+ pitting and nonpitting edema, both lower extremities. She has some mild stasis erythema over the left solis. She has no knee effusions apparent. LABORATORY DATA: White blood cell count over time had been intermittently high, currently 15.1, hemoglobin 6.8, platelets are 304, was 17.6 on August 09 and 10.8 on the July 28. Sodium 133, BUN 55, creatinine 2.5. Accu-Cheks variable. Hemoglobin A1c 7.6%. Urinalysis, multiple abnormalities, which are reviewed. RADIOLOGY: X-ray of the left foot atherosclerosis, osteopenia, amputation of the mid 4th metatarsal shaft. Chest x-ray, atelectasis. Knee x-ray, small joint effusion, osteoarthritis. MICROBIOLOGY: Blood cultures 4 sets total. No growth so far. Urine with the ESBL producing Klebsiella. ASSESSMENT: 1. Chronic intermittent leukocytosis, now high associated with fever. Catheter-associated urinary tract infection most likely. Other sources of the fever and leukocytosis are less likely including left lower extremity skin soft tissue or bone infection or other sources. 2. Morbid obesity. 3. Diabetes mellitus with multiple end-organ complications. 4. Venous stasis. 5. Osteoarthritis. 6. Toe amputations in the past. 7. Left calcaneus osteomyelitis in the
[2020-08-14 08:56] LABS: Glucose Point of Care 287 (65-105)
[2020-08-14] MEDS: LIDOCAINE 5% PATCH 2 PATCH TRANSDERM (10:53)
[2020-08-14] MEDS: GLIMEPIRIDE 2 MG TABLET 4 MG PO (10:53)
[2020-08-14] MEDS: CHOLECALCIFEROL 1,000 UNITS TABLET 5000 UNITS PO (10:54)
[2020-08-14] MEDS: ATORVASTATIN 40 MG TABLET 80 MG PO (10:55)
[2020-08-14] MEDS: FUROSEMIDE 20 MG TABLET PO (10:55)
[2020-08-14] MEDS: FERROUS SULFATE 324 MG TABLET PO (10:56)
[2020-08-14] MEDS: hydroCHLOROthiazide 12.5 MG CAPSULE PO (10:56)
[2020-08-14] MEDS: CYANOCOBALAMIN 1,000 MCG TABLET 1000 MCG PO (10:56)
[2020-08-14] MEDS: guaiFENesin 12 HR 600 MG TABCR PO ×2 (10:57→21:55)
[2020-08-14] MEDS: ACIDOPHILUS/BULGARICUS CHEWABLE TABLET 1 TABLET PO ×3 (10:57→17:15)
[2020-08-14] MEDS: PANTOPRAZOLE 40 MG TABLET PO (10:57)
[2020-08-14] MEDS: HYDROcodone/acetaminophen (*CRX) 5-325 MG TABLET 1 TAB PO (11:30)
[2020-08-14] MEDS: SILVERGEL (ELTA) 45 ML 1 APPLIC TOPICAL (11:31)
[2020-08-14] MEDS: MICONAZOLE NITRATE 2% CREAM 30 GM TUBE 1 APPLIC TOPICAL ×2 (11:31→21:56)
[2020-08-14] MEDS: INSULIN ASPART (*BKC) 100 UNITS/ML SUB-Q ×3 (11:32→17:59)
[2020-08-14] MEDS: ERTAPENEM 1 GM/NS 50 ML 1 GM/50 ML BAG IVPB (12:00)
[2020-08-14 13:21] LABS: Glucose Point of Care 313 (65-105)
--- NOTE | 2020-08-14 14:01 | PM.IMPN ---
Progress Note: A&P Assessment and Plan (1) Transfusion reaction: Qualifiers: Encounter type: initial encounter Qualified Code(s): T80.92XA - Unspecified transfusion reaction, initial encounter Code(s): T80.92XA - Unspecified transfusion reaction, initial encounter Status: Acute Assessment and Plan: Patient received about 100 mL of blood infusion when he had increased fever. She also had worsening hematuria after transfusion. Blood transfusion was discontinued. Hgb is 6.5 Will get heme onc consult (2) Anemia: Qualifiers: Anemia type: iron deficiency Iron deficiency anemia type: unspecified iron deficiency Qualified Code(s): D50.9 - Iron deficiency anemia, unspecified Code(s): D64.9 - Anemia, unspecified Status: Acute Assessment and Plan: Sp Venofer and repeat CBC. (3) Diabetic ulcer of left foot: Qualifiers: Diabetic foot ulcer location: toe Diabetes mellitus type: type 2 Non-pressure ulcer stage: unspecified non-pressure ulcer stage Qualified Code(s): E11.621 - Type 2 diabetes mellitus with foot ulcer; L97.529 - Non-pressure chronic ulcer of other part of left foot with unspecified severity Code(s): E11.621 - Type 2 diabetes mellitus with foot ulcer; L97.529 - Non-pressure chronic ulcer of other part of left foot with unspecified severity Status: Acute Assessment and Plan: Appreciate orthopedic surgery input. We recommend local wound care. Continue ertapenem.calf pain secondary to cellultis (4) Cellulitis of left lower extremity: Code(s): L03.116 - Cellulitis of left lower limb Status: Acute Assessment and Plan: Continue ertapenem. Leg remains erythematous and warm to touch. (5) Urinary tract infection: Qualifiers: Encounter type: sequela Indwelling urinary catheter type: indwelling urethral catheter Urinary tract infection type: catheter-associated UTI Qualified Code(s): T83.511S - Infection and inflammatory reaction due to indwelling urethral catheter, sequela; N39.0 - Urinary tract infection, site not specified Code(s): N39.0 - Urinary tract infection, site not specified Status: Acute Assessment and Plan: ESBL Klebsiella. Patient is on antibiotic therapy with ertapenem or 1 more day. (6) Hypoglycemia: Code(s): E16.2 - Hypoglycemia, unspecified Status: Acute Assessment and Plan: Hypoglycemia and due to insulin therapy. Subjective Date/time seen: 08/14/20 14:01 Interval history: 60 year old female The patient is diabetic and has had multiple toes amputated in the past. The patient is currently attending wound clinic for left foot wound. Pt had a blood transfusion reaction, pt being treated for cellultis of her left calf. Complains of calf pain. Venous doppler is negative. Review of Systems Review of Systems: All systems reviewed & are unremarkable except as noted in HPI and below Exam Narrative: Exam Narrative: GeneraL: Obese lady HEENT: Mucous membranes are moist Respiratory: Clear to auscultation bilaterally, no increased work of breathing Cardiovascular: Regular rate, weak peripheral pulses Gastrointestinal: Obese, nontender, positive bowel sounds Skin: Erythema of the left lower extremity from below the knee to above the ankle, increased warmth of the left lower extremity Musculoskeletal: Bandage to left great toe Neurological: Alert and oriented, speech is clear, no facial asymmetry Psychiatric: Appropriate mood and affect, cooperative Objective Data Vital Signs Vital Signs: Vital Signs - 24 hr 08/13/20 16:00 08/13/20 20:00 08/13/20 22:00 Temperature 36.7 C Pulse Rate 72 79 79 Respiratory Rate 16 Blood Pressure 140/59 L Pulse Oximetry 97 08/14/20 00:00 08/14/20 04:00 08/14/20 06:00 Temperature 36.5 C Pulse Rate 74 80 80 Respiratory Rate 18 Blood Pressure 120/50 L Pulse Oximetry 93
[2020-08-14] MEDS: IRON SUCROSE COMPLEX 100 MG in SODIUM CHLORIDE 0.9% IV 50 ML 220 MG IVPB (15:00)
--- NOTE | 2020-08-14 15:15 | WPDINFPN2 ---
Progress Note: A&P Assessment and Plan (1) Leukocytosis: Code(s): D72.829 - Elevated white blood cell count, unspecified Status: Acute Assessment and Plan: 1. Leukocytosis, chronic intermittent, current results possibly due to UTI. WBC down slightly 2. L knee pain, no infection 3. Prior L calcaneus OM, treated by my colleague in [place], no LLE infection is present currently 4. Morbid obesity 5. Chronic Salgado REC Ertapenem # 6 / 7 days, through 08/15. Subjective Date/time seen: 08/14/20 15:15 Interval history: no new complaints Exam Narrative: Exam Narrative: afebrile Const: General: no acute distress Neck: Neck: no JVD Resp: Effort & Inspection: normal respiratory effort Auscultation: clear to auscultation bilaterally Cardio: Rate: regular rate Rhythm: regular rhythm Heart sounds: no murmurs GI: Inspection: non-distended GI Palp: Yes Soft to palpation and No Tenderness to palpation present (GI) Objective Data Vital Signs Vital Signs: Vital Signs - 24 hr 08/13/20 16:00 08/13/20 20:00 08/13/20 22:00 Temperature 36.7 C Pulse Rate 72 79 79 Respiratory Rate 16 Blood Pressure 140/59 L Pulse Oximetry 97 08/14/20 00:00 08/14/20 04:00 08/14/20 06:00 Temperature 36.5 C Pulse Rate 74 80 80 Respiratory Rate 18 Blood Pressure 120/50 L Pulse Oximetry 93 08/14/20 08:00 Temperature Pulse Rate 80 Respiratory Rate 18 Blood Pressure Pulse Oximetry 93 Intake/Output Intake/Output: Intake & Output 08/11/20 08/12/20 08/13/20 08/14/20 23:59 23:59 23:59 23:59 Intake Total 1509 2260 1910 590 Output Total 1130 1050 800 950 Balance 379 1210 1110 -360 Meds/Results Medications: Active Medications Generic Name Dose Route Start Last Admin Trade Name Freq PRN Reason Stop Dose Admin Acetaminophen 650 mg 08/09/20 21:14 08/12/20 23:00 Acetaminophen 325 Mg Tablet PO 650 mg Q4H PRN Administration Mild Pain (1-3) or Fever Hydrocodone Bitart/Acetaminophen 1 tab 08/10/20 09:21 08/14/20 11:30 Hydrocodone/Acetaminophen (*Crx) 5-325 Mg Tablet PO 1 tab Q6H PRN Administration Pain Rated 4-6 Atorvastatin Calcium 80 mg 08/10/20 09:00 08/14/20 10:55 Atorvastatin 40 Mg Tablet PO 80 mg DAILY FAWN Administration Cyanocobalamin 1,000 mcg 08/10/20 09:00 08/14/20 10:56 Cyanocobalamin 1,000 Mcg Tablet PO 1,000 mcg DAILY FAWN Administration Dextrose 12.5 gm 08/10/20 18:44 Dextrose 50% 25 Gm/50 Ml Syringe IV PUSH PRN PRN Hypoglycemia Protocol Docusate Sodium 100 mg 08/09/20 14:34 Docusate Sodium 100 Mg Capsule PO Q12H PRN Constipation Ferrous Sulfate 324 mg 08/10/20 08:00 08/14/20 10:56 Ferrous Sulfate 324 Mg Tablet PO 324 mg DAILY@0800 FAWN Administration Furosemide 20 mg 08/11/20 09:00 08/14/20 10:55 Furosemide 20 Mg Tablet PO 20 mg DAILY FAWN Administration Gabapentin 300 mg 08/09/20 14:50 08/14/20 14:59 Gabapentin 300 Mg Capsule PO 300 mg Q8HR FAWN Administration Glimepiride 4 mg 08/10/20 09:00 08/14/20 10:53 Glimepiride 2 Mg Tablet PO 09/09/20 09:01 4 mg QAM FAWN Administration Glucagon 1 mg 08/10/20 18:44 Glucagon For Inj 1 Mg Vial IM PRN PRN Hypoglycemia Protocol Glucose 15 gm 08/10/20 18:44 Glucose Oral Gel 15 Gm Of Glucse In 37.5 Gm Tube PO PRN PRN Hypoglycemia Protocol Guaifenesin 600 mg 08/10/20 09:40 08/14/20 10:57 Guaifenesin 12 Hr 600 Mg Tabcr PO 600 mg Q12HR FAWN Administration Heparin Sodium (Porcine) 5,000 units 08/09/20 15:15 08/14/20 14:59 Heparin Sodium 5,000 Units/Ml Vial SUB-Q 5,000 units Q8HR FAWN Administration Hydrochlorothiazide 12.5 mg 08/10/20 09:00 08/14/20 10:56 Hydrochlorothiazide 12.5 Mg Capsule PO 12.5 mg DAILY FAWN Administration Ertapenem 1 gm in 50 mls @ 100 mls/hr 08/10/20 12:00 08/14/20 12:30 Invanz 1 Gm/Ns 50 Ml IVPB Infused NO
[2020-08-14 17:40] LABS: Glucose Point of Care 229 (65-105)
--- NOTE | 2020-08-14 18:08 | PDONCCN ---
HPI - Date of Consult Date/Time: 08/14/20 18:08 Requesting Physician: Aurelia Zuleta NP Primary Care Provider: Codey Dickson, DO - Consult Narrative Reason for consult: Anemia Narrative: Theodora Kelly is a 60 year old female This is a 60-year-old morbidly obese female with history of diabetes currently dealing with left foot infection. Patient has a history of toe surgery in the past. She was admitted to the hospital with urinary tract infection and difficulty walking due to left knee effusion and arthritis. She was complaining of generalized tiredness and fatigue but denies any bleeding including melena and hematochezia. Her last colonoscopy was more than 3 years ago. She was started on broad-spectrum antibiotic coverage for UTI. Patient has a chronic indwelling Salgado catheter. She has a history of neurogenic bladder. She was also found to have elevated WBC count secondary to left knee infection and left calcaneus osteomyelitis and UTI. She has been seen by the infectious disease service. Her hemoglobin was 6.6 on August 10 and started on packed red blood cell. She does of transfusion reaction. And blood transfusion was discontinued. She also has a chronic kidney disease with baseline creatinine of around 1.8. She has been followed by Dr. Benson. Review of Systems - Review of Systems All systems reviewed & are unremarkable except as noted in HPI and bel - Neurologic Reports system reviewed and no additional complaints, except as documented, Reports hearing normal, Reports weakness, Denies confusion [facility], LAT[facility] Medical History: Medical History (Last Updated 08/11/20 @ 11:35 by Dereck Quiros MD) Chronic anemia Chronic indwelling Salgado catheter Chronic kidney disease, stage [address] Benson. Colon polyps Onset Date: ~05/2016 Depression Diabetes mellitus type II, uncontrolled Diabetic peripheral neuropathy Diabetic retinopathy L eye requiring injections Diabetic ulcer of left foot Essential hypertension Hyperlipidemia Insulin dependent type 2 diabetes mellitus Hemoglobin A1c was 8.8% in March 2020. Mixed stress and urge urinary incontinence Morbid obesity Neurogenic bladder Surgical History: Surgical History (Last Reviewed 08/11/20 @ 11:07 by Dereck Quiros MD) H/O Achilles tendon repair History of amputation of toe 2 toes amputated on the right and 1 toe which is the 4th toe on the left and a bone removed from the small toe on the left.. History of fusion of cervical spine Onset Date: ~10/2001 History of local excision of skin lesion Exophytic lesion removed from the right eyelid, benign. Status post debridement Onset Date: ~2019 Left diabetic heel wound. Family History: Family History (Last Reviewed 08/11/20 @ 11:07 by Dereck Quiros MD) Mother Cerebrovascular accident Family history of diabetes mellitus in first degree relative Father Family history of diabetes mellitus in first degree relative Grandparent Diabetes mellitus Other Family history of anemia Family history of obesity - Social History Social History: Social History (Last Reviewed 08/11/20 @ 11:07 by Dereck Quiros MD) Gender Identity: Gender identity (if verbalized by the patient): Female Alcohol Use: Alcohol intake: never Substance Use: Substance use: never Others: Spiritual care concerns: No Smoking Status: Smoking status: Never smoker Second hand tobacco smoke exposure: Yes Meds Home Medications Medication Instructions Recorded Confirmed Type Lactobacillus acidophilus 75 1 cap PO TID #90 cap 07/08/19 08/09/20 Rx million cell-pectin 100 mg capsule atorvastatin 80 mg tablet 80 mg PO DAILY 08/11/19 08/09/20 History cholecalciferol (vitamin D3) 125 5,000 unit PO DAILY 08/11/19 08/09/20 History mcg (5,000 unit) capsule cyanocobalamin (vitamin B-12) 1,000 mcg PO DAILY 01/17/20 08/09/20 History 1,000 mcg
[2020-08-14 18:42] LABS: Immature Reticulocyte Fraction 28.1 % (3.0-15.9); Reticulocyte Hemoglobin Conten 30.5 pg (28.2-35.7); Reticulocyte Percent 1.88 % (0.7-4.3); Reticulocytes Absolute 0.05 B/L (32.2-175.7)
[2020-08-14 18:54] LABS: Lactate Dehydrogenase 390 U/L (313-618)
[2020-08-14] MEDS: EPOETIN ALFA-EPBX 20,000 UNITS/ML VIAL 20000 UNITS SUB-Q (21:54)
[2020-08-14 22:44] LABS: Glucose Point of Care 176 (65-105)
[2020-08-15] VITALS (10 sets, daily range): BP systolic 136–151; BP diastolic 50–60; PULSE 77–91; RESP 18–22; TEMP 36.9–37.1; O2SAT 93–95; BMI 11.0; BMI 10.0
[2020-08-15] MEDS: HEPARIN SODIUM 5,000 UNITS/ML VIAL 5000 UNITS SUB-Q ×3 (05:49→20:44)
[2020-08-15] MEDS: GABAPENTIN 300 MG CAPSULE PO ×3 (05:49→20:44)
[2020-08-15 07:17] LABS: Anion Gap 6 mmol/L (8-16); Blood Urea Nitrogen 56 mg/dL (7-17); Calcium 9.1 mg/dL (8.4-10.2); Carbon Dioxide 27 mmol/L (22-30); Chloride 101 mmol/L (98-107); Estimated CRCL calculation 37 ml/min; Estimated Glomerular Filt Rate 23; Glucose 175 mg/dL (65-105); Potassium 4.9 mmol/L (3.4-5.0); Sodium 134 mmol/L (137-145)
[2020-08-15 08:20] LABS: Glucose Point of Care 160 (65-105)
[2020-08-15] MEDS: PANTOPRAZOLE 40 MG TABLET PO (10:06)
[2020-08-15] MEDS: CHOLECALCIFEROL 1,000 UNITS TABLET 5000 UNITS PO (10:07)
[2020-08-15] MEDS: FUROSEMIDE 20 MG TABLET PO (10:07)
[2020-08-15] MEDS: hydroCHLOROthiazide 12.5 MG CAPSULE PO (10:08)
[2020-08-15] MEDS: ACIDOPHILUS/BULGARICUS CHEWABLE TABLET 1 TABLET PO ×3 (10:08→18:09)
[2020-08-15] MEDS: ATORVASTATIN 40 MG TABLET 80 MG PO (10:08)
[2020-08-15] MEDS: guaiFENesin 12 HR 600 MG TABCR PO ×2 (10:08→21:45)
[2020-08-15] MEDS: FERROUS SULFATE 324 MG TABLET PO (10:09)
[2020-08-15] MEDS: CYANOCOBALAMIN 1,000 MCG TABLET 1000 MCG PO (10:09)
[2020-08-15] MEDS: GLIMEPIRIDE 2 MG TABLET 4 MG PO (10:09)
[2020-08-15] MEDS: LIDOCAINE 5% PATCH 2 PATCH TRANSDERM (10:09)
[2020-08-15] MEDS: SILVERGEL (ELTA) 45 ML 1 APPLIC TOPICAL (10:10)
[2020-08-15] MEDS: MICONAZOLE NITRATE 2% CREAM 30 GM TUBE 1 APPLIC TOPICAL ×2 (10:10→20:45)
--- NOTE | 2020-08-15 11:49 | PCNFU ---
Nutrition Follow-Up Complete: Increased protein needs r/t left foot wound as evidence by daily needs of 165-193g of protein Goal: PO intake of 75% or greater of meals to meet increased needs Progressing towards goal. We will continue current goal. Pt current nutrition is [facility]. Nutrition recommendation: Agree Last recorded weight is 140.7 kg, up from 137.5 kg on admit. Bowel Motility:+BM reported 08/06 Labs Reviewed: Glu 175,Cr 2.2,BUN 56,Na 134 Meds Noted:Vit D, Lasix, Mucinex,Lantus,Novolog, Protonix Additional Notes: Nutrition follow up. Spoke with patient today in regards to diet. Patient states she is not a big eater. Refused breakfast today. Overall intake have been 50-75% of meals. She is drinking the Glucerna shakes BID, prefers chocolate. Agree with diet orders. Monitoring:po intake, labs every five days
[2020-08-15 12:34] LABS: Glucose Point of Care 266 (65-105)
--- NOTE | 2020-08-15 12:57 | PM.IMPN ---
Progress Note: A&P Assessment and Plan (1) Transfusion reaction: Qualifiers: Encounter type: initial encounter Qualified Code(s): T80.92XA - Unspecified transfusion reaction, initial encounter Code(s): T80.92XA - Unspecified transfusion reaction, initial encounter Status: Acute Assessment and Plan: Patient received about 100 mL of blood infusion when he had increased fever. She also had worsening hematuria after transfusion. Blood transfusion was discontinued. Hgb is 6.5 Will get heme onc consult, pt has been getting venofer infusion, seen by DR Lou in the hospital. (2) Anemia: Qualifiers: Anemia type: iron deficiency Iron deficiency anemia type: unspecified iron deficiency Qualified Code(s): D50.9 - Iron deficiency anemia, unspecified Code(s): D64.9 - Anemia, unspecified Status: Acute Assessment and Plan: Sp Venofer and repeat CBC. (3) Diabetic ulcer of left foot: Qualifiers: Diabetic foot ulcer location: toe Diabetes mellitus type: type 2 Non-pressure ulcer stage: unspecified non-pressure ulcer stage Qualified Code(s): E11.621 - Type 2 diabetes mellitus with foot ulcer; L97.529 - Non-pressure chronic ulcer of other part of left foot with unspecified severity Code(s): E11.621 - Type 2 diabetes mellitus with foot ulcer; L97.529 - Non-pressure chronic ulcer of other part of left foot with unspecified severity Status: Acute Assessment and Plan: Appreciate orthopedic surgery input. We recommend local wound care. Continue ertapenem.calf pain secondary to cellultis (4) Cellulitis of left lower extremity: Code(s): L03.116 - Cellulitis of left lower limb Status: Acute Assessment and Plan: Continue ertapenem. Leg remains erythematous and warm to touch.PT/ OT, uric level orthopedic consult for severe left knee pain. Hopeful Dc deni am (5) Urinary tract infection: Qualifiers: Encounter type: sequela Indwelling urinary catheter type: indwelling urethral catheter Urinary tract infection type: catheter-associated UTI Qualified Code(s): T83.511S - Infection and inflammatory reaction due to indwelling urethral catheter, sequela; N39.0 - Urinary tract infection, site not specified Code(s): N39.0 - Urinary tract infection, site not specified Status: Acute Assessment and Plan: ESBL Klebsiella. Patient is on antibiotic therapy with ertapenem last day (6) Hypoglycemia: Code(s): E16.2 - Hypoglycemia, unspecified Status: Resolved Assessment and Plan: REsolved Subjective Date/time seen: 08/15/20 12:57 Interval history: 60 year old female The patient is diabetic and has had multiple toes amputated in the past. The patient is currently attending wound clinic for left foot wound. Pt had a blood transfusion reaction, pt being treated for cellultis of her left calf. Complains of calf pain. Venous doppler is negative. Pt now states the pain in more in her left knee, xray shows OA, uric level ordered orthopedic consult pt may benefit from knee injection Review of Systems Review of Systems: All systems reviewed & are unremarkable except as noted in HPI and below Exam Narrative: Exam Narrative: GeneraL: Obese lady HEENT: Mucous membranes are moist Respiratory: Clear to auscultation bilaterally Cardiovascular: Regular rate Gastrointestinal: Obese, nontender, positive bowel sounds Skin: Erythema of the left lower extremity from below the knee to above the ankle, increased warmth of the left lower extremity Musculoskeletal: Bandage to left great toe Neurological: Alert and oriented, speech is clear, no facial asymmetry Psychiatric: Appropriate mood and affect, cooperative Objective Data Vital Signs Vital Signs: Vital Signs - 24 hr 08/14/20 14:00 08/14/20 16:00 08/14/20 20:00 Temperature 36.2 C L Pulse Rate 76 72 77 Respiratory Rate 18 Blood Pr
[2020-08-15] MEDS: ERTAPENEM 1 GM/NS 50 ML 1 GM/50 ML BAG IVPB (12:58)
[2020-08-15] MEDS: INSULIN ASPART (*BKC) 100 UNITS/ML SUB-Q ×2 (12:58→18:07)
[2020-08-15 16:17] LABS: Uric Acid 8.6 mg/dL (2.5-7.5)
--- NOTE | 2020-08-15 17:01 | PC.NURSE ---
Consult for Dr. Quiros @ 1302 related to severe left knee pain, possible joint injection. I noticed MD was already consulted, but it was for a diabetic ulcer of left foot. I misunderstood and thought MD looked at the patient's knee too, so thought it was a duplicate consult. Called Dr. Bonner to verify consult. She stated that it is for another reason now. Didn't get this verified until 1630. Dr. Quiros is not aeronautical project engineer at this time, Dr. Pickard is. Will call Dr. Quiros's office tomorrow in the AM to let them know about the new consult.
[2020-08-15 17:18] LABS: Glucose Point of Care 233 (65-105)
--- NOTE | 2020-08-15 17:18 | WPDONCPN ---
Progress Note: A/P - Additional Plan Normocytic anemia. This is due to anemia of chronic disease and chronic inflammation with diabetic foot and chronic UTI. Repeat testing for hemolytic anemia came back normal with normal LDH. Hemoglobin noted at. I will start her on iron infusion for couple of more days. Patient has received Procrit injection yesterday that will be continued as an outpatient on every 2 week basis. I will avoid blood transfusion unless hemoglobin drops less than 6. If hemoglobin continues to drop then we will start her on trial of the steroid. Diabetic foot ulcer. Infectious disease is following patient. Urinary tract infection. Collapse a log in his arm found. Patient is on antibiotic and remains afebrile. - Time Spent With Patient Total time spent is greater than 50% in coordination of care (as documented) at patient's floor/unit and/or counseling patient: 15 - 25 minutes Subjective Interval history: Multifactorial anemia Transfusion reaction Diabetic foot ulcer with infection Urinary tract infection Review of Systems - Review of Systems Patient remains tired and fatigued. She denies any bleeding and bruising. Denies any abdominal pain and chest pain. No fevers and chills. - Neurologic Reports system reviewed and no additional complaints, except as documented, Reports hearing normal, Reports weakness, Denies confusion Exam Vital signs: Temp Pulse Resp BP Pulse Ox 36.9 C 83 18 138/50 L 95 08/15/20 14:00 08/15/20 14:00 08/15/20 14:00 08/15/20 14:00 08/15/20 14:00 Narrative: Lungs are clear to auscultation bilaterally Cardiovascular regular rate rhythm no murmurs Abdomen soft nontender nondistended bowel sounds are positive Extremities no edema PN: Objective Data - Labs CBC & Chem 7: 08/14/20 05:55 08/15/20 06:07 Labs: Laboratory Results - last 24 hr 08/14/20 08/14/20 08/14/20 16:57 18:36 18:36 Absolute Retic 0.05 L Percent Retic 1.88 Immature Retic Fraction 28.1 H Retic Hgb Content 30.5 Sodium Potassium Chloride Carbon Dioxide Anion Gap BUN Creatinine Estim Creat Clear Calc Estimated GFR Glucose POC Capillary Glucose 229 H Uric Acid Calcium Lactate Dehydrogenase 390 08/14/20 08/15/20 08/15/20 21:59 06:07 08:14 Absolute Retic Percent Retic Immature Retic Fraction Retic Hgb Content Sodium 134 L Potassium 4.9 Chloride 101 Carbon Dioxide 27 Anion Gap 6 L BUN 56 H Creatinine 2.20 H Estim Creat Clear Calc 37 Estimated GFR 23 L Glucose 175 H POC Capillary Glucose 176 H 160 H Uric Acid Calcium 9.1 Lactate Dehydrogenase 08/15/20 08/15/20 08/15/20 12:28 15:57 17:03 Absolute Retic Percent Retic Immature Retic Fraction Retic Hgb Content Sodium Potassium Chloride Carbon Dioxide Anion Gap BUN Creatinine Estim Creat Clear Calc Estimated GFR Glucose POC Capillary Glucose 266 H 233 H Uric Acid 8.6 H Calcium Lactate Dehydrogenase
[2020-08-15] MEDS: ACETAMINOPHEN 325 MG TABLET 650 MG PO (20:43)
[2020-08-15 22:33] LABS: Glucose Point of Care 246 (65-105)
[2020-08-16] VITALS: PULSE 74
[2020-08-16 04:00] VITALS: PULSE 62
[2020-08-16] MEDS: GABAPENTIN 300 MG CAPSULE PO ×3 (05:45→22:51)
[2020-08-16] MEDS: HEPARIN SODIUM 5,000 UNITS/ML VIAL 5000 UNITS SUB-Q ×3 (05:45→22:51)
[2020-08-16 06:00] VITALS: BP 138/60; PULSE 66; RESP 18; TEMP 35.8; O2SAT 100
[2020-08-16 08:00] VITALS: PULSE 74
[2020-08-16] MEDS: FUROSEMIDE 20 MG TABLET PO (08:28)
[2020-08-16] MEDS: guaiFENesin 12 HR 600 MG TABCR PO ×2 (08:28→20:32)
[2020-08-16] MEDS: CYANOCOBALAMIN 1,000 MCG TABLET 1000 MCG PO (08:29)
[2020-08-16] MEDS: FERROUS SULFATE 324 MG TABLET PO (08:29)
[2020-08-16] MEDS: GLIMEPIRIDE 2 MG TABLET 4 MG PO (08:31)
[2020-08-16] MEDS: ATORVASTATIN 40 MG TABLET 80 MG PO (08:31)
[2020-08-16] MEDS: CHOLECALCIFEROL 1,000 UNITS TABLET 5000 UNITS PO (08:31)
[2020-08-16] MEDS: hydroCHLOROthiazide 12.5 MG CAPSULE PO (08:32)
[2020-08-16] MEDS: ACIDOPHILUS/BULGARICUS CHEWABLE TABLET 1 TABLET PO ×3 (08:32→17:28)
[2020-08-16] MEDS: SILVERGEL (ELTA) 45 ML 1 APPLIC TOPICAL (08:32)
[2020-08-16] MEDS: LIDOCAINE 5% PATCH 2 PATCH TRANSDERM (08:32)
[2020-08-16] MEDS: PANTOPRAZOLE 40 MG TABLET PO (08:32)
[2020-08-16] MEDS: MICONAZOLE NITRATE 2% CREAM 30 GM TUBE 1 APPLIC TOPICAL ×2 (08:32→20:45)
[2020-08-16 08:44] LABS: Glucose Point of Care 188 (65-105)
[2020-08-16 11:52] LABS: Glucose Point of Care 307 (65-105)
--- NOTE | 2020-08-16 12:02 | PM.IMPN ---
Progress Note: A&P Assessment and Plan (1) Transfusion reaction: Qualifiers: Encounter type: initial encounter Qualified Code(s): T80.92XA - Unspecified transfusion reaction, initial encounter Code(s): T80.92XA - Unspecified transfusion reaction, initial encounter Status: Acute Assessment and Plan: Patient received about 100 mL of blood infusion when he had increased fever. She also had worsening hematuria after transfusion. Blood transfusion was discontinued. Hgb is 6.5 Will get heme onc consult, pt has been getting venofer infusion, seen by Dr Lou in the hospital. Monitor hb daily (2) Anemia: Qualifiers: Anemia type: iron deficiency Iron deficiency anemia type: unspecified iron deficiency Qualified Code(s): D50.9 - Iron deficiency anemia, unspecified Code(s): D64.9 - Anemia, unspecified Status: Acute Assessment and Plan: Sp Venofer and repeat CBC. (3) Diabetic ulcer of left foot: Qualifiers: Diabetic foot ulcer location: toe Diabetes mellitus type: type 2 Non-pressure ulcer stage: unspecified non-pressure ulcer stage Qualified Code(s): E11.621 - Type 2 diabetes mellitus with foot ulcer; L97.529 - Non-pressure chronic ulcer of other part of left foot with unspecified severity Code(s): E11.621 - Type 2 diabetes mellitus with foot ulcer; L97.529 - Non-pressure chronic ulcer of other part of left foot with unspecified severity Status: Acute Assessment and Plan: Appreciate orthopedic surgery input. We recommend local wound care. (4) Cellulitis of left lower extremity: Code(s): L03.116 - Cellulitis of left lower limb Status: Acute Assessment and Plan: DC ertapenem. Leg remains erythematous and warm to touch.PT/ OT, uric level orthopedic consult for severe left knee pain. (5) Urinary tract infection: Qualifiers: Encounter type: sequela Indwelling urinary catheter type: indwelling urethral catheter Urinary tract infection type: catheter-associated UTI Qualified Code(s): T83.511S - Infection and inflammatory reaction due to indwelling urethral catheter, sequela; N39.0 - Urinary tract infection, site not specified Code(s): N39.0 - Urinary tract infection, site not specified Status: Acute Assessment and Plan: ESBL Klebsiella. Patient is on antibiotic therapy with ertapenem completed (6) Hypoglycemia: Code(s): E16.2 - Hypoglycemia, unspecified Status: Resolved Assessment and Plan: REsolved Subjective Date/time seen: 08/16/20 12:02 Interval history: 60 year old female The patient is diabetic and has had multiple toes amputated in the past. The patient is currently attending wound clinic for left foot wound. Pt had a blood transfusion reaction, pt being treated for cellultis of her left calf. Complains of calf pain. Venous doppler is negative. Pt now states the pain in more in her left knee, xray shows OA, uric level ordered orthopedic consult pt may benefit from knee injection, uric level is high will start colchicine for gout flare Review of Systems Review of Systems: All systems reviewed & are unremarkable except as noted in HPI and below Exam Narrative: Exam Narrative: GeneraL: Obese lady HEENT: Mucous membranes are moist Respiratory: Clear to auscultation bilaterally Cardiovascular: Regular rate Gastrointestinal: Obese, nontender, positive bowel sounds Skin: knee severe TTP pt unable to flex knee limited pt wearing lidoderm patch Musculoskeletal: Bandage to left great toe Neurological: Alert and oriented, speech is clear, no facial asymmetry Psychiatric: Appropriate mood and affect, cooperative Objective Data Vital Signs Vital Signs: Vital Signs - 24 hr 08/15/20 14:00 08/15/20 16:00 08/15/20 20:00 Temperature 36.9 C Pulse Rate 83 81 79 Respiratory Rate 18 Blood Pressure 138/50 L Pulse Oximetry 95 08/15
[2020-08-16 12:24] LABS: SARS-CoV-2 RNA PCR Negative
[2020-08-16 12:50] LABS: Uric Acid 8.4 mg/dL (2.5-7.5)
--- NOTE | 2020-08-16 13:12 | PM.PNORT ---
Progress Note: A&P Assessment and Plan (1) Diabetic ulcer of left foot: Qualifiers: Diabetes mellitus type: type 2 Diabetic foot ulcer location: toe Non-pressure ulcer stage: unspecified non-pressure ulcer stage Qualified Code(s): E11.621 - Type 2 diabetes mellitus with foot ulcer; L97.529 - Non-pressure chronic ulcer of other part of left foot with unspecified severity Code(s): E11.621 - Type 2 diabetes mellitus with foot ulcer; L97.529 - Non-pressure chronic ulcer of other part of left foot with unspecified severity Status: Acute Assessment and Plan: Local wound care. (2) Cellulitis of left lower extremity: Code(s): L03.116 - Cellulitis of left lower limb Status: Acute Assessment and Plan: Left leg cellulitis. White count improved. Continue with medical treatment. (3) Arthritis of knee, left: Code(s): M17.12 - Unilateral primary osteoarthritis, left knee Status: Acute Assessment and Plan: Degenerative changes left knee. No signs of infection of the knee joint. Continue with physical therapy and conservative treatment. Cortisone injection contraindicated in the setting cellulitis. (4) Gout due to renal impairment, left knee: Qualifiers: Chronicity: acute Qualified Code(s): M10.362 - Gout due to renal impairment, left knee Code(s): M10.362 - Gout due to renal impairment, left knee Status: Acute Assessment and Plan: patient with left knee pain and elevated uric acid serum levels noted. knee aspiration and injection contraindicated with possible cellulitis. Recommend medical treatment for gout flare up. Activity and motion as tolerated. Subjective Subjective Date/Time Seen: 08/16/20 13:12 Complains of increased pain posterior left leg and anterior knee. Worse with motion. Difficulty moving the leg. Exam Const: General: healthy appearing; No in distress or confusion Orientation/consciousness: oriented to person, oriented to place, oriented to time and No confusion HENMT: Head: normal to inspection, normocephalic and atraumatic Eyes: Conjunctivae: conjunctivae normal Sclera: sclerae normal Neck: Neck: supple and nontender Resp: Effort & Inspection: normal respiratory effort and no audible wheezes Cardio: Rate: regular rate Rhythm: regular rhythm Skin: General skin exam: no rashes or lesions noted Neuro: General: oriented to person, oriented to place, oriented to time and No confusion Extrem: Right upper extremity: normal to inspection Left upper extremity: normal to inspection Right lower extremity: knee Details: no tenderness and foot Details: abnormal to inspection ( Fourth and 5th ray amputation, incision well-healed), vascular exam Details: abnormal capillary refill Location: of all toes; dorsalis pedis pulse absent and posterior tibial pulse absent and motor-sensory exam Details: two point discrimination abnormal Location: in all toes and light-touch abnormal Location: in all toes Left lower extremity: hip/thigh Details: no tenderness and no swelling, knee Details: tenderness ( medial joint line), swelling ( moderate medial joint line and anterior) Location: of the pre-patellar area, abnormal ROM ( active knee motion minimal. Passive -5 to 30?) Details: pain with passive ROM Details: with extension and with flexion, crepitus ( patellofemoral and knee joint with active motion) Location: at the knee and other ( Swelling of the right posterior lower leg calf posterior knee and lateral leg. Ready/erythematous appearance. No fluctuance or fluid collections noted. Skin intact.) and foot Details: abnormal to inspection ( status post 4th toe amputation and debridement of heel.) Details: other, vascular exam Details: abnormal capillary refill Location: of all toes and other ( Dime-sized scab on the dorsomedial aspect of the hallux which is partial thickness skin. No surrounding erythema or drainage. No tenderness
[2020-08-16] MEDS: INSULIN ASPART (*BKC) 100 UNITS/ML SUB-Q ×2 (13:14→17:29)
[2020-08-16] MEDS: ERTAPENEM 1 GM/NS 50 ML 1 GM/50 ML BAG IVPB (13:23)
--- NOTE | 2020-08-16 13:50 | WPDINFPN2 ---
Progress Note: A&P Assessment and Plan (1) Leukocytosis: Code(s): D72.829 - Elevated white blood cell count, unspecified Status: Acute Assessment and Plan: 1. Leukocytosis, chronic intermittent, current results possibly due to UTI. WBC down to 12 2. L knee pain, no infection 3. Prior L calcaneus OM, treated by my colleague in [place], no LLE infection is present currently 4. Morbid obesity 5. Chronic Salgado REC Ertapenem # 8, stop and follow, no oral suppression. Call if other Qs Subjective Date/time seen: 08/16/20 13:50 Interval history: knee pain, no diarrhea no abd pain Exam Narrative: Exam Narrative: afebrile 3 + days Const: General: no acute distress Other: morbid obesity Resp: Effort & Inspection: normal respiratory effort Auscultation: clear to auscultation bilaterally Cardio: Rate: regular rate Rhythm: regular rhythm Heart sounds: no murmurs GI: Inspection: non-distended GI Palp: Yes Soft to palpation and No Tenderness to palpation present (GI) Objective Data Vital Signs Vital Signs: Vital Signs - 24 hr 08/15/20 14:00 08/15/20 16:00 08/15/20 20:00 Temperature 36.9 C Pulse Rate 83 81 79 Respiratory Rate 18 Blood Pressure 138/50 L Pulse Oximetry 95 08/15/20 22:00 08/16/20 00:00 08/16/20 04:00 Temperature 37.1 C Pulse Rate 83 74 62 Respiratory Rate 18 Blood Pressure 151/60 H Pulse Oximetry 93 08/16/20 06:00 08/16/20 08:00 Temperature 35.8 C L Pulse Rate 66 74 Respiratory Rate 18 Blood Pressure 138/60 Pulse Oximetry 100 Intake/Output Intake/Output: Intake & Output 08/13/20 08/14/20 08/15/20 08/16/20 23:59 23:59 23:59 23:59 Intake Total 1910 1315 1505 520 Output Total 800 1900 1800 500 Balance 1110 -585 -295 20 Meds/Results Medications: Active Medications Generic Name Dose Route Start Last Admin Trade Name Freq PRN Reason Stop Dose Admin Acetaminophen 650 mg 08/09/20 21:14 08/15/20 20:43 Acetaminophen 325 Mg Tablet PO 650 mg Q4H PRN Administration Mild Pain (1-3) or Fever Hydrocodone Bitart/Acetaminophen 1 tab 08/10/20 09:21 08/14/20 11:30 Hydrocodone/Acetaminophen (*Crx) 5-325 Mg Tablet PO 1 tab Q6H PRN Administration Pain Rated 4-6 Atorvastatin Calcium 80 mg 08/10/20 09:00 08/16/20 08:31 Atorvastatin 40 Mg Tablet PO 80 mg DAILY FAWN Administration Colchicine 0.6 mg 08/16/20 21:00 Colchicine 0.6 Mg Tablet PO Q12HR FAWN Cyanocobalamin 1,000 mcg 08/10/20 09:00 08/16/20 08:29 Cyanocobalamin 1,000 Mcg Tablet PO 1,000 mcg DAILY FAWN Administration Dextrose 12.5 gm 08/10/20 18:44 Dextrose 50% 25 Gm/50 Ml Syringe IV PUSH PRN PRN Hypoglycemia Protocol Docusate Sodium 100 mg 08/09/20 14:34 Docusate Sodium 100 Mg Capsule PO Q12H PRN Constipation Ferrous Sulfate 324 mg 08/10/20 08:00 08/16/20 08:29 Ferrous Sulfate 324 Mg Tablet PO 324 mg DAILY@0800 FAWN Administration Furosemide 20 mg 08/11/20 09:00 08/16/20 08:28 Furosemide 20 Mg Tablet PO 20 mg DAILY FAWN Administration Gabapentin 300 mg 08/09/20 14:50 08/16/20 13:14 Gabapentin 300 Mg Capsule PO 300 mg Q8HR FAWN Administration Glimepiride 4 mg 08/10/20 09:00 08/16/20 08:31 Glimepiride 2 Mg Tablet PO 09/09/20 09:01 4 mg QAM FAWN Administration Glucagon 1 mg 08/10/20 18:44 Glucagon For Inj 1 Mg Vial IM PRN PRN Hypoglycemia Protocol Glucose 15 gm 08/10/20 18:44 Glucose Oral Gel 15 Gm Of Glucse In 37.5 Gm Tube PO PRN PRN Hypoglycemia Protocol Guaifenesin 600 mg 08/10/20 09:40 08/16/20 08:28 Guaifenesin 12 Hr 600 Mg Tabcr PO 600 mg Q12HR FAWN Administration Heparin Sodium (Porcine) 5,000 units 08/09/20 15:15 08/16/20 13:21 Heparin Sodium 5,000 Units/Ml Vial SUB-Q 5,000 units Q8HR FAWN Administration Hydrochlorothiazide 12.5 mg 08/10/20 09:00 08/16/20 08:32 Hydrochlorothiazi
[2020-08-16 14:00] VITALS: BP 151/49; PULSE 79; RESP 20; TEMP 36.6; O2SAT 98
[2020-08-16 18:13] LABS: Glucose Point of Care 280 (65-105)
[2020-08-16] MEDS: COLCHICINE 0.6 MG TABLET PO (20:32)
[2020-08-16] MEDS: TOLNAFTATE 1% POWDER 45 GM BTL 1 APPLIC TOPICAL (20:43)
[2020-08-16 20:49] LABS: Glucose Point of Care 286 (65-105)
[2020-08-16 22:00] VITALS: BP 140/48; PULSE 77; RESP 18; TEMP 36.6; O2SAT 96
[2020-08-17] MEDS: GABAPENTIN 300 MG CAPSULE PO ×3 (05:40→20:27)
[2020-08-17] MEDS: HEPARIN SODIUM 5,000 UNITS/ML VIAL 5000 UNITS SUB-Q ×3 (05:40→20:26)
[2020-08-17 06:00] VITALS: BP 140/55; PULSE 78; RESP 18; TEMP 36.4; O2SAT 97
[2020-08-17] MEDS: hydroCHLOROthiazide 12.5 MG CAPSULE PO (07:36)
[2020-08-17] MEDS: FUROSEMIDE 20 MG TABLET PO (07:37)
[2020-08-17] MEDS: GLIMEPIRIDE 2 MG TABLET 4 MG PO (07:37)
[2020-08-17] MEDS: CHOLECALCIFEROL 1,000 UNITS TABLET 5000 UNITS PO (07:41)
[2020-08-17] MEDS: ACIDOPHILUS/BULGARICUS CHEWABLE TABLET 1 TABLET PO ×3 (07:42→17:51)
[2020-08-17] MEDS: CYANOCOBALAMIN 1,000 MCG TABLET 1000 MCG PO (07:42)
[2020-08-17] MEDS: guaiFENesin 12 HR 600 MG TABCR PO ×2 (07:42→20:27)
[2020-08-17] MEDS: COLCHICINE 0.6 MG TABLET PO ×2 (07:42→20:27)
[2020-08-17] MEDS: LIDOCAINE 5% PATCH 2 PATCH TRANSDERM (07:42)
[2020-08-17] MEDS: FERROUS SULFATE 324 MG TABLET PO (07:42)
[2020-08-17] MEDS: TOLNAFTATE 1% POWDER 45 GM BTL 1 APPLIC TOPICAL ×2 (07:43→20:27)
[2020-08-17] MEDS: MICONAZOLE NITRATE 2% CREAM 30 GM TUBE 1 APPLIC TOPICAL (07:43)
[2020-08-17] MEDS: PANTOPRAZOLE 40 MG TABLET PO (07:44)
[2020-08-17] MEDS: SILVERGEL (ELTA) 45 ML 1 APPLIC TOPICAL (07:44)
[2020-08-17 08:00] VITALS: PULSE 78; RESP 18; O2SAT 97
[2020-08-17 08:32] LABS: Glucose Point of Care 315 (65-105)
[2020-08-17] MEDS: ATORVASTATIN 40 MG TABLET 80 MG PO (10:13)
[2020-08-17] MEDS: INSULIN ASPART (*BKC) 100 UNITS/ML SUB-Q ×3 (10:16→17:52)
--- NOTE | 2020-08-17 10:39 | PC.NURSE ---
0800 CONT. NO DROOPING OF FACIAL MUSCLES NOTED. NO VISION PROBLEMS, NO NEURODEFECIENTS NOTED
[2020-08-17] MEDS: ERTAPENEM 1 GM/NS 50 ML 1 GM/50 ML BAG IVPB (11:58)
[2020-08-17 12:39] LABS: Glucose Point of Care 309 (65-105)
--- NOTE | 2020-08-17 13:36 | PM.IMPN ---
Progress Note: A&P Assessment and Plan (1) Transfusion reaction: Qualifiers: Encounter type: initial encounter Qualified Code(s): T80.92XA - Unspecified transfusion reaction, initial encounter Code(s): T80.92XA - Unspecified transfusion reaction, initial encounter Status: Acute Assessment and Plan: Patient received about 100 mL of blood infusion when he had increased fever. She also had worsening hematuria after transfusion. Blood transfusion was discontinued. Hgb is 6.5 Will get heme onc consult, pt has been getting venofer infusion, seen by Dr Lou in the hospital. Monitor hb daily (2) Anemia: Qualifiers: Anemia type: iron deficiency Iron deficiency anemia type: unspecified iron deficiency Qualified Code(s): D50.9 - Iron deficiency anemia, unspecified Code(s): D64.9 - Anemia, unspecified Status: Acute Assessment and Plan: Sp Venofer and repeat CBC. (3) Diabetic ulcer of left foot: Qualifiers: Diabetic foot ulcer location: toe Diabetes mellitus type: type 2 Non-pressure ulcer stage: unspecified non-pressure ulcer stage Qualified Code(s): E11.621 - Type 2 diabetes mellitus with foot ulcer; L97.529 - Non-pressure chronic ulcer of other part of left foot with unspecified severity Code(s): E11.621 - Type 2 diabetes mellitus with foot ulcer; L97.529 - Non-pressure chronic ulcer of other part of left foot with unspecified severity Status: Acute Assessment and Plan: Appreciate orthopedic surgery input. We recommend local wound care. (4) Cellulitis of left lower extremity: Code(s): L03.116 - Cellulitis of left lower limb Status: Acute Assessment and Plan: DC ertapenem. Leg remains erythematous and warm to touch.PT/ OT, uric level orthopedic consult for severe left knee pain. Urate is level pt is started on colchicine. (5) Urinary tract infection: Qualifiers: Encounter type: sequela Indwelling urinary catheter type: indwelling urethral catheter Urinary tract infection type: catheter-associated UTI Qualified Code(s): T83.511S - Infection and inflammatory reaction due to indwelling urethral catheter, sequela; N39.0 - Urinary tract infection, site not specified Code(s): N39.0 - Urinary tract infection, site not specified Status: Acute Assessment and Plan: ESBL Klebsiella. Patient is on antibiotic therapy with ertapenem completed (6) Hypoglycemia: Code(s): E16.2 - Hypoglycemia, unspecified Status: Resolved Assessment and Plan: REsolved (7) AMS (altered mental status): Code(s): R41.82 - Altered mental status, unspecified Status: Acute Assessment and Plan: Pt to have CT head To rule out stroke Pt has episodes of confusion ? poor glucose control history of hypoglycemic episodes Subjective Date/time seen: 08/17/20 13:36 Interval history: 60 year old female The patient is diabetic and has had multiple toes amputated in the past. The patient is currently attending wound clinic for left foot wound. Pt had a blood transfusion reaction, pt being treated for cellultis of her left calf. Complains of calf pain. Venous doppler is negative. Pt now states the pain in more in her left knee, xray shows OA, uric level ordered orthopedic consult pt may benefit from knee injection, uric level is high will start colchicine for gout flare. Much the same complains of immobility, episodes of confusion mentioned by nurse. will order CT head to rule out stroke. Review of Systems Review of Systems: All systems reviewed & are unremarkable except as noted in HPI and below Exam Narrative: Exam Narrative: GeneraL: Obese lady HEENT: Mucous membranes are moist Respiratory: Clear to auscultation bilaterally Cardiovascular: Regular rate Gastrointestinal: Obese, nontender, positive bowel sounds Skin: knee severe TTP pt unable to flex knee limited pt we
[2020-08-17 13:42] LABS: Uric Acid 9.6 mg/dL (2.5-7.5)
[2020-08-17] MEDS: diazePAM (*CRX) 5 MG TABLET PO (13:56)
[2020-08-17 14:00] VITALS: BP 134/56; PULSE 72; RESP 18; TEMP 36.8; O2SAT 99
[2020-08-17 18:00] LABS: Glucose Point of Care 247 (65-105)
[2020-08-17 22:00] VITALS: BP 148/54; PULSE 74; RESP 20; TEMP 37; O2SAT 94
[2020-08-17 22:09] LABS: Glucose Point of Care 242 (65-105)
[2020-08-18] MEDS: GABAPENTIN 300 MG CAPSULE PO ×3 (05:22→21:57)
[2020-08-18] MEDS: HEPARIN SODIUM 5,000 UNITS/ML VIAL 5000 UNITS SUB-Q ×3 (05:22→21:58)
[2020-08-18 06:00] VITALS: BP 135/54; PULSE 72; RESP 16; TEMP 36.4; O2SAT 97
[2020-08-18 06:19] LABS: Hematocrit 24.5 % (37.0-47.0); Hemoglobin 7.2 g/dL (12.0-15.0); Mean Corpuscular HGB Conc 29.4 g/dl (32-36); Mean Corpuscular Hemoglobin 27.4 pg (26-34); Mean Corpuscular Volume 93.2 fl (80-100); Mean Platelet Volume 8.8 fl (7.4-10.4); Platelet Count Result 410 k/mm3 (150-375); Red Blood Count 2.63 M/mm3 (4.2-5.4); Red Cell Distribution Width 15.7 % (11.5-14.5); White Blood Count 8.8 K/mm3 (4.5-10.0)
[2020-08-18 06:33] LABS: Anion Gap 5 mmol/L (8-16); Blood Urea Nitrogen 57 mg/dL (7-17); Calcium 9.3 mg/dL (8.4-10.2); Carbon Dioxide 28 mmol/L (22-30); Chloride 103 mmol/L (98-107); Estimated CRCL calculation 38 ml/min; Estimated Glomerular Filt Rate 24; Glucose 238 mg/dL (65-105); Potassium 4.9 mmol/L (3.4-5.0); Sodium 136 mmol/L (137-145)
[2020-08-18 08:00] VITALS: PULSE 72; RESP 16; O2SAT 97
[2020-08-18 08:30] LABS: Glucose Point of Care 255 (65-105)
[2020-08-18] MEDS: ACIDOPHILUS/BULGARICUS CHEWABLE TABLET 1 TABLET PO ×3 (11:14→17:11)
[2020-08-18] MEDS: FERROUS SULFATE 324 MG TABLET PO (11:14)
[2020-08-18] MEDS: CHOLECALCIFEROL 1,000 UNITS TABLET 5000 UNITS PO (11:17)
[2020-08-18] MEDS: ATORVASTATIN 40 MG TABLET 80 MG PO (11:17)
[2020-08-18] MEDS: COLCHICINE 0.6 MG TABLET PO ×2 (11:18→21:57)
[2020-08-18] MEDS: CYANOCOBALAMIN 1,000 MCG TABLET 1000 MCG PO (11:18)
[2020-08-18] MEDS: FUROSEMIDE 20 MG TABLET PO (11:19)
[2020-08-18] MEDS: guaiFENesin 12 HR 600 MG TABCR PO ×2 (11:19→21:58)
[2020-08-18] MEDS: GLIMEPIRIDE 2 MG TABLET 4 MG PO (11:19)
[2020-08-18] MEDS: hydroCHLOROthiazide 12.5 MG CAPSULE PO (11:20)
[2020-08-18] MEDS: LIDOCAINE 5% PATCH 2 PATCH TRANSDERM (11:20)
[2020-08-18] MEDS: PANTOPRAZOLE 40 MG TABLET PO (11:20)
[2020-08-18] MEDS: SILVERGEL (ELTA) 45 ML 1 APPLIC TOPICAL (11:21)
[2020-08-18] MEDS: TOLNAFTATE 1% POWDER 45 GM BTL 1 APPLIC TOPICAL ×2 (11:21→21:58)
[2020-08-18] MEDS: INSULIN ASPART (*BKC) 100 UNITS/ML SUB-Q ×2 (11:27→17:31)
[2020-08-18] MEDS: ERTAPENEM 1 GM/NS 50 ML 1 GM/50 ML BAG IVPB (12:14)
[2020-08-18] MEDS: HYDROcodone/acetaminophen (*CRX) 5-325 MG TABLET 1 TAB PO (12:22)
--- NOTE | 2020-08-18 13:05 | PM.IMPN ---
Progress Note: A&P Assessment and Plan (1) Transfusion reaction: Qualifiers: Encounter type: initial encounter Qualified Code(s): T80.92XA - Unspecified transfusion reaction, initial encounter Code(s): T80.92XA - Unspecified transfusion reaction, initial encounter Status: Resolved Assessment and Plan: Patient received about 100 mL of blood infusion when he had increased fever. She also had worsening hematuria after transfusion. Blood transfusion was discontinued. No further hematuria. Will get heme onc consult, pt has been getting venofer infusion, seen by Dr Lou in the hospital. Hb is 7.2 today. (2) Anemia: Qualifiers: Anemia type: iron deficiency Iron deficiency anemia type: unspecified iron deficiency Qualified Code(s): D50.9 - Iron deficiency anemia, unspecified Code(s): D64.9 - Anemia, unspecified Status: Acute Assessment and Plan: Sp Venofer and repeat CBC. (3) Diabetic ulcer of left foot: Qualifiers: Diabetic foot ulcer location: toe Diabetes mellitus type: type 2 Non-pressure ulcer stage: unspecified non-pressure ulcer stage Qualified Code(s): E11.621 - Type 2 diabetes mellitus with foot ulcer; L97.529 - Non-pressure chronic ulcer of other part of left foot with unspecified severity Code(s): E11.621 - Type 2 diabetes mellitus with foot ulcer; L97.529 - Non-pressure chronic ulcer of other part of left foot with unspecified severity Status: Acute Assessment and Plan: Appreciate orthopedic surgery input. We recommend local wound care. (4) Cellulitis of left lower extremity: Code(s): L03.116 - Cellulitis of left lower limb Status: Resolved Assessment and Plan: DC ertapenem. Leg is not warm anymore. PT/ OT, uric level orthopedic consult for severe left knee pain. Urate is level pt is started on colchicine. Knee pain maybe secondary to OA flare may benefit from knee injection if pain does not improve. Continue lidoderm, colchicine and PT/OT for now. Hopeful dc to [facility] for F[facility]THER REH[facility] tomorrow, awaiting covid test. (5) Urinary tract infection: Qualifiers: Encounter type: sequela Indwelling urinary catheter type: indwelling urethral catheter Urinary tract infection type: catheter-associated UTI Qualified Code(s): T83.511S - Infection and inflammatory reaction due to indwelling urethral catheter, sequela; N39.0 - Urinary tract infection, site not specified Code(s): N39.0 - Urinary tract infection, site not specified Status: Acute Assessment and Plan: ESBL Klebsiella. Patient is on antibiotic therapy with ertapenem completed already (6) Hypoglycemia: Code(s): E16.2 - Hypoglycemia, unspecified Status: Resolved Assessment and Plan: REsolved (7) AMS (altered mental status): Code(s): R41.82 - Altered mental status, unspecified Status: Resolved Assessment and Plan: Pt to have CT head stroke ruled out Pt has episodes of confusion ? poor glucose control history of hypoglycemic episodes Subjective Date/time seen: 08/18/20 13:05 Interval history: 60 year old female The patient is diabetic and has had multiple toes amputated in the past. The patient is currently attending wound clinic for left foot wound. Pt had a blood transfusion reaction, pt being treated for cellultis of her left calf. Complains of calf pain. Venous doppler is negative. Pt now states the pain in more in her left knee, xray shows OA, uric level ordered orthopedic consult pt may benefit from knee injection, uric level is high will start colchicine for gout flare. Much the same complains of immobility,confusion appears better today, stroke negative for stroke. Pt can be discharged deni to [facility], awaiting COVID test. Review of Systems Review of Systems: Narrative: Left knee pain All systems reviewed & are unremarkable except as noted in HPI
[2020-08-18 14:00] VITALS: BP 109/63; PULSE 86; RESP 16; TEMP 36.7; O2SAT 100
[2020-08-18 17:33] LABS: Glucose Point of Care 265 (65-105)
[2020-08-18 20:00] LABS: SARS-CoV-2 RNA PCR Negative
[2020-08-18 21:30] VITALS: BP 135/45; PULSE 71; RESP 18; TEMP 36.7; O2SAT 95
[2020-08-18 22:44] LABS: Glucose Point of Care 228 (65-105)
[2020-08-19 06:00] VITALS: BP 137/56; PULSE 77; RESP 20; TEMP 36.7; O2SAT 93
[2020-08-19] MEDS: GABAPENTIN 300 MG CAPSULE PO (06:37)
[2020-08-19] MEDS: HEPARIN SODIUM 5,000 UNITS/ML VIAL 5000 UNITS SUB-Q (06:37)
[2020-08-19 08:00] VITALS: PULSE 77; RESP 20; O2SAT 93
[2020-08-19 08:40] LABS: Glucose Point of Care 247 (65-105)
[2020-08-19] MEDS: INSULIN ASPART (*BKC) 100 UNITS/ML SUB-Q ×2 (09:24→12:52)
[2020-08-19] MEDS: CHOLECALCIFEROL 1,000 UNITS TABLET 5000 UNITS PO (09:26)
[2020-08-19] MEDS: FERROUS SULFATE 324 MG TABLET PO (09:26)
[2020-08-19] MEDS: ACIDOPHILUS/BULGARICUS CHEWABLE TABLET 1 TABLET PO ×2 (09:26→12:53)
[2020-08-19] MEDS: GLIMEPIRIDE 2 MG TABLET 4 MG PO (09:26)
[2020-08-19] MEDS: FUROSEMIDE 20 MG TABLET PO (09:26)
[2020-08-19] MEDS: PANTOPRAZOLE 40 MG TABLET PO (09:27)
[2020-08-19] MEDS: ATORVASTATIN 40 MG TABLET 80 MG PO (09:27)
[2020-08-19] MEDS: CYANOCOBALAMIN 1,000 MCG TABLET 1000 MCG PO (09:27)
[2020-08-19] MEDS: guaiFENesin 12 HR 600 MG TABCR PO (09:27)
[2020-08-19] MEDS: COLCHICINE 0.6 MG TABLET PO (09:27)
[2020-08-19] MEDS: hydroCHLOROthiazide 12.5 MG CAPSULE PO (09:28)
[2020-08-19] MEDS: SILVERGEL (ELTA) 45 ML 1 APPLIC TOPICAL (09:28)
[2020-08-19] MEDS: LIDOCAINE 5% PATCH 2 PATCH TRANSDERM (09:28)
[2020-08-19] MEDS: TOLNAFTATE 1% POWDER 45 GM BTL 1 APPLIC TOPICAL (09:29)
[2020-08-19] MEDS: ERTAPENEM 1 GM/NS 50 ML 1 GM/50 ML BAG IVPB (12:53)
--- NOTE | 2020-08-19 13:17 | PM.DS ---
DS: Admitting Diagnosis Admitting Diagnosis Admitting Diagnosis: IMMOBILITY< UTI< CELLULITIS OF LEG DS: Discharge Diagnosis Discharge Diagnosis (1) Transfusion reaction: Qualifiers: Encounter type: initial encounter Qualified Code(s): T80.92XA - Unspecified transfusion reaction, initial encounter Code(s): T80.92XA - Unspecified transfusion reaction, initial encounter Status: Resolved Assessment and Plan: Patient received about 100 mL of blood infusion when he had increased fever. She also had worsening hematuria after transfusion. Blood transfusion was discontinued. No further hematuria. Will got hematology consultaion as hb remained low, pt has been getting venofer infusion, seen by Dr Lou in the hospital. Hb is 7.2 today. (2) Anemia: Qualifiers: Anemia type: iron deficiency Iron deficiency anemia type: unspecified iron deficiency Qualified Code(s): D50.9 - Iron deficiency anemia, unspecified Code(s): D64.9 - Anemia, unspecified Status: Acute Assessment and Plan: Sp Venofer and repeat CBC. (3) Diabetic ulcer of left foot: Qualifiers: Diabetes mellitus type: type 2 Diabetic foot ulcer location: toe Non-pressure ulcer stage: unspecified non-pressure ulcer stage Qualified Code(s): E11.621 - Type 2 diabetes mellitus with foot ulcer; L97.529 - Non-pressure chronic ulcer of other part of left foot with unspecified severity Code(s): E11.621 - Type 2 diabetes mellitus with foot ulcer; L97.529 - Non-pressure chronic ulcer of other part of left foot with unspecified severity Status: Acute Assessment and Plan: Appreciate orthopedic surgery input. We recommend local wound care. and treat cellulitis (4) Cellulitis of left lower extremity: Code(s): L03.116 - Cellulitis of left lower limb Status: Resolved Assessment and Plan: DC ertapenem. Leg is not warm anymore. PT/ OT, uric level orthopedic consult for severe left knee pain. Urate is level pt is started on colchicine. Knee pain maybe secondary to OA flare may benefit from knee injection if pain does not improve. Continue lidoderm, hydrocodene and colchicine and PT/OT for now. Hopeful dc to [facility] for FURTHER REHAB today. (5) Urinary tract infection: Qualifiers: Encounter type: sequela Indwelling urinary catheter type: indwelling urethral catheter Urinary tract infection type: catheter-associated UTI Qualified Code(s): T83.511S - Infection and inflammatory reaction due to indwelling urethral catheter, sequela; N39.0 - Urinary tract infection, site not specified Code(s): N39.0 - Urinary tract infection, site not specified Status: Acute Assessment and Plan: ESBL Klebsiella. Patient is on antibiotic therapy with ertapenem completed already (6) Hypoglycemia: Code(s): E16.2 - Hypoglycemia, unspecified Status: Resolved Assessment and Plan: REsolved (7) AMS (altered mental status): Code(s): R41.82 - Altered mental status, unspecified Status: Resolved Assessment and Plan: Pt to have CT head stroke ruled out Pt has episodes of confusion ? poor glucose control history of hypoglycemic episodes DS: Summary Hospital Course Hospital Course: The patient is diabetic and has had multiple toes amputated in the past. The patient is currently attending wound clinic for left foot wound. Pt had a blood transfusion reaction, pt being treated for cellultis of her left calf. Complains of calf pain. Venous doppler is negative. Pt now states the pain in more in her left knee, xray shows OA, uric level ordered orthopedic consult pt may benefit from knee injection, uric level is high will start colchicine for gout flare. Much the same complains of immobility,confusion appears better today, stroke negative for stroke. Pt can be discharged deni to [facility]THER [facility]. UTI AND CELLULITIS HAVE BEEN TREATED WHIL
[2020-08-19 13:33] LABS: Glucose Point of Care 244 (65-105)
[2020-08-19 14:00] VITALS: BP 132/60; PULSE 76; RESP 16; TEMP 36.8; O2SAT 95
== END 2020-08-19 16:50 | DRG 699 ==
LOC: ANHED 11:27 → ANH2MED 11:44 → ANH3MEDSUR 08-10 07:09 → ANH2MED 08-23 10:56 → ANH3MEDSUR 08-23 10:56
PROVIDERS: Family Medicine; Internal Medicine; Internal Medicine Hematology & Oncology; Nurse Practitioner; Student in an Organized Health Care Education/Training Program; Admitting Provider Internal Medicine; Emergency Provider Emergency Medicine; PCP Student in an Organized Health Care Education/Training Program; Visit Provider Nurse Practitioner
DX: T83.511A Infection and inflammatory reaction due to indwelling urethral catheter, initial encounter (principal); L03.116 Cellulitis of left lower limb; N17.9 Acute kidney failure, unspecified; Z68.42 Body mass index [BMI] 45.0-49.9, adult; M25.462 Effusion, left knee; D64.9 Anemia, unspecified; E11.9 Type 2 diabetes mellitus without complications; E78.5 Hyperlipidemia, unspecified; E11.621 Type 2 diabetes mellitus with foot ulcer; L97.529 Non-pressure chronic ulcer of other part of left foot with unspecified severity; T80.89XA Other complications following infusion, transfusion and therapeutic injection, initial encounter; N39.0 Urinary tract infection, site not specified; B96.1 Klebsiella pneumoniae [K. pneumoniae] as the cause of diseases classified elsewhere; E66.01 Morbid (severe) obesity due to excess calories; I12.9 Hypertensive chronic kidney disease with stage 1 through stage 4 chronic kidney disease, or unspecified chronic kidney disease; E11.22 Type 2 diabetes mellitus with diabetic chronic kidney disease; N18.30 Chronic kidney disease, stage 3 unspecified; Z20.828 Contact with and (suspected) exposure to other viral communicable diseases
CPT/HCPCS: 36415; 36430; 70450; 71045; 73562; 73620; 80048; 80053; 81001; 81479; 82247; 82607; 82746; 83036; 83540; 83550; 83605; 83615; 83721; 83735; 83880; 84443; 84550; 85014; 85018; 85025; 85027; 85046; 86140; 86850; 86860; 86870; 86880; 86900; 86901; 86902; 86905; 86922; 86971; 86978; 87040; 87077; 87086; 87088; 87186; 87635; 93971; 96365; 96367; 97110; 97161; 97165; 97530; 97535; 99285; A9270; C9803; G0378; J0131; J1335; J1644; J1756; J1815; J1956; J7030; J7042; J7050; J7070; P9016; Q5106; U0003

== ENCOUNTER 2020-12-01 13:33 | Outpatient (NON) | payer OTHER, MEDICAID, SELFPAY ==
[2020-12-01 14:11] LABS: Basophils Percent Auto 0.2 % (0.2-1.2); Hematocrit 28.9 % (37.0-47.0); Hemoglobin 9.3 g/dL (12.0-15.0); Immature Granulocyte Absolute 0.12 K/mm3 (0.00-0.031); Immature Granulocyte Percent A 0.7 % (0-0.5); Lymphocytes Absolute Auto 1.08 K/mm3 (0.9-3.2); Lymphocytes Percent Auto 6.3 % (18.3-44.2); Mean Corpuscular HGB Conc 32.2 g/dl (32-36); Mean Corpuscular Hemoglobin 29.3 pg (26-34); Mean Corpuscular Volume 91.2 fl (80-100); Mean Platelet Volume 10.5 fl (7.4-10.4); Monocytes Absolute Auto 0.6 K/mm3 (0.1-0.6); Monocytes Percent Auto 3.3 % (2.6-8.5); Neutrophils Absolute Auto 15.2 K/mm3 (1.3-6.7); Neutrophils Percent Auto 89.5 % (45.5-73.1); Platelet Count Result 180 k/mm3 (150-375); Red Blood Count 3.17 M/mm3 (4.2-5.4); Red Cell Distribution Width 15.9 % (11.5-14.5)
[2020-12-01 14:28] LABS: Alanine Aminotransferase 21 U/L (4-35); Albumin Level 3.5 g/dL (3.5-5.1); Alkaline Phosphatase 112 U/L (38-126); Anion Gap 12 mmol/L (8-16); Aspartate Amino Transferase 44 U/L (14-36); Bilirubin,Total 0.9 mg/dL (0.2-1.3); Blood Urea Nitrogen 41 mg/dL (7-17); Calcium 8.1 mg/dL (8.4-10.2); Carbon Dioxide 21 mmol/L (22-30); Chloride 101 mmol/L (98-107); Estimated Glomerular Filt Rate 17; Glucose 181 mg/dL (65-105); Potassium 3.8 mmol/L (3.4-5.0); Sodium 134 mmol/L (137-145); Uric Acid 8.7 mg/dL (2.5-7.5)
[2020-12-01 15:16] LABS: Hemoglobin A1C 5.9 % (<5.7)
[2020-12-01 16:17] LABS: Iron 34 ug/dL (37-170)
[2020-12-01 16:38] LABS: Percent Iron Saturation 27 % (20-50)
== END 2020-12-01 13:34 ==
PROVIDERS: PCP Student in an Organized Health Care Education/Training Program; Visit Provider Student in an Organized Health Care Education/Training Program
DX: L03.116 Cellulitis of left lower limb (principal); L97.529 Non-pressure chronic ulcer of other part of left foot with unspecified severity; E11.621 Type 2 diabetes mellitus with foot ulcer; D50.9 Iron deficiency anemia, unspecified
CPT/HCPCS: 80053; 82728; 83036; 83540; 83550; 84443; 84550; 85025

== ENCOUNTER 2020-12-03 11:03 | Inpatient (IN) | payer OTHER, MEDICAID, SELFPAY ==
[2020-12-03] VITALS (45 sets, daily range): BP systolic 84–172; BP diastolic 43–69; PULSE 75–100; RESP 12–26; TEMP 36.8–37.3; O2SAT 93–100; BMI 46.3; BMI 46.4
--- NOTE | ~2020-12-03 | XR_ITS ---
XR chest port-a-cath/central DATE: 12/03/2020 12:39 INDICATION: Cough. Left leg swelling, redness TECHNIQUE: Portable upright AP chest on 11/2020 at 1232 hours COMPARISON: 08/09/2020 portable AP chest FINDINGS: Right internal jugular central venous catheter tip is situated near the superior cavoatrial junction. Normal heart size. No pulmonary infiltrate or consolidation, pleural effusion or pulmonary vascular congestion or pneumo thorax is detected. Diffuse osteopenia. Degenerative spurring of the thoracic spine. IMPRESSION: No active cardiopulmonary disease Right internal jugular central venous catheter near superior cavoatrial junction Reviewed, dictated and finalized at [facility]. Reviewed, dictated and finalized at location A. IMPRESSION: No active cardiopulmonary disease Right internal jugular central venous catheter near superior cavoatrial junctio n
--- NOTE | ~2020-12-03 | US_ITS ---
EXAMINATION: US renal BI DATE: 12/04/2020 14:02 INDICATION: Elevated creatinine TECHNIQUE: Multiple ultrasound grayscale images of the kidneys were obtained. COMPARISON: 05/31/2020 FINDINGS: The right kidney measures 11.0 x 5.2 x 5.4 cm. The left kidney measures 10.8 x 5.6 x 6.1 cm. The kidn eys demonstrate normal echogenicity. There is no hydronephrosis in either kidney. No stones identifi ed. The bladder is decompressed around a Salgado catheter which limits evaluation.. IMPRESSION: 1. Normal kidneys without hydronephrosis. Reviewed, dictated and finalized at location B.
--- NOTE | ~2020-12-03 | XR_ITS ---
EXAMINATION: XR chest 2V DATE: 12/06/2020 09:18 INDICATION: Cough TECHNIQUE: frontal and lateral views of the chest were obtained. COMPARISON: Chest radiograph dated 12/03/2020 FINDINGS: Lungs are clear with no focal airspace opacities, pulmonary edema, pleural effusion or pneumothorax. Heart size is normal with prominent left paracardial fat pad extending towards the costophrenic angle . Right internal jugular central venous catheter with distal tip near the superior cavoatrial junctio n. IMPRESSION: 1. No acute cardiopulmonary disease. Reviewed, dictated and finalized at location B.
--- NOTE | ~2020-12-03 | XR_ITS ---
EXAMINATION: XR foot LT min 3V EXAM DATE: 12/06/2020 16:47 INDICATION: Left foot swelling. TECHNIQUE: Left foot dorsoplantar, lateral and oblique projections obtained and reviewed. Comparison is made to prior examination from 08/11/2020. FINDINGS: There is severe swelling over the left foot and ankle. Status post 4th transmetatarsal amp utation. Evidence of old 5th metatarsal bone fractures. Bones are osteopenic and there are vascular c alcifications. Moderate polyarticular osteoarthritis. There are no bony erosions identified. There is decreased Boehler's angle but no acute fracture suspected. Compared to previous examination, the sof t tissue swelling has progressed but otherwise no significant interval change. IMPRESSION: 1. Diffuse soft tissue swelling. 2. Chronic findings as above. Reviewed, dictated and finalized at location A.
--- NOTE | ~2020-12-03 | US_ITS ---
US venous doppler [facility] DATE: 12/03/2020 13:59 INDICATION: Left leg swelling TECHNIQUE: Real-time and color flow imaging and Doppler analysis of the veins of the left lower extre mity COMPARISON: 08/09/2020 venous duplex examination of left leg FINDINGS: The left greater saphenous vein is patent. There is spontaneous and phasic flow and normal augmentation and color flow signal and normal compression of the deep veins of the left leg. IMPRESSION: No evidence of deep venous thrombosis of left leg Reviewed, dictated and finalized at [facility]. Reviewed, dictated and finalized at location A.
[2020-12-03 11:34] LABS: Alveolar/Arterial O2 Gradient 20.3 mmHg; Base Excess ABG -2.2 mEq/l (+/-2.0); Carboxyhemoglobin 0.3 % THb (0-2.0); Fractional Inspired Oxygen 21 %; HCO3 ABG 22.3 mEq/l (22.0-26.0); Methemoglobin ABG 0.2 %THb (0-1.5); Oxygen Content ABG 12.5 %vol (16.0-22.0); Oxygen Saturation ABG 96.5 % (95.0-100.0); Oxyhemoglobin 94.9 % THb (90.0-100.0); PO2 ABG 85.1 mmHg (80.0-100.0); PO2 FiO2 Ratio Arterial Blood 4.05 %; Reduced Hemoglobin 4.6 %THb (0-5.0); Site Drawn LEFT BRACHIAL; Total Hemoglobin 9.3 g/dL (12.0-18.0); pH ABG 7.398 (7.350-7.450)
[2020-12-03 11:35] LABS: Device ROOM AIR
[2020-12-03 12:54] LABS: Basophils Percent Auto 0.2 % (0.2-1.2); Eosinophils Absolute Auto 0.1 K/mm3 (0-0.3); Eosinophils Percent Auto 0.5 % (0-4.4); Hematocrit 25.7 % (37.0-47.0); Hemoglobin 8.3 g/dL (12.0-15.0); Immature Granulocyte Absolute 0.13 K/mm3 (0.00-0.031); Immature Granulocyte Percent A 0.7 % (0-0.5); Lymphocytes Absolute Auto 0.91 K/mm3 (0.9-3.2); Lymphocytes Percent Auto 5.2 % (18.3-44.2); Mean Corpuscular HGB Conc 32.3 g/dl (32-36); Mean Corpuscular Hemoglobin 29.1 pg (26-34); Mean Corpuscular Volume 90.2 fl (80-100); Mean Platelet Volume 10.1 fl (7.4-10.4); Monocytes Absolute Auto 0.8 K/mm3 (0.1-0.6); Monocytes Percent Auto 4.3 % (2.6-8.5); Neutrophils Absolute Auto 15.7 K/mm3 (1.3-6.7); Neutrophils Percent Auto 89.1 % (45.5-73.1); Platelet Count Result 186 k/mm3 (150-375); Red Blood Count 2.85 M/mm3 (4.2-5.4); Red Cell Distribution Width 15.6 % (11.5-14.5); White Blood Count 17.6 K/mm3 (4.5-10.0)
[2020-12-03] MEDS: PANTOPRAZOLE SODIUM IV 40 MG VIAL 80 MG IV PUSH (12:56)
[2020-12-03] MEDS: LINEZOLID 600 MG/300 ML 600 MG/300 ML SOLN 300 MG IVPB ×2 (12:57→21:22)
[2020-12-03 12:59] LABS: Add Urine Microscopic? YES; Appearance Urine Cloudy (Clear); Bacteria Urine 4+ /hpf; Bilirubin Urine Negative (Negative); Blood Urine 2+ (Negative); Color Urine Amber (Yellow); Glucose Urine UA Negative (Negative); Ketones Urine Negative (Negative); Leukocyte Esterase Ur 3+ LEU/UL (Negative); Mucus Urine Rare /lpf; Nitrate Urine Negative (Negative); Protein Urine 2+ mg/dL (Negative); Specific Grav Ur 1.013 (1.001-1.035); Squamous Epithelial Cell Urine Rare /hpf (Few); Urobilinogen Urine Negative mg/dL (<2.0); WBC Urine >75 /hpf
[2020-12-03] MEDS: SODIUM CHLORIDE 0.9% IV 1,000 ML 999 ML IV CONT (12:59)
[2020-12-03 13:04] LABS: INR 1.3; Prothrombin Time 16.4 Seconds (11.1-14.7)
[2020-12-03 13:05] LABS: Partial Thromboplastin Time 40.5 SECONDS (22.3-36.8)
[2020-12-03 13:06] LABS: Magnesium 1.3 mg/dL (1.6-2.3); Phosphorus 5.1 mg/dL (2.5-4.5)
[2020-12-03 13:07] LABS: Lactic Acid Reflex 1.2 mmol/L (0.7-2.1)
[2020-12-03 13:18] LABS: Alanine Aminotransferase 36 U/L (4-35); Albumin Level 3.1 g/dL (3.5-5.1); Alkaline Phosphatase 157 U/L (38-126); Anion Gap 8 mmol/L (8-16); Aspartate Amino Transferase 47 U/L (14-36); Bilirubin,Total 0.9 mg/dL (0.2-1.3); Blood Urea Nitrogen 69 mg/dL (7-17); Calcium 8.1 mg/dL (8.4-10.2); Carbon Dioxide 25 mmol/L (22-30); Chloride 97 mmol/L (98-107); Estimated CRCL calculation 18 ml/min; Estimated Glomerular Filt Rate 11; Glucose 124 mg/dL (65-105); Lipase 63 U/L (23-300); Sodium 130 mmol/L (137-145)
[2020-12-03] MEDS: MAGNESIUM SULF 2 GM/WATER 50ML 2 GM/50 ML BAG IVPB (13:32)
[2020-12-03] MEDS: ONDANSETRON INJ 4 MG/2 ML VIAL IV PUSH (13:32)
[2020-12-03 13:40] LABS: Beta-Hydroxybutyrate/Acetoacetate 0.24 mmol/L (0.02-0.27)
[2020-12-03 14:03] LABS: CRP > 45.0 mg/dL (<1.0)
--- NOTE | 2020-12-03 14:54 | ED.GENADULT ---
HPI - General Adult General Chief complaint: Extremity Problem,Nontraumatic <Cuba Lainez PA-C - Last Filed: 12/03/20 15:11> Stated complaint: Leg/Hip Redness, Swelling <HERBER Rogers Last Filed: 12/03/20 15:11> Time Seen by Provider: 12/03/20 11:09 <HERBER Rogers Last Filed: 12/03/20 15:11> Source: patient, family, EMS and old records reviewed <HERBER Rogers Last Filed: 12/03/20 15:11> Mode of arrival: EMS <HERBER Rogers Last Filed: 12/03/20 15:11> Limitations: no limitations <HERBER Rogers Last Filed: 12/03/20 15:11> History of Present Illness HPI narrative: Patient is a 60-year-old female who presents from home with a leg infection patient is a morbidly obese patient with multiple comorbidities with recurrent urinary tract infections also notes and chronic cellulitis of the left lower extremity. Patient notes that she has been lying in bed for the last week. Patient notes redness and swelling that began at the foot and has spread up. Patient also notes nausea. Patient's home health nurse and caregiver recommended she come in for evaluation. Patient had recent evaluation at an outside hospital and admission. Patient notes she has been compliant with her medications. Patient denies any pain upon arrival <Cuba Lainez PA-C - Last Filed: 12/03/20 15:11> Related Data Home medications: Home Medications Medication Instructions Recorded Confirmed atorvastatin 80 mg tablet 80 mg PO DAILY 08/11/19 08/09/20 cholecalciferol (vitamin D3) 125 5,000 unit PO DAILY 08/11/19 08/09/20 mcg (5,000 unit) capsule cyanocobalamin (vitamin B-12) 1,000 mcg PO DAILY 01/17/20 08/09/20 1,000 mcg tablet hydrochlorothiazide 12.5 mg capsule 12.5 mg PO DAILY 01/17/20 08/09/20 Lantus U-100 Insulin 40 unit SUBCUT HS 08/09/20 08/09/20 clotrimazole 1 applic TOPICAL BID 08/09/20 08/09/20 ferrous sulfate 325 mg PO DAILY 08/09/20 08/09/20 furosemide 20 mg PO DAILY PRN 08/09/20 08/09/20 polyethylene glycol 3350 [Miralax] 17 g PO DAILY PRN 08/09/20 08/09/20 Vitamin D3 50,000 WEEKLY 12/03/20 fluconazole 12/03/20 insulin aspart U-100 [Novolog 12/03/20 U-100 Insulin aspart] insulin glargine [Basaglar KwikPen SUBCUT 12/03/20 U-100 Insulin] nystatin TOPICAL 12/03/20 ondansetron HCl [Zofran] 4 mg PO Q8H PRN 12/03/20 potassium chloride 10 meq PO DAILY 12/03/20 <Cuba Lainez PA-C - Last Filed: 12/03/20 15:11> Allergies/adverse reactions: Allergies Allergy/AdvReac Type Severity Reaction Status Date / Time vancomycin Allergy Unknown Rash,Unknow Verified 12/03/20 11:14 n piperacillin [From Zosyn] Allergy Rash Verified 12/03/20 11:14 tazobactam [From Zosyn] Allergy Rash Verified 12/03/20 11:14 daptomycin AdvReac Weakness Verified 12/03/20 11:14 <Cuba Lainez PA-C - Last Filed: 12/03/20 15:11> Review of Systems Review of Systems: All systems reviewed & are unremarkable except as noted in HPI and below <Cuba Lainez PA-C - Last Filed: 12/03/20 15:11> [facility] Past Medical History Medical History: Medical History Arthritis of knee, left Chronic anemia Chronic indwelling Salgado catheter Chronic kidney disease, stage [address] Benson. Colon polyps (~05/2016) Depression Diabetes mellitus type II, uncontrolled Diabetic peripheral neuropathy Diabetic retinopathy L eye requiring injections Diabetic ulcer of left foot Essential hypertension Gout due to renal impairment, left knee Hyperlipidemia Insulin dependent type 2 diabetes mellitus Hemoglobin A1c was 8.8% in March 2020. Mixed stress and urge urinary incontinence Morbid obesity Neurogenic bladder <Cuba Lainez PA-C - Last Filed: 12/03/20 15:11> Surgical History Surgical History: Surgical History H/O Achilles ten
[2020-12-03 15:47] LABS: Hematocrit 24.7 % (37.0-47.0)
--- NOTE | 2020-12-03 16:00 | PM.IMHP ---
H&P: HPI History of Present Illness Date/Time: 12/03/20 16:00 Chief Complaint: Left leg pain. Narrative: This is a chronically debilitated 60-year-old female with morbid obesity, insulin-dependent diabetes with peripheral neuropathy, neurogenic bladder, hypertension, hyperlipidemia, and chronic kidney disease who presented to the emergency department earlier today via EMS from home with complaints of left leg pain. At baseline she can ambulate for short distances with around the home with the aid of a walker but today she was not able to ambulate at all due to significant pain in her left lower extremity. Over the last several days she has developed increasing swelling and redness to the left leg which is now tracking up into the groin. She describes a ?tight? pain in that leg. She has also not been feeling well with generalized malaise and nausea for the last 3 days. Her oral intake has not been very good and she feels like she may be dehydrated as her urine is looking darker. Of note she was hospitalized at [facility] within the last month and a half for so with cellulitis of the same extremity. She does not think that she has had a fever. No cold or flu symptoms. She denies cough and shortness of breath. No suprapubic or lower back discomfort. No vomiting or significant diarrhea. No history of DVT. Review of Systems Review of Systems: Narrative: Twelve systems were reviewed with pertinent positives and negatives as per HPI. She denies headache. No sinus congestion, rhinorrhea, otalgia, or odynophagia. She denies exposure to those positive for COVID-19. No cough or shortness of breath. Denies orthopnea and PND. She has had and indwelling Salgado catheter for about 3 years due to neurogenic bladder and she apparently has an upcoming surgery for what sounds like bladder stimulator insertion. She has chronic yeast issues in her folds. Believes her diabetes is fairly well controlled. Except as documented, all other systems were reviewed and are negative. [facility] Past Medical History Medical History (Updated 12/03/20 @ 22:03 by Riddhi Funk PA-C) Arthritis of left knee Chronic anemia Chronic indwelling Salgado catheter Secondary to neurogenic bladder. Chronic kidney disease, stage 4 (severe) Followed by Dr. Benson. Baseline creatinine ranges between 2 and 3.0. Colon polyps (~05/2016) Depression Diabetic peripheral neuropathy Diabetic retinopathy L eye requiring injections. Diabetic ulcer of left foot Essential hypertension Gout due to renal impairment, left knee Hyperlipidemia Insulin dependent type 2 diabetes mellitus Hemoglobin A1c was 5.9 % on 12/01/2020. Mixed stress and urge urinary incontinence Morbid obesity Neurogenic bladder Surgical History Surgical History (Updated 12/03/20 @ 21:55 by Riddhi Funk PA-C) History of Achilles tendon repair History of amputation of toe Left 4th toe and 2 other toes on the right foot have been amputated. History of fusion of cervical spine (~10/2001) History of local excision of skin lesion Exophytic lesion removed from the right eyelid, benign. Status post debridement (~2019) Left diabetic heel wound. Family History Family History Mother Cerebrovascular accident Family history of diabetes mellitus in first degree relative Father Family history of diabetes mellitus in first degree relative Grandparent Diabetes mellitus Other Family history of anemia Family history of obesity Social History Social History (Updated 12/03/20 @ 21:56 by Riddhi Funk PA-C) Social History: The patient lives in [place] with her uncle. She never and has no children. She has been on disability for several years and ambulates with a walker though only able to go a few feet at a time. She is lifelong nonsmoker . No alcohol or illicit substance use. Her brother Khris is her healthcare power of atto
--- NOTE | 2020-12-03 17:38 | PC.NURSE ---
This patient, Theodora Kelly, was admitted to Medical Room 341-01. Patient/family oriented to hospital policies and general routines including ID bracelet, bed and alarms, visiting hours, pain management, procedures, bathroom and other care routines, personal items, smoking policy, room service/diet, and visiting hours. Information on how to activate the Rapid Response Team has been discussed. Patient/Family are encouraged to report perceived risks to care and to ask questions if they do not understand what they are told or what they should do.
[2020-12-03 18:33] LABS: Glucose Point of Care 159 (65-105)
[2020-12-03] MEDS: LACTATED RINGERS 1,000 ML 100 ML IV CONT (20:23)
[2020-12-03] MEDS: FAMOTIDINE 20 MG/2 ML VIAL IV PUSH (20:27)
[2020-12-03 21:31] LABS: Hematocrit 21.8 % (37.0-47.0); Hemoglobin 7.1 g/dL (12.0-15.0)
[2020-12-03 21:49] LABS: Glucose Point of Care 229 (65-105)
[2020-12-03] MEDS: SODIUM CHLORIDE 0.9% IV 1,000 ML 100 ML IV CONT (22:46)
[2020-12-03 23:12] LABS: Creatine Kinase 97 U/L (30-135)
[2020-12-03 23:13] LABS: Anion Gap 7 mmol/L (8-16); Blood Urea Nitrogen 65 mg/dL (7-17); Calcium 7.5 mg/dL (8.4-10.2); Carbon Dioxide 24 mmol/L (22-30); Chloride 97 mmol/L (98-107); Estimated CRCL calculation 21 ml/min; Estimated Glomerular Filt Rate 12; Glucose 185 mg/dL (65-105); Magnesium 1.5 mg/dL (1.6-2.3); Potassium 4.3 mmol/L (3.4-5.0); Sodium 128 mmol/L (137-145)
[2020-12-04 03:27] LABS: Basophils Percent Auto 0.2 % (0.2-1.2); Eosinophils Percent Auto 0.2 % (0-4.4); Hemoglobin 7.2 g/dL (12.0-15.0); Immature Granulocyte Absolute 0.16 K/mm3 (0.00-0.031); Immature Granulocyte Percent A 0.9 % (0-0.5); Lymphocytes Absolute Auto 0.83 K/mm3 (0.9-3.2); Lymphocytes Percent Auto 4.6 % (18.3-44.2); Mean Corpuscular HGB Conc 32.7 g/dl (32-36); Mean Corpuscular Hemoglobin 29.5 pg (26-34); Mean Corpuscular Volume 90.2 fl (80-100); Mean Platelet Volume 9.9 fl (7.4-10.4); Monocytes Absolute Auto 0.8 K/mm3 (0.1-0.6); Monocytes Percent Auto 4.2 % (2.6-8.5); Neutrophils Absolute Auto 16.2 K/mm3 (1.3-6.7); Neutrophils Percent Auto 89.9 % (45.5-73.1); Platelet Count Result 171 k/mm3 (150-375); Red Blood Count 2.44 M/mm3 (4.2-5.4); Red Cell Distribution Width 15.3 % (11.5-14.5)
[2020-12-04 03:44] LABS: Alanine Aminotransferase 27 U/L (4-35); Albumin Level 2.7 g/dL (3.5-5.1); Alkaline Phosphatase 155 U/L (38-126); Anion Gap 7 mmol/L (8-16); Aspartate Amino Transferase 36 U/L (14-36); Bilirubin,Total 0.7 mg/dL (0.2-1.3); Blood Urea Nitrogen 65 mg/dL (7-17); Calcium 7.2 mg/dL (8.4-10.2); Carbon Dioxide 23 mmol/L (22-30); Chloride 97 mmol/L (98-107); Estimated CRCL calculation 21 ml/min; Estimated Glomerular Filt Rate 12; Glucose 273 mg/dL (65-105); Magnesium 1.5 mg/dL (1.6-2.3); Potassium 4.3 mmol/L (3.4-5.0); Sodium 127 mmol/L (137-145)
[2020-12-04 06:00] VITALS: BP 102/49; PULSE 81; RESP 18; TEMP 35.9; O2SAT 96
[2020-12-04] MEDS: INSULIN ASPART (*BKC) 100 UNITS/ML SUB-Q ×2 (07:31→16:01)
[2020-12-04 07:36] LABS: Glucose Point of Care 215 (65-105)
[2020-12-04] MEDS: FAMOTIDINE 20 MG/2 ML VIAL IV PUSH ×2 (08:46→21:29)
[2020-12-04] MEDS: LINEZOLID 600 MG/300 ML 600 MG/300 ML SOLN 300 MG IVPB (08:47)
[2020-12-04 08:58] LABS: Hemoglobin 7.1 g/dL (12.0-15.0)
[2020-12-04 09:48] VITALS: PULSE 78; RESP 18; O2SAT 96
--- NOTE | 2020-12-04 10:17 | PM.CNNEP ---
Assessment and Plan Assessment and plan (1) Acute on chronic renal failure: Code(s): N17.9 - Acute kidney failure, unspecified; N18.9 - Chronic kidney disease, unspecified Status: Acute Assessment and Plan: the patient has chronic kidney disease most likely from diabetes and hypertension. She also has morbid obesity which can contribute as well. Her baseline creatinine seems to run in the low 2s. She has acute rise in her creatinine. It was 2.9 on the 2nd and then 4.3 on the 4th. Now it is 3.8. This rise in the creatinine is probably related to several things. She has not been eating and has still been taking her Lasix so she probably has some dehydration. She has cellulitis and so could have some infectious related effect on the kidneys. She had a CPK so she does not have rhabdomyolysis. Other issues such as interstitial nephritis, glomerulonephritis, and vascular disease are less likely in this scenario. At this point she is getting IV fluids. She is getting antibiotics for her UTI. Hopefully renal function will turn around with this. She does have chronic swelling. Her diuretics were escalated by [facility] from p.r.n. Lasix to daily Lasix. This is because her legs were swollen. She has cellulitis now and this may related to let leg swelling as well so this puts her in a difficult situation because the more Lasix be use the higher the creatinine but the less Lasix we use she has more swelling and higher incidence of recurrent cellulitis which is also bad for the kidneys. At this point I think we ought to try to get her creatinine back down to the mid 2s like it was before. We will see where we are with the swelling. If the swelling continues to worsen are only other option would be to initiate diuretics again. (2) Hypomagnesemia: Code(s): E83.42 - Hypomagnesemia Status: Acute Assessment and Plan: She is getting supplements. (3) Cellulitis of left leg: Code(s): L03.116 - Cellulitis of left lower limb Status: Acute Assessment and Plan: She is on antibiotics. (4) Urinary tract infection: Code(s): N39.0 - Urinary tract infection, site not specified Status: Acute Assessment and Plan: She is on antibiotics. Cultures pending. (5) Hyperlipidemia: Code(s): E78.5 - Hyperlipidemia, unspecified Status: Chronic Assessment and Plan: She is on atorvastatin (6) Anemia: Qualifiers: Anemia type: iron deficiency Iron deficiency anemia type: unspecified iron deficiency Qualified Code(s): D50.9 - Iron deficiency anemia, unspecified Code(s): D64.9 - Anemia, unspecified Status: Acute Assessment and Plan: hemoglobin is probably low because chronic kidney disease and also because of the infection. Will keep an eye on this. Will initiate Epogen. (7) Type 2 diabetes mellitus with hyperglycemia, with long-term current use of insulin: Code(s): E11.65 - Type 2 diabetes mellitus with hyperglycemia; Z79.4 - assisted (current) use of insulin Status: Acute Assessment and Plan: On Accu-Cheks and sliding-scale insulin. History of Present Illness Reason for Consult Consult date: 12/04/20 Chief Complaint Chief complaint: sepsis,cellulitis left leg,urinary tract infection History of Present Illness Narrative: Theodora is a very pleasant 60-year-old lady who has multiple medical problems including chronic kidney disease with a baseline creatinine of around 2.5 followed in my office, chronic indwelling Salgado catheter due to neurogenic bladder, anemia, depression, diabetes, hypertension, gout, hyperlipidemia, morbid obesity, urinary incontinence. The patient says that she has been having gradually worsening left leg pain and swelling in the last few days. She also has had nausea with poor appetite. She says that she was discharged recently from [facility]
[2020-12-04] MEDS: MAGNESIUM SULF 2 GM/WATER 50ML 2 GM/50 ML BAG IVPB (11:03)
[2020-12-04 11:50] LABS: Glucose Point of Care 198 (65-105)
[2020-12-04 11:57] LABS: Creatinine Urine 116.6 mg/dL; Total Protein Urine Random 29 mg/dL; Ur Ttl Prot Creatinine Ratio 0.25 mg/mg (0-0.20)
[2020-12-04 12:00] LABS: Eosinophil Urine None Seen % (None Seen)
[2020-12-04 12:03] LABS: Sodium Urine Random 13 meq/L
[2020-12-04] MEDS: CENTRAL LINE FLUSH 10 ML IV PUSH ×3 (13:30→21:29)
[2020-12-04] MEDS: SODIUM CHLORIDE 0.9% IV 1,000 ML 100 ML IV CONT (13:31)
[2020-12-04 14:38] VITALS: BP 118/44; PULSE 71; RESP 18; TEMP 35.6; O2SAT 98
--- NOTE | 2020-12-04 14:39 | PM.IMPN ---
Progress Note: A&P Assessment and Plan (1) Sepsis: Code(s): A41.9 - Sepsis, unspecified organism Status: Acute Assessment and Plan: Present on admission and supported by leukocytosis, hypotension (responsive to IV fluids) and acute kidney injury. -Blood cultures have been obtained and have no growth to date. Her lactic acid was normal on admission. -She has been started on broad-spectrum antibiotics (linezolid and imipenem in the ER) to cover for left leg cellulitis and possible UTI. (2) Cellulitis of left leg: Code(s): L03.116 - Cellulitis of left lower limb Status: Acute Assessment and Plan: Patient has recurrent left lower extremity cellulitis. -Venous Doppler ultrasound was negative for DVT. -She has been started on imipenem and linezolid. -Dr. Fair has been consulted and his input is appreciated. (3) Abnormal urinalysis: Code(s): R82.90 - Unspecified abnormal findings in urine Status: Acute Assessment and Plan: Urine is probably always abnormal due to chronic indwelling catheter for the past 3 years. -Currently on imipenem for cellulitis as above, which should cover any bacteria growing. -Urine culture had been obtained and is pending. (4) Acute on chronic renal failure: Code(s): N17.9 - Acute kidney failure, unspecified; N18.9 - Chronic kidney disease, unspecified Status: Acute Assessment and Plan: Multifactorial in etiology and secondary to relative hypotension, diuretic use, poor oral intake with subsequent dehydration, sepsis. -last creatinine 3.8 which is higher than her baseline around 2 -Proceed with cautious IV fluid rehydration. There were no crackles today so I will continue with them as her blood pressure is getting better. Consider stopping if creatinine is better tomorrow -Monitor renal function and volume status closely. -Strict I/O. -Avoid nephrotoxic agents. (5) Dehydration: Code(s): E86.0 - Dehydration Status: Acute Assessment and Plan: Secondary to poor oral intake over the last several days. -Cautious IV fluid rehydration with close monitoring of volume status. (6) Hypomagnesemia: Code(s): E83.42 - Hypomagnesemia Status: Acute Assessment and Plan: Magnesium will be replaced and monitored. (7) Elevated LFTs: Code(s): R79.89 - Other specified abnormal findings of blood chemistry Status: Acute Assessment and Plan: Patient has mildly elevated LFTs majority of the time, which is stable. (8) Chronic anemia: Code(s): D64.9 - Anemia, unspecified Status: Acute Assessment and Plan: Hemoglobin seems to range between 7.0 and 9.0. Currently 7.1 and stable with no evidence of bleeding. (9) Neurogenic bladder: Code(s): N31.9 - Neuromuscular dysfunction of bladder, unspecified Status: Chronic Assessment and Plan: Patient has had a chronic indwelling Salgado catheter for 3 years secondary to same. (10) Insulin dependent type 2 diabetes mellitus: Code(s): E11.9 - Type 2 diabetes mellitus without complications; Z79.4 - [facility] (current) use of insulin Status: Acute Assessment and Plan: Last glucose 198 - Hemoglobin A1c was 5.9%. -home glimepiride 4mg on hold -unclear why basal insulin was not started yesterday, will start today -hold mealtime NovoLog -continue sliding scale insulin, Accu-Cheks, and hypoglycemic protocol. (11) Essential hypertension: Code(s): I10 - Essential (primary) hypertension Status: Acute Assessment and Plan: Blood pressures reviewed and they have been soft due to dehydration and sepsis -last blood pressure 118/44 -continue IV fluids with monitoring -Antihypertensives on hold given relative hypotension. -Blood pressures will be monitored closely. Time Spent With Patient Time with patient: 25 - 35 minutes Subjective
[2020-12-04] MEDS: EUCERIN CREAM 120 GM JAR 1 APPLIC TOPICAL (15:13)
[2020-12-04] MEDS: TOLNAFTATE 1% POWDER 45 GM BTL 1 APPLIC TOPICAL ×2 (15:13→21:29)
[2020-12-04] MEDS: SILVERGEL (ELTA) 45 ML 1 APPLIC TOPICAL (15:13)
[2020-12-04 15:54] LABS: Glucose Point of Care 241 (65-105)
--- NOTE | 2020-12-04 16:42 | WPDINFPN2 ---
Progress Note: A&P Assessment and Plan (1) Cellulitis of left leg: Code(s): L03.116 - Cellulitis of left lower limb Status: Acute Assessment and Plan: LLE cellulitis REC Ctx, 3-5 days depending on clinical course. Then oral cefdinir through 12/12. All efforts to relieve edema. Call if Qs Subjective Date/time seen: 12/04/20 16:42 Objective Data Vital Signs Vital Signs: Vital Signs - 24 hr 12/03/20 16:45 12/03/20 17:06 12/03/20 20:00 Temperature 37.3 C Pulse Rate 99 100 90 Respiratory Rate 26 H 22 H 18 Blood Pressure 129/50 L Pulse Oximetry 93 12/04/20 06:00 12/04/20 09:48 12/04/20 14:38 Temperature 35.9 C L 35.6 C L Pulse Rate 81 78 71 Respiratory Rate 18 18 18 Blood Pressure 102/49 L 118/44 L Pulse Oximetry 96 96 98 Intake/Output Intake/Output: Intake & Output 12/01/20 12/02/20 12/03/20 12/04/20 23:59 23:59 23:59 23:59 Intake Total 2027 2390 Output Total 750 Balance 2027 1640 Meds/Results Medications: Active Medications Generic Name Dose Route Start Last Admin Trade Name Freq PRN Reason Stop Dose Admin Dextrose 12.5 gm 12/03/20 22:11 Dextrose 50% 25 Gm/50 Ml Syringe IV PUSH PRN PRN Hypoglycemia Protocol Famotidine 20 mg 12/03/20 21:00 12/04/20 08:46 Famotidine 20 Mg/2 Ml Vial IV PUSH 20 mg Q12HR FAWN Administration Glucagon 1 mg 12/03/20 22:11 Glucagon For Inj 1 Mg Vial IM PRN PRN Hypoglycemia Protocol Glucose 15 gm 12/03/20 22:11 Glucose Oral Gel 15 Gm Of Glucse In 37.5 Gm Tube PO PRN PRN Hypoglycemia Protocol Dextrose 1,000 mls @ 100 mls/hr 12/03/20 22:11 Dextrose 5% 1,000 Ml IVPB PRN PRN Hypoglycemia Protocol Sodium Chloride 1,000 mls @ 100 mls/hr 12/03/20 22:20 12/04/20 13:31 Normal Saline Iv IV CONT 100 mls/hr .Q10H FAWN Administration Insulin Aspart 3 - 6 units 12/04/20 08:00 12/04/20 16:01 Insulin Aspart (*Bkc) 100 Units/Ml SUB-Q 3 units TIDWM FAWN Administration Protocol Insulin Glargine 25 units 12/04/20 21:00 Insulin Glargine (*Bkc) 100 Units/Ml SUB-Q HS FAWN Miconazole Nitrate 1 applic 12/04/20 09:00 12/04/20 15:13 Miconazole 2% Antifungal Ointment 56 Gm TOPICAL 1 applic Q12HR FAWN Administration Multi-Ingred Cream/Lotion/Oil/Oint 1 applic 12/04/20 09:00 12/04/20 15:13 Eucerin Cream 120 Gm Jar TOPICAL 1 applic DAILY FAWN Administration Ondansetron HCl 4 mg 12/03/20 15:11 Ondansetron Inj 4 Mg/2 Ml Vial IV PUSH Q4H PRN Nausea Silver Nitrate 1 applic 12/04/20 09:00 12/04/20 15:13 Silvergel (Elta) 45 Ml TOPICAL 1 applic DAILY FAWN Administration Sodium Chloride 10 ml 12/04/20 14:00 12/04/20 13:30 Central Line Flush IV PUSH 10 ml Q8HR FAWN Administration Sodium Chloride 10 ml 12/04/20 18:00 Central Line Flush IV PUSH DAILY@1800 FAWN Sodium Chloride 20 ml 12/04/20 11:01 Central Line Flush IV PUSH PRN PRN after blood draws Tolnaftate 1 applic 12/04/20 09:00 12/04/20 15:13 Tolnaftate 1% Powder 45 Gm Btl TOPICAL 1 applic Q12HR FAWN Administration Radiology Results: ITS Impressions Chest X-Ray 12/03/20 12:41 IMPRESSION: No active cardiopulmonary disease Right internal jugular central venous catheter near superior cavoatrial junction Venous Doppler Study 12/03/20 14:02 IMPRESSION: No evidence of deep venous thrombosis of left leg Renal Ultrasound 12/04/20 14:09 IMPRESSION: 1. Normal kidneys without hydronephrosis. Labs Labs: Laboratory Results - last 24 hr 12/03/20 12/03/20 12/03/20 12:43 18:27 21:18 WBC RBC Hgb Hct MCV MCH MCHC RDW Plt Count MPV Immature Gran % (Auto) Neut % (Auto) Lymph % (Auto) [place] % (Auto) Eos % (Auto) Baso % (Auto) Lymph # (Auto) [place] # (Auto) Eos # (Auto) Baso # (Auto)
[2020-12-04 20:31] VITALS: BP 119/49; PULSE 72; RESP 16; TEMP 35.9; O2SAT 96
[2020-12-04 21:26] LABS: Glucose Point of Care 195 (65-105)
[2020-12-04] MEDS: INSULIN GLARGINE (*BKC) 100 UNITS/ML 25 UNITS SUB-Q (21:28)
[2020-12-05] VITALS (9 sets, daily range): BP systolic 112–142; BP diastolic 47–63; PULSE 69–81; RESP 16–20; TEMP 35.7–36.3; O2SAT 95–97
[2020-12-05] MEDS: SODIUM CHLORIDE 0.9% IV 1,000 ML 100 ML IV CONT (00:23)
[2020-12-05] MEDS: HYDROcodone/acetaminophen (*CRX) 5-325 MG TABLET 1 TAB PO (02:48)
[2020-12-05] MEDS: CENTRAL LINE FLUSH 20 ML IV PUSH (05:45)
[2020-12-05] MEDS: CENTRAL LINE FLUSH 10 ML IV PUSH ×4 (05:45→21:23)
[2020-12-05 06:08] LABS: Mean Corpuscular HGB Conc 31.9 g/dl (32-36); Mean Corpuscular Hemoglobin 28.8 pg (26-34); Mean Corpuscular Volume 90.4 fl (80-100); Mean Platelet Volume 10.4 fl (7.4-10.4); Platelet Count Result 191 k/mm3 (150-375); Red Blood Count 2.29 M/mm3 (4.2-5.4); White Blood Count 12.6 K/mm3 (4.5-10.0)
[2020-12-05 06:23] LABS: Hematocrit 20.7 % (37.0-47.0); Hemoglobin 6.6 g/dL (12.0-15.0)
[2020-12-05 06:29] LABS: Albumin Level 2.6 g/dL (3.5-5.1); Anion Gap 4 mmol/L (8-16); Blood Urea Nitrogen 61 mg/dL (7-17); Calcium 7.7 mg/dL (8.4-10.2); Carbon Dioxide 25 mmol/L (22-30); Chloride 102 mmol/L (98-107); Estimated CRCL calculation 25 ml/min; Estimated Glomerular Filt Rate 14; Glucose 115 mg/dL (65-105); Potassium 3.6 mmol/L (3.4-5.0); Sodium 131 mmol/L (137-145)
[2020-12-05 08:52] LABS: Glucose Point of Care 120 (65-105)
--- NOTE | 2020-12-05 10:16 | PM.PNNEP ---
Progress Note: A&P Assessment and Plan (1) Acute on chronic renal failure: Code(s): N17.9 - Acute kidney failure, unspecified; N18.9 - Chronic kidney disease, unspecified Status: Acute Assessment and Plan: the patient has chronic kidney disease most likely from diabetes and hypertension. She also has morbid obesity which can contribute as well. Her baseline creatinine seems to run in the low 2s. She has acute rise in her creatinine. It was 2.9 on the 2nd and then 4.3 on the 4th. Now it has fallen to 3.3. Renal ultrasound is normal. Urine electrolytes show pre renal azotemia. This is most likely related to her dehydration from not eating and continuing her Lasix. There is also a possible component of renal toxicity from her cellulitis. She is on IV fluids. She is getting antibiotics for her UTI. Will continue IV fluids for another day. Continue antibiotics for her UTI And cellulitis. will follow physical exam in labs as we go. (2) Hypomagnesemia: Code(s): E83.42 - Hypomagnesemia Status: Acute Assessment and Plan: Resolved (3) Cellulitis of left leg: Code(s): L03.116 - Cellulitis of left lower limb Status: Acute Assessment and Plan: She is on antibiotics. she is afebrile. Her white cell count is improving. (4) Urinary tract infection: Code(s): N39.0 - Urinary tract infection, site not specified Status: Acute Assessment and Plan: She is on antibiotics. Cultures Show Klebsiella but is resistant to ceftriaxone. 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 I am not sure that she is symptomatic from this growth. Chasing the organisms in her urine with stronger and stronger antibiotics may lead to worsened super infection. Consider ID consult? (5) Hyperlipidemia: Code(s): E78.5 - Hyperlipidemia, unspecified Status: Chronic Assessment and Plan: She is on atorvastatin (6) Anemia: Qualifiers: Anemia type: iron deficiency Iron deficiency anemia type: unspecified iron deficiency Qualified Code(s): D50.9 - Iron deficiency anemia, unspecified Code(s): D64.9 - Anemia, unspecified Status: Acute Assessment and Plan: hemoglobin is probably low because chronic kidney disease and also because of the infection. Will keep an eye on this. Will initiate Epogen today. (7) Type 2 diabetes mellitus with hyperglycemia, with long-term current use of insulin: Code(s): E11.65 - Type 2 diabetes mellitus with hyperglycemia; Z79.4 - [employer] (current) use of insulin Status: Acute Assessment and Plan: On Accu-Cheks and sliding-scale insulin. Subjective Date/time seen: 12/05/20 10:16 Interval history: Theodora feels about the same today. No chest pain or shortness of breath. Left leg is still uncomfortable and swollen. Review of Systems Cardiovascular: Cardiovascular: Reports no additional cardiovascular complaints Respiratory: Respiratory: Reports no additional respiratory complaints Gastrointestinal: Gastrointestinal: Reports no additional gastrointestinal complaints Genitourinary: Genitourinary: Reports no additional female genitourinary complaints Exam Narrative: Exam Narrative: WDWN in NAD skin no rash head ncat lungs clear cor reg no rub abd BS+ nontender and soft ext One to 2+ edema. Objective Data Vital Signs Vital Signs: Vital Signs - 24 hr 12/04/20 14:38 12/04/20 20:31 12/05/20 05:46 Temperature 35.6 C L 35.9 C L 36.3 C L Pulse Rate 71 72 77 Respiratory Rate 18 16 18 Blood Pressure 118/44 L 119/49 L 119/51 L Pulse Oximetry 98 96 95 Intake/Output Intake/Output: Intake & Output 12/02/20 12/03/20 12/04/20 12/05/20 23:59 23:59 23:59 23:59 Intake Total 2027 2920 1250 Output Total 1000 825 Balance 2027 1920 425 Meds/Results Medications: A
[2020-12-05] MEDS: SILVERGEL (ELTA) 45 ML 1 APPLIC TOPICAL (10:25)
[2020-12-05] MEDS: FAMOTIDINE 20 MG/2 ML VIAL IV PUSH ×2 (10:25→21:22)
[2020-12-05] MEDS: EUCERIN CREAM 120 GM JAR 1 APPLIC TOPICAL (10:26)
[2020-12-05] MEDS: TOLNAFTATE 1% POWDER 45 GM BTL 1 APPLIC TOPICAL ×2 (10:26→21:22)
[2020-12-05] MEDS: SODIUM CHLORIDE 0.9% IV 250 ML 30 ML IV CONT (10:27)
[2020-12-05 12:13] LABS: Glucose Point of Care 100 (65-105)
[2020-12-05] MEDS: EPOETIN ALFA-EPBX 10,000 UNITS/ML VIAL 10000 UNITS SUB-Q (13:54)
[2020-12-05] MEDS: GABAPENTIN 300 MG CAPSULE PO ×2 (13:59→17:00)
[2020-12-05] MEDS: FLUCONAZOLE 150 MG TABLET BY MOUTH (13:59)
--- NOTE | 2020-12-05 15:11 | CONS_ITS ---
DATE OF CONSULTATION: 12/04/2020 REASON FOR CONSULTATION: Leukocytosis. HISTORY OF PRESENT ILLNESS: A 60-year-old female, known to me from the past. She has had past leukocytosis that has been chronic, although not on all determinations. She was here in the hospital several months ago and had a suspected UTI associated with her chronic Salgado catheter. She improved and was discharged home. She returned to the hospital yesterday with left leg pain. This is diffuse from the knee down to the feet and also noted increasing edema of the entire left leg. She had no fever, chills, or sweats. She does have a chronic Salgado still in place and she has been given imipenem and vancomycin and consultation requested. No operative interventions while here. She denies any known trauma. She had no ulcerations and no cough. ALLERGIES: VANCOMYCIN CAUSED RASH, PIPERACILLIN AND TAZOBACTAM RASH. DAPTOMYCIN INTOLERANCE WITH WEAKNESS. HABITS: No tobacco. No alcohol. PRESENT MEDICATIONS: List reviewed. No immunosuppressants. PAST MEDICAL HISTORY: Left knee arthritis, chronic Salgado for neurogenic bladder, stage IV. Renal insufficiency, colon polyps in the distant past. Diabetic peripheral neuropathy and retinopathy, previous osteomyelitis of the left calcaneus followed by my colleague in [place]. Hypertension, gout, hyperlipidemia, morbid obesity, mixed incontinence, amputation of multiple toes, cervical spine fusion. FAMILY HISTORY: Stroke, diabetes, anemia. SOCIAL HISTORY: In a rehab facility most recently, previously lived with her uncle in [place], single. No children. Disabled. REVIEW OF SYSTEMS: 14-point review is otherwise negative. PHYSICAL EXAMINATION: GENERAL: This is a middle-aged female, who appears her actual age. No acute distress. VITAL SIGNS: Afebrile. 118/44, 71, 18, 98% on room air. EENT: The conjunctivae are clear. Oral mucosa is well hydrated. Teeth in fair repair. SKIN: No generalized erythroderma. No rash. NECK: Without mass, adenopathy, tenderness. LUNGS: Clear to auscultation. CARDIAC: Regular rate and rhythm without murmur, or gallop. Unable to palpate dorsalis pedis pulses. Radial pulses 1+. ABDOMEN: Soft, nontender. No masses. Morbidly obese. : Salgado catheter is draining clear yellow urine. No sediment. EXTREMITIES: Right leg has no edema. Left leg has tenderness distally at the ankle, erythema circumferentially which extends into the medial thigh, also warmth and 3+ pitting and nonpitting edema, which extends into the foot. LABORATORY DATA: White blood cell count is again high at 18.0, hemoglobin 7.1, which is down since December 01, stable since yesterday. Platelets 171. Differential, mild left shift. Blood gases are normal. She has hyponatremia. BUN 65, creatinine 3.8, glucose 241. A1c of 5.9%. Alkaline phosphatase elevated. Transaminases normal. CRP over 45, albumin 2.7. Urinalysis, multiple abnormalities. RADIOLOGY: Renal ultrasound, normal. Chest x-ray, no abnormalities with new right IJ central venous catheter in place. Venous Doppler, no DVT. ASSESSMENT: 1. Leg pain and leukocytosis due to left leg cellulitis. Consider Streptococcus, Staphylococci, other cutaneous tu. I doubt hematogenous spread. I doubt deep space infection. I doubt DVT. 2. Morbid obesity. 3. Diabetes mellitus, appears to be well controlled overall, but currently with hyperglycemia, needs glycemic control. 4. Asymptomatic bacteria and chronic Salgado. 5. Multiple allergies. RECOMMENDATIONS: 1. Ceftriaxone as monotherapy for 3-5 days and then if stable, can switch to oral cefdinir, to complete a 10-day course of antibiotics. 2. All efforts should be made at relieving her leg edema, which will hel
--- NOTE | 2020-12-05 15:54 | PM.IMPN ---
Progress Note: A&P Assessment and Plan (1) Sepsis: Code(s): A41.9 - Sepsis, unspecified organism Status: Acute Assessment and Plan: Present on admission and supported by leukocytosis, hypotension (responsive to IV fluids) and acute kidney injury. -Blood cultures have been obtained and have no growth to date. Her lactic acid was normal on admission. -linezolid and imipenem have been switched to ceftriaxone (day 2) (2) Cellulitis of left leg: Code(s): L03.116 - Cellulitis of left lower limb Status: Acute Assessment and Plan: Patient has recurrent left lower extremity cellulitis. -Venous Doppler ultrasound was negative for DVT. -She had been started on imipenem and linezolid but switched to ceftriaxone 12/04/20 -Dr. Lockett has been consulted and his input is appreciated. (3) Abnormal urinalysis: Code(s): R82.90 - Unspecified abnormal findings in urine Status: Acute Assessment and Plan: Urine is probably always abnormal due to chronic indwelling catheter for the past 3 years. -urine culture growing klebseilla ESBL. Will confer with Dr. Lockett about his abx recommendations. (4) Acute on chronic renal failure: Code(s): N17.9 - Acute kidney failure, unspecified; N18.9 - Chronic kidney disease, unspecified Status: Acute Assessment and Plan: Multifactorial in etiology and secondary to relative hypotension, diuretic use, poor oral intake with subsequent dehydration, sepsis. -last creatinine 3.3 which is higher than her baseline around 2 -Proceed with cautious IV fluid rehydration. Consider stopping if creatinine is better tomorrow -Monitor renal function and volume status closely. -Strict I/O. -Avoid nephrotoxic agents. (5) Dehydration: Code(s): E86.0 - Dehydration Status: Acute Assessment and Plan: Secondary to poor oral intake over the last several days. -Cautious IV fluid rehydration with close monitoring of volume status. (6) Hypomagnesemia: Code(s): E83.42 - Hypomagnesemia Status: Acute Assessment and Plan: Magnesium will be replaced and monitored. (7) Elevated LFTs: Code(s): R79.89 - Other specified abnormal findings of blood chemistry Status: Acute Assessment and Plan: Patient has mildly elevated LFTs majority of the time, which is stable. (8) Chronic anemia: Code(s): D64.9 - Anemia, unspecified Status: Acute Assessment and Plan: Hemoglobin seems to range between 7.0 and 9.0. Currently 6.6 with some BARBOSA and weakness so she was given 1 unit. No signs of blood loss on exam. (9) Neurogenic bladder: Code(s): N31.9 - Neuromuscular dysfunction of bladder, unspecified Status: Chronic Assessment and Plan: Patient has had a chronic indwelling Salgado catheter for 3 years secondary to same. (10) Insulin dependent type 2 diabetes mellitus: Code(s): E11.9 - Type 2 diabetes mellitus without complications; Z79.4 - laborer marine terminal (current) use of insulin Status: Acute Assessment and Plan: Last glucose 100 - Hemoglobin A1c was 5.9%. -home glimepiride 4mg on hold (will need decreased at d/c d/t renal fx and A1c) -adjust basal insulin since pt's glucose is 100 today with ARF -hold mealtime NovoLog -continue sliding scale insulin, Accu-Cheks, and hypoglycemic protocol. (11) Essential hypertension: Code(s): I10 - Essential (primary) hypertension Status: Acute Assessment and Plan: Blood pressures reviewed and they have been soft due to dehydration and sepsis -last blood pressure 117/63 -continue IV fluids with monitoring -Antihypertensives on hold given relative hypotension. -Blood pressures will be monitored closely. Subjective Date/time seen: 12/05/20 15:54 Interval history: Pt is a 60-year-old female his cellulitis and UTI. Patient was seen today and states that she
[2020-12-05 16:35] LABS: Hematocrit 24.7 % (37.0-47.0)
[2020-12-05 17:19] LABS: Glucose Point of Care 148 (65-105)
[2020-12-05] MEDS: BENZONATATE 100 MG CAPSULE PO (18:21)
[2020-12-05] MEDS: INSULIN GLARGINE (*BKC) 100 UNITS/ML 15 UNITS SUB-Q (21:28)
[2020-12-05 21:41] LABS: Glucose Point of Care 157 (65-105)
[2020-12-06 00:10] VITALS: BP 110/46; PULSE 67; RESP 16; TEMP 36.4; O2SAT 97
[2020-12-06] MEDS: CENTRAL LINE FLUSH 10 ML IV PUSH ×4 (05:13→20:30)
[2020-12-06] MEDS: CENTRAL LINE FLUSH 20 ML IV PUSH (05:13)
[2020-12-06 05:28] LABS: Hematocrit 25.2 % (37.0-47.0); Hemoglobin 7.9 g/dL (12.0-15.0); Mean Corpuscular HGB Conc 31.3 g/dl (32-36); Mean Corpuscular Hemoglobin 29.5 pg (26-34); Mean Platelet Volume 9.6 fl (7.4-10.4); Platelet Count Result 214 k/mm3 (150-375); Red Blood Count 2.68 M/mm3 (4.2-5.4); Red Cell Distribution Width 14.7 % (11.5-14.5); White Blood Count 9.4 K/mm3 (4.5-10.0)
[2020-12-06 05:44] LABS: Albumin Level 2.6 g/dL (3.5-5.1); Anion Gap 4 mmol/L (8-16); Blood Urea Nitrogen 58 mg/dL (7-17); Calcium 7.8 mg/dL (8.4-10.2); Carbon Dioxide 26 mmol/L (22-30); Chloride 107 mmol/L (98-107); Estimated CRCL calculation 28 ml/min; Estimated Glomerular Filt Rate 17; Glucose 138 mg/dL (65-105); Phosphorus 4.8 mg/dL (2.5-4.5); Potassium 4.1 mmol/L (3.4-5.0); Sodium 137 mmol/L (137-145)
[2020-12-06 06:00] VITALS: BP 121/53; PULSE 66; RESP 14; TEMP 36.9; O2SAT 97
[2020-12-06 08:05] LABS: Glucose Point of Care 147 (65-105)
[2020-12-06] MEDS: GABAPENTIN 300 MG CAPSULE PO ×3 (09:37→16:22)
[2020-12-06] MEDS: PANTOPRAZOLE 40 MG TABLET PO (09:37)
[2020-12-06] MEDS: BENZONATATE 100 MG CAPSULE PO ×2 (09:37→12:31)
[2020-12-06] MEDS: FLUCONAZOLE 150 MG TABLET BY MOUTH (09:38)
[2020-12-06] MEDS: COLCHICINE 0.6 MG TABLET PO (09:38)
[2020-12-06] MEDS: FERROUS SULFATE 324 MG TABLET PO (09:38)
[2020-12-06] MEDS: FAMOTIDINE 20 MG/2 ML VIAL IV PUSH ×2 (09:39→20:27)
[2020-12-06] MEDS: polyethylene glycoL 3350 17 GM POWD.PACK PO (09:39)
[2020-12-06] MEDS: TOLNAFTATE 1% POWDER 45 GM BTL 1 APPLIC TOPICAL ×2 (09:40→20:27)
[2020-12-06] MEDS: SILVERGEL (ELTA) 45 ML 1 APPLIC TOPICAL (09:40)
[2020-12-06] MEDS: EUCERIN CREAM 120 GM JAR 1 APPLIC TOPICAL (09:41)
[2020-12-06 12:36] LABS: Glucose Point of Care 290 (65-105)
[2020-12-06] MEDS: INSULIN ASPART (*BKC) 100 UNITS/ML SUB-Q ×2 (12:39→16:22)
[2020-12-06 14:00] VITALS: BP 130/62; PULSE 72; RESP 16; TEMP 36.5; O2SAT 97
--- NOTE | 2020-12-06 16:19 | PM.IMPN ---
Progress Note: A&P Assessment and Plan (1) Sepsis: Code(s): A41.9 - Sepsis, unspecified organism Status: Acute Assessment and Plan: Present on admission and supported by leukocytosis, hypotension (responsive to IV fluids) and acute kidney injury. -Blood cultures have been obtained and have no growth to date. Her lactic acid was normal on admission. -linezolid and imipenem have been switched to ceftriaxone (day 2) (2) Cellulitis of left leg: Code(s): L03.116 - Cellulitis of left lower limb Status: Acute Assessment and Plan: Patient has recurrent left lower extremity cellulitis. -Venous Doppler ultrasound was negative for DVT. -She had been started on imipenem and linezolid but switched to ceftriaxone 12/04/20 -Dr. Lockett has been consulted and his input is appreciated. -will obtain xray of the foot since it seems more swollen and she states is painful but could likely be from IV products such as blood and fluids (3) Abnormal urinalysis: Code(s): R82.90 - Unspecified abnormal findings in urine Status: Acute Assessment and Plan: Urine is probably always abnormal due to chronic indwelling catheter for the past 3 years. -urine culture growing klebseilla ESBL but likely asymptomatic bacturia with chronic woods. Monitor (4) Acute on chronic renal failure: Code(s): N17.9 - Acute kidney failure, unspecified; N18.9 - Chronic kidney disease, unspecified Status: Acute Assessment and Plan: Multifactorial in etiology and secondary to relative hypotension, diuretic use, poor oral intake with subsequent dehydration, sepsis. -last creatinine 2.9 which is higher than her baseline around 2 -Monitor renal function and volume status closely. -Strict I/O. -Avoid nephrotoxic agents. (5) Dehydration: Code(s): E86.0 - Dehydration Status: Acute Assessment and Plan: resolved (6) Hypomagnesemia: Code(s): E83.42 - Hypomagnesemia Status: Acute Assessment and Plan: Magnesium will be replaced and monitored. (7) Elevated LFTs: Code(s): R79.89 - Other specified abnormal findings of blood chemistry Status: Acute Assessment and Plan: Patient has mildly elevated LFTs majority of the time, which is stable. (8) Chronic anemia: Code(s): D64.9 - Anemia, unspecified Status: Acute Assessment and Plan: Hemoglobin seems to range between 7.0 and 9.0. She dropped to 6.6 12/05/20 and recieved 1 unit of PRBC -hgb today 7.9 and appears stable -no evidence of blood loss on exam -will need routine colonoscopys (9) Neurogenic bladder: Code(s): N31.9 - Neuromuscular dysfunction of bladder, unspecified Status: Chronic Assessment and Plan: Patient has had a chronic indwelling Woods catheter for 3 years secondary to same. (10) Insulin dependent type 2 diabetes mellitus: Code(s): E11.9 - Type 2 diabetes mellitus without complications; Z79.4 - terminal system operator (current) use of insulin Status: Acute Assessment and Plan: Last glucose 290 - Hemoglobin A1c was 5.9%. -home glimepiride 4mg on hold (will need decreased at d/c d/t renal fx and A1c) -will increase basal insulin back up today. (It was decreased yesterday due to OZZY and lower glucoses) -hold mealtime NovoLog, consider restarting if she continues to be hyperglycemic -continue sliding scale insulin, Accu-Cheks, and hypoglycemic protocol. (11) Essential hypertension: Code(s): I10 - Essential (primary) hypertension Status: Acute Assessment and Plan: Blood pressures reviewed and they had been soft due to dehydration and sepsis -last blood pressure 130/62 -continue IV fluids with monitoring -Antihypertensives on hold given relative hypotension. -Blood pressures will be monitored closely. Subjective Date/time seen: 12/06/20 16:19 Interval history: Pt is a
[2020-12-06 17:02] LABS: Glucose Point of Care 255 (65-105)
--- NOTE | 2020-12-06 17:40 | PM.PNNEP ---
Progress Note: A&P Assessment and Plan (1) Acute on chronic renal failure: Code(s): N17.9 - Acute kidney failure, unspecified; N18.9 - Chronic kidney disease, unspecified Status: Acute Assessment and Plan: the patient has chronic kidney disease most likely from diabetes and hypertension. She also has morbid obesity which can contribute as well. Her baseline creatinine seems to run in the low 2s. She has acute rise in her creatinine. It was 2.9 on the 2nd and then 4.3 on the 4th. Now it has fallen to 2.9. Renal ultrasound is normal. Urine electrolytes show pre renal azotemia. This is most likely related to her dehydration from not eating and continuing her Lasix. There is also a possible component of renal toxicity from her cellulitis. I agree with stopping her IV fluids. Continuing antibiotics. (2) Hypomagnesemia: Code(s): E83.42 - Hypomagnesemia Status: Acute Assessment and Plan: Resolved (3) Cellulitis of left leg: Code(s): L03.116 - Cellulitis of left lower limb Status: Acute Assessment and Plan: She is on antibiotics. she is afebrile. Her white cell count is improving. (4) Urinary tract infection: Code(s): N39.0 - Urinary tract infection, site not specified Status: Acute Assessment and Plan: She is on antibiotics. Cultures Show Klebsiella but is resistant to ceftriaxone. Appreciate Dr. hough is no (5) Hyperlipidemia: Code(s): E78.5 - Hyperlipidemia, unspecified Status: Chronic Assessment and Plan: She is on atorvastatin (6) Anemia: Qualifiers: Anemia type: iron deficiency Iron deficiency anemia type: unspecified iron deficiency Qualified Code(s): D50.9 - Iron deficiency anemia, unspecified Code(s): D64.9 - Anemia, unspecified Status: Acute Assessment and Plan: hemoglobin is probably low because chronic kidney disease and also because of the infection. Will keep an eye on this. Will initiate Epogen today. (7) Type 2 diabetes mellitus with hyperglycemia, with long-term current use of insulin: Code(s): E11.65 - Type 2 diabetes mellitus with hyperglycemia; Z79.4 - [facility] (current) use of insulin Status: Acute Assessment and Plan: On Accu-Cheks and sliding-scale insulin. Subjective Date/time seen: 12/06/20 17:40 Interval history: Theodora feels about the same today. walked from the bed to the chair the long way. Review of Systems Cardiovascular: Cardiovascular: Reports no additional cardiovascular complaints Respiratory: Respiratory: Reports no additional respiratory complaints Gastrointestinal: Gastrointestinal: Reports no additional gastrointestinal complaints Genitourinary: Genitourinary: Reports no additional female genitourinary complaints Exam Narrative: Exam Narrative: WDWN in NAD skin no rash head ncat lungs clear cor reg no rub abd BS+ nontender and soft ext One to 2+ edema. Objective Data Vital Signs Vital Signs: Vital Signs - 24 hr 12/05/20 18:13 12/06/20 00:10 12/06/20 06:00 Temperature 36.3 C L 36.4 C 36.9 C Pulse Rate 70 67 66 Respiratory Rate 16 16 14 Blood Pressure 133/60 110/46 L 121/53 L Pulse Oximetry 97 97 97 12/06/20 14:00 Temperature 36.5 C Pulse Rate 72 Respiratory Rate 16 Blood Pressure 130/62 Pulse Oximetry 97 Intake/Output Intake/Output: Intake & Output 12/03/20 12/04/20 12/05/20 12/06/20 23:59 23:59 23:59 23:59 Intake Total 2027 2920 3165 1460 Output Total 1000 1875 2200 Balance 2027 1920 1290 -740 Meds/Results Medications: Active Medications Generic Name Dose Route Start Last Admin Trade Name Freq PRN Reason Stop Dose Admin Benzonatate 100 mg 12/05/20 16:13 12/06/20 12:31 Benzonatate 100 Mg Capsule PO 100 mg TID PRN Administration cough Colchicine 0.6 mg 12/06/20 09:00 12/06/20 09:38 Colchicine 0.6 Mg T
[2020-12-06 19:33] VITALS: BP 122/51; PULSE 70; RESP 15; TEMP 36.1; O2SAT 97
[2020-12-06] MEDS: INSULIN GLARGINE (*BKC) 100 UNITS/ML 20 UNITS SUB-Q (20:26)
[2020-12-06 20:31] LABS: Glucose Point of Care 239 (65-105)
[2020-12-07 04:53] VITALS: BP 145/63; PULSE 70; RESP 16; TEMP 36.6; O2SAT 98
[2020-12-07] MEDS: CENTRAL LINE FLUSH 20 ML IV PUSH (05:03)
[2020-12-07] MEDS: CENTRAL LINE FLUSH 10 ML IV PUSH ×4 (05:03→21:57)
[2020-12-07 05:36] LABS: Hemoglobin 8.1 g/dL (12.0-15.0); Mean Corpuscular HGB Conc 31.2 g/dl (32-36); Mean Corpuscular Hemoglobin 29.8 pg (26-34); Mean Corpuscular Volume 95.6 fl (80-100); Mean Platelet Volume 9.3 fl (7.4-10.4); Platelet Count Result 258 k/mm3 (150-375); Red Blood Count 2.72 M/mm3 (4.2-5.4); Red Cell Distribution Width 14.6 % (11.5-14.5); White Blood Count 8.5 K/mm3 (4.5-10.0)
[2020-12-07 05:52] LABS: Albumin Level 2.7 g/dL (3.5-5.1); Anion Gap 5 mmol/L (8-16); Blood Urea Nitrogen 56 mg/dL (7-17); Carbon Dioxide 26 mmol/L (22-30); Chloride 109 mmol/L (98-107); Estimated CRCL calculation 33 ml/min; Estimated Glomerular Filt Rate 21; Glucose 213 mg/dL (65-105); Phosphorus 4.3 mg/dL (2.5-4.5); Potassium 4.6 mmol/L (3.4-5.0); Sodium 140 mmol/L (137-145)
[2020-12-07 07:58] LABS: Glucose Point of Care 202 (65-105)
[2020-12-07 08:00] VITALS: PULSE 70; RESP 16; O2SAT 98
[2020-12-07] MEDS: INSULIN ASPART (*BKC) 100 UNITS/ML SUB-Q ×3 (08:30→16:43)
--- NOTE | 2020-12-07 08:35 | PC.NURSE ---
Patient refuses bed alarm. Reinstructed fall precautions.
[2020-12-07] MEDS: polyethylene glycoL 3350 17 GM POWD.PACK PO (09:12)
[2020-12-07] MEDS: GABAPENTIN 300 MG CAPSULE PO ×3 (09:13→18:41)
[2020-12-07] MEDS: FLUCONAZOLE 150 MG TABLET BY MOUTH (09:13)
[2020-12-07] MEDS: FAMOTIDINE 20 MG/2 ML VIAL IV PUSH ×2 (09:13→21:57)
[2020-12-07] MEDS: FERROUS SULFATE 324 MG TABLET PO (09:13)
[2020-12-07] MEDS: COLCHICINE 0.6 MG TABLET PO (09:13)
[2020-12-07] MEDS: PANTOPRAZOLE 40 MG TABLET PO (09:14)
[2020-12-07] MEDS: SILVERGEL (ELTA) 45 ML 1 APPLIC TOPICAL (09:15)
--- NOTE | 2020-12-07 10:36 | PM.PNNEP ---
Progress Note: A&P Assessment and Plan (1) Acute on chronic renal failure: Code(s): N17.9 - Acute kidney failure, unspecified; N18.9 - Chronic kidney disease, unspecified Status: Acute Assessment and Plan: the patient has chronic kidney disease most likely from diabetes and hypertension. She also has morbid obesity which can contribute as well. Her baseline creatinine seems to run in the low 2s. She has acute rise in her creatinine. It was 2.9 on the 2nd and then 4.3 on the 4th. Now it has fallen to 2.4 Renal ultrasound is normal. Urine electrolytes show pre renal azotemia. this is likely due to dehydration and cellulitis. Continuing antibiotics. She is eating well and is off IV fluids. (2) Hypomagnesemia: Code(s): E83.42 - Hypomagnesemia Status: Acute Assessment and Plan: Resolved (3) Cellulitis of left leg: Code(s): L03.116 - Cellulitis of left lower limb Status: Acute Assessment and Plan: She is on antibiotics. she is afebrile. Her white cell count is improving. (4) Urinary tract infection: Code(s): N39.0 - Urinary tract infection, site not specified Status: Acute Assessment and Plan: She is on antibiotics. Cultures Show Klebsiella but is resistant to ceftriaxone. Appreciate Dr. hough's note (5) Hyperlipidemia: Code(s): E78.5 - Hyperlipidemia, unspecified Status: Chronic Assessment and Plan: She is on atorvastatin (6) Anemia: Qualifiers: Anemia type: iron deficiency Iron deficiency anemia type: unspecified iron deficiency Qualified Code(s): D50.9 - Iron deficiency anemia, unspecified Code(s): D64.9 - Anemia, unspecified Status: Acute Assessment and Plan: On Epogen (7) Type 2 diabetes mellitus with hyperglycemia, with long-term current use of insulin: Code(s): E11.65 - Type 2 diabetes mellitus with hyperglycemia; Z79.4 - exterminator helper (current) use of insulin Status: Acute Assessment and Plan: On Accu-Cheks and sliding-scale insulin. Subjective Date/time seen: 12/07/20 10:36 Interval history: Theodora feels about the same today. Eager for discharge when she can get up and around. Review of Systems Cardiovascular: Cardiovascular: Reports no additional cardiovascular complaints Respiratory: Respiratory: Reports no additional respiratory complaints Gastrointestinal: Gastrointestinal: Reports no additional gastrointestinal complaints Genitourinary: Genitourinary: Reports no additional female genitourinary complaints Exam Narrative: Exam Narrative: WDWN in NAD skin no rash or subcu nodules head ncat lungs clear Bilaterally cor reg no rub abd BS+ nontender and soft ext One to 2+ edema. Objective Data Vital Signs Vital Signs: Vital Signs - 24 hr 12/06/20 14:00 12/06/20 19:33 12/07/20 04:53 Temperature 36.5 C 36.1 C L 36.6 C Pulse Rate 72 70 70 Respiratory Rate 16 15 16 Blood Pressure 130/62 122/51 L 145/63 H Pulse Oximetry 97 97 98 Intake/Output Intake/Output: Intake & Output 12/04/20 12/05/20 12/06/20 12/07/20 23:59 23:59 23:59 23:59 Intake Total 2920 3165 1510 440 Output Total 1000 1875 2200 1000 Balance 1920 1290 690 -560 Meds/Results Medications: Active Medications Generic Name Dose Route Start Last Admin Trade Name Freq PRN Reason Stop Dose Admin Benzonatate 100 mg 12/05/20 16:13 12/06/20 12:31 Benzonatate 100 Mg Capsule PO 100 mg TID PRN Administration cough Colchicine 0.6 mg 12/06/20 09:00 12/07/20 09:13 Colchicine 0.6 Mg Tablet PO 0.6 mg QAM FAWN Administration Dextrose 12.5 gm 12/03/20 22:11 Dextrose 50% 25 Gm/50 Ml Syringe IV PUSH PRN PRN Hypoglycemia Protocol Docusate Sodium 100 mg 12/05/20 11:32 Docusate Sodium 100 Mg Capsule PO Q12H PRN Constipation Epoetin Isidro-epbx 10,000 units 12/05/20 14:00
[2020-12-07 11:15] LABS: Glucose Point of Care 265 (65-105)
[2020-12-07] MEDS: TOLNAFTATE 1% POWDER 45 GM BTL 1 APPLIC TOPICAL ×2 (11:31→21:58)
[2020-12-07] MEDS: EUCERIN CREAM 120 GM JAR 1 APPLIC TOPICAL (11:32)
--- NOTE | 2020-12-07 13:00 | PM.IMPN ---
Progress Note: A&P Assessment and Plan (1) Sepsis: Code(s): A41.9 - Sepsis, unspecified organism Status: Acute Assessment and Plan: Present on admission and supported by leukocytosis, hypotension (responsive to IV fluids) and acute kidney injury. -Blood cultures have been obtained and have no growth to date. Her lactic acid was normal on admission. -linezolid and imipenem have been switched to ceftriaxone (dose # 4 this evening) (2) Cellulitis of left leg: Code(s): L03.116 - Cellulitis of left lower limb Status: Acute Assessment and Plan: Patient has recurrent left lower extremity cellulitis. -Venous Doppler ultrasound was negative for DVT and xray neg for fracture or other pathology -She had been started on imipenem and linezolid but switched to ceftriaxone 12/04/20 -Dr. Lockett has been consulted and his input is appreciated. -swelling appears worse today but erythema about the same. will have them elevate her leg at all times. Her Cr is just now close to baseline but may consider lasix to help with swelling, appreciate nephrology's thoughts. (3) Abnormal urinalysis: Code(s): R82.90 - Unspecified abnormal findings in urine Status: Acute Assessment and Plan: Urine is probably always abnormal due to chronic indwelling catheter -urine culture growing klebseilla ESBL but likely asymptomatic bacturia with chronic woods. labs and pt condition have improved with current therapy, no need to adjust at this time. (4) Acute on chronic renal failure: Code(s): N17.9 - Acute kidney failure, unspecified; N18.9 - Chronic kidney disease, unspecified Status: Acute Assessment and Plan: Multifactorial in etiology and secondary to relative hypotension, diuretic use, poor oral intake with subsequent dehydration, sepsis. -last creatinine 2.4, down from 4.3 earlier in the stay. Baseline around 2 -Monitor renal function and volume status closely. -Strict I/O. -Avoid nephrotoxic agents. -Consider lasix as above (5) Dehydration: Code(s): E86.0 - Dehydration Status: Acute Assessment and Plan: resolved (6) Hypomagnesemia: Code(s): E83.42 - Hypomagnesemia Status: Acute Assessment and Plan: last mag WNL, recheck with tomorrows labs (7) Elevated LFTs: Code(s): R79.89 - Other specified abnormal findings of blood chemistry Status: Acute Assessment and Plan: resolved (8) Chronic anemia: Code(s): D64.9 - Anemia, unspecified Status: Acute Assessment and Plan: Hemoglobin seems to range between 7.0 and 9.0. She dropped to 6.6 12/05/20 and received 1 unit of PRBC -hgb today 8.1 and appears stable -no evidence of blood loss on exam -will need routine colonoscopy if not up to date (9) Neurogenic bladder: Code(s): N31.9 - Neuromuscular dysfunction of bladder, unspecified Status: Chronic Assessment and Plan: Patient has had a chronic indwelling Woods catheter for 3 years secondary to same. (10) Insulin dependent type 2 diabetes mellitus: Code(s): E11.9 - Type 2 diabetes mellitus without complications; Z79.4 - [facility] (current) use of insulin Status: Acute Assessment and Plan: Last glucose 265 - Hemoglobin A1c was 5.9%. -home glimepiride 4mg on hold (will need decreased at d/c d/t renal fx and A1c) -will increase basal insulin back up again today. (It was decreased 12/05/20 due to OZZY and lower glucoses) -hold mealtime NovoLog, consider restarting if she continues to be hyperglycemic -continue sliding scale insulin, Accu-Cheks, and hypoglycemic protocol. (11) Essential hypertension: Code(s): I10 - Essential (primary) hypertension Status: Acute Assessment and Plan: last bp 145/63 but have been soft on admission due to infection -home lisinopril and hctz on hold due to OZZY Subjective Date/ti
[2020-12-07 14:44] VITALS: BP 147/53; RESP 18; TEMP 36.3; O2SAT 98
[2020-12-07] MEDS: EPOETIN ALFA-EPBX 10,000 UNITS/ML VIAL 10000 UNITS SUB-Q (16:35)
[2020-12-07 16:52] LABS: Glucose Point of Care 303 (65-105)
[2020-12-07 19:40] VITALS: O2SAT 97
[2020-12-07 20:09] VITALS: BP 150/59; PULSE 72; RESP 12; TEMP 36.6; O2SAT 96
[2020-12-07] MEDS: INSULIN GLARGINE (*BKC) 100 UNITS/ML 30 UNITS SUB-Q (21:56)
[2020-12-07] MEDS: SENNOSIDES 8.6 MG TABLET PO (21:57)
[2020-12-07 23:02] LABS: Glucose Point of Care 274 (65-105)
[2020-12-08 05:23] LABS: Basophils Percent Auto 0.2 % (0.2-1.2); Eosinophils Absolute Auto 0.4 K/mm3 (0-0.3); Eosinophils Percent Auto 3.8 % (0-4.4); Hematocrit 26.2 % (37.0-47.0); Hemoglobin 8.3 g/dL (12.0-15.0); Immature Granulocyte Absolute 0.37 K/mm3 (0.00-0.031); Lymphocytes Absolute Auto 1.91 K/mm3 (0.9-3.2); Lymphocytes Percent Auto 20.8 % (18.3-44.2); Mean Corpuscular HGB Conc 31.7 g/dl (32-36); Mean Corpuscular Volume 94.6 fl (80-100); Mean Platelet Volume 8.8 fl (7.4-10.4); Monocytes Absolute Auto 0.5 K/mm3 (0.1-0.6); Monocytes Percent Auto 5.6 % (2.6-8.5); Neutrophils Percent Auto 65.6 % (45.5-73.1); Platelet Count Result 300 k/mm3 (150-375); Red Blood Count 2.77 M/mm3 (4.2-5.4); Red Cell Distribution Width 14.3 % (11.5-14.5); White Blood Count 9.2 K/mm3 (4.5-10.0)
[2020-12-08 05:25] VITALS: BP 155/76; PULSE 70; RESP 14; TEMP 36.6; O2SAT 99
[2020-12-08 06:13] LABS: Albumin Level 2.8 g/dL (3.5-5.1); Anion Gap 4 mmol/L (8-16); Blood Urea Nitrogen 50 mg/dL (7-17); CRP 12.5 mg/dL (<1.0); Calcium 8.5 mg/dL (8.4-10.2); Carbon Dioxide 27 mmol/L (22-30); Chloride 108 mmol/L (98-107); Estimated CRCL calculation 42 ml/min; Estimated Glomerular Filt Rate 27; Glucose 227 mg/dL (65-105); Magnesium 1.7 mg/dL (1.6-2.3); Potassium 4.5 mmol/L (3.4-5.0); Sodium 139 mmol/L (137-145)
[2020-12-08 08:00] LABS: Glucose Point of Care 202 (65-105)
[2020-12-08] MEDS: INSULIN ASPART (*BKC) 100 UNITS/ML SUB-Q ×3 (08:04→16:44)
[2020-12-08] MEDS: TOLNAFTATE 1% POWDER 45 GM BTL 1 APPLIC TOPICAL ×2 (08:05→22:02)
[2020-12-08] MEDS: polyethylene glycoL 3350 17 GM POWD.PACK PO (08:06)
[2020-12-08] MEDS: FERROUS SULFATE 324 MG TABLET PO (08:06)
[2020-12-08] MEDS: COLCHICINE 0.6 MG TABLET PO (08:06)
[2020-12-08] MEDS: FAMOTIDINE 20 MG/2 ML VIAL IV PUSH ×2 (08:06→22:00)
[2020-12-08] MEDS: GABAPENTIN 300 MG CAPSULE PO ×3 (08:06→16:44)
[2020-12-08] MEDS: FLUCONAZOLE 150 MG TABLET BY MOUTH (08:06)
[2020-12-08] MEDS: PANTOPRAZOLE 40 MG TABLET PO (08:06)
[2020-12-08] MEDS: CENTRAL LINE FLUSH 10 ML IV PUSH ×4 (08:06→22:02)
[2020-12-08] MEDS: EUCERIN CREAM 120 GM JAR 1 APPLIC TOPICAL (08:08)
[2020-12-08] MEDS: SILVERGEL (ELTA) 45 ML 1 APPLIC TOPICAL (08:08)
[2020-12-08] MEDS: HEPARIN SODIUM 5,000 UNITS/ML VIAL 5000 UNITS SUB-Q ×2 (08:09→22:00)
[2020-12-08] MEDS: hydroCHLOROthiazide 12.5 MG CAPSULE PO (08:09)
--- NOTE | 2020-12-08 11:47 | PM.IMPN ---
Progress Note: A&P Assessment and Plan (1) Sepsis: Code(s): A41.9 - Sepsis, unspecified organism Status: Acute Assessment and Plan: Present on admission and supported by leukocytosis, hypotension (responsive to IV fluids) and acute kidney injury (resolved to baseline today). Left leg cellulitis suspected source. Blood cultures have been obtained and have no growth to date. Her lactic acid was normal on admission. linezolid and imipenem have been switched to ceftriaxone (dose # 5 this evening) Further treatment as described below (2) Cellulitis of left leg: Code(s): L03.116 - Cellulitis of left lower limb Status: Acute Assessment and Plan: Patient has recurrent left lower extremity cellulitis. Venous Doppler ultrasound was negative for DVT and xray neg for fracture or other pathology She had been started on imipenem and linezolid but switched to ceftriaxone 12/04/20 Dr. Lockett has been consulted and his input is appreciated. Swelling significant today but erythema about the same. Will have them elevate her leg at all times. Her Cr is just now close to baseline but may consider lasix to help with swelling, appreciate nephrology's thoughts. (3) Abnormal urinalysis: Code(s): R82.90 - Unspecified abnormal findings in urine Status: Acute Assessment and Plan: Urine is probably always abnormal due to chronic indwelling catheter. Urine culture growing klebseilla ESBL but likely asymptomatic bacteruria with chronic Salgado. labs and pt condition have improved with current therapy, no need to adjust at this time. (4) Acute on chronic renal failure: Code(s): N17.9 - Acute kidney failure, unspecified; N18.9 - Chronic kidney disease, unspecified Status: Acute Assessment and Plan: Multifactorial in etiology and secondary to relative hypotension, diuretic use, poor oral intake with subsequent dehydration, sepsis. Cr 1.90 today, down from 4.3 earlier in the stay. Baseline around 2 Monitor renal function and volume status closely. Strict I/O. Avoid nephrotoxic agents. Consider lasix as above (5) Dehydration: Code(s): E86.0 - Dehydration Status: Acute Assessment and Plan: resolved (6) Hypomagnesemia: Code(s): E83.42 - Hypomagnesemia Status: Acute Assessment and Plan: last mag WNL, recheck with tomorrows labs (7) Elevated LFTs: Code(s): R79.89 - Other specified abnormal findings of blood chemistry Status: Acute Assessment and Plan: resolved (8) Chronic anemia: Code(s): D64.9 - Anemia, unspecified Status: Acute Assessment and Plan: Hemoglobin seems to range between 7.0 and 9.0. She dropped to 6.6 12/05/20 and received 1 unit of PRBC. hgb today 8.3 and appears stable. no evidence of blood loss on exam will need routine colonoscopy if not up to date Monitor (9) Neurogenic bladder: Code(s): N31.9 - Neuromuscular dysfunction of bladder, unspecified Status: Chronic Assessment and Plan: Patient has had a chronic indwelling Salgado catheter for 3 years secondary to same. (10) Insulin dependent type 2 diabetes mellitus: Code(s): E11.9 - Type 2 diabetes mellitus without complications; Z79.4 - [facility] (current) use of insulin Status: Acute Assessment and Plan: Hemoglobin A1c was 5.9%. home glimepiride 4mg on hold (will need decreased at d/c d/t renal fx and A1c) Continue basal insulin. (It was decreased 12/05/20 due to OZZY and lower glucoses; increased to 30 units on 12/07) hold mealtime NovoL
[2020-12-08 12:15] LABS: Glucose Point of Care 230 (65-105)
--- NOTE | 2020-12-08 12:42 | PM.PNNEP ---
Progress Note: A&P Assessment and Plan (1) Acute on chronic renal failure: Code(s): N17.9 - Acute kidney failure, unspecified; N18.9 - Chronic kidney disease, unspecified Status: Acute Assessment and Plan: the patient has chronic kidney disease most likely from diabetes and hypertension. She also has morbid obesity which can contribute as well. Her baseline creatinine seems to run in the low 2s. She has acute rise in her creatinine. It was 2.9 on the 2nd and then 4.3 on the 4th. Now it has fallen to 1.9. Renal ultrasound is normal. Urine electrolytes show pre renal azotemia. this is likely due to dehydration and cellulitis. Her the acute component of her renal failure has resolved. I think is okay to try some diuretics. Discussed with KING Hsu. (2) Hypomagnesemia: Code(s): E83.42 - Hypomagnesemia Status: Acute Assessment and Plan: Resolved (3) Cellulitis of left leg: Code(s): L03.116 - Cellulitis of left lower limb Status: Acute Assessment and Plan: She is on antibiotics. she is afebrile. Her white cell count is now normal (4) Urinary tract infection: Code(s): N39.0 - Urinary tract infection, site not specified Status: Acute Assessment and Plan: She is on antibiotics. Cultures Show Klebsiella but is resistant to ceftriaxone. Appreciate Dr. hough's note (5) Hyperlipidemia: Code(s): E78.5 - Hyperlipidemia, unspecified Status: Chronic Assessment and Plan: She is on atorvastatin (6) Anemia: Qualifiers: Anemia type: iron deficiency Iron deficiency anemia type: unspecified iron deficiency Qualified Code(s): D50.9 - Iron deficiency anemia, unspecified Code(s): D64.9 - Anemia, unspecified Status: Acute Assessment and Plan: On Epogen Hemoglobin is rising. Epogen does not need to be continued on discharge. (7) Type 2 diabetes mellitus with hyperglycemia, with long-term current use of insulin: Code(s): E11.65 - Type 2 diabetes mellitus with hyperglycemia; Z79.4 - [facility] (current) use of insulin Status: Acute Assessment and Plan: On Accu-Cheks and sliding-scale insulin. Subjective Date/time seen: 12/08/20 12:42 Interval history: Theodora feels about the same today. She walked in the halls a little bit. She still has quite a bit of swelling. However she is chronically swollen. Eager for discharge when she can get up and around. Review of Systems Cardiovascular: Cardiovascular: Reports no additional cardiovascular complaints Respiratory: Respiratory: Reports no additional respiratory complaints Gastrointestinal: Gastrointestinal: Reports no additional gastrointestinal complaints Genitourinary: Genitourinary: Reports no additional female genitourinary complaints Exam Narrative: Exam Narrative: WDWN in NAD skin no rash or subcu nodules head ncat lungs clear to auscultation cor reg no rub or gallop abd BS+ nontender and soft ext One to 2+ edema. Objective Data Vital Signs Vital Signs: Vital Signs - 24 hr 12/07/20 14:44 12/07/20 19:40 12/07/20 20:09 Temperature 36.3 C L 36.6 C Pulse Rate 72 Respiratory Rate 18 12 Blood Pressure 147/53 H 150/59 H Pulse Oximetry 98 97 96 12/08/20 05:25 Temperature 36.6 C Pulse Rate 70 Respiratory Rate 14 Blood Pressure 155/76 H Pulse Oximetry 99 Intake/Output Intake/Output: Intake & Output 12/05/20 12/06/20 12/07/20 12/08/20 23:59 23:59 23:59 23:59 Intake Total 3165 1510 2210 740 Output Total 1875 2200 2850 2200 Balance 1290 -872 -640 -1460 Meds/Results Medications: Active Medications Generic Name Dose Route Start Last Admin Trade Name Freq PRN Reason Stop Dose Admin Benzonatate 100 mg 12/05/20 16:13 12/06/20 12:31 Benzonatate 100 Mg Capsule PO 100 mg TID PRN Administration cough Colchicine 0.6 mg 12/06/20 09:00
[2020-12-08 14:00] VITALS: BP 148/61; PULSE 72; RESP 16; TEMP 35.8; O2SAT 100
[2020-12-08 16:16] LABS: Glucose Point of Care 261 (65-105)
[2020-12-08 19:26] VITALS: BP 159/82; PULSE 76; RESP 16; TEMP 36.8; O2SAT 100
[2020-12-08] MEDS: SENNOSIDES 8.6 MG TABLET PO (22:00)
[2020-12-08] MEDS: INSULIN GLARGINE (*BKC) 100 UNITS/ML 30 UNITS SUB-Q (22:00)
[2020-12-08 22:13] LABS: Glucose Point of Care 236 (65-105)
[2020-12-09] MEDS: CENTRAL LINE FLUSH 10 ML IV PUSH (05:20)
[2020-12-09 05:32] VITALS: BP 137/69; PULSE 71; RESP 14; TEMP 36.4; O2SAT 99
[2020-12-09 05:38] LABS: Basophils Percent Auto 0.3 % (0.2-1.2); Eosinophils Absolute Auto 0.4 K/mm3 (0-0.3); Eosinophils Percent Auto 3.8 % (0-4.4); Hematocrit 26.4 % (37.0-47.0); Hemoglobin 8.2 g/dL (12.0-15.0); Immature Granulocyte Absolute 0.49 K/mm3 (0.00-0.031); Immature Granulocyte Percent A 4.9 % (0-0.5); Lymphocytes Absolute Auto 2.33 K/mm3 (0.9-3.2); Lymphocytes Percent Auto 23.4 % (18.3-44.2); Mean Corpuscular HGB Conc 31.1 g/dl (32-36); Mean Corpuscular Volume 93.3 fl (80-100); Mean Platelet Volume 8.4 fl (7.4-10.4); Monocytes Absolute Auto 0.5 K/mm3 (0.1-0.6); Monocytes Percent Auto 5.1 % (2.6-8.5); Neutrophils Absolute Auto 6.2 K/mm3 (1.3-6.7); Neutrophils Percent Auto 62.5 % (45.5-73.1); Platelet Count Result 312 k/mm3 (150-375); Red Blood Count 2.83 M/mm3 (4.2-5.4); Red Cell Distribution Width 14.1 % (11.5-14.5)
[2020-12-09 06:02] LABS: Albumin Level 2.8 g/dL (3.5-5.1); Anion Gap 3 mmol/L (8-16); Blood Urea Nitrogen 47 mg/dL (7-17); Calcium 8.6 mg/dL (8.4-10.2); Carbon Dioxide 29 mmol/L (22-30); Chloride 106 mmol/L (98-107); Estimated CRCL calculation 49 ml/min; Estimated Glomerular Filt Rate 33; Glucose 215 mg/dL (65-105); Magnesium 1.5 mg/dL (1.6-2.3); Phosphorus 4.1 mg/dL (2.5-4.5); Potassium 4.5 mmol/L (3.4-5.0); Sodium 138 mmol/L (137-145)
[2020-12-09] MEDS: hydroCHLOROthiazide 12.5 MG CAPSULE PO (08:30)
[2020-12-09] MEDS: FLUCONAZOLE 150 MG TABLET BY MOUTH (08:30)
[2020-12-09] MEDS: HEPARIN SODIUM 5,000 UNITS/ML VIAL 5000 UNITS SUB-Q (08:30)
[2020-12-09] MEDS: polyethylene glycoL 3350 17 GM POWD.PACK PO (08:30)
[2020-12-09] MEDS: FERROUS SULFATE 324 MG TABLET PO (08:31)
[2020-12-09] MEDS: COLCHICINE 0.6 MG TABLET PO (08:31)
[2020-12-09] MEDS: FAMOTIDINE 20 MG/2 ML VIAL IV PUSH (08:31)
[2020-12-09] MEDS: GABAPENTIN 300 MG CAPSULE PO (08:31)
[2020-12-09] MEDS: PANTOPRAZOLE 40 MG TABLET PO (08:31)
[2020-12-09] MEDS: SILVERGEL (ELTA) 45 ML 1 APPLIC TOPICAL (08:32)
[2020-12-09] MEDS: EUCERIN CREAM 120 GM JAR 1 APPLIC TOPICAL (08:32)
[2020-12-09] MEDS: TOLNAFTATE 1% POWDER 45 GM BTL 1 APPLIC TOPICAL (08:32)
[2020-12-09 08:33] LABS: Glucose Point of Care 204 (65-105)
--- NOTE | 2020-12-09 08:33 | PM.PNNEP ---
Progress Note: A&P Assessment and Plan (1) Acute on chronic renal failure: Code(s): N17.9 - Acute kidney failure, unspecified; N18.9 - Chronic kidney disease, unspecified Status: Acute Assessment and Plan: the patient has chronic kidney disease most likely from diabetes and hypertension. She also has morbid obesity which can contribute as well. Her baseline creatinine seems to run in the low 2s. She has acute rise in her creatinine. It was 2.9 on the 2nd and then 4.3 on the 4th. Now it has fallen to 1.6 Renal ultrasound is normal. Urine electrolytes show pre renal azotemia. Her cellulitis is better. At this point she has the swelling which requires diuretics. Her creatinine is below its usual baseline. Okay to give her loop diuretics on discharge for a short amount of time or we could try the hydrochlorothiazide. Patient can call me if her swelling gets too bad. (2) Hypomagnesemia: Code(s): E83.42 - Hypomagnesemia Status: Acute Assessment and Plan: Magnesium low again today. She is getting a supplement. (3) Cellulitis of left leg: Code(s): L03.116 - Cellulitis of left lower limb Status: Acute Assessment and Plan: She is on antibiotics. she is afebrile. Her white cell count is now normal (4) Urinary tract infection: Code(s): N39.0 - Urinary tract infection, site not specified Status: Acute Assessment and Plan: She is on antibiotics. Cultures Show Klebsiella but is resistant to ceftriaxone. Appreciate Dr. hough's note (5) Hyperlipidemia: Code(s): E78.5 - Hyperlipidemia, unspecified Status: Chronic Assessment and Plan: She is on atorvastatin (6) Anemia: Qualifiers: Anemia type: iron deficiency Iron deficiency anemia type: unspecified iron deficiency Qualified Code(s): D50.9 - Iron deficiency anemia, unspecified Code(s): D64.9 - Anemia, unspecified Status: Acute Assessment and Plan: On Epogen Hemoglobin is rising. Epogen does not need to be continued on discharge. (7) Type 2 diabetes mellitus with hyperglycemia, with long-term current use of insulin: Code(s): E11.65 - Type 2 diabetes mellitus with hyperglycemia; Z79.4 - [facility] (current) use of insulin Status: Acute Assessment and Plan: On Accu-Cheks and sliding-scale insulin. Subjective Date/time seen: 12/09/20 08:33 Interval history: Theodora feels about the same today. Eager for discharge today. Exam Narrative: Exam Narrative: WDWN in NAD skin no rash or subcu nodules head ncat lungs clear cor reg no rub or gallop abd BS+ nontender ext One to 2+ edema. Objective Data Vital Signs Vital Signs: Vital Signs - 24 hr 12/08/20 14:00 12/08/20 19:26 12/09/20 05:32 Temperature 35.8 C L 36.8 C 36.4 C L Pulse Rate 72 76 71 Respiratory Rate 16 16 14 Blood Pressure 148/61 H 159/82 H 137/69 Pulse Oximetry 100 100 99 Intake/Output Intake/Output: Intake & Output 12/06/20 12/07/20 12/08/20 12/09/20 23:59 23:59 23:59 23:59 Intake Total 1510 2210 1750 500 Output Total 2200 2850 2500 Balance -690 -640 -750 500 Meds/Results Medications: Active Medications Generic Name Dose Route Start Last Admin Trade Name Freq PRN Reason Stop Dose Admin Benzonatate 100 mg 12/05/20 16:13 12/06/20 12:31 Benzonatate 100 Mg Capsule PO 100 mg TID PRN Administration cough Cefdinir 300 mg 12/09/20 09:00 Cefdinir 300 Mg Capsule PO Q12HR FAWN Colchicine 0.6 mg 12/06/20 09:00 12/08/20 08:06 Colchicine 0.6 Mg Tablet PO 0.6 mg QAM FAWN Administration Dextrose 12.5 gm 12/03/20 22:11 Dextrose 50% 25 Gm/50 Ml Syringe IV PUSH PRN PRN Hypoglycemia Protocol Docusate Sodium 100 mg 12/05/20 11:32 Docusate Sodium 100 Mg Capsule PO Q12H PRN Constipation Epoetin Isidro-epbx 10,000 units 12/05/20 14:
[2020-12-09] MEDS: INSULIN ASPART (*BKC) 100 UNITS/ML SUB-Q (08:34)
--- NOTE | 2020-12-09 08:48 | PM.DS ---
DS: Admitting Diagnosis Admitting Diagnosis Admitting Diagnosis: LLE cellulitis, sepsis, hypomagnesemia DS: Discharge Diagnosis Discharge Diagnosis (1) Sepsis: Code(s): A41.9 - Sepsis, unspecified organism Status: Acute Assessment and Plan: Present on admission and supported by leukocytosis, hypotension (responsive to IV fluids) and acute kidney injury (resolved to baseline today). Left leg cellulitis suspected source. Blood cultures have been obtained and have no growth to date. Her lactic acid was normal on admission. linezolid and imipenem have been switched to ceftriaxone x 5 doses; switched cefdinir today; continue through 12/12 per ID rec Further treatment as described below (2) Cellulitis of left leg: Code(s): L03.116 - Cellulitis of left lower limb Status: Acute Assessment and Plan: Patient has recurrent left lower extremity cellulitis. Venous Doppler ultrasound was negative for DVT and xray neg for fracture or other pathology She had been started on imipenem and linezolid but switched to ceftriaxone 12/04/20 (received 5 doses of this); switched to cefdinir PO today; continue through 12/[address] Lockett has been consulted and his input is appreciated. Swelling improved today but still significant; erythema improved with elevation. Encouraged her to elevate her leg at all times when possible. Instructed her to take lasix x 3 days to help swelling (3) Abnormal urinalysis: Code(s): R82.90 - Unspecified abnormal findings in urine Status: Acute Assessment and Plan: Urine is probably always abnormal due to chronic indwelling catheter. Urine culture growing klebseilla ESBL but likely asymptomatic bacteruria with chronic Salgado. Labs and pt condition have improved with current therapy, no need to adjust at this time. (4) Acute on chronic renal failure: Code(s): N17.9 - Acute kidney failure, unspecified; N18.9 - Chronic kidney disease, unspecified Status: Acute Assessment and Plan: Multifactorial in etiology and secondary to relative hypotension, diuretic use, poor oral intake with subsequent dehydration, sepsis. Cr 1.60 today, down from 4.3 earlier in the stay. Baseline around 2, so below her baseline today Renal function panel in 1 week F/u with Dr. Benson (5) Dehydration: Code(s): E86.0 - Dehydration Status: Resolved Assessment and Plan: resolved (6) Hypomagnesemia: Code(s): E83.42 - Hypomagnesemia Status: Acute Assessment and Plan: 1.5 today; replaced (7) Elevated LFTs: Code(s): R79.89 - Other specified abnormal findings of blood chemistry Status: Resolved Assessment and Plan: resolved (8) Chronic anemia: Code(s): D64.9 - Anemia, unspecified Status: Acute Assessment and Plan: Hemoglobin seems to range between 7.0 and 9.0. She dropped to 6.6 12/05/20 and received 1 unit of PRBC. hgb today 8.2 and appears stable. No s/sx of blood loss will need routine colonoscopy if not up to date Lab in 1 week F/u with PCP (9) Neurogenic bladder: Code(s): N31.9 - Neuromuscular dysfunction of bladder, unspecified Status: Chronic Assessment and Plan: Patient has had a chronic indwelling Salgado catheter for 3 years secondary to same. F/u with Urology (10) Insulin dependent type 2 diabetes mellitus: Code(s): E11.9 - Type 2 diabetes mellitus without complications; Z79.4 - nursing home (current) use of insulin Status: Acute Assessment and Plan: Hemoglobin A1c was 5.9%. home
[2020-12-09] MEDS: CEFDINIR 300 MG CAPSULE PO (09:45)
[2020-12-09] MEDS: FUROSEMIDE 40 MG TABLET PO (09:45)
[2020-12-09] MEDS: MAGNESIUM SULF 1 GM/D5W 100 ML 1 GM/100 ML BAG IVPB (09:45)
== END 2020-12-09 11:55 | disposition home health service (06) | DRG 872 ==
LOC: ANHED 15:38 → ANH3MED 12-04 07:43
PROVIDERS: Emergency Medicine Emergency Medical Services; Internal Medicine Nephrology; Physician Assistant; Admitting Provider Family Medicine; Emergency Provider Family Medicine; PCP Student in an Organized Health Care Education/Training Program; Visit Provider Physician Assistant
DX: A41.9 Sepsis, unspecified organism (principal); L03.116 Cellulitis of left lower limb; N17.9 Acute kidney failure, unspecified; Z68.42 Body mass index [BMI] 45.0-49.9, adult; N18.4 Chronic kidney disease, stage 4 (severe); E11.42 Type 2 diabetes mellitus with diabetic polyneuropathy; E11.319 Type 2 diabetes mellitus with unspecified diabetic retinopathy without macular edema; E66.01 Morbid (severe) obesity due to excess calories; E78.5 Hyperlipidemia, unspecified; I12.9 Hypertensive chronic kidney disease with stage 1 through stage 4 chronic kidney disease, or unspecified chronic kidney disease; E11.22 Type 2 diabetes mellitus with diabetic chronic kidney disease; E86.0 Dehydration; D64.9 Anemia, unspecified; N31.9 Neuromuscular dysfunction of bladder, unspecified; E83.42 Hypomagnesemia; Z79.4 Long term (current) use of insulin
CPT/HCPCS: 36415; 36430; 36556; 36600; 71046; 73630; 76775; 80048; 80053; 80069; 81001; 82010; 82375; 82550; 82570; 82728; 82805; 82948; 83036; 83050; 83540; 83550; 83605; 83690; 83735; 84100; 84156; 84300; 84443; 84550; 85014; 85018; 85025; 85027; 85610; 85730; 85999; 86140; 86850; 86860; 86870; 86880; 86900; 86901; 86902; 86922; 86971; 87040; 87077; 87086; 87088; 87186; 93971; 96365; 96367; 96368; 96375; 97110; 97116; 97161; 97165; 97530; 97535; 99285; A9270; C1751; C9113; J0131; J0696; J0743; J1644; J1815; J2020; J2405; J3475; J7030; J7050; J7060; J7120; P9016; Q5106

== ENCOUNTER 2020-12-28 17:07 | Outpatient (NON) | payer OTHER, MEDICAID, SELFPAY | END 2020-12-28 17:08 | disposition home or self-care (01) | LOC: ANHLAB 17:12 | PROVIDERS: PCP Student in an Organized Health Care Education/Training Program; Visit Provider Student in an Organized Health Care Education/Training Program | DX: L03.116 Cellulitis of left lower limb (principal); E11.621 Type 2 diabetes mellitus with foot ulcer; L97.529 Non-pressure chronic ulcer of other part of left foot with unspecified severity; D50.9 Iron deficiency anemia, unspecified; N39.0 Urinary tract infection, site not specified | CPT/HCPCS: 87077; 87086; 87088; 87186 ==

== ENCOUNTER 2021-01-08 08:16 | Outpatient (CLI) | payer OTHER, MEDICAID, SELFPAY ==
[2021-01-08 09:22] LABS: Anion Gap 8 mmol/L (8-16); Blood Urea Nitrogen 38 mg/dL (7-17); Calcium 9.5 mg/dL (8.4-10.2); Carbon Dioxide 26 mmol/L (22-30); Chloride 106 mmol/L (98-107); Estimated Glomerular Filt Rate 19; Glucose 136 mg/dL (65-105); Potassium 4.8 mmol/L (3.4-5.0); Sodium 140 mmol/L (137-145)
== END 2021-01-08 08:17 | disposition home or self-care (01) ==
PROVIDERS: PCP Student in an Organized Health Care Education/Training Program
DX: I51.89 Other ill-defined heart diseases (principal)
CPT/HCPCS: 36415; 80048

== ENCOUNTER 2021-01-16 12:47 | Observation (INO) | payer OTHER, MEDICAID, SELFPAY ==
[2021-01-16] VITALS (37 sets, daily range): BP systolic 121–182; BP diastolic 7–80; PULSE 81–93; RESP 14–30; TEMP 36.8–37.4; O2SAT 92–99; BMI 43.7
--- NOTE | ~2021-01-16 | CT_ITS ---
EXAMINATION: CT abdomen pelvis wo con DATE: 01/16/2021 17:23 INDICATION: Abdominal pain, weakness. No appetite. TECHNIQUE: Computed tomography (CT) of the abdomen and pelvis was performed without intravenous contr ast. Automated exposure control and iterative reconstruction technique were employed. Exam dose: 158 8.70 mGy-cm total exam DLP. COMPARISON: 03/09/2020 CT abdomen pelvis FINDINGS: There are bilateral patchy groundglass infiltrates scattered in the lower lung zones. Normal heart size. No pericardial or pleural effusion. Normal heart size, coronary artery calcification. Cholelithiasis. No gallbladder wall thickening or pericholecystic fluid or fat stranding. No bile lu t or pancreatic duct dilatation. No hepatic, splenic, pancreatic, and adrenal or renal space-occupying mass lesion. No urinary tract c alculus or hydroureteronephrosis is evident. There is a small amount of air in the urinary bladder. No intraluminal mass lesion or thickening of t he wall of the urinary bladder is evident. The uterus and adnexal areas are unremarkable. Normal caliber of the abdominal aorta. There is prominent calcification of the celiac artery and hanna ac branches. Prominent calcification of the distal portion of the superior mesenteric artery and the branches of the superior mesenteric artery. Prominent calcification of the inferior mesenteric artery . Surprisingly, there is minimal calcification of the abdominal aorta and no abdominal aortic aneurys m. Prominent iliac and femoral artery calcifications are noted. No intraperitoneal or retroperitoneal or pelvic mass lesion or adenopathy or ascites is detected. No bowel obstruction, bowel wall thickening, pneumatosis or intraperitoneal free air is evident. Norm al appendix. Diffuse osteopenia. Diffuse idiopathic skeletal hyperostosis of the lower thoracic spine. Prominent hemangioma of L1 vertebral body and smaller hemangioma at L4 vertebral body. IMPRESSION: Bilateral patchy groundglass infiltrates scattered in the lower lung zones Cholelithiasis Prominent calcifications of the celiac artery and branches and the superior to inferior mesenteric ar teries Mild amount of air in the urinary bladder and mild bladder wall thickening; recommend evaluation for possible cystitis Reviewed, dictated and finalized at [facility]. Reviewed, dictated and finalized at location [facility]. IMPRESSION: Bilateral patchy groundglass infiltrates scattered in the lower nay ng zones Cholelithiasis Prominent calcifications of the celiac artery and branches and the superior to inferior mesenteric arteries Mild amount of air in the urinary bladder and mild bladder wall thickening; rec ommend evaluation for possible cystitis
--- NOTE | ~2021-01-16 | US_ITS ---
EXAMINATION: US venous doppler [facility] DATE: 01/16/2021 14:33 INDICATION: Left lower limb edema. TECHNIQUE: Grayscale ultrasound images without and with compression and Doppler ultrasound images of the left lower extremity veins were obtained. COMPARISON: Ultrasound 12/03/2020 FINDINGS: The visualized portions of left common femoral vein, profunda (deep) femoral vein, femoral vein, popl iteal vein, peroneal veins, posterior tibial veins, and greater saphenous vein outflow are patent. IMPRESSION: 1. No deep venous thrombosis. Sensitivity is decreased by obesity. Reviewed, dictated and finalized at location A.
--- NOTE | ~2021-01-16 | XR_ITS ---
EXAMINATION: XR chest 1V portable DATE: 01/16/2021 13:56 INDICATION: Cough and weakness. TECHNIQUE: A single frontal view of the chest was obtained. COMPARISON: Chest 2 views 12/06/2020, CT abdomen and pelvis 03/09/2020 FINDINGS: There are mild patchy airspace opacities in the mid and lower lung zones. No pleural effusi on or pneumothorax. The heart size is normal. IMPRESSION: 1. Mild patchy airspace opacities in the mid and lower lung zones, consistent with pneumonia versus m ild pulmonary edema. Reviewed, dictated and finalized at location A. IMPRESSION: 1. Mild patchy airspace opacities in the mid and lower lung zones, consistent w ith pneumonia versus mild pulmonary edema.
--- NOTE | 2021-01-16 12:52 | ED.WEAKNESS ---
HPI - Weakness General Chief complaint: Weakness Stated complaint: weakness Time Seen by Provider: 01/16/21 12:51 Source: patient and family Mode of arrival: wheelchair Limitations: no limitations History of Present Illness HPI Narrative: Patient is a 60 yo female with a history of insulin-dependent diabetes with peripheral neuropathy, neurogenic bladder, hypertension, hyperlipidemia, chronic kidney disease, left leg cellulitis with admission in early November 2020, who presents for evaluation of weakness. Patient reports diffuse weakness over the past several days. Patient denies overt pain, states she has no energy and has been able to get up out of bed. She denies any numbness. She denies chest pain. She reports some shortness of breath with exertion. She denies fever, but reports chills. She reports decreased appetite and decreased oral intake. She denies dysuria or hematuria. She reports mild abdominal soreness and fullness without nausea or vomiting. She reports rhinorrhea. She states that she was vaccinated for Covid, but has no history of Covid infection. Related Data Home Medications Medication Instructions Recorded Confirmed cholecalciferol (vitamin D3) 125 5,000 unit PO DAILY 08/11/19 12/04/20 mcg (5,000 unit) capsule cyanocobalamin (vitamin B-12) 1,000 mcg PO DAILY 01/17/20 12/04/20 1,000 mcg tablet Lantus U-100 Insulin 40 unit SUBCUT HS 08/09/20 12/04/20 clotrimazole 1 applic TOPICAL BID 08/09/20 12/04/20 ferrous sulfate 325 mg PO DAILY 08/09/20 12/04/20 polyethylene glycol 3350 [Miralax] 17 g PO DAILY PRN 08/09/20 12/04/20 fluconazole 150 mg DAILY 12/03/20 12/04/20 nystatin 1 applic TOPICAL DAILY 12/03/20 12/04/20 ondansetron HCl [Zofran] 4 mg PO Q8H PRN 12/03/20 12/04/20 potassium chloride 10 meq PO DAILY 12/03/20 12/04/20 amlodipine 2.5 mg tablet 2.5 mg PO DAILY 01/01/21 furosemide 20 mg tablet 20 mg PO DAILY 01/01/21 hydrochlorothiazide 12.5 mg capsule 25 mg PO DAILY cap 01/01/21 Allergies Allergy/AdvReac Type Severity Reaction Status Date / Time vancomycin Allergy Unknown Rash,Unknow Verified 12/03/20 11:14 n piperacillin [From Zosyn] Allergy Rash Verified 12/03/20 11:14 tazobactam [From Zosyn] Allergy Rash Verified 12/03/20 11:14 daptomycin AdvReac Weakness Verified 12/03/20 11:14 Review of Systems Review of Systems: Narrative: CONSTITUTIONAL: Denies fever, chills, or sweats. EYES: Denies visual changes, redness, or discharge. ENT: Reports rhinorrhea and congestion, denies sore throat CARDIOVASCULAR: Denies chest pain, palpitations, or edema. RESPIRATORY: Denies cough, reports dyspnea with exertion GASTROINTESTINAL: Reports abdominal pain, denies nausea, vomiting, or diarrhea. GENITOURINARY: Denies dysuria or hematuria. SKIN: Denies rash or itching. MUSCULOSKELETAL: Denies back pain, joint pain, or myalgia. NEUROLOGIC: Denies headache, numbness, reports feeling diffusely weak PMFSH Past Medical History Medical History Arthritis of left knee Chronic anemia Chronic indwelling Salgado catheter Secondary to neurogenic bladder. Chronic kidney disease, stage 4 (severe) Followed by Dr. Benson. Baseline creatinine ranges between 2 and 3.0. Colon polyps (~05/2016) Depression Diabetic peripheral neuropathy Diabetic retinopathy L eye requiring injections. Diabetic ulcer of left foot Essential hypertension Gout due to renal impairment, left knee Hyperlipidemia Insulin dependent type 2 diabetes mellitus Hemoglobin A1c was 5.9 % on 12/01/2020. Mixed stress and urge urinary incontinence Morbid obesity Neurogenic bladder Surgical History Surgical History History of Achilles tendon repair History of amputation of toe Left 4th toe and 2 other toes on the right foot have been amputated. History of fusion of cervical spine (~10/2001) History of local excision of skin lesion Exo
--- NOTE | 2021-01-16 13:00 | ECG_ITS ---
Measurements Intervals [place] Rate: 90 P: 59 NM: 155 QRS: -19 QRSD: 105 T: 44 QT: 366 QTc: 450 Interpretive Statements SINUS RHYTHM LOW QRS VOLTAGE IN PRECORDIAL LEADS BORDERLINE ECG Electronically Signed On 01-16-2021 14:09:58 CDT by Emmanuel Logan D.O.
[2021-01-16 13:15] LABS: Basophils Percent Auto 0.4 % (0.2-1.2); Eosinophils Percent Auto 0.2 % (0-4.4); Hematocrit 29.4 % (37.0-47.0); Hemoglobin 9.4 g/dL (12.0-15.0); Immature Granulocyte Absolute 0.05 K/mm3 (0.00-0.031); Immature Granulocyte Percent A 0.9 % (0-0.5); Lymphocytes Absolute Auto 1.43 K/mm3 (0.9-3.2); Lymphocytes Percent Auto 25.6 % (18.3-44.2); Mean Corpuscular Hemoglobin 29.6 pg (26-34); Mean Corpuscular Volume 92.5 fl (80-100); Mean Platelet Volume 10.1 fl (7.4-10.4); Monocytes Absolute Auto 0.3 K/mm3 (0.1-0.6); Monocytes Percent Auto 5.4 % (2.6-8.5); Neutrophils Absolute Auto 3.8 K/mm3 (1.3-6.7); Neutrophils Percent Auto 67.5 % (45.5-73.1); Platelet Count Result 158 k/mm3 (150-375); Red Blood Count 3.18 M/mm3 (4.2-5.4); Red Cell Distribution Width 15.2 % (11.5-14.5); White Blood Count 5.6 K/mm3 (4.5-10.0)
[2021-01-16 13:34] LABS: Albumin Level 3.5 g/dL (3.5-5.1); Alkaline Phosphatase 86 U/L (38-126); Anion Gap 14 mmol/L (8-16); Aspartate Amino Transferase 49 U/L (14-36); Bilirubin,Total 0.7 mg/dL (0.2-1.3); Blood Urea Nitrogen 64 mg/dL (7-17); Calcium 8.5 mg/dL (8.4-10.2); Carbon Dioxide 17 mmol/L (22-30); Chloride 101 mmol/L (98-107); Estimated CRCL calculation 23 ml/min; Estimated Glomerular Filt Rate 14; Glucose 292 mg/dL (65-105); Potassium 4.7 mmol/L (3.4-5.0); Sodium 132 mmol/L (137-145)
[2021-01-16 13:44] LABS: Alanine Aminotransferase 26 U/L (4-35)
[2021-01-16 15:21] LABS: Add Urine Microscopic? YES; Appearance Urine Cloudy (Clear); Bilirubin Urine Negative (Negative); Blood Urine 1+ (Negative); Color Urine Amber (Yellow); Glucose Urine UA Negative (Negative); Ketones Urine Negative (Negative); Leukocyte Esterase Ur 3+ LEU/UL (Negative); Nitrate Urine Negative (Negative); Protein Urine 3+ mg/dL (Negative); RBC Urine 0-2 /hpf (0-2); Specific Grav Ur 1.012 (1.001-1.035); Urobilinogen Urine Negative mg/dL (<2.0); WBC Urine 0-3 /hpf
[2021-01-16 15:52] LABS: INR 1.1; Partial Thromboplastin Time 31.8 SECONDS (22.3-36.8); Prothrombin Time 14.8 Seconds (11.1-14.7)
[2021-01-16 16:02] LABS: NT Pro B Type Natriuretic Pept 483 pg/mL (5-100); Troponin I 0.021 ng/mL (0.000-0.034)
[2021-01-16 17:54] LABS: Lactic Acid Reflex 1.2 mmol/L (0.7-2.1)
--- NOTE | 2021-01-16 19:11 | PC.NURSE ---
Assumed care at this time. Report from Delfina IVY.
[2021-01-16] MEDS: SODIUM CHLORIDE 0.9% IV 500 ML 999 ML IV CONT (19:42)
[2021-01-16 21:23] LABS: Creatine Kinase 200 U/L (30-135)
--- NOTE | 2021-01-16 21:25 | PM.IMHP ---
H&P: HPI History of Present Illness Date/Time: 01/16/21 21:25 Chief Complaint: weakness Narrative: Patient is a 60 yo female with a history of insulin-dependent diabetes with peripheral neuropathy, neurogenic bladder, hypertension, hyperlipidemia, chronic kidney disease, left leg cellulitis with admission in early November 2020, who presents for evaluation of weakness. Patient reports diffuse weakness over the past several days. Patient denies overt pain, states she has no energy and has been able to get up out of bed. She denies any numbness. She denies chest pain. She reports some shortness of breath with exertion. She denies fever, but reports chills. She reports decreased appetite and decreased oral intake and has not been eatig sice past . She denies dysuria or hematuria. She reports mild abdominal soreness and fullness without nausea or vomiting. She states that she was vaccinated for Covid, but has no history of COVID infection. she was recetly had temporary bladder pacemaker put in at [facility] and her woods has bee removed. she has been able to pee since then. she is supposed to get her permanent bladder pacemaker put in tomorrow. Review of Systems Review of Systems: Narrative: - CONSTITUTIONAL: Denies weight loss, fever and reports chills. - HEENT: Denies changes in vision and hearing - RESPIRATORY: repots some SOB and cough. - CV: Denies palpitations and CP. - GI: reprots intermittent chronic abdominal pain, nausea,no vomiting and she did have some loose stools yesterday and some this am. - : Denies dysuria and urinary frequency. - MSK: Denies myalgia and joint pain. - SKIN: Denies rash and pruritus. - NEUROLOGICAL: Denies headache and syncope. - PSYCHIATRIC: Denies recent changes in mood. Denies anxiety and depression. All systems reviewed & are unremarkable except as noted in HPI and below Constitutional: Constitutional: Reports fatigue and Reports weakness Neurologic: Reports weakness Endocrine: Endocrine: Reports fatigue PMFSH Past Medical History Medical History Arthritis of left knee Chronic anemia Chronic indwelling [place] catheter Secondary to neurogenic bladder. Chronic kidney disease, stage 4 (severe) Followed by Dr. Benson. Baseline creatinine ranges between 2 and 3.0. Colon polyps (~05/2016) Depression Diabetic peripheral neuropathy Diabetic retinopathy L eye requiring injections. Diabetic ulcer of left foot Essential hypertension Gout due to renal impairment, left knee Hyperlipidemia Insulin dependent type 2 diabetes mellitus Hemoglobin A1c was 5.9 % on 12/01/2020. Mixed stress and urge urinary incontinence Morbid obesity Neurogenic bladder Surgical History Surgical History History of Achilles tendon repair History of amputation of toe Left 4th toe and 2 other toes on the right foot have been amputated. History of fusion of cervical spine (~10/2001) History of local excision of skin lesion Exophytic lesion removed from the right eyelid, benign. Status post debridement (~2019) Left diabetic heel wound. Family History Family History Mother Cerebrovascular accident Family history of diabetes mellitus in first degree relative Father Family history of diabetes mellitus in first degree relative Grandparent Diabetes mellitus Other Family history of anemia Family history of obesity Social History Social History Social History: The patient lives in [place] with her uncle. She never and has no children. She has been on disability for several years and ambulates with a walker though only able to go a few feet at a time. She is lifelong nonsmoker . No alcohol or illicit substance use. Her brother Khris is her health
[2021-01-17] VITALS (7 sets, daily range): BP systolic 108–134; BP diastolic 48–66; PULSE 72–85; RESP 16–20; TEMP 36.1–37.6; O2SAT 92–98
[2021-01-17] MEDS: INSULIN GLARGINE (*BKC) 100 UNITS/ML 30 UNITS SUB-Q
[2021-01-17 00:58] LABS: Glucose Point of Care 245 mg/dl (65-105)
[2021-01-17 06:13] LABS: Basophils Percent Auto 0.3 % (0.2-1.2); Eosinophils Absolute Auto 0.1 K/mm3 (0-0.3); Eosinophils Percent Auto 1.3 % (0-4.4); Hemoglobin 8.5 g/dL (12.0-15.0); Immature Granulocyte Absolute 0.02 K/mm3 (0.00-0.031); Immature Granulocyte Percent A 0.5 % (0-0.5); Lymphocytes Absolute Auto 0.92 K/mm3 (0.9-3.2); Lymphocytes Percent Auto 23.5 % (18.3-44.2); Mean Corpuscular HGB Conc 32.7 g/dl (32-36); Mean Corpuscular Volume 88.7 fl (80-100); Mean Platelet Volume 10.3 fl (7.4-10.4); Monocytes Absolute Auto 0.3 K/mm3 (0.1-0.6); Monocytes Percent Auto 7.2 % (2.6-8.5); Neutrophils Absolute Auto 2.6 K/mm3 (1.3-6.7); Neutrophils Percent Auto 67.2 % (45.5-73.1); Platelet Count Result 154 k/mm3 (150-375); Red Blood Count 2.93 M/mm3 (4.2-5.4); Red Cell Distribution Width 14.6 % (11.5-14.5); White Blood Count 3.9 K/mm3 (4.5-10.0)
[2021-01-17 06:24] LABS: Anion Gap 6 mmol/L (8-16); Blood Urea Nitrogen 65 mg/dL (7-17); Calcium 8.5 mg/dL (8.4-10.2); Carbon Dioxide 23 mmol/L (22-30); Chloride 104 mmol/L (98-107); Estimated CRCL calculation 26 ml/min; Estimated Glomerular Filt Rate 17; Glucose 173 mg/dL (65-105); Potassium 4.3 mmol/L (3.4-5.0); Sodium 133 mmol/L (137-145)
--- NOTE | 2021-01-17 07:38 | ADMGEN ---
This patient, Theodora Kelly, was admitted to [facility] Surg Room 314-01. Patient/family oriented to hospital policies and general routines including ID bracelet, bed and alarms, visiting hours, pain management, procedures, bathroom and other care routines, personal items, smoking policy, room service/diet, and visiting hours. Information on how to activate the Rapid Response Team has been discussed. Patient/Family are encouraged to report perceived risks to care and to ask questions if they do not understand what they are told or what they should do. Discussed hospital policies, call light use, medications, and self monitoring. Wounds and self care ability were assessed.
[2021-01-17 08:11] LABS: Glucose Point of Care 163 mg/dl (65-105)
[2021-01-17] MEDS: amLODIPine BESYLATE 2.5 MG TABLET PO (08:16)
[2021-01-17] MEDS: GABAPENTIN 300 MG CAPSULE PO ×3 (08:16→17:40)
[2021-01-17] MEDS: CHOLECALCIFEROL 1,000 UNITS TABLET 5000 UNITS PO (08:16)
[2021-01-17] MEDS: PANTOPRAZOLE 40 MG TABLET PO (08:17)
[2021-01-17] MEDS: FERROUS SULFATE 324 MG TABLET PO ×2 (08:17→17:40)
[2021-01-17] MEDS: POTASSIUM CHLORIDE 10 MEQ TABLET.ER PO (08:17)
[2021-01-17] MEDS: HYDROcodone/acetaminophen (*CRX) 5-325 MG TABLET 1 TAB PO (08:18)
[2021-01-17] MEDS: HEPARIN SODIUM 5,000 UNITS/ML VIAL 5000 UNITS SUB-Q ×2 (08:18→20:24)
[2021-01-17] MEDS: GLIMEPIRIDE 2 MG TABLET 4 MG PO (08:18)
[2021-01-17] MEDS: CYANOCOBALAMIN 1,000 MCG TABLET 1000 MCG PO (08:19)
[2021-01-17] MEDS: ACIDOPHILUS/BULGARICUS CHEWABLE TABLET 1 TABLET PO ×3 (12:39→21:15)
--- NOTE | 2021-01-17 15:01 | PM.IMPN ---
Progress Note: A&P Assessment and Plan (1) Generalized weakness: Code(s): R53.1 - Weakness Status: Acute Assessment and Plan: Patient presents from home for evaluation of generalized weakness. She reports she was having trouble walking from one room to another in her home and described exertional dyspnea. She notes this sometimes happens to her on and off where she does not feel like getting out of bed and her chemist intern encourages her to get up. She tells me she is mostly in hospital bed at home throughout the day and gets up to walk minimally, has been ongoing for months. She describes last 1 week she has felt weaker. Continue PT/OT. May benefit from home health therapy. (2) Ground glass opacity present on imaging of lung: Code(s): R91.8 - Other nonspecific abnormal finding of lung field Status: Acute Assessment and Plan: Noted on imaging. She describes exertional dyspnea and nonproductive cough. COVID PCR is pending. She notes she was fully vaccinated with Pfizer vaccine last dose 10/04/20. Will continue to treat as community acquired pneumonia given her symptoms until COVID results are available. Continue isolation. Continue IV Levaquin. Add albuterol inhaler PRN. (3) Acute on chronic renal failure: Qualifiers: Chronic kidney disease stage: stage 4 (severe) Acute renal failure type: unspecified Qualified Code(s): N17.9 - Acute kidney failure, unspecified; N18.4 - Chronic kidney disease, stage 4 (severe) Code(s): N17.9 - Acute kidney failure, unspecified; N18.9 - Chronic kidney disease, unspecified Status: Acute Assessment and Plan: Baseline Cr appears around 2-3 but has been even higher than that in the past. Cr 3.3 on arrival, improved to 0.9 today with gentle IV hydration. Stop IV fluids and monitor renal function, urine output. She follows with nephrology outpatient. (4) Anemia: Qualifiers: Anemia type: iron deficiency Iron deficiency anemia type: unspecified iron deficiency Qualified Code(s): D50.9 - Iron deficiency anemia, unspecified Code(s): D64.9 - Anemia, unspecified Status: Chronic Assessment and Plan: This is chronic based on review of previous labs. Hgb low but stable, no evidence of acute bleeding. Suspect anemia of chronic kidney disease contributing. Continue her home iron supplementation. Monitor H&H. (5) Insulin dependent type 2 diabetes mellitus: Code(s): E11.9 - Type 2 diabetes mellitus without complications; Z79.4 - [employer] (current) use of insulin Status: Chronic Assessment and Plan: Hgb A1c 5.9% past month. Continue her home Lantus. Blood sugars are appropriate today. Continue to monitor with accu-cheks and adjust treatment as needed, cover with SSI. (6) Neurogenic bladder: Code(s): N31.9 - Neuromuscular dysfunction of bladder, unspecified Status: Chronic Assessment and Plan: She follows with a urologist at [facility] and was scheduled to have a permanent bladder pacemaker placed today. This procedure of course will have to be rescheduled. She is urinating without difficulty today. (7) Essential hypertension: Code(s): I10 - Essential (primary) hypertension Status: Chronic Assessment and Plan: Blood pressure stable. Maintained on home Norvasc. Monitor BP and adjust treatment as needed. (8) Diabetic peripheral neuropathy associated with type 2 diabetes mellitus: Code(s): E11.42 - Type 2 diabetes mellitus with diabetic polyneuropathy Status: Chronic Assessment and Plan: Chronic. Continue gabapentin.
[2021-01-17 16:16] LABS: SARS-CoV-2 RNA PCR Positive
[2021-01-17 18:40] LABS: Glucose Point of Care 190 mg/dl (65-105)
[2021-01-17 18:40] LABS: Glucose Point of Care 149 mg/dl (65-105)
[2021-01-18] VITALS: BP 106/44; PULSE 69; RESP 20; TEMP 36.6; O2SAT 94
[2021-01-18] LABS: Glucose Point of Care 109 mg/dl (65-105)
[2021-01-18 06:00] VITALS: BP 102/50; PULSE 69; RESP 20; TEMP 36.1; O2SAT 95
[2021-01-18 06:27] LABS: Basophils Percent Auto 0.2 % (0.2-1.2); Eosinophils Absolute Auto 0.1 K/mm3 (0-0.3); Eosinophils Percent Auto 2.3 % (0-4.4); Hematocrit 26.4 % (37.0-47.0); Hemoglobin 8.4 g/dL (12.0-15.0); Immature Granulocyte Absolute 0.04 K/mm3 (0.00-0.031); Immature Granulocyte Percent A 0.9 % (0-0.5); Lymphocytes Absolute Auto 1.77 K/mm3 (0.9-3.2); Mean Corpuscular HGB Conc 31.8 g/dl (32-36); Mean Corpuscular Hemoglobin 29.2 pg (26-34); Mean Corpuscular Volume 91.7 fl (80-100); Mean Platelet Volume 10.1 fl (7.4-10.4); Monocytes Absolute Auto 0.4 K/mm3 (0.1-0.6); Monocytes Percent Auto 8.6 % (2.6-8.5); Neutrophils Absolute Auto 2.1 K/mm3 (1.3-6.7); Platelet Count Result 193 k/mm3 (150-375); Red Blood Count 2.88 M/mm3 (4.2-5.4); Red Cell Distribution Width 14.6 % (11.5-14.5); White Blood Count 4.4 K/mm3 (4.5-10.0)
[2021-01-18 06:36] LABS: Anion Gap 7 mmol/L (8-16); Blood Urea Nitrogen 62 mg/dL (7-17); Calcium 8.7 mg/dL (8.4-10.2); Carbon Dioxide 24 mmol/L (22-30); Chloride 106 mmol/L (98-107); Estimated CRCL calculation 25 ml/min; Estimated Glomerular Filt Rate 15; Glucose 63 mg/dL (65-105); Magnesium 1.9 mg/dL (1.6-2.3); Potassium 4.2 mmol/L (3.4-5.0); Sodium 137 mmol/L (137-145)
[2021-01-18 07:50] LABS: Glucose Point of Care 39 mg/dl (65-105)
[2021-01-18 08:15] LABS: Glucose Point of Care 42 mg/dl (65-105)
[2021-01-18 08:15] LABS: Glucose Point of Care 55 mg/dl (65-105)
[2021-01-18 09:23] LABS: Glucose Point of Care 73 mg/dl (65-105)
[2021-01-18] MEDS: amLODIPine BESYLATE 2.5 MG TABLET PO (09:24)
[2021-01-18] MEDS: CHOLECALCIFEROL 1,000 UNITS TABLET 5000 UNITS PO (09:25)
[2021-01-18] MEDS: CYANOCOBALAMIN 1,000 MCG TABLET 1000 MCG PO (09:25)
[2021-01-18] MEDS: GABAPENTIN 300 MG CAPSULE PO ×3 (09:25→17:31)
[2021-01-18] MEDS: FERROUS SULFATE 324 MG TABLET PO ×2 (09:26→17:32)
[2021-01-18] MEDS: GLIMEPIRIDE 2 MG TABLET 4 MG PO (09:26)
[2021-01-18] MEDS: POTASSIUM CHLORIDE 10 MEQ TABLET.ER PO (09:26)
[2021-01-18] MEDS: ACIDOPHILUS/BULGARICUS CHEWABLE TABLET 1 TABLET PO ×4 (09:27→21:52)
[2021-01-18] MEDS: PANTOPRAZOLE 40 MG TABLET PO (09:27)
[2021-01-18] MEDS: HEPARIN SODIUM 5,000 UNITS/ML VIAL 5000 UNITS SUB-Q ×2 (09:27→21:52)
[2021-01-18 11:44] LABS: Glucose Point of Care 87 mg/dl (65-105)
[2021-01-18] MEDS: EUCERIN CREAM 120 GM JAR 1 APPLIC TOPICAL ×2 (12:08→12:10)
[2021-01-18 13:45] VITALS: BP 120/55; PULSE 70; RESP 18; TEMP 36; O2SAT 97
--- NOTE | 2021-01-18 15:27 | PM.IMPN ---
Progress Note: A&P Assessment and Plan (1) Pneumonia due to COVID-19 virus: Code(s): U07.1 - COVID-19; J12.82 - Pneumonia due to coronavirus disease 2019 Status: Acute Assessment and Plan: Noted on imaging. She describes exertional dyspnea and nonproductive cough. COVID PCR is positive. She notes she was fully vaccinated with Pfizer vaccine last dose 10/04/20. I have notified the infection control nurse. She received 2 doses of IV Levaquin which has been discontinued since her COVID PCR is positive. Continue with supportive care with Tylenol for fevers and albuterol PRN. She is not hypoxic and has adequate O2 saturations on room air today, thus she does not meet criteria to receive steroid or antiviral therapy for COVID treatment. Continue to monitor oxygen saturations overnight, anticipate possible discharge tomorrow. (2) Generalized weakness: Code(s): R53.1 - Weakness Status: Acute Assessment and Plan: Patient presents from home for evaluation of generalized weakness. She reports she was having trouble walking from one room to another in her home and described exertional dyspnea. She notes this sometimes happens to her on and off where she does not feel like getting out of bed and her window shade ring sewer tries to encourage her to get up more. She tells me she is mostly in hospital bed at home throughout the day and gets up to walk minimally, has been ongoing for months. Unfortunately she seems poorly motivated. She describes last 1 week she has felt weaker, likely secondary to COVID infection. Continue PT/OT. May benefit from home health therapy. (3) Acute on chronic renal failure: Qualifiers: Acute renal failure type: unspecified Chronic kidney disease stage: stage 4 (severe) Qualified Code(s): N17.9 - Acute kidney failure, unspecified; N18.4 - Chronic kidney disease, stage 4 (severe) Code(s): N17.9 - Acute kidney failure, unspecified; N18.9 - Chronic kidney disease, unspecified Status: Acute Assessment and Plan: Baseline Cr appears around 2-3 but has been even higher than that in the past. Stop IV fluids and monitor renal function, urine output. She follows with nephrology outpatient. (4) Anemia: Qualifiers: Anemia type: iron deficiency Iron deficiency anemia type: unspecified iron deficiency Qualified Code(s): D50.9 - Iron deficiency anemia, unspecified Code(s): D64.9 - Anemia, unspecified Status: Chronic Assessment and Plan: This is chronic based on review of previous labs. Hgb low but stable, no evidence of acute bleeding. Suspect anemia of chronic kidney disease contributing. Continue her home iron supplementation. Monitor H&H. (5) Insulin dependent type 2 diabetes mellitus: Code(s): E11.9 - Type 2 diabetes mellitus without complications; Z79.4 - care home (current) use of insulin Status: Chronic Assessment and Plan: Hgb A1c 5.9% past month. Continue her home Lantus. Blood sugars are appropriate today. Continue to monitor with accu-cheks and adjust treatment as needed, cover with SSI. (6) Neurogenic bladder: Code(s): N31.9 - Neuromuscular dysfunction of bladder, unspecified Status: Chronic Assessment and Plan: She follows with a urologist at [facility] and was scheduled to have a permanent bladder pacemaker placed 01/17. This procedure of course will have to be rescheduled. She is urinating without difficulty today. (7) Essential hypertension: Code(s): I10 - Essential (primary) hypertension Status: Chronic Assessment and Plan: Blood pressure stable, on lower end last 120/55. Maintained on home Norvasc.
--- NOTE | 2021-01-18 15:29 | PCPTNOTE ---
The patient treatment was not able to be completed today. Will plan to continue treatment per plan of care.
[2021-01-18 17:19] LABS: Glucose Point of Care 74 mg/dl (65-105)
[2021-01-18] MEDS: DEXTROSE 50% 25 GM/50 ML SYRINGE IV PUSH (17:32)
[2021-01-18 22:00] VITALS: BP 100/53; PULSE 76; RESP 20; TEMP 37.2; O2SAT 97
[2021-01-18 22:03] LABS: Glucose Point of Care 113 mg/dl (65-105)
[2021-01-18 22:20] VITALS: O2SAT 97
[2021-01-19 06:00] VITALS: BP 112/52; PULSE 77; RESP 18; TEMP 36.5; O2SAT 97
[2021-01-19 06:30] LABS: Basophils Percent Auto 0.2 % (0.2-1.2); Eosinophils Absolute Auto 0.1 K/mm3 (0-0.3); Eosinophils Percent Auto 2.7 % (0-4.4); Hematocrit 28.6 % (37.0-47.0); Immature Granulocyte Absolute 0.05 K/mm3 (0.00-0.031); Immature Granulocyte Percent A 1.1 % (0-0.5); Lymphocytes Percent Auto 25.1 % (18.3-44.2); Mean Corpuscular HGB Conc 31.5 g/dl (32-36); Mean Corpuscular Hemoglobin 29.2 pg (26-34); Mean Corpuscular Volume 92.9 fl (80-100); Mean Platelet Volume 9.8 fl (7.4-10.4); Monocytes Absolute Auto 0.4 K/mm3 (0.1-0.6); Monocytes Percent Auto 9.8 % (2.6-8.5); Neutrophils Absolute Auto 2.7 K/mm3 (1.3-6.7); Neutrophils Percent Auto 61.1 % (45.5-73.1); Platelet Count Result 224 k/mm3 (150-375); Red Blood Count 3.08 M/mm3 (4.2-5.4); Red Cell Distribution Width 14.4 % (11.5-14.5); White Blood Count 4.4 K/mm3 (4.5-10.0)
[2021-01-19 06:51] LABS: Anion Gap 5 mmol/L (8-16); Blood Urea Nitrogen 60 mg/dL (7-17); Calcium 8.6 mg/dL (8.4-10.2); Carbon Dioxide 26 mmol/L (22-30); Chloride 107 mmol/L (98-107); Estimated CRCL calculation 27 ml/min; Estimated Glomerular Filt Rate 17; Glucose 63 mg/dL (65-105); Magnesium 1.9 mg/dL (1.6-2.3); Potassium 4.3 mmol/L (3.4-5.0); Sodium 138 mmol/L (137-145)
[2021-01-19 08:00] VITALS: BP 142/66; PULSE 80; RESP 20; TEMP 37; O2SAT 98
[2021-01-19 08:30] LABS: Glucose Point of Care 68 mg/dl (65-105)
[2021-01-19 09:41] LABS: Glucose Point of Care 92 mg/dl (65-105)
[2021-01-19 09:41] LABS: Glucose Point of Care 65 mg/dl (65-105)
[2021-01-19] MEDS: MICONAZOLE NITRATE 2% CREAM 30 GM TUBE 1 APPLIC TOPICAL (09:44)
[2021-01-19] MEDS: amLODIPine BESYLATE 2.5 MG TABLET PO (09:44)
[2021-01-19] MEDS: EUCERIN CREAM 120 GM JAR 1 APPLIC TOPICAL (09:44)
[2021-01-19] MEDS: HEPARIN SODIUM 5,000 UNITS/ML VIAL 5000 UNITS SUB-Q ×2 (09:44→23:09)
[2021-01-19] MEDS: CHOLECALCIFEROL 1,000 UNITS TABLET 5000 UNITS PO (09:45)
[2021-01-19] MEDS: GLIMEPIRIDE 2 MG TABLET 4 MG PO (09:45)
[2021-01-19] MEDS: ACIDOPHILUS/BULGARICUS CHEWABLE TABLET 1 TABLET PO ×4 (09:46→23:10)
[2021-01-19] MEDS: POTASSIUM CHLORIDE 10 MEQ TABLET.ER PO (09:46)
[2021-01-19] MEDS: GABAPENTIN 300 MG CAPSULE PO ×3 (09:46→17:12)
[2021-01-19] MEDS: FERROUS SULFATE 324 MG TABLET PO ×2 (09:46→17:12)
[2021-01-19] MEDS: CYANOCOBALAMIN 1,000 MCG TABLET 1000 MCG PO (09:46)
[2021-01-19] MEDS: PANTOPRAZOLE 40 MG TABLET PO (09:47)
[2021-01-19 12:00] VITALS: BP 149/56; PULSE 81; RESP 22; TEMP 36.7; O2SAT 96
[2021-01-19 12:15] LABS: Glucose Point of Care 161 mg/dl (65-105)
[2021-01-19 12:52] LABS: Pneumococcal Antigen Urine Not Detected (Not Detected)
--- NOTE | 2021-01-19 14:12 | PM.IMPN ---
Progress Note: A&P Assessment and Plan (1) Discharge planning issues: Code(s): Z02.9 - Encounter for administrative examinations, unspecified Status: Acute Assessment and Plan: Patient lives at home alone with help from hired caretakers. She has a hospital bed at home and tells me she mostly stays in bed, ambulates minimally. She tells me today that her caregivers will not be able to care for her until 01/29 since they are in quarantine from her being COVID positive. Suspect SNF placement may be difficult given her COVID positive status, case management aware. (2) Pneumonia due to COVID-19 virus: Code(s): U07.1 - COVID-19; J12.82 - Pneumonia due to coronavirus disease 2019 Status: Acute Assessment and Plan: Noted on imaging. She describes exertional dyspnea and nonproductive cough. COVID PCR is positive 01/16. She notes she was fully vaccinated with Pfizer vaccine last dose 10/04/20. I have notified the infection control nurse. She received 2 doses of IV Levaquin which was discussed when her COVID PCR resulted positive. Continue with supportive care with Tylenol for fevers and albuterol PRN. She is not hypoxic and has adequate O2 saturations on room air today, thus she does not meet criteria to receive steroid or antiviral therapy for COVID treatment. Medically she is stable for discharge once discharge planning is arranged, see above. (3) Generalized weakness: Code(s): R53.1 - Weakness Status: Acute Assessment and Plan: Patient presents from home for evaluation of generalized weakness. She reports she was having trouble walking from one room to another in her home and described exertional dyspnea. She notes this sometimes happens to her on and off where she does not feel like getting out of bed and her putty and patch worker tries to encourage her to get up more. She tells me she is mostly in hospital bed at home throughout the day and gets up to walk minimally, has been ongoing for months. Unfortunately she seems poorly motivated. She describes last 1 week she has felt weaker, likely secondary to COVID infection. Continue PT/OT. (4) Acute on chronic renal failure: Qualifiers: Acute renal failure type: unspecified Chronic kidney disease stage: stage 4 (severe) Qualified Code(s): N17.9 - Acute kidney failure, unspecified; N18.4 - Chronic kidney disease, stage 4 (severe) Code(s): N17.9 - Acute kidney failure, unspecified; N18.9 - Chronic kidney disease, unspecified Status: Acute Assessment and Plan: Baseline Cr appears around 2-3 but has been even higher than that in the past. Cr elevated but stable. Monitor renal function, urine output. She follows with nephrology outpatient. (5) Anemia: Qualifiers: Anemia type: iron deficiency Iron deficiency anemia type: unspecified iron deficiency Qualified Code(s): D50.9 - Iron deficiency anemia, unspecified Code(s): D64.9 - Anemia, unspecified Status: Chronic Assessment and Plan: This is chronic based on review of previous labs. Hgb low but stable, no evidence of acute bleeding. Suspect anemia of chronic kidney disease contributing. Continue her home iron supplementation. Monitor H&H. (6) Insulin dependent type 2 diabetes mellitus: Code(s): E11.9 - Type 2 diabetes mellitus without complications; Z79.4 - [facility] (current) use of insulin Status: Chronic Assessment and Plan: Hgb A1c 5.9% 12/01/20. Her home Lantus is held due to hypoglycemia. Blood sugar still on lower end today but better than yesterday, she has a poor appetite. Continue to monitor with accu-cheks and adjust treatment as needed, cover with SSI.
[2021-01-19 16:00] VITALS: BP 136/56; PULSE 75; RESP 20; TEMP 36.4; O2SAT 97
[2021-01-19 17:01] LABS: Glucose Point of Care 202 mg/dl (65-105)
[2021-01-19] MEDS: INSULIN ASPART (*BKC) 100 UNITS/ML SUB-Q (17:04)
[2021-01-19 20:00] VITALS: BP 139/54; PULSE 78; RESP 18; RESP 20; TEMP 36.4; O2SAT 95; O2SAT 98
[2021-01-19 23:14] LABS: Glucose Point of Care 209 mg/dl (65-105)
[2021-01-19 23:27] VITALS: BP 137/55; PULSE 78; RESP 18; TEMP 36.3; O2SAT 95
[2021-01-20 04:00] VITALS: BP 124/50; PULSE 74; RESP 20; TEMP 36.6; O2SAT 95
[2021-01-20 08:00] VITALS: BP 152/57; PULSE 73; RESP 20; TEMP 36.4; O2SAT 98
[2021-01-20] MEDS: INSULIN ASPART (*BKC) 100 UNITS/ML SUB-Q ×2 (08:50→11:35)
[2021-01-20] MEDS: FERROUS SULFATE 324 MG TABLET PO (08:55)
[2021-01-20] MEDS: HEPARIN SODIUM 5,000 UNITS/ML VIAL 5000 UNITS SUB-Q (08:55)
[2021-01-20] MEDS: PANTOPRAZOLE 40 MG TABLET PO (08:55)
[2021-01-20] MEDS: CYANOCOBALAMIN 1,000 MCG TABLET 1000 MCG PO (08:55)
[2021-01-20] MEDS: ACIDOPHILUS/BULGARICUS CHEWABLE TABLET 1 TABLET PO ×2 (08:55→11:38)
[2021-01-20] MEDS: POTASSIUM CHLORIDE 10 MEQ TABLET.ER PO (08:56)
[2021-01-20] MEDS: CHOLECALCIFEROL 1,000 UNITS TABLET 5000 UNITS PO (08:56)
[2021-01-20] MEDS: GABAPENTIN 300 MG CAPSULE PO ×2 (08:56→11:38)
[2021-01-20] MEDS: GLIMEPIRIDE 2 MG TABLET 4 MG PO (08:56)
[2021-01-20] MEDS: MICONAZOLE NITRATE 2% CREAM 30 GM TUBE 1 APPLIC TOPICAL (08:57)
[2021-01-20] MEDS: amLODIPine BESYLATE 2.5 MG TABLET PO (08:57)
[2021-01-20] MEDS: EUCERIN CREAM 120 GM JAR 1 APPLIC TOPICAL (08:57)
[2021-01-20 10:19] LABS: Glucose Point of Care 279 mg/dl (65-105)
[2021-01-20 11:29] LABS: Glucose Point of Care 292 mg/dl (65-105)
[2021-01-20 12:00] VITALS: BP 159/61; PULSE 80; RESP 24; TEMP 36.6; O2SAT 99
--- NOTE | 2021-01-20 12:23 | PM.DS ---
DS: Admitting Diagnosis Admitting Diagnosis Admitting Diagnosis: Pneumonia DS: Discharge Diagnosis Discharge Diagnosis (1) Discharge planning issues: Code(s): Z02.9 - Encounter for administrative examinations, unspecified Status: Acute Assessment and Plan: Date of Admission 01/16/21 Date of Discharge 01/20/21 Ms. Kelly is a 60 yo F history of generalized weakness resides mostly in hospital bed at home and relies on daily caretakers, chronic kidney disease, insulin-dependent type 2 diabetes mellitus with peripheral neuropathy, neurogenic bladder, and chronic anemia who presented to the ED for evaluation of weakness. She described she had not been able to get out of bed for days, no appetite. Chest x-ray demonstrated mild patchy airspace opacities and she was started on IV Levaquin for treatment of pneumonia. Her COVID PCR was positive 01/16/2021. Patient describes she was fully vaccinated with Energen[employer] vaccine last dose 10/04/2020. Antibiotics were stopped. She was in no respiratory distress, she was not hypoxic and had adequate O2 saturations on room air this she did not meet criteria to receive any steroid her antiviral therapy for coping treatment. It is felt that her acute on chronic weakness can be attributed to COVID-19 infection. She continue PT/OT and declines need for SNF placement at this time. Her home Lantus dose was decreased at discharge due to morning hypoglycemia. She has several specialists that she will follow-up with on outpatient basis. She is hemodynamically stable for discharge on 01/20/2021 with instructions to follow-up with her primary care provider and other specialists. Patient lives at home alone with help from hired caretakers. She has a hospital bed at home and tells me she mostly stays in bed, ambulates minimally. She tells me her caregivers will resume care upon discharge. Discharged home with home health. (2) Pneumonia due to COVID-19 virus: Code(s): U07.1 - COVID-19; J12.82 - Pneumonia due to coronavirus disease 2018 Status: Acute Assessment and Plan: Noted on imaging. COVID PCR is positive 01/16. She notes she was fully vaccinated with Pfizer vaccine last dose 10/04/20. I have notified the infection control nurse. She received 2 doses of IV Levaquin which was discussed when her COVID PCR resulted positive. Continue with supportive care with Tylenol for fevers and albuterol PRN. She is not hypoxic and has adequate O2 saturations on room air today, thus she does not meet criteria to receive steroid or antiviral therapy for COVID treatment. (3) Generalized weakness: Code(s): R53.1 - Weakness Status: Acute Assessment and Plan: Patient presents from home for evaluation of generalized weakness. She reports she was having trouble walking from one room to another in her home and described exertional dyspnea. She notes this sometimes happens to her on and off where she does not feel like getting out of bed and her vice president global digital marketing tries to encourage her to get up more. She tells me she is mostly in hospital bed at home throughout the day and gets up to walk minimally, has been ongoing for months. She describes last 1 week she has felt weaker, likely secondary to COVID infection. Continue PT/OT. Home health. (4) Acute on chronic renal failure: Qualifiers: Acute renal failure type: unspecified Chronic kidney disease stage: stage 4 (severe) Qualified Code(s): N17.9 - Acute kidney failure, unspecified; N18.4 - Chronic kidney disease, stage 4 (severe) Code(s): N17.9 - Acute kidney failure, unspecified; N18.9 - Chronic kidney disease, unspecified Status: Acute Assessment and Plan: Baseline Cr appears around 2-3 but has been even higher than that in the past. C
[2021-01-21 09:05] LABS: Legionella pneumophila Ag Ur Not Detected (Not Detected)
== END 2021-01-20 13:44 | disposition home or self-care (01) ==
LOC: ANHED 17:44 → ANH3MEDSUR 18:59
PROVIDERS: Internal Medicine; Admitting Provider Family Medicine; Emergency Provider Emergency Medicine; PCP Student in an Organized Health Care Education/Training Program; Visit Provider Physician Assistant
DX: U07.1 COVID-19 (principal); J12.82 Pneumonia due to coronavirus disease 2019; R53.1 Weakness; N17.9 Acute kidney failure, unspecified; N31.9 Neuromuscular dysfunction of bladder, unspecified; E11.42 Type 2 diabetes mellitus with diabetic polyneuropathy; E78.5 Hyperlipidemia, unspecified; I12.9 Hypertensive chronic kidney disease with stage 1 through stage 4 chronic kidney disease, or unspecified chronic kidney disease; E11.22 Type 2 diabetes mellitus with diabetic chronic kidney disease; N18.4 Chronic kidney disease, stage 4 (severe); E66.01 Morbid (severe) obesity due to excess calories; D50.9 Iron deficiency anemia, unspecified; Z79.4 Long term (current) use of insulin; Z68.41 Body mass index [BMI] 40.0-44.9, adult; R60.9 Edema, unspecified; Z79.899 Other long term (current) drug therapy
CPT/HCPCS: 36415; 51701; 71045; 74176; 80048; 80053; 81001; 82550; 82948; 83605; 83735; 83880; 84484; 85025; 85610; 85730; 87040; 87449; 87899; 93005; 93971; 96365; 96372; 96375; 97110; 97161; 97165; 97530; 97535; 99285; A9270; C9803; G0378; J1644; J1815; J1956; J7040; U0003; U0005

== ENCOUNTER 2021-01-30 13:29 | Outpatient (NON) | payer OTHER, MEDICAID, SELFPAY ==
[2021-01-30 15:18] LABS: Creatinine Urine 73.1 mg/dL; Total Protein Urine Random 54 mg/dL; Ur Ttl Prot Creatinine Ratio 0.74 mg/mg (0-0.20)
== END 2021-01-30 13:30 | disposition home or self-care (01) ==
PROVIDERS: PCP Student in an Organized Health Care Education/Training Program; Visit Provider Internal Medicine Nephrology
DX: N18.32 Chronic kidney disease, stage 3b (principal)
CPT/HCPCS: 82570; 84156

== ENCOUNTER 2021-02-01 10:26 | Outpatient (CLI) | payer OTHER, MEDICAID, SELFPAY ==
--- NOTE | ~2021-02-01 | MM_ITS ---
EXAMINATION: MM screening mammo BI HISTORY: Screening TECHNIQUE: Craniocaudal and mediolateral oblique 3-D tomosynthesis images were obtained and synthetic 2-D images were generated. CAD analysis was submitted and interpreted. COMPARISON: Comparison to multiple prior studies sequentially, with oldest reviewed study dated 01/17. BREAST PARENCHYMAL COMPOSITION: There are scattered areas of fibroglandular density. FINDINGS: There is no evidence of suspicious mass, calcification, or architectural distortion to sugg est malignancy in either breast. There has been no suspicious interval change. IMPRESSION: 1. No mammographic evidence of malignancy. 2. Recommend routine screening mammography in one year. BI-RADS Category 1: Negative Reviewed, dictated and finalized at location A.
== END 2021-02-01 10:27 | disposition home or self-care (01) ==
PROVIDERS: PCP Student in an Organized Health Care Education/Training Program; Visit Provider Student in an Organized Health Care Education/Training Program
DX: Z12.31 Encounter for screening mammogram for malignant neoplasm of breast (principal)
CPT/HCPCS: 77067

== ENCOUNTER 2021-04-21 17:14 | Inpatient (IN) | payer OTHER, MEDICAID, SELFPAY ==
[2021-04-21] VITALS (44 sets, daily range): BP systolic 95–177; BP diastolic 33–104; PULSE 88–123; RESP 13–29; TEMP 36.6–38.2; O2SAT 98–100
--- NOTE | ~2021-04-21 | XR_ITS ---
EXAMINATION: XR chest 1V portable DATE: 04/21/2021 18:36 INDICATION: Fever. Midsternal chest pain. TECHNIQUE: A single frontal view of the chest was obtained. COMPARISON: Chest single view 01/16/2021 FINDINGS: The chest demonstrates clear lungs without pneumonia, pleural effusion, or pneumothorax. Th e heart size is normal. There is a prominent left paracardial fat pad. IMPRESSION: 1. No acute cardiopulmonary disease. Reviewed, dictated and finalized at location A.
--- NOTE | ~2021-04-21 | CT_ITS ---
EXAMINATION: CT abdomen pelvis wo con DATE: 04/22/2021 13:39 INDICATION: Generalized abdominal pain. Fever. TECHNIQUE: Computed tomography (CT) of the abdomen and pelvis was performed without intravenous contr ast. Automated exposure control and iterative reconstruction technique were employed. The dose-length product was 1552.52 mGy-cm. COMPARISON: CT abdomen and pelvis 01/16/2021 FINDINGS: The visualized portions of the lung bases demonstrate mild atelectasis. No pleural effusion . The heart size is normal. There are coronary artery calcifications. No pericardial effusion. There is diffuse hepatic steatosis. There are gallstones in the gallbladder, which is normal in size. The s pleen, pancreas, adrenal glands, and kidneys are normal. There is no urolithiasis. There are widespre ad arterial calcifications. Pelvic floor relaxation is noted. There are no dilated loops of bowel. Th e appendix is normal. There are no pathologically enlarged lymph nodes. There is no free intraperiton eal fluid. There is an electrode in left S3 neural foramen. There is mild thoracolumbar spondylosis. There are hemangiomas in T9, L1, and L4 vertebral bodies. IMPRESSION: 1. Cholelithiasis. No evidence of acute cholecystitis. Reviewed, dictated and finalized at location A.
--- NOTE | 2021-04-21 18:21 | ECG_ITS ---
Measurements Intervals [place] Rate: 113 P: 64 FL: 158 QRS: -24 QRSD: 86 T: 53 QT: 316 QTc: 434 Interpretive Statements SINUS TACHYCARDIA LOW QRS VOLTAGE IN PRECORDIAL LEADS BASELINE ARTIFACT- I, II, III, AVR, AVL, AVF ABNORMAL ECG Electronically Signed On 04-22-2021 6:38:55 CDT by Emmanuel Logan D.O.
--- NOTE | 2021-04-21 18:25 | ED.FEVER ---
HPI - Fever General Chief Complaint: Weakness Stated Complaint: WEAK, FEVER Time Seen by Provider: 04/21/21 18:14 History of Present Illness HPI Narrative: 60 yo female w/ h/o DM, lymphedeam, morbid obesity presents to the ED c/o weakness. She says that she was not feeling well this morning. then when she went to get up this afternoon she was too weak to get out of bed. She was found to be febrile on arrival here. She has h/o cellulitis in the lle, but it is better now than usual. She has intermittent SOB, no cough. She has a woods catheter. Related Data Home Medications Medication Instructions Recorded Confirmed cholecalciferol (vitamin D3) 125 5,000 unit PO DAILY 08/11/19 04/09/21 mcg (5,000 unit) capsule cyanocobalamin (vitamin B-12) 1,000 mcg PO DAILY 01/17/20 04/09/21 1,000 mcg tablet ferrous sulfate 325 mg PO BID 08/09/20 04/09/21 polyethylene glycol 3350 [Miralax] 17 g PO DAILY PRN 08/09/20 04/09/21 nystatin 1 applic TOPICAL DAILY 12/03/20 04/09/21 ondansetron HCl [Zofran] 4 mg PO Q8H PRN 12/03/20 04/09/21 potassium chloride 10 meq PO DAILY 12/03/20 04/09/21 amlodipine 2.5 mg tablet 2.5 mg PO DAILY 01/01/21 04/09/21 insulin aspart U-100 100 unit/mL See Rx Instructions SUBCUT TID ml 04/09/21 04/09/21 (3 mL) subcutaneous pen insulin glargine 100 unit/mL (3 25 unit SUBCUT QAM ml 04/09/21 04/09/21 mL) subcutaneous pen Allergies Allergy/AdvReac Type Severity Reaction Status Date / Time vancomycin Allergy Unknown Rash,Unknow Verified 04/21/21 17:28 n piperacillin [From Zosyn] Allergy Rash Verified 04/21/21 17:28 tazobactam [From Zosyn] Allergy Rash Verified 04/21/21 17:28 doxycycline AdvReac Intermediate Weakness Verified 04/21/21 17:28 daptomycin AdvReac Weakness Verified 04/21/21 17:28 Review of Systems Constitutional: Constitutional: Reports chills, Reports fatigue and Reports fever(s) ENT: Denies sore throat Cardiovascular: Cardiovascular: Denies chest pain Respiratory: Respiratory: Denies cough and Reports dyspnea Gastrointestinal: Gastrointestinal: Denies abdominal pain, Denies diarrhea and Reports nausea Genitourinary: Genitourinary: Reports as per HPI Neurologic: Denies confusion, Reports dizziness, Denies focal weakness and Reports weakness PMFSH Past Medical History Medical History Arthritis of left knee Chronic anemia Chronic indwelling Woods catheter Secondary to neurogenic bladder. Chronic kidney disease, stage 4 (severe) Followed by Dr. Benson. Baseline creatinine ranges between 2 and 3.0. Colon polyps (~05/2016) Depression Diabetic peripheral neuropathy Diabetic retinopathy L eye requiring injections. Diabetic ulcer of left foot Essential hypertension Gout due to renal impairment, left knee Hyperlipidemia Insulin dependent type 2 diabetes mellitus Hemoglobin A1c was 5.9 % on 12/01/2020. Mixed stress and urge urinary incontinence Morbid obesity Neurogenic bladder Surgical History Surgical History History of Achilles tendon repair History of amputation of toe Left 4th toe and 2 other toes on the right foot have been amputated. History of fusion of cervical spine (~10/2001) History of local excision of skin lesion Exophytic lesion removed from the right eyelid, benign. Status post debridement (~2019) Left diabetic heel wound. Family History Family History Mother Cerebrovascular accident Family history of diabetes mellitus in first degree relative Father Family history of diabetes mellitus in first degree relative Grandparent Diabetes mellitus Other Family history of anemia Family history of obesity Social History Social History Social History: The patient lives in [place] with her uncle. She never and has no c
--- NOTE | 2021-04-21 20:19 | PC.NURSE ---
Patient placed on air matres to assist in position changes. She was assisted to position of comfort
[2021-04-21] MEDS: SODIUM CHLORIDE 0.9% IV 1,000 ML 999 ML IV CONT ×2 (20:39→22:12)
[2021-04-21 20:40] LABS: Basophils Percent Auto 0.2 % (0.2-1.2); Eosinophils Percent Auto 0.1 % (0-4.4); Hematocrit 32.4 % (37.0-47.0); Hemoglobin 10.2 g/dL (12.0-15.0); Immature Granulocyte Absolute 0.09 K/mm3 (0.00-0.031); Immature Granulocyte Percent A 0.6 % (0-0.5); Lymphocytes Absolute Auto 0.65 K/mm3 (0.9-3.2); Lymphocytes Percent Auto 4.2 % (18.3-44.2); Mean Corpuscular HGB Conc 31.5 g/dl (32-36); Mean Corpuscular Hemoglobin 29.7 pg (26-34); Mean Corpuscular Volume 94.2 fl (80-100); Mean Platelet Volume 9.6 fl (7.4-10.4); Monocytes Absolute Auto 0.4 K/mm3 (0.1-0.6); Monocytes Percent Auto 2.8 % (2.6-8.5); Neutrophils Absolute Auto 14.4 K/mm3 (1.3-6.7); Neutrophils Percent Auto 92.1 % (45.5-73.1); Platelet Count Result 247 k/mm3 (150-375); Red Blood Count 3.44 M/mm3 (4.2-5.4); Red Cell Distribution Width 13.4 % (11.5-14.5); White Blood Count 15.7 K/mm3 (4.5-10.0)
[2021-04-21 20:52] LABS: Lactic Acid Reflex 1.6 mmol/L (0.7-2.1)
[2021-04-21 20:52] LABS: Add Urine Microscopic? YES; Appearance Urine Clear (Clear); Bacteria Urine 1+ /hpf; Bilirubin Urine Negative (Negative); Blood Urine Negative (Negative); Color Urine Yellow (Yellow); Glucose Urine UA Negative (Negative); Ketones Urine Negative (Negative); Leukocyte Esterase Ur 2+ LEU/UL (Negative); Nitrate Urine Positive (Negative); Protein Urine 2+ mg/dL (Negative); Specific Grav Ur 1.013 (1.001-1.035); Transitional Epi Cells Urine Rare /hpf (None Seen); Urobilinogen Urine Negative mg/dL (<2.0)
[2021-04-21 20:52] LABS: Alanine Aminotransferase 14 U/L (4-35); Albumin Level 4.2 g/dL (3.5-5.1); Alkaline Phosphatase 138 U/L (38-126); Anion Gap 9 mmol/L (8-16); Aspartate Amino Transferase 25 U/L (14-36); Bilirubin,Total 0.5 mg/dL (0.2-1.3); Blood Urea Nitrogen 58 mg/dL (7-17); CRP 5.2 mg/dL (<1.0); Calcium 9.5 mg/dL (8.4-10.2); Carbon Dioxide 26 mmol/L (22-30); Chloride 102 mmol/L (98-107); Estimated CRCL calculation 33 ml/min; Estimated Glomerular Filt Rate 21; Glucose 152 mg/dL (65-110); Potassium 5.1 mmol/L (3.4-5.0); Sodium 137 mmol/L (137-145)
[2021-04-21 20:53] LABS: INR 1.1; Prothrombin Time 14.4 Seconds (11.1-14.7)
[2021-04-21 20:54] LABS: Partial Thromboplastin Time 41.7 SECONDS (22.3-36.8)
--- NOTE | 2021-04-21 23:12 | PM.IMHP ---
H&P: HPI History of Present Illness Date/Time: 04/21/21 23:12 Chief Complaint: Weakness Narrative: This is a 60-year-old female with past medical history significant for morbid obesity, type 2 diabetes mellitus, bilateral diabetic foot, peripheral diabetic neuropathy, chronic lymphedema, Alpa intertriginous, hypertension, chronic anemia, chronic pain. Patient presented to the emergency room today due to generalized weakness states that was not feeling too well however was in her usual state of health up until the day prior she had some nausea and vomiting in the emergency room which was coffee-ground emesis. She denies any shortness of breath cough sputum production in emergency room she had a fever. She denies any chest pain PND orthopnea. Preliminary workup has been essentially nonrevealing a Guiac was performed on the coffee-ground emesis which turned positive patient has been placed in observation status. Review of Systems Review of Systems: Generalized weakness. Constitutional: Constitutional: Denies chills, Denies fever(s), Reports lethargy, Reports malaise and Reports weakness Eyes: Eyes: Denies change in vision ENT: Denies dysphagia, Denies nasal congestion, Denies nasal discharge, Denies nasal obstruction and Denies odynophagia Cardiovascular: Cardiovascular: Denies chest pain, Denies irregular heart rhythm, Denies claudication, Denies lightheadedness, Denies radiating jaw, neck or arm pain and Denies palpitations Respiratory: Respiratory: Denies cough Gastrointestinal: Gastrointestinal: Denies melena, Reports coffee ground emesis, Denies dyspepsia, Denies heartburn, Reports nausea and Reports vomiting Genitourinary: Genitourinary: Reports no additional female genitourinary complaints Comments: Chronic Salgado catheter Musculoskeletal: Musculoskeletal: Reports no additional musculoskeletal complaints Integumentary/Breasts: Skin/Breast: Reports rash (Intertriginous) Neurologic: Reports system reviewed and no additional complaints, except as documented Psychiatric: Psychiatric: Reports no additional psychiatric complaints Endocrine: Endocrine: Reports no additional endocrine complaints Hematologic/Lymphatic: Hematologic/Lymphatic: Reports no additional hematologic/lymphatic complaints Allergic/Immunologic: Allergic/Immunologic: Reports no additional allergic/immunologic complaints PMFSH Past Medical History Medical History Arthritis of left knee Chronic anemia Chronic indwelling Salgado catheter Secondary to neurogenic bladder. Chronic kidney disease, stage 4 (severe) Followed by Dr. Benson. Baseline creatinine ranges between 2 and 3.0. Colon polyps (~05/2016) Depression Diabetic peripheral neuropathy Diabetic retinopathy L eye requiring injections. Diabetic ulcer of left foot Essential hypertension Gout due to renal impairment, left knee Hyperlipidemia Insulin dependent type 2 diabetes mellitus Hemoglobin A1c was 5.9 % on 12/01/2020. Mixed stress and urge urinary incontinence Morbid obesity Neurogenic bladder Surgical History Surgical History History of Achilles tendon repair History of amputation of toe Left 4th toe and 2 other toes on the right foot have been amputated. History of fusion of cervical spine (~10/2001) History of local excision of skin lesion Exophytic lesion removed from the right eyelid, benign. Status post debridement (~2019) Left diabetic heel wound. Family History Family History Mother Cerebrovascular accident Family history of diabetes mellitus in first degree relative Father Family history of diabetes mellitus in first degree relative Grandparent Diabetes mellitus Other Family history of anemia Family history of obesity Social History Social History (Reviewed 04/21/21 @ 18:34 by Bib Pruitt
[2021-04-22] VITALS (12 sets, daily range): BP systolic 123–145; BP diastolic 49–59; PULSE 78–94; RESP 16–24; TEMP 36.4–37.2; O2SAT 97–100; BMI 49.4
--- NOTE | 2021-04-22 00:06 | PC.NURSE ---
Pt's belongings readied for transport. Pt has ONE black shoe. Placed in bag with clothing and jo pack.
--- NOTE | 2021-04-22 00:21 | PC.NURSE ---
Report to CATA Patel for 246-1.
--- NOTE | 2021-04-22 01:36 | ADMGEN ---
This patient, Theodora Kelly, was admitted to Medical Room [facility]-@ 0035. Patient/family oriented to hospital policies and general routines including ID bracelet, bed and alarms, visiting hours, pain management, procedures, bathroom and other care routines, personal items, smoking policy, room service/diet, and visiting hours. Information on how to activate the Rapid Response Team has been discussed. Patient/Family are encouraged to report perceived risks to care and to ask questions if they do not understand what they are told or what they should do.
[2021-04-22 08:00] LABS: Glucose Point of Care 60 mg/dl (65-105)
[2021-04-22] MEDS: GLUCOSE ORAL GEL 15 GM OF GLUCSE IN 37.5 GM TUBE PO (08:02)
[2021-04-22] MEDS: FERROUS SULFATE 324 MG TABLET PO ×2 (08:05→16:51)
[2021-04-22] MEDS: ACIDOPHILUS/BULGARICUS CHEWABLE TABLET 1 TABLET PO ×3 (08:05→16:51)
[2021-04-22] MEDS: CHOLECALCIFEROL 1,000 UNITS TABLET 5000 UNITS PO (08:05)
[2021-04-22] MEDS: amLODIPine BESYLATE 2.5 MG TABLET PO (08:06)
[2021-04-22] MEDS: GABAPENTIN 300 MG CAPSULE PO ×3 (08:06→16:51)
[2021-04-22] MEDS: CYANOCOBALAMIN 1,000 MCG TABLET 1000 MCG PO (08:06)
[2021-04-22] MEDS: EUCERIN CREAM 120 GM JAR 1 APPLIC TOPICAL (08:07)
[2021-04-22] MEDS: MICONAZOLE NITRATE 2% CREAM 30 GM TUBE 1 APPLIC TOPICAL ×2 (08:07→16:52)
[2021-04-22] MEDS: PANTOPRAZOLE SODIUM IV 40 MG VIAL IV PUSH ×2 (08:07→16:52)
[2021-04-22 08:29] LABS: Glucose Point of Care 67 mg/dl (65-105)
[2021-04-22 08:47] LABS: Glucose Point of Care 86 mg/dl (65-105)
--- NOTE | 2021-04-22 09:11 | WPDGICN ---
Assessment and Plan Assessment and plan (1) Coffee ground emesis: Code(s): K92.0 - Hematemesis Status: Acute Assessment and Plan: will assess with egd tomorrow (never had one) now on iv protonix monitor for more signs of bleeding and trend H/H (2) Chronic anemia: Code(s): D64.9 - Anemia, unspecified Status: Acute Assessment and Plan: hb near baseline (3) SIRS (systemic inflammatory response syndrome): Code(s): R65.10 - Systemic inflammatory response syndrome (SIRS) of non-infectious origin without acute organ dysfunction Status: Acute Assessment and Plan: had fever and leukocytosis, possible UTI already started on abx (4) Fever: Code(s): R50.9 - Fever, unspecified Status: Acute (5) Urinary tract infection: Qualifiers: Hematuria presence: with hematuria Urinary tract infection type: acute cystitis Qualified Code(s): N30.01 - Acute cystitis with hematuria Code(s): N39.0 - Urinary tract infection, site not specified Status: Acute (6) Neurogenic bladder: Code(s): N31.9 - Neuromuscular dysfunction of bladder, unspecified Status: Chronic (7) Chronic kidney disease, stage 4 (severe): Code(s): N18.4 - Chronic kidney disease, stage 4 (severe) Status: Acute Assessment and Plan: creatinine at baseline (8) Insulin dependent type 2 diabetes mellitus: Code(s): E11.9 - Type 2 diabetes mellitus without complications; Z79.4 - FDC (current) use of insulin Status: Chronic (9) Morbid obesity with BMI of 45.0-49.9, adult: Code(s): E66.01 - Morbid (severe) obesity due to excess calories; Z68.42 - Body mass index [BMI] 45.0-49.9, adult Status: Acute GI Consult Note Consult date/time: 04/22/21 09:11 Reason for consult: coffee ground emesis HPI: Theodora Kelly is a 60 year old female with multiple medical problems including DM, CKD stage 4 (she is seeing bench machine operator), bladder dysfunction with bladder stimulator , chronic anemia with hb 8.5-10, HTN, GERD using only tums as needed here with generalized fatigue, chills and fever with temperature 100.6 F. She also had epigastric discomfort and one episode of coffee ground emesis (denies previous GIB). She had covid earlier this year. UA c/w UTI, had leukocytosis 15k, hb 10, started on antibiotics and protonix and admitted to hospital. She had colonoscopy 6 years ago with polyps and she says that is to have a repeat colonoscopy next month at [facility] also with EGD (never had one). Denies melena, at baseline she has constipation. Review of Systems Constitutional: Constitutional: Reports chills Eyes: Eyes: Denies blurry vision ENT: Reports Normal hearing present Cardiovascular: Cardiovascular: Denies chest pain Respiratory: Respiratory: Denies dyspnea Gastrointestinal: Gastrointestinal: Reports abdominal pain and Reports hematemesis Genitourinary: Genitourinary: Reports urinary frequency Musculoskeletal: Musculoskeletal: Denies neck pain Integumentary/Breasts: Skin/Breast: Denies dry skin Neurologic: Denies headache(s) Psychiatric: Psychiatric: Reports no additional psychiatric complaints PMFSH Past Medical History Medical History (Updated 04/22/21 @ 09:17 by Viktor Salter MD) Arthritis of left knee Chronic anemia Chronic indwelling Salgado catheter Secondary to neurogenic bladder. Chronic kidney disease, stage 4 (severe) Followed by Dr. Benson. Baseline creatinine ranges between 2 and 3.0. Colon polyps (~05/2016) Depression Diabetic peripheral neuropathy Diabetic retinopathy L eye requiring injections. Diabetic ulcer of left foot Essential hypertension Gout due to renal impairment, left knee Hyperlipidemia Insulin dependent type 2 diabetes mellitus Hemoglobin A1c was 5.9 % on 12/01/2020. Mixed stress and urge urinary incontinence Morbid obesity Neurogenic bladder SIRS (systemic inflammatory respo
[2021-04-22 09:43] LABS: Basophils Percent Auto 0.3 % (0.2-1.2); Hematocrit 28.4 % (37.0-47.0); Hemoglobin 8.9 g/dL (12.0-15.0); Immature Granulocyte Absolute 0.07 K/mm3 (0.00-0.031); Immature Granulocyte Percent A 0.6 % (0-0.5); Lymphocytes Absolute Auto 0.59 K/mm3 (0.9-3.2); Lymphocytes Percent Auto 5.4 % (18.3-44.2); Mean Corpuscular HGB Conc 31.3 g/dl (32-36); Mean Corpuscular Hemoglobin 29.8 pg (26-34); Mean Platelet Volume 9.3 fl (7.4-10.4); Monocytes Absolute Auto 0.5 K/mm3 (0.1-0.6); Monocytes Percent Auto 4.8 % (2.6-8.5); Neutrophils Absolute Auto 9.7 K/mm3 (1.3-6.7); Neutrophils Percent Auto 88.9 % (45.5-73.1); Platelet Count Result 185 k/mm3 (150-375); Red Blood Count 2.99 M/mm3 (4.2-5.4); Red Cell Distribution Width 13.6 % (11.5-14.5); White Blood Count 10.9 K/mm3 (4.5-10.0)
[2021-04-22 09:55] LABS: Anion Gap 9 mmol/L (8-16); Blood Urea Nitrogen 55 mg/dL (7-17); Calcium 8.4 mg/dL (8.4-10.2); Carbon Dioxide 19 mmol/L (22-30); Chloride 107 mmol/L (98-107); Estimated CRCL calculation 37 ml/min; Estimated Glomerular Filt Rate 23; Glucose 163 mg/dL (65-110); Potassium 4.2 mmol/L (3.4-5.0); Sodium 135 mmol/L (137-145)
--- NOTE | 2021-04-22 10:13 | PM.IMPN ---
Progress Note: A&P Assessment and Plan (1) Fever: Code(s): R50.9 - Fever, unspecified Status: Acute Assessment and Plan: unclear etiology at this time - patient has been afebrile with rigors - await blood cultures - possible UTI, will obtain urine culture as this did not reflex - will do abdomen and pelvis CT since the patient states she had some abdominal pain earlier and did have coffee-ground emesis - chest x-ray negative - COVID recovered in the last 3 months - lactic acid normal (2) Coffee ground emesis: Code(s): K92.0 - Hematemesis Status: Acute Assessment and Plan: hemoglobin dropped from 10.2 to 8.9 - will recheck 1 later this afternoon - no further signs of bleeding such as coffee-ground emesis or dark stool - GI has been consulted - continue Protonix b.i.d. (3) Chronic kidney disease, stage 4 (severe): Code(s): N18.4 - Chronic kidney disease, stage 4 (severe) Status: Acute Assessment and Plan: BUN and creatinine at patient's baseline -Continue to monitor (4) Generalized weakness: Code(s): R53.1 - Weakness Status: Acute Assessment and Plan: likely due to increased activity as mentioned in the HPI with possible infection - order PT and OT (5) Chronic anemia: Code(s): D64.9 - Anemia, unspecified Status: Acute Assessment and Plan: anemia studies in the morning - hemoglobin has dropped 8.9 but no signs of bleeding currently - patient is at her baseline (6) Insulin dependent type 2 diabetes mellitus: Code(s): E11.9 - Type 2 diabetes mellitus without complications; Z79.4 - tin pourer (current) use of insulin Status: Chronic Assessment and Plan: last glucose was 163 but was low this morning and required intervention - decreased home Lantus - sliding scale insulin, hold meal time insulin (on 10u WM at home) - last A1c 5.9 - patient's glucose may be too tightly can controlled which may worsen her weakness. Will monitor (7) Candidiasis, intertrigo: Code(s): B37.2 - Candidiasis of skin and nail Status: Acute Assessment and Plan: Continue nystatin to the folds (8) Diabetic peripheral neuropathy associated with type 2 diabetes mellitus: Code(s): E11.42 - Type 2 diabetes mellitus with diabetic polyneuropathy Status: Chronic Assessment and Plan: chronic and unchanged -Continue gabapentin (9) Hypertension: Code(s): I10 - Essential (primary) hypertension Status: Acute Assessment and Plan: last blood pressure 145/58 - continue amlodipine (10) Morbid obesity with BMI of 45.0-49.9, adult: Code(s): E66.01 - Morbid (severe) obesity due to excess calories; Z68.42 - Body mass index [BMI] 45.0-49.9, adult Status: Acute Assessment and Plan: Lifestyle and diet modifications Time Spent With Patient Time with patient: 25 - 35 minutes Subjective Date/time seen: 04/22/21 10:13 Interval history: Pt is a 60-year-old female here for fever and coffee-ground emesis. Patient was seen today and states she is feeling okay. She has not had any further nausea or vomiting and denies abdominal pain. She has occasional dysuria. she says she feels weak but feeling a little bit better. She said she thinks she felt weaker yesterday because she is getting doors installed at her house and she kept having to get up and use her wheelchair to measure the with with the contractor. She said she got up and down multiple times. She says she usually walks short distances but likes to use the wheelchair at home. She said she had fevers and chills overnight. She denies dark stools and states she is constipated. She did say she had a bladder stimulator placed February 27 and has been doing well with that. She denies chest pain or shortness of breath. Review of Systems Review of Systems: Demetrius banks
[2021-04-22 10:32] LABS: Procalcitonin 0.5 ng/mL
[2021-04-22] MEDS: DOCUSATE SODIUM 100 MG CAPSULE PO (12:47)
[2021-04-22 13:02] LABS: Glucose Point of Care 130 mg/dl (65-105)
[2021-04-22 16:06] LABS: Hematocrit 29.2 % (37.0-47.0); Hemoglobin 8.8 g/dL (12.0-15.0)
[2021-04-22 18:12] LABS: Glucose Point of Care 83 mg/dl (65-105)
[2021-04-22 21:17] LABS: Glucose Point of Care 111 mg/dl (65-105)
[2021-04-23] VITALS (11 sets, daily range): BP systolic 103–161; BP diastolic 46–63; PULSE 72–79; RESP 16–25; TEMP 35.7–37; O2SAT 90–100
[2021-04-23 05:57] LABS: Hematocrit 26.8 % (37.0-47.0); Hemoglobin 8.5 g/dL (12.0-15.0); Mean Corpuscular HGB Conc 31.7 g/dl (32-36); Mean Corpuscular Hemoglobin 29.8 pg (26-34); Mean Platelet Volume 9.6 fl (7.4-10.4); Platelet Count Result 171 k/mm3 (150-375); Red Blood Count 2.85 M/mm3 (4.2-5.4); Red Cell Distribution Width 13.7 % (11.5-14.5); White Blood Count 7.1 K/mm3 (4.5-10.0)
[2021-04-23 06:09] LABS: Anion Gap 7 mmol/L (8-16); Blood Urea Nitrogen 58 mg/dL (7-17); Calcium 8.7 mg/dL (8.4-10.2); Carbon Dioxide 22 mmol/L (22-30); Chloride 110 mmol/L (98-107); Estimated CRCL calculation 33 ml/min; Estimated Glomerular Filt Rate 20; Glucose 94 mg/dL (65-110); Potassium 4.2 mmol/L (3.4-5.0); Sodium 139 mmol/L (137-145)
[2021-04-23 06:16] LABS: Transferrin 126 mg/dL (206-381)
[2021-04-23 06:24] LABS: Iron 22 ug/dL (37-170)
[2021-04-23 06:33] LABS: Percent Iron Saturation 12 % (20-50)
[2021-04-23 06:54] LABS: Glucose Point of Care 104 mg/dl (65-105)
[2021-04-23 07:00] LABS: Hemoglobin A1C 7.4 % (<5.7)
[2021-04-23 07:13] LABS: Folic Acid 16.6 ng/mL (2.76->20)
[2021-04-23] MEDS: DOCUSATE SODIUM 100 MG CAPSULE PO (08:33)
[2021-04-23] MEDS: amLODIPine BESYLATE 2.5 MG TABLET PO (08:33)
[2021-04-23] MEDS: EUCERIN CREAM 120 GM JAR 1 APPLIC TOPICAL (08:35)
[2021-04-23] MEDS: PANTOPRAZOLE SODIUM IV 40 MG VIAL IV PUSH (08:35)
--- NOTE | 2021-04-23 09:34 | WPDANESEPPF ---
Anes - Initial Pre Proc Eval Procedure: Operation Date: 04/23/21 12:45 Proposed Procedures p Esophagogastroduodenoscopy - Viktor Salter MD Date/Time: 04/23/21 09:34 Surgeon: Rhianna Toussaint PA-C Pre Op Diagnosis: Sepsis/UTI/cutaneous yeast infection Patient Data Age: 60 Gender: F Height: 1.7 m Weight: 143.2 kg Last Vital Signs Temp 36.4 C 04/23/21 05:50 Pulse 76 04/23/21 08:00 Resp 16 04/23/21 05:50 BP 136/51 L 04/23/21 05:50 Pulse Ox 97 04/23/21 05:50 Allergies Allergy/AdvReac Type Severity Reaction Status Date / Time vancomycin Allergy Unknown Rash,Unknow Verified 04/23/21 12:50 n piperacillin [From Zosyn] Allergy Rash Verified 04/23/21 12:50 tazobactam [From Zosyn] Allergy Rash Verified 04/23/21 12:50 doxycycline AdvReac Intermediate Weakness Verified 04/23/21 12:50 daptomycin AdvReac Weakness Verified 04/23/21 12:50 Home Medications Medication Instructions Recorded Confirmed Type Lactobacillus acidophilus 75 1 cap PO TID #90 cap 07/08/19 04/22/21 Rx million cell-pectin 100 mg capsule cholecalciferol (vitamin D3) 125 5,000 unit PO DAILY 08/11/19 04/22/21 History mcg (5,000 unit) capsule cyanocobalamin (vitamin B-12) 1,000 mcg PO DAILY 01/17/20 04/22/21 History 1,000 mcg tablet gabapentin 300 mg capsule 300 mg PO TID #270 cap 03/24/20 04/22/21 Rx docusate sodium 100 mg PO Q12H PRN 30 Days cap 06/06/20 04/22/21 Rx ferrous sulfate 325 mg PO BID 08/09/20 04/22/21 History pantoprazole 40 mg PO QAM #30 tablet 08/19/20 04/22/21 Rx nystatin 1 applic TOPICAL DAILY 12/03/20 04/22/21 History potassium chloride 10 meq PO DAILY 12/03/20 04/22/21 History Minerin Creme 1 applic TOPICAL DAILY #0 g 12/09/20 04/22/21 Rx amlodipine 2.5 mg tablet 2.5 mg PO DAILY 01/01/21 04/22/21 History albuterol sulfate [Proventil HFA] 2 puff INHALATION Q4-6H PRN #6.7 g 01/20/21 04/22/21 Rx insulin aspart U-100 100 unit/mL See Rx Instructions SUBCUT TID ml 04/09/21 04/22/21 History (3 mL) subcutaneous pen insulin glargine 100 unit/mL (3 25 unit SUBCUT QAM ml 04/09/21 04/22/21 History mL) subcutaneous pen Laboratory Tests 04/22/21 04/22/21 04/22/21 01:49 09:33 09:33 WBC 10.9 K/mm3 H K/mm3 (4.5-10.0) RBC 2.99 M/mm3 L M/mm3 (4.2-5.4) Hgb 8.9 g/dL L g/dL (12.0-15.0) Hct 28.4 % L % (37.0-47.0) MCV 95.0 fl fl (80-100) MCH 29.8 pg pg (26-34) MCHC 31.3 g/dl L g/dl (32-36) RDW 13.6 % % (11.5-14.5) Plt Count 185 k/mm3 k/mm3 (150-375) MPV 9.3 fl fl (7.4-10.4) Immature Gran % (Auto) 0.6 % H % (0-0.5) Neut % (Auto) 88.9 % H % (45.5-73.1) Lymph % (Auto) 5.4 % L % (18.3-44.2) [place] % (Auto) 4.8 % % (2.6-8.5) Eos % (Auto) 0.0 % % (0-4.4) Baso % (Auto) 0.3 % % (0.2-1.2) Lymph # (Auto) 0.59 K/mm3 L K/mm3 (0.9-3.2) [place] # (Auto) 0.5 K/mm3 K/mm3 (0.1-0.6) Eos # (Auto) 0.0 K/mm3 K/mm3 (0-0.3) Baso # (Auto) 0.0 K/mm3 K/mm3 (0.0-0.1) Abs Immat Gran (auto) 0.07 K/mm3 H K/mm3 (0.00-0.031) Absolute Neuts (auto) 9.7 K/mm3 H K/mm3 (1.3-6.7) Absolute Nucleated RBC 0.0 K/mm3 K/mm3 (0.0-0.012) Nucleated RBC % 0.0 % % (0.0-0.2) Sodium 135 mmol/L L mmol/L (137-145) Potassium 4.2 mmol/L mmol/L (3.4-5.0) Chloride 107 mmol/L mmol/L (98-107) Carbon Dioxide 19 mmol/L L mmol/L (22-30) Anion Gap 9 mmol/L mmol/L (8-16) BUN 55 mg/dL H mg/dL (7-17) Creatinine 2.20 mg/dL H mg/dL (0.7-1.0) Estim Creat Clear Calc 37 ml/min ml/min Estimated GFR 23 L (59 - ) Glucose 163 mg/dL H mg/dL (65-110) POC Capillary Glucose Hemoglobin A1c Calcium 8.4 mg/dL mg/dL (8.4-10.2) Iron T
[2021-04-23 12:06] LABS: Glucose Point of Care 106 mg/dl (65-105)
[2021-04-23] MEDS: LACTATED RINGERS 1,000 ML 150 ML IV CONT (12:51)
[2021-04-23] MEDS: TOLNAFTATE 1% POWDER 45 GM BTL 1 APPLIC TOPICAL ×2 (14:22→20:16)
--- NOTE | 2021-04-23 15:32 | PM.IMPN ---
Progress Note: A&P Assessment and Plan (1) Fever: Code(s): R50.9 - Fever, unspecified Status: Acute Assessment and Plan: unclear etiology at this time -patient has been afebrile without rigors since admission -Blood cultures NGTD - possible UTI, await urine cx. I have called [facility] who told me it won't be back until tomorrow. Pt has a hx of resistent UTIs so I think it's best to keep her on IV abx until this is resulted tomorrow. - chest x-ray negative - COVID recovered in the last 3 months, reinfection appears much less likely - lactic acid normal, no etiology on CT abd/pelv (2) Coffee ground emesis: Code(s): K92.0 - Hematemesis Status: Acute Assessment and Plan: Hgb stable at 8.5 today - no further signs of bleeding such as coffee-ground emesis or dark stool - GI has been consulted, egd showing reflux esophagitis and gastritis - continue Protonix b.i.d. (3) Chronic kidney disease, stage 4 (severe): Code(s): N18.4 - Chronic kidney disease, stage 4 (severe) Status: Acute Assessment and Plan: BUN and creatinine at patient's baseline -Continue to monitor (4) Generalized weakness: Code(s): R53.1 - Weakness Status: Acute Assessment and Plan: Continue PT/OT -pt uses a wheelchair at her house. She previously had home health but was discontinued after she did well. (5) Chronic anemia: Code(s): D64.9 - Anemia, unspecified Status: Acute Assessment and Plan: As above (6) Insulin dependent type 2 diabetes mellitus: Code(s): E11.9 - Type 2 diabetes mellitus without complications; Z79.4 - director long term care (current) use of insulin Status: Chronic Assessment and Plan: last glucose was 106 - lantus on hold (pt has been NPO and was low on admission) - sliding scale insulin, hold meal time insulin (on 10u WM at home) - last A1c 7.4 - patient's glucose may be too tightly can controlled which may worsen her weakness. Will monitor. Recommend adjusting at d/c (7) Candidiasis, intertrigo: Code(s): B37.2 - Candidiasis of skin and nail Status: Acute Assessment and Plan: Continue nystatin to the folds (8) Diabetic peripheral neuropathy associated with type 2 diabetes mellitus: Code(s): E11.42 - Type 2 diabetes mellitus with diabetic polyneuropathy Status: Chronic Assessment and Plan: chronic and unchanged -Continue gabapentin (9) Hypertension: Code(s): I10 - Essential (primary) hypertension Status: Acute Assessment and Plan: last blood pressure 103/50. There was an error stating pts bp was 253/55 and RN is going to adjust this - continue amlodipine (10) Morbid obesity with BMI of 45.0-49.9, adult: Code(s): E66.01 - Morbid (severe) obesity due to excess calories; Z68.42 - Body mass index [BMI] 45.0-49.9, adult Status: Acute Assessment and Plan: Lifestyle and diet modifications (11) Reflux esophagitis: Code(s): K21.00 - Gastro-esophageal reflux disease with esophagitis, without bleeding Status: Acute Assessment and Plan: Continue PPI (12) Gastritis: Code(s): K29.70 - Gastritis, unspecified, without bleeding Status: Acute Assessment and Plan: Continue PPI Subjective Date/time seen: 04/23/21 15:32 Interval history: Pt is a 60-year-old female here for fever and coffee-ground emesis. Patient was seen today and states she is feeling fine. She feels stronger and has not had any further issues with fevers, nausea, vomiting, or abdominal pain. She has occasional dysuria that she claims is improving. No CP or SOB. Exam Narrative: General: overweight patient resting comfortably in the chair in no acute distress HEENT: normocephalic Neck: supple Neuro: Alert and oriented x4 CV:RRR Resp:CTA Abd: Soft, non distended. No pain to palpation. Posi
[2021-04-23] MEDS: GABAPENTIN 300 MG CAPSULE PO (17:01)
[2021-04-23] MEDS: FERROUS SULFATE 324 MG TABLET PO (17:01)
[2021-04-23] MEDS: ACIDOPHILUS/BULGARICUS CHEWABLE TABLET 1 TABLET PO (17:01)
[2021-04-23] MEDS: MICONAZOLE NITRATE 2% CREAM 30 GM TUBE 1 APPLIC TOPICAL (17:02)
[2021-04-23 17:29] LABS: Glucose Point of Care 144 mg/dl (65-105)
[2021-04-23] MEDS: PANTOPRAZOLE 40 MG TABLET PO (20:15)
[2021-04-23 20:57] LABS: Glucose Point of Care 192 mg/dl (65-105)
[2021-04-24 05:34] VITALS: BP 137/57; PULSE 72; RESP 16; TEMP 36.4; O2SAT 100
[2021-04-24 06:01] LABS: Hematocrit 28.4 % (37.0-47.0); Mean Corpuscular HGB Conc 31.7 g/dl (32-36); Mean Corpuscular Hemoglobin 29.8 pg (26-34); Mean Platelet Volume 9.7 fl (7.4-10.4); Platelet Count Result 177 k/mm3 (150-375); Red Blood Count 3.02 M/mm3 (4.2-5.4); Red Cell Distribution Width 13.4 % (11.5-14.5); White Blood Count 6.1 K/mm3 (4.5-10.0)
[2021-04-24 07:06] LABS: Glucose Point of Care 224 mg/dl (65-105)
--- NOTE | 2021-04-24 07:47 | PM.IMPN ---
Progress Note: A&P Assessment and Plan (1) Fever: Code(s): R50.9 - Fever, unspecified Status: Acute Assessment and Plan: unclear etiology at this time -patient has been afebrile without rigors since admission -Blood cultures NGTD - possible UTI, await urine cx. I have called [facility] who told me it won't be back until tomorrow. Pt has a hx of resistent UTIs so I think it's best to keep her on IV abx until this is resulted tomorrow. - chest x-ray negative - COVID recovered in the last 3 months, reinfection appears much less likely - lactic acid normal, no etiology on CT abd/pelv (2) Coffee ground emesis: Code(s): K92.0 - Hematemesis Status: Acute Assessment and Plan: Hgb stable at 8.5 today - no further signs of bleeding such as coffee-ground emesis or dark stool - GI has been consulted, egd showing reflux esophagitis and gastritis - continue Protonix b.i.d. (3) Chronic kidney disease, stage 4 (severe): Code(s): N18.4 - Chronic kidney disease, stage 4 (severe) Status: Acute Assessment and Plan: BUN and creatinine at patient's baseline -Continue to monitor (4) Generalized weakness: Code(s): R53.1 - Weakness Status: Acute Assessment and Plan: Continue PT/OT -pt uses a wheelchair at her house. She previously had home health but was discontinued after she did well. (5) Chronic anemia: Code(s): D64.9 - Anemia, unspecified Status: Acute Assessment and Plan: As above (6) Insulin dependent type 2 diabetes mellitus: Code(s): E11.9 - Type 2 diabetes mellitus without complications; Z79.4 - continuous churn buttermaker (current) use of insulin Status: Chronic Assessment and Plan: last glucose was 106 - lantus on hold (pt has been NPO and was low on admission) - sliding scale insulin, hold meal time insulin (on 10u WM at home) - last A1c 7.4 - patient's glucose may be too tightly can controlled which may worsen her weakness. Will monitor. Recommend adjusting at d/c (7) Candidiasis, intertrigo: Code(s): B37.2 - Candidiasis of skin and nail Status: Acute Assessment and Plan: Continue nystatin to the folds (8) Diabetic peripheral neuropathy associated with type 2 diabetes mellitus: Code(s): E11.42 - Type 2 diabetes mellitus with diabetic polyneuropathy Status: Chronic Assessment and Plan: chronic and unchanged -Continue gabapentin (9) Hypertension: Code(s): I10 - Essential (primary) hypertension Status: Acute Assessment and Plan: last blood pressure 103/50. There was an error stating pts bp was 253/55 and RN is going to adjust this - continue amlodipine (10) Morbid obesity with BMI of 45.0-49.9, adult: Code(s): E66.01 - Morbid (severe) obesity due to excess calories; Z68.42 - Body mass index [BMI] 45.0-49.9, adult Status: Acute Assessment and Plan: Lifestyle and diet modifications (11) Reflux esophagitis: Code(s): K21.00 - Gastro-esophageal reflux disease with esophagitis, without bleeding Status: Acute Assessment and Plan: Continue PPI (12) Gastritis: Code(s): K29.70 - Gastritis, unspecified, without bleeding Status: Acute Assessment and Plan: Continue PPI Subjective Date/time seen: 04/24/21 07:47 Interval history: Pt is a 60-year-old female here for fever and coffee-ground emesis. Patient was seen today and states she is feeling fine. She feels stronger and has not had any further issues with fevers, nausea, vomiting, or abdominal pain. She has occasional dysuria that she claims is improving. No CP or SOB. Review of Systems Review of Systems: All systems reviewed & are unremarkable except as noted in HPI and below Constitutional: Constitutional: Reports chills, Reports fatigue, Denies fever(s), Denies headache(s), Reports lethargy, Rep
[2021-04-24 08:20] LABS: Alanine Aminotransferase 12 U/L (4-35); Albumin Level 3.3 g/dL (3.5-5.1); Alkaline Phosphatase 106 U/L (38-126); Anion Gap 6 mmol/L (8-16); Aspartate Amino Transferase 22 U/L (14-36); Bilirubin,Total 0.4 mg/dL (0.2-1.3); Blood Urea Nitrogen 57 mg/dL (7-17); Calcium 8.7 mg/dL (8.4-10.2); Carbon Dioxide 23 mmol/L (22-30); Chloride 110 mmol/L (98-107); Estimated CRCL calculation 35 ml/min; Estimated Glomerular Filt Rate 22; Glucose 249 mg/dL (65-110); Potassium 4.2 mmol/L (3.4-5.0); Sodium 139 mmol/L (137-145)
[2021-04-24] MEDS: CHOLECALCIFEROL 1,000 UNITS TABLET 5000 UNITS PO (08:23)
[2021-04-24] MEDS: amLODIPine BESYLATE 2.5 MG TABLET PO (08:23)
[2021-04-24] MEDS: FERROUS SULFATE 324 MG TABLET PO (08:23)
[2021-04-24] MEDS: PANTOPRAZOLE 40 MG TABLET PO (08:23)
[2021-04-24] MEDS: ACIDOPHILUS/BULGARICUS CHEWABLE TABLET 1 TABLET PO ×2 (08:23→14:02)
[2021-04-24] MEDS: CYANOCOBALAMIN 1,000 MCG TABLET 1000 MCG PO (08:24)
[2021-04-24] MEDS: GABAPENTIN 300 MG CAPSULE PO ×2 (08:24→14:02)
[2021-04-24] MEDS: INSULIN ASPART (*BKC) 100 UNITS/ML SUB-Q ×3 (08:24→18:06)
[2021-04-24] MEDS: EUCERIN CREAM 120 GM JAR 1 APPLIC TOPICAL (08:25)
[2021-04-24] MEDS: MICONAZOLE NITRATE 2% CREAM 30 GM TUBE 1 APPLIC TOPICAL (08:25)
[2021-04-24] MEDS: TOLNAFTATE 1% POWDER 45 GM BTL 1 APPLIC TOPICAL (08:25)
--- NOTE | 2021-04-24 10:21 | WPDANESPN ---
Anes - Prog Note Post-Op Date/Time: 04/24/21 10:21 Cardiovascular status: normal Respiratory status: normal Airway patency: baseline Mental status: baseline Post-Op hydration status: normal Vital Signs: Last Vital Signs Temp 36.4 C 04/24/21 05:34 Pulse 72 04/24/21 05:34 Resp 16 04/24/21 05:34 BP 137/57 L 04/24/21 05:34 Pulse Ox 100 04/24/21 05:34 Pain Score (VAS): 0 I/O: Intake & Output 04/23/21 04/24/21 04/24/21 23:59 07:59 15:59 Intake Total 1200 500 360 Output Total 1700 900 Balance -500 -400 360 Laboratory Tests 04/24/21 05:17 04/24/21 05:17 04/23/21 04/23/21 04/23/21 11:54 17:23 20:13 WBC RBC Hgb Hct MCV MCH MCHC RDW Plt Count MPV Sodium Potassium Chloride Carbon Dioxide Anion Gap BUN Creatinine Estim Creat Clear Calc Estimated GFR Glucose POC Capillary Glucose 106 H 144 H 192 H Calcium Total Bilirubin AST ALT Alkaline Phosphatase Total Protein Albumin 04/24/21 04/24/21 04/24/21 05:17 05:17 07:01 WBC 6.1 RBC 3.02 L Hgb 9.0 L Hct 28.4 L MCV 94.0 MCH 29.8 MCHC 31.7 L RDW 13.4 Plt Count 177 MPV 9.7 Sodium 139 Potassium 4.2 Chloride 110 H Carbon Dioxide 23 Anion Gap 6 L BUN 57 H Creatinine 2.30 H Estim Creat Clear Calc 35 Estimated GFR 22 L Glucose 249 H POC Capillary Glucose 224 H Calcium 8.7 Total Bilirubin 0.4 AST 22 ALT 12 Alkaline Phosphatase 106 Total Protein 7.0 Albumin 3.3 L Post-procedural complaints: none Patient Feedback: Patient satisfied with anesthetic care.
[2021-04-24 12:28] LABS: Glucose Point of Care 285 mg/dl (65-105)
[2021-04-24 14:00] VITALS: BP 134/58; PULSE 81; RESP 22; TEMP 36.5; O2SAT 100
[2021-04-24] MEDS: AMOXICILLIN/CLAVULANATE K 500-125 MG TAB 1 TABLET PO (14:39)
--- NOTE | 2021-04-24 16:34 | WPDGIPROGNO ---
Progress Note: A&P Assessment and Plan (1) Reflux esophagitis: Code(s): K21.00 - Gastro-esophageal reflux disease with esophagitis, without bleeding Status: Acute Assessment and Plan: found yesterday, on ppi daily no more bleeding hb stable recommend to repeat EGD in 3 months (she will do it with her GI, Dr Teran) [place], call if questions (2) Coffee ground emesis: Code(s): K92.0 - Hematemesis Status: Acute Assessment and Plan: resolved (3) Anemia: Qualifiers: Anemia type: iron deficiency Iron deficiency anemia type: unspecified iron deficiency Qualified Code(s): D50.9 - Iron deficiency anemia, unspecified Code(s): D64.9 - Anemia, unspecified Status: Chronic Assessment and Plan: hb at baseline (4) Gastritis: Code(s): K29.70 - Gastritis, unspecified, without bleeding Status: Acute (5) SIRS (systemic inflammatory response syndrome): Code(s): R65.10 - Systemic inflammatory response syndrome (SIRS) of non-infectious origin without acute organ dysfunction Status: Acute (6) Fever: Code(s): R50.9 - Fever, unspecified Status: Acute (7) Urinary tract infection: Code(s): N39.0 - Urinary tract infection, site not specified Status: Acute Assessment and Plan: on antibiotics (8) Colon polyps: Onset Date: ~05/2016 Code(s): K63.5 - Polyp of colon Status: Acute Assessment and Plan: she will get her repeat colonoscopy next month with her GI doctor Subjective Date/time seen: 04/24/21 16:34 Interval history: no more nausea or vomiting, overall better. EGD yesterday with esophagitis. Review of Systems Review of Systems: All systems reviewed & are unremarkable except as noted in HPI and below Exam Const: General: comfortable and no acute distress Nutritional Appearance: obese HENMT: General nose exam: Normal nares present Eyes: Sclera: sclerae normal Neck: Neck: supple Resp: Auscultation: clear to auscultation bilaterally Cardio: Rate: regular rate GI: GI Palp: Yes Soft to palpation and No Guarding due to palpation present (GI) Auscultation: normal bowel sounds Skin: General skin exam: normal color Neuro: Speech: normal speech Extrem: General: normal to inspection Psych: Mental Status: mental status grossly normal Objective Data Vital Signs Vital Signs: Vital Signs - 24 hr 04/23/21 21:22 04/24/21 05:34 04/24/21 14:00 Temperature 98.6 F 97.6 F 97.7 F Pulse Rate 78 72 81 Respiratory Rate 16 16 22 H Blood Pressure 141/62 H 137/57 L 134/58 L Pulse Oximetry 95 100 100 Intake/Output Intake/Output: Intake & Output 04/21/21 04/22/21 04/23/21 04/24/21 23:59 23:59 23:59 23:59 Intake Total 150 3430 1525 1100 Output Total 500 1100 2200 900 Balance -350 2330 -675 200 Meds/Results Medications: Active Medications Generic Name Dose Route Start Last Admin Trade Name Freq PRN Reason Stop Dose Admin Acetaminophen 1,000 mg 04/24/21 13:36 Acetaminophen 500 Mg Tablet PO Q6H PRN Mild Pain (1-3) or Fever Albuterol 2 puff 04/22/21 00:59 Albuterol Sulfate (*Sp) Aerosol 1 Puff INHALATION Q4-6H PRN Shortness Of Breath Amlodipine Besylate 2.5 mg 04/22/21 09:00 04/24/21 08:23 Amlodipine Besylate 2.5 Mg Tablet PO 2.5 mg DAILY FAWN Administration Amoxicillin/Clavulanate Potassium 1 tablet 04/24/21 14:00 04/24/21 14:39 Amoxicillin/Clavulanate K 500-125 Mg Tab PO 05/01/21 14:01 1 tablet BID FAWN Administration Cyanocobalamin 1,000 mcg 04/22/21 09:00 04/24/21 08:24 Cyanocobalamin 1,000 Mcg Tablet PO 1,000 mcg DAILY FAWN Administration Dextrose 12.5 gm 04/22/21 03:46 Dextrose 50% 25 Gm/50 Ml Syringe IV PUSH PRN PRN Hypoglycemia Protocol Diphenhydramine HCl 50 mg 04/24/21 13:36 Diphenhydramine Hcl Inj 50 Mg/Ml Vial IV PUSH Q4H PRN Itching D
[2021-04-24 17:22] LABS: Glucose Point of Care 257 mg/dl (65-105)
--- NOTE | 2021-04-24 17:41 | PM.DS ---
DS: Admitting Diagnosis Admitting Diagnosis Fever, Coffee Ground Emesis, CKD, Candidiasis/Intertrigo, Reflux esophagitis, Gastritis DS: Discharge Diagnosis Discharge Diagnosis (1) Reflux esophagitis: Code(s): K21.00 - Gastro-esophageal reflux disease with esophagitis, without bleeding Status: Acute Assessment and Plan: found on EGD , was on PPI daily and increased to BID by GI after EGD. no more bleeding Hgb/Hct stable recommend to repeat EGD in 3 months (she will do it with her GI, Dr Teran) See can F/U with GI if her insurance covers (2) Coffee ground emesis: Code(s): K92.0 - Hematemesis Status: Acute Assessment and Plan: resolved no N/V today tolerating meals well (3) Anemia: Qualifiers: Anemia type: iron deficiency Iron deficiency anemia type: unspecified iron deficiency Qualified Code(s): D50.9 - Iron deficiency anemia, unspecified Code(s): D64.9 - Anemia, unspecified Status: Chronic Assessment and Plan: Hgb/Hct stable and at baseline H/H 8.5/26.8 and 9.0/28.4 (4) Gastritis: Code(s): K29.70 - Gastritis, unspecified, without bleeding Status: Acute Assessment and Plan: treating with BID protonix no current N/V H/H stable denies pain at this time (5) SIRS (systemic inflammatory response syndrome): Code(s): R65.10 - Systemic inflammatory response syndrome (SIRS) of non-infectious origin without acute organ dysfunction Status: Acute Assessment and Plan: no concerns at this time no flare up noted patient denies any complaints (6) Fever: Code(s): R50.9 - Fever, unspecified Status: Acute Assessment and Plan: no fevers since 04/21/2021 WBC 7.1 and 6.1 (7) Urinary tract infection: Code(s): N39.0 - Urinary tract infection, site not specified Status: Acute Assessment and Plan: on antibiotics treating UTI with Augmentin - as her last Proteus UTI was sensitive to Augmentin patient stated that she tolerates Augmentin, but not Zosyn. she tolerated her Augmentin dosing earlier today - no itching or rash complaints (patient educated regarding allergy s/s) (8) Colon polyps: Onset Date: ~05/2016 Code(s): K63.5 - Polyp of colon Status: Acute Assessment and Plan: she will get her repeat colonoscopy next month with her GI doctor DS: Summary Hospital Course Hospital Course: patient started on IV antibiotics, fevers resolved, H/H stable, EGD completed, Protonix changed to BID, patient tolerating oral diet and meds, discharged home on oral antibiotics. Time Spent with Patient Time attestation: Total time spent providing and/or coordinating discharge services:60 minutes Exam Narrative: General: overweight patient resting comfortably in the chair in no acute distress HEENT: normocephalic Neck: supple Neuro: Alert and oriented x4 CV:RRR Resp:CTA Abd: Soft, non distended. No pain to palpation. Positive bowel sounds Extremities: No swelling, erythema, or pain to palpation Skin: Folds of abdomen with redness and fungal appearance. Improvement of the left leg where there was previous cellulitis - NO open areas noted upon examination. Her back does show a recent incision/ scar from her bladder stimulator that does not show any signs of infx such as erythema or discharge. No pain to palpation. Const: General: cooperative, comfortable, no acute distress, well developed, alert, awake and ill appearing chronically; No confusion Nutritional Appearance: obese morbidly obese Orientation/consciousness: patient oriented x3 and No confusion Limitations: physical limitations (due to obesity and deconditioning immobility) HENMT: Head: normal to inspection, normocephalic and atraumatic Ears: hearing grossly normal bilaterally General nose exam: Normal external nose present and Normal nares present Face and sinus: normal facial exam Mouth: Yes Normal oral and pa
--- NOTE | 2021-04-25 10:09 | PC.NURSE ---
Urine cx shows Proteus Mirabilis- susceptible to Augmentin.
== END 2021-04-24 18:30 | disposition home health service (06) | DRG 368 ==
LOC: ANHED 22:14 → ANH2MED 04-22 07:31
PROVIDERS: Internal Medicine Gastroenterology; Physician Assistant; Admitting Provider Internal Medicine; Emergency Provider Emergency Medicine; PCP Student in an Organized Health Care Education/Training Program; Visit Provider Nurse Practitioner
PROC: 0DJ08ZZ Inspection of Upper Intestinal Tract, Via Natural or Artificial Opening Endoscopic (ICD-10-PCS; CPT 43235; principal; 2021-04-23 12:45)
DX: K21.01 Gastro-esophageal reflux disease with esophagitis, with bleeding (principal); K29.71 Gastritis, unspecified, with bleeding; N18.4 Chronic kidney disease, stage 4 (severe); Z68.42 Body mass index [BMI] 45.0-49.9, adult; R65.10 Systemic inflammatory response syndrome (SIRS) of non-infectious origin without acute organ dysfunction; N39.0 Urinary tract infection, site not specified; B96.4 Proteus (mirabilis) (morganii) as the cause of diseases classified elsewhere; K44.9 Diaphragmatic hernia without obstruction or gangrene; K31.7 Polyp of stomach and duodenum; D50.9 Iron deficiency anemia, unspecified; E66.01 Morbid (severe) obesity due to excess calories; E11.319 Type 2 diabetes mellitus with unspecified diabetic retinopathy without macular edema; E11.42 Type 2 diabetes mellitus with diabetic polyneuropathy; E11.22 Type 2 diabetes mellitus with diabetic chronic kidney disease; I12.9 Hypertensive chronic kidney disease with stage 1 through stage 4 chronic kidney disease, or unspecified chronic kidney disease; N31.9 Neuromuscular dysfunction of bladder, unspecified; N39.46 Mixed incontinence; B37.2 Candidiasis of skin and nail; M10.362 Gout due to renal impairment, left knee; R53.1 Weakness; E78.5 Hyperlipidemia, unspecified; Z79.4 Long term (current) use of insulin; Z97.8 Presence of other specified devices
CPT/HCPCS: 36415; 51701; 71045; 74176; 80048; 80053; 81001; 82607; 82728; 82746; 82948; 83036; 83540; 83550; 83605; 84145; 84466; 85014; 85018; 85025; 85027; 85610; 85730; 86140; 86850; 86880; 86900; 86901; 86922; 87040; 87077; 87086; 87088; 87186; 88305; 88312; 88313; 88342; 93005; 96361; 96365; 96375; 97161; 97165; 99285; A9270; C9113; J0131; J0696; J1815; J2001; J2704; J7030; J7120

== ENCOUNTER 2021-05-18 12:29 | Outpatient (CLI) | payer OTHER, MEDICAID, SELFPAY ==
[2021-05-18 13:14] LABS: Albumin Level 3.9 g/dL (3.5-5.1); Anion Gap 10 mmol/L (8-16); Blood Urea Nitrogen 61 mg/dL (7-17); Calcium 9.3 mg/dL (8.4-10.2); Carbon Dioxide 25 mmol/L (22-30); Chloride 106 mmol/L (98-107); Estimated Glomerular Filt Rate 20; Glucose 309 mg/dL (65-110); Phosphorus 5.1 mg/dL (2.5-4.5); Potassium 5.7 mmol/L (3.4-5.0); Sodium 141 mmol/L (137-145)
== END 2021-05-18 12:30 | disposition home or self-care (01) ==
PROVIDERS: PCP Student in an Organized Health Care Education/Training Program; Visit Provider Internal Medicine Nephrology
DX: E87.5 Hyperkalemia (principal)
CPT/HCPCS: 36415; 80069

== ENCOUNTER → 2021-09-26 01:49 | Outpatient (CLI) | payer MEDICARE, MEDICAID, SELFPAY ==
[2021-09-26 19:37] LABS: SARS-CoV-2 RNA PCR Positive
== END ==
PROVIDERS: PCP Student in an Organized Health Care Education/Training Program; Visit Provider Student in an Organized Health Care Education/Training Program
DX: U07.1 COVID-19 (principal)
CPT/HCPCS: C9803; U0003; U0005

== ENCOUNTER 2022-05-17 08:06 | Outpatient (CLI) | payer MEDICARE, MEDICAID, SELFPAY ==
--- NOTE | ~2022-05-17 | MM_ITS ---
EXAMINATION: MM screening rudy BI w [facility] HISTORY: Screening mammogram TECHNIQUE: Craniocaudal and mediolateral oblique 3-D tomosynthesis images were obtained and synthetic 2-D images were generated. CAD analysis was submitted and interpreted. COMPARISON: 02/01/2021, 08/19/2018 bilateral screening mammogram examinations BREAST PARENCHYMAL COMPOSITION: The breasts are almost entirely fatty. FINDINGS: Prominent arterial calcifications are noted throughout both breasts. This may be associated with increased risk for clinically significant coronary artery disease There is no evidence of suspi cious mass, calcification, or architectural distortion to suggest malignancy in either breast. There has been no suspicious interval change. IMPRESSION: 1. No mammographic evidence of malignancy. 2. Recommend routine screening mammography in one year. BI-RADS Category 1: Negative Reviewed, dictated and finalized at location A.
== END 2022-05-17 08:07 | disposition home or self-care (01) ==
PROVIDERS: PCP Student in an Organized Health Care Education/Training Program; Visit Provider Obstetrics & Gynecology Gynecology
DX: Z12.31 Encounter for screening mammogram for malignant neoplasm of breast (principal)
CPT/HCPCS: 77063; 77067

== ENCOUNTER 2022-08-13 12:46 | Outpatient (CLI) | payer MEDICARE, MEDICAID, SELFPAY ==
--- NOTE | ~2022-08-13 | US_ITS ---
EXAMINATION: US soft tissue LE LT DATE: 08/13/2022 13:42 INDICATION: Skin lump at the posterolateral left lower leg TECHNIQUE: Multiple grayscale and Doppler ultrasound images of the region of concern at the posterola teral left lower leg were obtained. COMPARISON: None FINDINGS: There is a 12 x 9 x 4 mm hypoechoic region without internal flow on color Doppler position within the subcutaneous fat at the region of concern. There appears to be some posterior acoustic enhancement s uggesting this is complex cystic. Small amount of surrounding reticular decreased echogenicity along the margins of a lobular hyperechoic fat consistent with mild edema. IMPRESSION: 1. Mild edema in the subcutaneous fat surrounding a 12 x 9 x 4 mm likely complex cystic lesion which could represent either a hematoma or abscess. Solid neoplasm considered less likely. Correlate clinic ally and consider repeat imaging should the lesion progress or failed to resolve on physical exam. Reviewed, dictated and finalized at location A. D REPRESENTATIVES DIRECTOR IMPRESSION: 1. Mild edema in the subcutaneous fat surrounding a 12 x 9 x 4 mm likely comple x cystic lesion which could represent either a hematoma or abscess. Solid neopl asm considered less likely. Correlate clinically and consider repeat imaging sh ould the lesion progress or failed to resolve on physical exam.
== END 2022-08-13 12:47 | disposition home or self-care (01) ==
PROVIDERS: PCP Student in an Organized Health Care Education/Training Program; Visit Provider Student in an Organized Health Care Education/Training Program
DX: R22.42 Localized swelling, mass and lump, left lower limb (principal)
CPT/HCPCS: 76882

== ENCOUNTER 2023-08-06 12:55 | Emergency (ER) | payer MEDICARE, MEDICAID, SELFPAY ==
[2023-08-06] VITALS (11 sets, daily range): BP systolic 100–140; BP diastolic 53–63; PULSE 73–84; RESP 15–20; TEMP 36.3; O2SAT 96–100
--- NOTE | ~2023-08-06 | CT_ITS ---
EXAMINATION: CT abdomen pelvis wo con DATE: 08/06/2023 15:56 INDICATION: abdominal pain, n/v/d TECHNIQUE: Computed tomography (CT) of the abdomen and pelvis was performed without intravenous contr ast. Automated exposure control and iterative reconstruction technique were employed. The dose-length product was 1640.78 mGy-cm. COMPARISON: 04/22/2021. FINDINGS: Lower thorax: Heavy coronary artery calcification. Liver: Normal. Biliary/Gallbladder: Cholelithiasis. No bile duct dilation. Pancreas: No mass or duct dilation. Spleen: Normal. Adrenals:No mass. Kidneys: No suspicious mass, obstructing stone, or hydronephrosis. GI tract: No small or large bowel dilation. Normal appendix. Mesentery/Peritoneum: No ascites, mass, or free air. Stable mild stranding and dystrophic calcificati on in the left anterior upper quadrant mesenteric fat, likely secondary to old mesenteric contusion o r postsurgical change. Retroperitoneum: No mass. Extensive atherosclerotic calcifications. Pelvis: Pelvic organs are within normal limits. Soft Tissues: Mild bilateral flank edema. Right-sided stimulator pack, lead terminating over the left sacrum. Bones: No acute osseous finding. IMPRESSION: No acute abdominopelvic process detected. Reviewed, dictated and finalized at location K. R INCIDENT HANDLER
--- NOTE | 2023-08-06 13:14 | PC.NURSE ---
Pt reports needing to have a BM immediately after arriving. Per pt request, was placed on a bedpan. Pt states feeling much better and the pain in her anal region has improved.
[2023-08-06 13:54] LABS: Basophils Percent Auto 0.4 % (0.2-1.2); Eosinophils Absolute Auto 0.1 K/mm3 (0-0.3); Eosinophils Percent Auto 1.4 % (0-4.4); Hematocrit 28.6 % (37.0-47.0); Hemoglobin 8.8 g/dL (12.0-15.0); Immature Granulocyte Absolute 0.06 K/mm3 (0.00-0.031); Immature Granulocyte Percent A 0.6 % (0-0.5); Lymphocytes Absolute Auto 1.38 K/mm3 (0.9-3.2); Lymphocytes Percent Auto 13.8 % (18.3-44.2); Mean Corpuscular HGB Conc 30.8 g/dl (32-36); Mean Corpuscular Hemoglobin 28.7 pg (26-34); Mean Corpuscular Volume 93.2 fl (80-100); Mean Platelet Volume 9.9 fl (7.4-10.4); Monocytes Absolute Auto 0.6 K/mm3 (0.1-0.6); Monocytes Percent Auto 5.8 % (2.6-8.5); Neutrophils Absolute Auto 7.8 K/mm3 (1.3-6.7); Platelet Count Result 203 k/mm3 (150-375); Red Blood Count 3.07 M/mm3 (4.2-5.4); Red Cell Distribution Width 14.6 % (11.5-14.5)
[2023-08-06 15:00] LABS: Alanine Aminotransferase 10 U/L (6-35); Albumin Level 3.5 g/dL (3.5-5.1); Alkaline Phosphatase 147 U/L (38-126); Anion Gap 9 mmol/L (8-16); Aspartate Amino Transferase 17 U/L (14-36); Bilirubin,Total 0.7 mg/dL (0.2-1.3); Blood Urea Nitrogen 47 mg/dL (7-17); Calcium 8.9 mg/dL (8.4-10.2); Carbon Dioxide 26 mmol/L (22-30); Chloride 103 mmol/L (98-107); Estimated CRCL calculation 30 ml/min; Estimated Glomerular Filt Rate 19; Glucose 168 mg/dL (65-110); Lipase 105 U/L (23-300); Potassium 4.2 mmol/L (3.4-5.0); Sodium 138 mmol/L (137-145)
--- NOTE | 2023-08-06 15:20 | ED.GENADULT ---
HPI - General Adult General Chief complaint: Nausea/Vomiting/Diarrhea Stated complaint: N/V, low BP Time Seen by Provider: 08/06/23 13:57 History of Present Illness HPI narrative: 63-year-old female with history of chronic kidney disease, diabetes, hypertension, obesity, high cholesterol, cellulitis, urinary tract infections presents to the emergency department for evaluation of nausea vomiting diarrhea and abdominal pain. Related Data Home Medications Medication Instructions Recorded Confirmed cholecalciferol (vitamin D3) 125 5,000 unit PO DAILY 08/11/19 07/09/23 mcg (5,000 unit) capsule cyanocobalamin (vitamin B-12) 1,000 mcg PO DAILY 01/17/20 07/09/23 1,000 mcg tablet ferrous sulfate 325 mg (65 mg 325 mg PO BID 08/09/20 07/09/23 iron) tablet nystatin 100,000 unit/gram topical 1 applic topical DAILY 12/03/20 07/09/23 cream atorvastatin 80 mg tablet (Lipitor) 80 mg PO DAILY 08/20/21 07/09/23 furosemide 20 mg tablet 10 mg PO QAM 08/20/21 07/09/23 folic acid 1 mg tablet 1 mg PO DAILY 12/04/21 07/09/23 apixaban 5 mg tablet (Eliquis) 5 mg PO BID 09/18/22 07/09/23 linaclotide 145 mcg capsule 145 mcg PO DAILY 09/18/22 07/09/23 (Linzess) tirzepatide 5 mg/0.5 mL 5 mg subcut WEEKLY 10/09/22 07/09/23 subcutaneous pen injector (Mounericro) Allergies Allergy/AdvReac Type Severity Reaction Status Date / Time vancomycin Allergy Unknown Rash,Unknow Verified 07/08/23 11:18 n piperacillin [From Zosyn] Allergy Rash Verified 07/08/23 11:18 tazobactam [From Zosyn] Allergy Rash Verified 07/08/23 11:18 doxycycline AdvReac Intermediate Weakness Verified 07/08/23 11:18 daptomycin AdvReac Weakness Verified 07/08/23 11:18 Review of Systems Review of Systems: All systems reviewed & are unremarkable except as noted in HPI and below PMFSH Past Medical History Medical History Arthritis of left knee Autoimmune disease Body mass index (BMI) 35 or more (07/29/17) Carpal tunnel syndrome, left Charcot foot due to diabetes mellitus Chronic anemia Chronic kidney disease, stage 4 (severe) Followed by Dr. Benson. Baseline creatinine ranges between 2 and 3.0. Chronic osteomyelitis of left foot Colon polyps (~05/2016) Depression Diabetic peripheral neuropathy Diabetic retinopathy L eye requiring injections. Diabetic ulcer of left foot Elevated antinuclear antibody (SADIQ) level Essential hypertension Gout due to renal impairment, left knee History of anemia Hyperlipidemia Insulin dependent type 2 diabetes mellitus Hemoglobin A1c was 5.9 % on 12/01/2020. parts counterman (current) use of insulin Lymphedema Mixed hyperlipidemia Mixed stress and urge urinary incontinence Morbid (severe) obesity due to excess calories (10/07/16) Morbid obesity Neurogenic bladder Neuropathy of left hand Paresthesia of skin Peripheral vascular disease in diabetes mellitus Port-A-Cath in place Right foot ulcer Seborrheic keratosis SIRS (systemic inflammatory response syndrome) Surgical History Surgical History History of Achilles tendon repair History of amputation of toe Left 4th toe and 2 other toes on the right foot have been amputated. History of fusion of cervical spine (~10/2001) History of local excision of skin lesion Exophytic lesion removed from the right eyelid, benign. Status post debridement (~2019) Left diabetic heel wound. Family History Family History Mother Cerebrovascular accident Family history of diabetes mellitus in first degree relative Father Family history of diabetes mellitus in first degree relative Heart disease Grandparent Diabetes mellitus Other Family history of anemia Family history of obesity Social History Social History (Updated 07/08/23 @ 11:30 by Nolvia Foster MA) Social History: The patient lives in [place] with
[2023-08-06] MEDS: SODIUM CHLORIDE 0.9% IV 1,000 ML 999 ML IV CONT (15:36)
[2023-08-06 15:57] LABS: Appearance Urine Cloudy (Clear); Bacteria Urine 4+ /hpf; Bilirubin Urine Negative (Negative); Blood Urine Negative (Negative); Color Urine Yellow (Yellow); Glucose Urine UA Negative (Negative); Hyaline Casts Urine Present /lpf; Ketones Urine Negative (Negative); Leukocyte Esterase Ur 3+ LEU/UL (Negative); Nitrate Urine Positive (Negative); Protein Urine 1+ mg/dL (Negative); RBC Urine 0-2 /hpf (0-2); Specific Grav Ur 1.011 (1.001-1.035); Squamous Epithelial Cell Urine None seen /hpf (Few); Urobilinogen Urine 0.2 mg/dL (<2.0); WBC Urine 51-100 /hpf
[2023-08-06 15:59] LABS: Add Urine Microscopic? YES
[2023-08-06 16:08] LABS: Influenza A QL RT-PCR Negative (Negative); Influenza B QL RT-PCR Negative (Negative); RSV RNA, RT-PCR Negative (Negative); SARS-CoV-2 RNA PCR Negative (Negative)
[2023-08-06] MEDS: HEPARIN SODIUM LOCK FLUSH 500 UNITS/5 ML VIAL (18:56)
== END 2023-08-06 19:13 | disposition home or self-care (01) ==
PROVIDERS: Emergency Medicine; Emergency Provider Emergency Medicine; PCP Student in an Organized Health Care Education/Training Program
DX: N39.0 Urinary tract infection, site not specified (principal); R53.83 Other fatigue; Z20.822 Contact with and (suspected) exposure to COVID-19; E11.22 Type 2 diabetes mellitus with diabetic chronic kidney disease; I12.9 Hypertensive chronic kidney disease with stage 1 through stage 4 chronic kidney disease, or unspecified chronic kidney disease; N18.4 Chronic kidney disease, stage 4 (severe); M10.362 Gout due to renal impairment, left knee; E11.69 Type 2 diabetes mellitus with other specified complication; M86.672 Other chronic osteomyelitis, left ankle and foot; E11.42 Type 2 diabetes mellitus with diabetic polyneuropathy; E11.319 Type 2 diabetes mellitus with unspecified diabetic retinopathy without macular edema; E11.51 Type 2 diabetes mellitus with diabetic peripheral angiopathy without gangrene; I73.9 Peripheral vascular disease, unspecified; D64.9 Anemia, unspecified; I89.0 Lymphedema, not elsewhere classified; E78.2 Mixed hyperlipidemia; E66.01 Morbid (severe) obesity due to excess calories; Z68.43 Body mass index [BMI] 50.0-59.9, adult; N31.9 Neuromuscular dysfunction of bladder, unspecified; M17.12 Unilateral primary osteoarthritis, left knee; Z86.010 Personal history of colon polyps; Z89.422 Acquired absence of other left toe(s); Z89.421 Acquired absence of other right toe(s); Z98.1 Arthrodesis status; Z79.01 Long term (current) use of anticoagulants; Z79.85 Long-term (current) use of injectable non-insulin antidiabetic drugs; Z79.4 Long term (current) use of insulin
CPT/HCPCS: 36415; 74176; 80053; 81001; 83690; 85025; 87077; 87086; 87186; 87637; 96361; 96365; 96375; 99284; J0696; J1642; J7030

== ENCOUNTER 2023-10-20 04:48 | Emergency (ER) | payer MEDICARE, MEDICAID, SELFPAY ==
--- NOTE | ~2023-10-20 | XR_ITS ---
Left Knee Technique: AP, lateral, and oblique views were obtained. Clinical History: Injury Findings: No fracture or dislocation is seen. Osseous alignment is anatomic. Joint spaces are preserv ed without degenerative or erosive change. Soft tissues are unremarkable. No joint effusion is seen. Impression: Unremarkable left knee radiographs. Reviewed, dictated and finalized at [facility]. [employer]PER[employer] Impression: Unremarkable left knee radiographs.
[2023-10-20 04:44] VITALS: BP 180/64; PULSE 90; RESP 15; TEMP 36.6; O2SAT 99
[2023-10-20 05:18] VITALS: BP 161/68; PULSE 85; RESP 16; O2SAT 97
[2023-10-20 05:46] VITALS: BP 172/79; PULSE 88; RESP 17; O2SAT 99
--- NOTE | 2023-10-20 05:49 | ED.GENADULT ---
HPI - General Adult General Chief complaint: Extremity Injury, Lower Stated complaint: unable to bear weight on LLE History of Present Illness HPI narrative: 63-year-old female presenting to the emergency department for evaluation of left knee pain. Patient states the pain has been bothering her for the last few days. Patient states since she has been shuffling back and forth between her bed and her bedside commode. Patient denies any falls or injuries. EMS was called to the house for her needed a lift assist and while EMS was there patient stated that she want to be taking to the emergency department. Related Data Home Medications Medication Instructions Recorded Confirmed cholecalciferol (vitamin D3) 125 5,000 unit PO DAILY 08/11/19 07/09/23 mcg (5,000 unit) capsule cyanocobalamin (vitamin B-12) 1,000 mcg PO DAILY 01/17/20 07/09/23 1,000 mcg tablet ferrous sulfate 325 mg (65 mg 325 mg PO BID 08/09/20 07/09/23 iron) tablet nystatin 100,000 unit/gram topical 1 applic topical DAILY 12/03/20 07/09/23 cream atorvastatin 80 mg tablet (Lipitor) 80 mg PO DAILY 08/20/21 07/09/23 furosemide 20 mg tablet 10 mg PO QAM 08/20/21 07/09/23 folic acid 1 mg tablet 1 mg PO DAILY 12/04/21 07/09/23 apixaban 5 mg tablet (Eliquis) 5 mg PO BID 09/18/22 07/09/23 linaclotide 145 mcg capsule 145 mcg PO DAILY 09/18/22 07/09/23 (Linzess) tirzepatide 5 mg/0.5 mL 5 mg subcut WEEKLY 10/09/22 07/09/23 subcutaneous pen injector (Mounjaro) Allergies Allergy/AdvReac Type Severity Reaction Status Date / Time vancomycin Allergy Unknown Rash,Unknow Verified 10/20/23 04:54 n piperacillin [From Zosyn] Allergy Rash Verified 10/20/23 04:54 tazobactam [From Zosyn] Allergy Rash Verified 10/20/23 04:54 doxycycline AdvReac Intermediate Weakness Verified 10/20/23 04:54 daptomycin AdvReac Weakness Verified 10/20/23 04:54 Review of Systems Review of Systems: All systems reviewed & are unremarkable except as noted in HPI and below PMFSH Past Medical History Medical History Arthritis of left knee Autoimmune disease Body mass index (BMI) 35 or more (07/29/17) Carpal tunnel syndrome, left Charcot foot due to diabetes mellitus Chronic anemia Chronic kidney disease, stage 4 (severe) Followed by Dr. Benson. Baseline creatinine ranges between 2 and 3.0. Chronic osteomyelitis of left foot Colon polyps (~05/2016) Depression Diabetic peripheral neuropathy Diabetic retinopathy L eye requiring injections. Diabetic ulcer of left foot Elevated antinuclear antibody (SADIQ) level Essential hypertension Gout due to renal impairment, left knee History of anemia Hyperlipidemia Insulin dependent type 2 diabetes mellitus Hemoglobin A1c was 5.9 % on 12/01/2020. watermaster (current) use of insulin Lymphedema Mixed hyperlipidemia Mixed stress and urge urinary incontinence Morbid (severe) obesity due to excess calories (10/07/16) Morbid obesity Neurogenic bladder Neuropathy of left hand Paresthesia of skin Peripheral vascular disease in diabetes mellitus Port-A-Cath in place Right foot ulcer Seborrheic keratosis SIRS (systemic inflammatory response syndrome) Surgical History Surgical History History of Achilles tendon repair History of amputation of toe Left 4th toe and 2 other toes on the right foot have been amputated. History of fusion of cervical spine (~10/2001) History of local excision of skin lesion Exophytic lesion removed from the right eyelid, benign. Status post debridement (~2019) Left diabetic heel wound. Family History Family History Mother Cerebrovascular accident Family history of diabetes mellitus in first degree relative Father Family history of diabetes mellitus in first degree relative Heart disease Grandparent Diabetes mellitus Oth
== END 2023-10-20 06:35 | disposition home or self-care (01) ==
PROVIDERS: Emergency Provider Emergency Medicine; PCP Student in an Organized Health Care Education/Training Program
DX: S86.912A Strain of unspecified muscle(s) and tendon(s) at lower leg level, left leg, initial encounter (principal); E11.22 Type 2 diabetes mellitus with diabetic chronic kidney disease; I12.9 Hypertensive chronic kidney disease with stage 1 through stage 4 chronic kidney disease, or unspecified chronic kidney disease; N18.4 Chronic kidney disease, stage 4 (severe); D64.9 Anemia, unspecified; E11.69 Type 2 diabetes mellitus with other specified complication; M86.672 Other chronic osteomyelitis, left ankle and foot; E11.42 Type 2 diabetes mellitus with diabetic polyneuropathy; E78.2 Mixed hyperlipidemia; N39.46 Mixed incontinence; N31.9 Neuromuscular dysfunction of bladder, unspecified; E11.51 Type 2 diabetes mellitus with diabetic peripheral angiopathy without gangrene; I73.9 Peripheral vascular disease, unspecified; I89.0 Lymphedema, not elsewhere classified; E66.01 Morbid (severe) obesity due to excess calories; Z68.43 Body mass index [BMI] 50.0-59.9, adult; M10.362 Gout due to renal impairment, left knee; M17.12 Unilateral primary osteoarthritis, left knee; M35.9 Systemic involvement of connective tissue, unspecified; Z86.010 Personal history of colon polyps; Z79.01 Long term (current) use of anticoagulants; Z79.85 Long-term (current) use of injectable non-insulin antidiabetic drugs; Z89.421 Acquired absence of other right toe(s); Z98.1 Arthrodesis status; X58.XXXA Exposure to other specified factors, initial encounter
CPT/HCPCS: 73562; 99283

== ENCOUNTER 2024-01-14 13:56 | Emergency (ER) | payer MEDICARE, SELFPAY ==
[2024-01-14] VITALS (17 sets, daily range): BP systolic 114–157; BP diastolic 45–73; PULSE 83–92; RESP 14–22; TEMP 36.1–36.7; O2SAT 97–100
--- NOTE | 2024-01-14 14:15 | ED.GENADULT ---
HPI - General Adult General Chief complaint: Recheck/Abnormal Lab/Rx Stated complaint: low hgb Time Seen by Provider: 01/14/24 13:59 History of Present Illness HPI narrative: 63-year-old female presenting to the emergency department for evaluation of low hemoglobin. Patient does have known anemia and does follow-up with Hematology at [facility]. Patient also has known kidney disease follow-up with Dr. Benson. Patient denies any active bleeding but was told that her hemoglobin was low and that she needed transfusion. Patient reports she has had multiple transfusions here but is also presenting to [facility] for transfusions. Patient denies any new pain or complaints. Related Data Home Medications Medication Instructions Recorded Confirmed cholecalciferol (vitamin D3) 125 5,000 unit PO DAILY 08/11/19 07/09/23 mcg (5,000 unit) capsule cyanocobalamin (vitamin B-12) 1,000 mcg PO DAILY 01/17/20 07/09/23 1,000 mcg tablet ferrous sulfate 325 mg (65 mg 325 mg PO BID 08/09/20 07/09/23 iron) tablet nystatin 100,000 unit/gram topical 1 applic topical DAILY 12/03/20 07/09/23 cream atorvastatin 80 mg tablet (Lipitor) 80 mg PO DAILY 08/20/21 07/09/23 furosemide 20 mg tablet 10 mg PO QAM 08/20/21 07/09/23 folic acid 1 mg tablet 1 mg PO DAILY 12/04/21 07/09/23 apixaban 5 mg tablet (Eliquis) 5 mg PO BID 09/18/22 07/09/23 linaclotide 145 mcg capsule 145 mcg PO DAILY 09/18/22 07/09/23 (Linzess) tirzepatide 5 mg/0.5 mL 5 mg subcut WEEKLY 10/09/22 07/09/23 subcutaneous pen injector (Mounjaro) Allergies Allergy/AdvReac Type Severity Reaction Status Date / Time vancomycin Allergy Unknown Rash,Unknow Verified 10/20/23 04:54 n piperacillin [From Zosyn] Allergy Rash Verified 10/20/23 04:54 tazobactam [From Zosyn] Allergy Rash Verified 10/20/23 04:54 doxycycline AdvReac Intermediate Weakness Verified 10/20/23 04:54 daptomycin AdvReac Weakness Verified 10/20/23 04:54 Review of Systems Review of Systems: All systems reviewed & are unremarkable except as noted in HPI and below PMFSH Past Medical History Medical History Arthritis of left knee Autoimmune disease Body mass index (BMI) 35 or more (07/29/17) Carpal tunnel syndrome, left Charcot foot due to diabetes mellitus Chronic anemia Chronic kidney disease, stage 4 (severe) Followed by Dr. Benson. Baseline creatinine ranges between 2 and 3.0. Chronic osteomyelitis of left foot Colon polyps (~05/2016) Depression Diabetic peripheral neuropathy Diabetic retinopathy L eye requiring injections. Diabetic ulcer of left foot Elevated antinuclear antibody (SADIQ) level Essential hypertension Gout due to renal impairment, left knee History of anemia Hyperlipidemia Insulin dependent type 2 diabetes mellitus Hemoglobin A1c was 5.9 % on 12/01/2020. long term care phlebotomist (current) use of insulin Lymphedema Mixed hyperlipidemia Mixed stress and urge urinary incontinence Morbid (severe) obesity due to excess calories (10/07/16) Morbid obesity Neurogenic bladder Neuropathy of left hand Paresthesia of skin Peripheral vascular disease in diabetes mellitus Port-A-Cath in place Right foot ulcer Seborrheic keratosis SIRS (systemic inflammatory response syndrome) Surgical History Surgical History History of Achilles tendon repair History of amputation of toe Left 4th toe and 2 other toes on the right foot have been amputated. History of fusion of cervical spine (~10/2001) History of local excision of skin lesion Exophytic lesion removed from the right eyelid, benign. Status post debridement (~2019) Left diabetic heel wound. Family History Family History Mother Cerebrovascular accident Family history of diabetes mellitus in first degree relative Father Family history of diabetes mellitus in first degree relative
[2024-01-14 14:40] LABS: Basophils Percent Auto 0.3 % (0.2-1.2); Eosinophils Absolute Auto 0.4 K/mm3 (0-0.3); Eosinophils Percent Auto 3.2 % (0-4.4); Hematocrit 21.4 % (37.0-47.0); Immature Granulocyte Absolute 0.07 K/mm3 (0.00-0.031); Immature Granulocyte Percent A 0.6 % (0-0.5); Lymphocytes Absolute Auto 1.27 K/mm3 (0.9-3.2); Lymphocytes Percent Auto 11.5 % (18.3-44.2); Mean Corpuscular HGB Conc 31.3 g/dl (32-36); Mean Corpuscular Hemoglobin 29.4 pg (26-34); Mean Corpuscular Volume 93.9 fl (80-100); Mean Platelet Volume 8.8 fl (7.4-10.4); Monocytes Absolute Auto 0.6 K/mm3 (0.1-0.6); Monocytes Percent Auto 5.1 % (2.6-8.5); Neutrophils Absolute Auto 8.8 K/mm3 (1.3-6.7); Neutrophils Percent Auto 79.3 % (45.5-73.1); Platelet Count Result 254 k/mm3 (150-375); Red Blood Count 2.28 M/mm3 (4.2-5.4); Red Cell Distribution Width 15.9 % (11.5-14.5); White Blood Count 11.1 K/mm3 (4.5-10.0)
[2024-01-14 14:42] LABS: Hemoglobin 6.7 g/dL (12.0-15.0)
[2024-01-14 14:50] LABS: INR 1.6; Prothrombin Time 19.7 Seconds (11.1-14.7)
[2024-01-14 14:51] LABS: Partial Thromboplastin Time 54.6 Seconds (22.3-36.8)
[2024-01-14 14:53] LABS: Alanine Aminotransferase 10 U/L (6-35); Albumin Level 3.4 g/dL (3.5-5.1); Alkaline Phosphatase 123 U/L (38-126); Anion Gap 7 mmol/L (4-12); Aspartate Amino Transferase 14 U/L (14-36); Bilirubin,Total 0.5 mg/dL (0.2-1.3); Blood Urea Nitrogen 34 mg/dL (7-17); Calcium 8.8 mg/dL (8.4-10.2); Carbon Dioxide 25 mmol/L (22-30); Chloride 106 mmol/L (98-107); Estimated CRCL calculation 32 ml/min; Estimated Glomerular Filt Rate 21; Glucose 195 mg/dL (65-110); Potassium 3.9 mmol/L (3.4-5.0); Sodium 138 mmol/L (137-145)
[2024-01-14] MEDS: SODIUM CHLORIDE 0.9% IV 250 ML 30 ML IV CONT (17:30)
[2024-01-14] MEDS: CENTRAL LINE FLUSH 10 ML IV PUSH (22:06)
[2024-01-14] MEDS: HEPARIN SODIUM LOCK FLUSH 500 UNITS/5 ML SYRINGE IV PUSH (22:34)
== END 2024-01-14 23:03 ==
PROVIDERS: Emergency Provider Emergency Medicine; PCP Student in an Organized Health Care Education/Training Program
DX: D64.9 Anemia, unspecified (principal); N18.4 Chronic kidney disease, stage 4 (severe); E11.22 Type 2 diabetes mellitus with diabetic chronic kidney disease; Z79.4 Long term (current) use of insulin; E78.2 Mixed hyperlipidemia; E66.01 Morbid (severe) obesity due to excess calories; Z68.43 Body mass index [BMI] 50.0-59.9, adult
CPT/HCPCS: 36415; 36430; 80053; 85025; 85610; 85730; 86850; 86900; 86901; 86922; 96360; 96361; 99285; J1642; J7050; P9016